=== PATIENT | female | born 1975 | race Caucasian/White ===

== ENCOUNTER 2016-09-27 19:53 | Emergency (ER) | payer BC, MEDICAID ==
[2016-09-27] MEDS ORDERED: DEXAMETHASONE 10 MG/ML VIAL PO STA (20:20)
[2016-09-27] MEDS ORDERED: ALBUTEROL NEB 2.5 MG/3 ML INH STA (20:20)
[2016-09-27] MEDS ORDERED: ALBUTEROL NEB 2.5 MG/3 ML INH ONE (20:25)
[2016-09-27] MEDS ORDERED: DEXAMETHASONE 10 MG/ML VIAL ONE (20:58)
[2016-09-27] MEDS ORDERED: LEVALBUTEROL 1.25 MG INH STA (22:11)
[2016-09-27] MEDS ORDERED: SODIUM CHLORIDE INHALATION 3 ML NEB ONE ×2 (22:21→22:31)
[2016-09-27] MEDS ORDERED: LEVALBUTEROL 1.25 MG INH ONE ×2 (22:21→22:28)
[2016-09-27] MEDS ORDERED: guaiFENesin/CODEINE 5 ML UDC PO STA (23:16)
[2016-09-27] MEDS ORDERED: BENZONATATE 100 MG CAPSULE PO STA (23:16)
[2016-09-27] MEDS ORDERED: OSELTAMIVIR 75 MG CAPSULE PO STA (23:17)
[2016-09-27] MEDS ORDERED: BENZONATATE 100 MG CAPSULE PO ONE (23:20)
[2016-09-27] MEDS ORDERED: guaiFENesin/CODEINE 5 ML UDC ONE (23:20)
[2016-09-27] MEDS ORDERED: OSELTAMIVIR 75 MG CAPSULE PO ONE (23:21)
== END 2016-09-28 00:22 | disposition home or self-care (01) ==
DX: J10.1 Influenza due to other identified influenza virus with other respiratory manifestations (principal); J45.909 Unspecified asthma, uncomplicated; I10 Essential (primary) hypertension; E11.9 Type 2 diabetes mellitus without complications; Z79.84 Long term (current) use of oral hypoglycemic drugs; M19.90 Unspecified osteoarthritis, unspecified site; Z87.891 Personal history of nicotine dependence
CPT/HCPCS: 71020; 87275; 87276; 94640; 99283; 99284; A9270; J7613

== ENCOUNTER 2017-03-30 15:18 | Emergency (ER) | payer MEDICAID ==
[2017-03-30 15:27] VITALS: BP 178/97
--- NOTE | 2017-03-30 15:46 | ED Physician Documentation ---
PD HPI SKIN - Stated complaint Stated Complaint: R LEG ITCHING - Chief complaint Chief Complaint: Wound - History obtained from History obtained from: Patient - History of Present Illness Timing - onset: How many days ago (3 or 4) Timing - details: Gradual onset Location: RLE Quality / character: Itchy, Discolored Contributing factors: Unknown Similar symptoms before: Diagnosis (She reports history of similar symptoms involving her abdominal pannus, requiring hospitalization 2 years ago for cellulitis.) - Additional information Additional information: The patient is a 41-year-old diabetic female who presents with a rash on her right leg that she first noticed 3 or 4 days ago, and it has been gradually increasing since that time. It is pruritic. She denies any injury to her leg. She denies fever. She is concerned about cellulitis, stating she was hospitalized 2 years ago with cellulitis involving her abdominal pannus. 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 : None HEENT: None Psych: Depression, Bipolar disorder, ADD/ADHD Musculoskeletal: Osteoarthritis Derm: None - Past Surgical History Past Surgical History: Yes /SANDER AND POLISHER: section - Present Medications Home Medications: Ambulatory Orders Medication Instructions Recorded Confirmed Cephalexin 500 mg PO TID #20 tablet 03/30/17 - Allergies Allergies/Adverse Reactions: Allergies Allergy/AdvReac Type Severity Reaction Status Date / Time phenobarbital Allergy Severe Anxiety Verified 03/30/17 15:46 phenytoin sodium extended * Allergy Intermediate Anxiety Verified 03/30/17 15:46 [From Dilantin] fluoxetine HCl * AdvReac Severe depression Verified 03/30/17 15:46 [From Prozac] - Social History Does the pt smoke?: No Smoking Status: Former smoker Does the pt drink ETOH?: Yes Does the pt have substance abuse?: No - Immunizations Immunizations are current?: Yes - POLST Patient has POLST: No PD ED PE NORMAL - Vitals Vital signs reviewed: Yes (Hypertensive.) - General General: Alert and oriented X 3, Well developed/nourished - HEENT HEENT: Atraumatic - Respiratory Respiratory: No respiratory distress - Abdomen Abdomen: Soft, Non tender - Derm Derm: Other - Extremities Extremities: No edema, No calf tenderness / cord - Neuro Neuro: Alert and oriented X 3, No motor deficit, Normal speech Results - Vitals Vitals: Oxygen O2 Source Room air - Labs Labs: Laboratory Tests 03/30/17 15:42 POC Whole Bld Glucose 154 H PD MEDICAL DECISION MAKING - ED course Complexity details: reviewed results, considered differential, d/w patient, d/w family ED course: The erythematous past on the patient's right leg may represent early cellulitis , although it is not by any means certain. Contact dermatitis is a distinct possibility, although the patient is not aware of any contact that would be out of the ordinary or be responsible for the rash. Treatment in the emergency department included administration of cephalexin 500 mg orally. Fingerstick blood sugar is slightly above normal at 154. She is being discharged with prescription for cephalexin. I discussed with her and her family the expected course of illness, outpatient treatment and follow-up, as well as potentially worrisome signs or symptoms that should prompt reevaluation in the emergency department. Departure - Departure Disposition: 01 Home, Self Care Clinical Impression: Localized rash Cellulitis Qualifiers: Site of cellulitis: extremity Site of cellulitis of extremity: lower extremity Laterality: right Qualified Code(s): L03.115 - Cellulitis of right lower limb Diabetes Qualifiers: Diabetes mellitus type: type 2 Diabetes mellitus complication status: without complication Diabetes mellitus halfway insulin use: without halfway use Qualified Code(s): E11.9 - Type 2 diabetes mellitus without complications Condition: Stable Instructions: ED Infec Skin Cellulitis Prescriptions: Cephalexin 500 mg PO TID #20 tablet Comments: Keep your right leg elevated as much the time as possible. Take cephalexin 3 times daily as prescribed. Eat probiotic while on antibiotic therapy. Follow-up with your primary physician within 2 weeks. Return to the emergency department if you develop increasing redness, swelling, pain, or otherwise worsening symptoms. Discharge Date/Time: 03/30/17 15:54
[2017-03-30] MEDS ORDERED: CEPHALEXIN 250 MG CAPSULE PO STA (15:49)
[2017-03-30] MEDS ORDERED: CEPHALEXIN 250 MG CAPSULE PO ONE (15:54)
== END 2017-03-30 15:54 | disposition home or self-care (01) ==
LOC: ED 15:18
DX: L03.115 Cellulitis of right lower limb (principal); R21 Rash and other nonspecific skin eruption; E11.9 Type 2 diabetes mellitus without complications; I10 Essential (primary) hypertension; J45.909 Unspecified asthma, uncomplicated; M19.90 Unspecified osteoarthritis, unspecified site; Z87.891 Personal history of nicotine dependence
CPT/HCPCS: 99282; 99283; A9270

== ENCOUNTER 2017-06-22 00:16 | Emergency (ER) | payer MEDICAID ==
[2017-06-22] MEDS ORDERED: AMOX/CLAV 875 MG/125 MG TABLET PO STA (00:31)
[2017-06-22] MEDS ORDERED: IBUPROFEN 600 MG TABLET PO STA (00:31)
[2017-06-22] MEDS ORDERED: ACETAMINOPHEN 500 MG TABLET PO STA (00:31)
--- NOTE | 2017-06-22 00:36 | ED Physician Documentation ---
PD HPI HEENT - Stated complaint Stated Complaint: DENTAL PAIN - Chief complaint Chief Complaint: Heent - History obtained from History obtained from: Patient - History of Present Illness Timing - onset: Today Timing - details: Gradual onset, Still present Location: Mouth Associated symptoms: No: Fever, Congestion, Unable to swallow Similar symptoms before: Work up / diagnostics, Treatment Recently seen: Not recently seen - Additional information Additional information: Patient is a 41 year old female with no significant past medical history who is presenting to the emergency department for tooth pain. patient states that it started yesterday and has become progressively worse. patient had poor dentition since she had a bad experience as a child, and hasn't been to the dentist in years. Review of Systems Constitutional: denies: Fever, Chills Eyes: denies: Loss of vision, Decreased vision Ears: denies: Ear pain, Drainage/discharge Nose: denies: Congestion Throat: reports: Dental pain / toothache. 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 : None HEENT: None Psych: Depression, Bipolar disorder, ADD/ADHD Musculoskeletal: Osteoarthritis Derm: None - Past Surgical History Past Surgical History: Yes /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: section - Present Medications Home Medications: Ambulatory Orders Medication Instructions Recorded Confirmed Amox/Clav 875/125 [Augmentin] 1 each PO Q12H #14 tablet 06/22/17 Chlorhexidine Gluconate 15 ml MM Q6H #473 ml 06/22/17 metFORMIN [Glucophage] 2 tab PO BID 06/22/17 06/22/17 - Allergies Allergies/Adverse Reactions: Allergies Allergy/AdvReac Type Severity Reaction Status Date / Time phenobarbital Allergy Severe Anxiety Verified 06/22/17 00:28 phenytoin sodium extended * Allergy Intermediate Anxiety Verified 06/22/17 00:28 [From Dilantin] fluoxetine HCl * AdvReac Severe depression Verified 06/22/17 00:28 [From Prozac] - Social History Does the pt smoke?: No Smoking Status: Former smoker Does the pt drink ETOH?: Yes Does the pt have substance abuse?: No - Immunizations Immunizations are current?: Yes - POLST Patient has POLST: No PD ED PE NORMAL - Vitals Vital signs reviewed: Yes - General General: Alert and oriented X 3 - HEENT HEENT: Atraumatic, Pharynx benign - Neck Neck: No adenopathy - Cardiac Cardiac: RRR, No murmur - Respiratory Respiratory: No respiratory distress - Abdomen Abdomen: Non distended - Derm Derm: Normal color, Warm and dry, No rash - Extremities Extremities: No deformity, No edema - Neuro Neuro: Alert and oriented X 3, No motor deficit, No sensory deficit, Normal speech PD ED PE EXPANDED - HEENT HEENT: Dental decay, Dental TTP, Dental abscess (no drainable abscess appreciated, but facial swelling and dental decay noted). No: Dental trauma - Psych Psych: Tearful Results - Vitals Vitals: Vital Signs - 24 hr 06/22/17 06/22/17 00:21 00:59 Temperature 98.7 C H 36.8 C Heart Rate 97 85 Respiratory 22 22 Rate Blood Pressure 204/123 H 185/74 H O2 Saturation 95 99 Oxygen O2 Source Room air PD MEDICAL DECISION MAKING - ED course Complexity details: reviewed old records, reviewed results, re-evaluated patient , considered differential, d/w patient ED course: Patient was seen and examined at bedside. Patient did have facial swelling and poor dentition but no drainable abscess. Patient was treated with augment, motrin and tylenol. patient required no imaging or further work up, and was stable for discharge with outpatient follow up. Departure - Departure Disposition: 01 Home, Self Care Clinical Impression: Pain due to dental caries Condition: Good Instructions: ED Dental Abscess Facial Cellulitis Follow-Up: Jeanie Suazo ARNP [Primary Care Provider] - Prescriptions: Amox/Clav 875/125 [Augmentin] 1 each PO Q12H #14 tablet Chlorhexidine Gluconate 15 ml MM Q6H #473 ml Comments: Your symptoms today are secondary to infection. You will be started on antibiotics, both in pill form and oral rinse. You will be on antibiotics for two weeks. Ultimately the only way to take of your issues is to see a dentist. You can take motrin or tylenol as needed for pain. You may return to the emergency department at any time for new, worsening or uncontrollable symptoms. Discharge Date/Time: 06/22/17 00:59
[2017-06-22] MEDS ORDERED: IBUPROFEN 600 MG TABLET PO ONE (00:41)
[2017-06-22] MEDS ORDERED: ACETAMINOPHEN 500 MG TABLET PO ONE (00:41)
[2017-06-22] MEDS ORDERED: AMOX/CLAV 875 MG/125 MG TABLET PO ONE (00:41)
[2017-06-22 01:01] VITALS: BP 185/74
== END 2017-06-22 00:59 | disposition home or self-care (01) ==
LOC: ED 00:16
DX: K08.89 Other specified disorders of teeth and supporting structures (principal); K02.9 Dental caries, unspecified; I10 Essential (primary) hypertension; J45.909 Unspecified asthma, uncomplicated; E11.9 Type 2 diabetes mellitus without complications; Z79.84 Long term (current) use of oral hypoglycemic drugs; G40.909 Epilepsy, unspecified, not intractable, without status epilepticus; M19.90 Unspecified osteoarthritis, unspecified site; Z87.891 Personal history of nicotine dependence
CPT/HCPCS: 99283; A9270

== ENCOUNTER 2017-12-11 09:58 | Outpatient (CLI) | payer OTHER, MEDICAID ==
[2017-12-11 10:20] LABS: BASOPHILS # (AUTO) 0.1 10^3/uL (0.0-0.1); BASOPHILS % (AUTO) 1.2 %; EOSINOPHILS # (AUTO) 0.2 10^3/uL (0.0-0.7); HGB - HEMOGLOBIN 11.5 g/dL (12.0-16.0); LYMPHOCYTES # (AUTO) 1.9 10^3/uL (1.5-3.5); LYMPHOCYTES % (AUTO) 31.6 %; MEAN CORPUSCULAR HEMOGLOBIN 23.7 pg (27.0-31.0); MEAN PLATELET VOLUME 8.5 fL (7.9-10.8); MONOCYTES # (AUTO) 0.4 10^3/uL (0.0-1.0); MONOCYTES % (AUTO) 6.7 %; NEUTROPHILS # (AUTO) 3.5 10^3/uL (1.5-6.6); NEUTROPHILS % (AUTO) 57.5 %; PLT - PLATELET COUNT 199 10^3/uL (130-450); RED BLOOD COUNT 4.84 10^6/uL (4.20-5.40); RED CELL DISTRIBUTION WIDTH 17.4 % (12.0-15.0); WHITE BLOOD COUNT 6.1 x10^3/uL (4.8-10.8)
[2017-12-11 10:43] LABS: ALBUMIN 3.5 g/dL (3.2-5.5); ALBUMIN/GLOBULIN RATIO 1.1 (1.0-2.2); ALKALINE PHOSPHATASE 59 IU/L (42-121); ALT ALANINE AMINOTRANSFERASE 22 IU/L (10-60); AST ASPARTATE AMINOTRANSFERASE 18 IU/L (10-42); BILIRUBIN,TOTAL 0.6 mg/dL (0.2-1.0); BUN - BLOOD UREA NITROGEN 11 mg/dL (6-20); CALCIUM 8.7 mg/dL (8.5-10.3); CARBON DIOXIDE - CO2 28 mmol/L (21-32); CHLORIDE 104 mmol/L (101-111); CHOL/HDL RATIO 3.9 (<4.4); CHOLESTEROL 121 mg/dL; CREATININE 0.7 mg/dL (0.4-1.0); GFR - MDRD 92 (>89); GLUCOSE 134 mg/dL (70-100); HDL CHOLESTEROL 31 mg/dL; LDL CHOLESTEROL,CALCULATED 70 mg/dL; LDL/HDL RATIO 2.3 (<4.4); SODIUM 140 mmol/L (135-145); TOTAL PROTEIN 6.6 g/dL (6.7-8.2); VLDL CHOLESTEROL 20 mg/dL
[2017-12-11 10:48] LABS: CREATININE,URINE 179.3 mg/dL; MICROALBUM/CREATININE RATIO,UR 4.5 ug/mg (<30.0); MICROALBUMIN,URINE 0.8 mg/dL (0-300.0)
[2017-12-11 10:54] LABS: HB2 TOTAL 12.4 g/dL; HEMOGLOBIN A1C 0.61 g/dL; HEMOGLOBIN A1C % 6.7 % (4.6-6.2)
== END 2017-12-11 09:59 | disposition home or self-care (01) ==
LOC: LAB 09:58
PROVIDERS: ATTEND Nurse Practitioner Family
DX: E11.9 Type 2 diabetes mellitus without complications (principal); I10 Essential (primary) hypertension; Z13.220 Encounter for screening for lipoid disorders
CPT/HCPCS: 36415; 80053; 80061; 82043; 82570; 83036; 83721; 84443; 85025

== ENCOUNTER 2018-05-21 10:37 | Outpatient (CLI) | payer MEDICAID ==
[2018-05-21 10:59] LABS: BASOPHILS % (AUTO) 0.7 %; EOSINOPHILS # (AUTO) 0.2 10^3/uL (0.0-0.7); EOSINOPHILS % (AUTO) 3.6 %; HGB - HEMOGLOBIN 11.8 g/dL (12.0-16.0); LYMPHOCYTES # (AUTO) 1.8 10^3/uL (1.5-3.5); LYMPHOCYTES % (AUTO) 26.8 %; MEAN CORPUSCULAR HEMOGLOBIN 24.3 pg (27.0-31.0); MEAN CORPUSCULAR VOLUME 73.8 fL (81.0-99.0); MEAN PLATELET VOLUME 8.8 fL (7.9-10.8); MONOCYTES # (AUTO) 0.5 10^3/uL (0.0-1.0); NEUTROPHILS # (AUTO) 4.2 10^3/uL (1.5-6.6); NEUTROPHILS % (AUTO) 61.9 %; PLT - PLATELET COUNT 218 10^3/uL (130-450); RED BLOOD COUNT 4.85 10^6/uL (4.20-5.40); RED CELL DISTRIBUTION WIDTH 17.5 % (12.0-15.0); WHITE BLOOD COUNT 6.8 x10^3/uL (4.8-10.8)
[2018-05-21 11:45] LABS: ALBUMIN 3.5 g/dL (3.2-5.5); ALKALINE PHOSPHATASE 63 IU/L (42-121); ALT ALANINE AMINOTRANSFERASE 20 IU/L (10-60); AST ASPARTATE AMINOTRANSFERASE 15 IU/L (10-42); BILIRUBIN,TOTAL < 0.2 mg/dL (0.2-1.0); BUN - BLOOD UREA NITROGEN 15 mg/dL (6-20); CALCIUM 8.7 mg/dL (8.5-10.3); CARBON DIOXIDE - CO2 28 mmol/L (21-32); CHLORIDE 103 mmol/L (101-111); CREATININE 0.7 mg/dL (0.4-1.0); CRP - C-REACTIVE PROTEIN 1.1 mg/dL (0-1.0); GFR - MDRD 91 (>89); GLUCOSE 174 mg/dL (70-100); SODIUM 139 mmol/L (135-145); TOTAL PROTEIN 7.1 g/dL (6.7-8.2); URIC ACID 5.5 mg/dL (2.6-7.2)
[2018-05-21 13:28] LABS: RHEUMATOID FACTOR NEGATIVE (Negative)
[2018-05-23 13:47] LABS: ANA SCREEN NEGATIVE (NEGATIVE)
== END 2018-05-21 10:38 | disposition home or self-care (01) ==
LOC: LAB 10:37
PROVIDERS: ATTEND Nurse Practitioner Family
DX: G89.29 Other chronic pain (principal)
CPT/HCPCS: 36415; 80053; 84550; 85025; 85651; 86038; 86140; 86430

== ENCOUNTER 2019-05-31 16:36 | Emergency (ER) | payer MEDICAID ==
[2019-05-31 16:46] VITALS: BP 186/91
--- NOTE | 2019-05-31 17:28 | ED Physician Documentation ---
History of Present Illness - Stated complaint Stated Complaint: BOIL - Chief complaint Chief Complaint: Wound - Additonal information Additional information: This is a 43-year-old female with asthma, T2DM who presents with a area of redness and swelling on her lower abdomen. Patient states that she noticed this today, although she has not checked her skin very thoroughly for a number of days, she does not know when it first started. She denies any trauma or injection in the area has any fever or chills. 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: None : None HEENT: None Psych: Depression, Bipolar disorder, ADD/ADHD Musculoskeletal: Osteoarthritis Derm: None - Past Surgical History Past Surgical History: Yes /DATA ANALYTICS CHIEF SCIENTIST: section - Present Medications Home Medications: Ambulatory Orders Medication Instructions Recorded Confirmed Amox/Clav 875/125 [Augmentin] 1 each PO Q12H #14 tablet 06/22/17 Chlorhexidine Gluconate 15 ml MM Q6H #473 ml 06/22/17 metFORMIN [Glucophage] 2 tab PO BID 06/22/17 06/22/17 Clindamycin HCl [Clindamycin 300MG 300 mg PO Q6H #28 capsule 05/31/19 CAP] - Allergies Allergies/Adverse Reactions: Allergies Allergy/AdvReac Type Severity Reaction Status Date / Time phenobarbital Allergy Severe Anxiety Verified 05/31/19 16:46 phenytoin sodium extended * Allergy Intermediate Anxiety Verified 05/31/19 16:46 [From Dilantin] fluoxetine HCl * AdvReac Severe depression Verified 05/31/19 16:46 [From Prozac] - Social History Does the pt smoke?: No Smoking Status: Former smoker Does the pt drink ETOH?: Yes Does the pt have substance abuse?: No - Immunizations Immunizations are current?: Yes - POLST Patient has POLST: No PD ED PE NORMAL - Vitals Vital signs reviewed: Yes - General General: Alert and oriented X 3, No acute distress - HEENT HEENT: PERRL - Neck Neck: Supple, no meningeal sign - Cardiac Cardiac: RRR - Respiratory Respiratory: No respiratory distress - Abdomen Abdomen: Other (Soft, obese, nontender. The upper portion of her pannus on the right side there is a 2 cm x 3 cm area of focal erythema, fluctuance, and tenderness. There is no spontaneous drainage. There is 2 cm of circumferential erythema extending up from this area.) - Derm Derm: Warm and dry - Extremities Extremities: No deformity - Neuro Neuro: Alert and oriented X 3 - Psych Psych: Normal mood, Normal affect Results - Vitals Vitals: Oxygen O2 Source Room air Procedures - Abscess I&D (location) Abdomen Preparation: Alcohol, Lidocaine 1% Incision: Incised with scalpel, Purulent drainage, Loculations broken Other: Pt tolerated well, Dressing applied, Antibiotic prescribed PD MEDICAL DECISION MAKING - ED course Complexity details: considered differential (Abscess, cellulitis) ED course: Patient is well-appearing, she has a localized obvious abscess on her abdomen. She has no signs of systemic toxicity or deep infection. Abscess was drained as noted above, clean bandage was applied, and wound care as well as return precautions and PCP follow up discussed. Antibiotics were prescribed given the surrounding erythema. Questions were answered and patient was discharged in good condition. Departure - Departure Disposition: 01 Home, Self Care Clinical Impression: Abscess Condition: Good Instructions: ED Abscess IandD Follow-Up: Your,PCP [Other] - Within 1 week Prescriptions: Clindamycin HCl [Clindamycin 300MG CAP] 300 mg PO Q6H #28 capsule Comments: You had an abscess or collection of pus on your abdomen. This is been drained, please keep a clean dressing over it. It will likely continue to ooze blood for the next several hours. You may clean it with clean water while you are in the shower, keep an eye out for signs of worsening infection such as redness expanding up your abdomen, or fever. If signs of worsening infection occur, please return to the emergency department. Please take your antibiotic as prescribed. Follow up with a primary care provider soon as possible to follow up on the wound and your chronic health issues. Discharge Date/Time: 05/31/19 18:14
[2019-05-31] MEDS ORDERED: BUFFERED LIDOCAINE 10 ML SYRINGE SUBQ STA (17:36)
== END 2019-05-31 18:14 | disposition home or self-care (01) ==
LOC: ED 16:36
DX: L02.211 Cutaneous abscess of abdominal wall (principal); I10 Essential (primary) hypertension; E11.9 Type 2 diabetes mellitus without complications; Z79.84 Long term (current) use of oral hypoglycemic drugs; Z87.891 Personal history of nicotine dependence
CPT/HCPCS: 10060

== ENCOUNTER 2019-06-06 00:37 | Emergency (ER) | payer MEDICAID ==
[2019-06-06] MEDS ORDERED: IPRATROPIUM/ALBUTEROL 3 ML NEB INH STA (00:48)
[2019-06-06] MEDS ORDERED: IPRATROPIUM/ALBUTEROL 3 ML NEB INH ONE (01:02)
--- NOTE | 2019-06-06 01:59 | ED Physician Documentation ---
PD HPI DYSPNEA - Stated complaint Stated Complaint: SOA/ASTHMA - Chief complaint Chief Complaint: Resp - History obtained from History obtained from: Patient - History of Present Illness Timing - onset: How many days ago (2-3) Timing - duration: Days Timing - details: Gradual onset, Waxing and waning Inciting event(s): URI Improved by: Rest Worsened by: Exertion Recently seen: Emergency Dept (T+R from this ED 05/31 (I+D of abscess; she says she has not "had the chance" to fill the prescribed antibiotic yet) - Additional information Additional information: c/o 2-3 days of sore throat, bilateral sinus congestion, 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 She says she has albuterol MDI which has provided inadequate relief of symptoms. She had a nebulizer but this is broken and unusuable. Review of Systems Constitutional: denies: Fever, Chills, Sweats Ears: denies: Ear pain Nose: reports: Rhinorrhea / runny nose, Congestion Throat: reports: Sore throat Cardiac: denies: Chest pain / pressure Respiratory: reports: Dyspnea, Cough, Wheezing. denies: Hemoptysis GI: reports: Reviewed and negative PD PAST MEDICAL HISTORY - Past Medical History Cardiovascular: Hypertension Respiratory: Asthma Endocrine/Autoimmune: Type 2 diabetes GI: None HOMEOWNER ASSOCIATION MANAGER: None : None HEENT: None Psych: Depression, Bipolar disorder, ADD/ADHD Musculoskeletal: Osteoarthritis Derm: None - Past Surgical History Past Surgical History: Yes /HOMEOWNER ASSOCIATION MANAGER: section - Present Medications Home Medications: Ambulatory Orders Medication Instructions Recorded Confirmed Amox/Clav 875/125 [Augmentin] 1 each PO Q12H #14 tablet 06/22/17 Chlorhexidine Gluconate 15 ml MM Q6H #473 ml 06/22/17 metFORMIN [Glucophage] 2 tab PO BID 06/22/17 06/22/17 Clindamycin HCl [Clindamycin 300MG 300 mg PO Q6H #28 capsule 05/31/19 CAP] Albuterol 2.5 mg INH Q4H PRN #30 neb 06/06/19 Nebulizer [Aeroneb Go Nebulizer] 1 each MC Q4HR #1 each 06/06/19 predniSONE [Prednisone] 40 mg PO DAILY 4 Days #8 tablet 06/06/19 - Allergies Allergies/Adverse Reactions: Allergies Allergy/AdvReac Type Severity Reaction Status Date / Time phenobarbital Allergy Severe Anxiety Verified 05/31/19 16:46 phenytoin sodium extended * Allergy Intermediate Anxiety Verified 05/31/19 16:46 [From Dilantin] fluoxetine HCl * AdvReac Severe depression Verified 05/31/19 16:46 [From Prozac] - Social History Does the pt smoke?: No Smoking Status: Never smoker Does the pt drink ETOH?: Yes Does the pt have substance abuse?: No - Immunizations Immunizations are current?: Yes - POLST Patient has POLST: No PD ED PE NORMAL - Vitals Vital signs reviewed: Yes - General General: Alert and oriented X 3, No acute distress, Well developed/nourished, Other (nasal voice c/w sinus congestion) - HEENT HEENT: Ears normal, Moist mucous membranes, Pharynx benign - Neck Neck: Supple, no meningeal sign - Cardiac Cardiac: RRR, No murmur - Respiratory Respiratory: No respiratory distress, Clear bilaterally Results - Vitals Vitals: Vital Signs - 24 hr 06/06/19 06/06/19 06/06/19 00:43 01:18 02:04 Temperature 36.8 C Heart Rate 97 105 H 108 H Respiratory 26 H 24 22 Rate Blood Pressure 180/104 H 163/103 H O2 Saturation 97 99 06/06/19 06/06/19 02:47 03:01 Temperature 36.8 C Heart Rate 83 88 Respiratory 20 20 Rate Blood Pressure 126/72 O2 Saturation 100 Oxygen O2 Source Room air PD MEDICAL DECISION MAKING - ED course Complexity details: reviewed old records, considered differential, d/w patient ED course: bronchospastic cough during H+P, but no wheezing on lung exam and good air movement. She says she has responded well to PO steroids in the past and prednisone given in ED and rx provided. Her H+P is s/o URI with asthma exacerbation. No elements of history or exam suggest need for testing nor a ntibiotic tx., but I encouraged her to fill the rx provided on her recent ED visit to cover for the infection for which it was prescribed. Departure - Departure Disposition: 01 Home, Self Care Clinical Impression: Upper respiratory infection Asthma exacerbation Qualifiers: Asthma severity: moderate Asthma persistence: unspecified Qualified Code(s): J45.901 - Unspecified asthma with (acute) exacerbation Condition: Good Instructions: ED Reactive Airway Disease, ED Upper Resp Infec No Abx Tx Prescriptions: Nebulizer [Aeroneb Go Nebulizer] 1 each MC Q4HR #1 each Albuterol 2.5 mg INH Q4H PRN #30 neb PRN Reason: Wheezing predniSONE [Prednisone] 40 mg PO DAILY 4 Days #8 tablet Discharge Date/Time: 06/06/19 03:06
[2019-06-06] MEDS ORDERED: ALBUTEROL NEB 2.5 MG/3 ML INH STA (02:36)
[2019-06-06] MEDS ORDERED: predniSONE 20 MG TABLET PO STA (02:36)
[2019-06-06 03:06] VITALS: BP 126/72
== END 2019-06-06 03:06 | disposition home or self-care (01) ==
LOC: ED 00:37
DX: J06.9 Acute upper respiratory infection, unspecified (principal); J45.901 Unspecified asthma with (acute) exacerbation; I10 Essential (primary) hypertension; E11.9 Type 2 diabetes mellitus without complications; Z79.84 Long term (current) use of oral hypoglycemic drugs
CPT/HCPCS: 94640; 99283; 99284; J7512

== ENCOUNTER 2019-12-14 18:49 | Emergency (ER) | payer MEDICAID ==
[2019-12-14] MEDS ORDERED: IPRATROPIUM/ALBUTEROL 3 ML NEB INH STA (18:57)
--- NOTE | 2019-12-14 19:08 | ED Physician Documentation ---
PD HPI DYSPNEA - Stated complaint Stated Complaint: DIFFICULTY BREATHING - ASTHMATIC - Chief complaint Chief Complaint: Resp - History obtained from History obtained from: Patient - History of Present Illness Timing - onset: Today (43-year-old woman with history of asthma. She has been hospitalized in the distant past. Her primary care physician retired and she has not been following up lately. Her dog ate her nebulizer and rescue inhaler today which caused a flare of her asthma. She has a cough but it is nonproductive. No fevers. She also notes that she has not been taking her metformin or her blood pressure medication because she is out of those 2.) Review of Systems Constitutional: denies: Fever, Chills Throat: denies: Dental pain / toothache, Sore throat PD PAST MEDICAL HISTORY - Past Medical History Cardiovascular: Hypertension Respiratory: Asthma Endocrine/Autoimmune: Type 2 diabetes GI: None STRAP BUCKLER MACHINE: None : None HEENT: None Psych: Depression, Bipolar disorder, ADD/ADHD Musculoskeletal: Osteoarthritis Derm: None - Past Surgical History Past Surgical History: Yes /STRAP BUCKLER MACHINE: section - Present Medications Home Medications: Ambulatory Orders Medication Instructions Recorded Confirmed Amox/Clav 875/125 [Augmentin] 1 each PO Q12H #14 tablet 06/22/17 Chlorhexidine Gluconate 15 ml MM Q6H #473 ml 06/22/17 metFORMIN [Glucophage] 2 tab PO BID 06/22/17 06/22/17 Clindamycin HCl [Clindamycin 300MG 300 mg PO Q6H #28 capsule 05/31/19 CAP] Albuterol 2.5 mg INH Q4H PRN #30 neb 06/06/19 Nebulizer [Aeroneb Go Nebulizer] 1 each MC Q4HR #1 each 06/06/19 predniSONE [Prednisone] 40 mg PO DAILY 4 Days #8 tablet 06/06/19 Albuterol Sulf [Ventolin Hfa 1 - 2 puffs INH Q4HR PRN #1 inhaler 12/14/19 Inhaler] Fluticasone/Salmeterol [Advair 1 each IH BID #3 blst.w.dev 12/14/19 250-50 Diskus] Ipratropium/Albuterol [Duoneb] 3 ml INH Q6H #3 % 12/14/19 Lisinopril [Prinivil] 10 mg PO DAILY #90 tablet 12/14/19 Metformin HCl 500 mg PO BID #120 tablet 12/14/19 - Allergies Allergies/Adverse Reactions: Allergies Allergy/AdvReac Type Severity Reaction Status Date / Time phenobarbital Allergy Severe Anxiety Verified 12/14/19 18:53 phenytoin sodium extended * Allergy Intermediate Anxiety Verified 12/14/19 18:53 [From Dilantin] fluoxetine HCl * AdvReac Severe depression Verified 12/14/19 18:53 [From Prozac] - Social History Does the pt smoke?: Yes Smoking Status: Current every day smoker Does the pt drink ETOH?: Yes Does the pt have substance abuse?: No - Immunizations Immunizations are current?: Yes - POLST Patient has POLST: No PD ED PE NORMAL - Vitals Vital signs reviewed: Yes - General General: Alert and oriented X 3, No acute distress - HEENT HEENT: PERRL, EOMI - Cardiac Cardiac: RRR, No murmur - Respiratory Respiratory: No respiratory distress, Other (Mild expiratory wheezing, nonla bored) - Abdomen Abdomen: Non tender - Extremities Extremities: No edema, No calf tenderness / cord - Neuro Neuro: Alert and oriented X 3, Normal speech Results - Vitals Vitals: Vital Signs - 24 hr 12/14/19 12/14/19 12/14/19 18:53 19:05 19:33 Temperature 36.5 C 37.1 C Heart Rate 89 82 90 Respiratory 22 20 27 H Rate Blood Pressure 185/100 H 143/95 H O2 Saturation 96 96 12/14/19 19:40 Temperature Heart Rate 88 Respiratory 20 Rate Blood Pressure O2 Saturation Oxygen O2 Source Room air - Labs Labs: Laboratory Tests 12/14/19 19:15 POC Whole Bld Glucose 138 H PD MEDICAL DECISION MAKING - ED course ED course: 43-year-old woman presents with asthma exacerbation to lack of her inhaler and nebulizer. She improved significantly after a DuoNeb. Although she did not look too bad to start with. She was given another albuterol for the road and prednisone for tonight. I did not think it was worth giving her the full course of steroids since she is diabetic but I wanted to give her something to get her through the night since the pharmacies are closed until she can go in the morning. In addition to the prescriptions written through the electronic medical record she was also given a prescription for a nebulizer on a handwritten prescription. 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 mellitus terminal press operator insulin use: without chcf use Diabetes mellitus complication status: with hyperglycemia Qualified Code(s): E11.65 - Type 2 diabetes mellitus with hyperglycemia Condition: Good Record reviewed to determine appropriate education?: Yes Instructions: Diabetes Type 2 Coping, Asthma Dc, Metabolic Syndrome Losing Excess Weight, ED Hypertension Conf Out Of Control Follow-Up: [facility] [Provider Group] [facility] [Provider Group] Prescriptions: Albuterol Sulf [Ventolin Hfa Inhaler] 1 - 2 puffs INH Q4HR PRN #1 inhaler PRN Reason: Shortness Of Air/Wheezing Fluticasone/Salmeterol [Advair 250-50 Diskus] 1 each IH BID #3 blst.w.dev Ipratropium/Albuterol [Duoneb] 3 ml INH Q6H #3 % Lisinopril [Prinivil] 10 mg PO DAILY #90 tablet Metformin HCl 500 mg PO BID #120 tablet Comments: Is important to reestablish with primary care. Return for new or worsening symptoms. Try to quit smoking. Discharge Date/Time: 12/14/19 19:49
[2019-12-14] MEDS ORDERED: predniSONE 20 MG TABLET PO STA (19:25)
[2019-12-14] MEDS ORDERED: ALBUTEROL NEB 2.5 MG/3 ML INH STA (19:25)
[2019-12-14 19:33] VITALS: BP 143/95
== END 2019-12-14 19:49 | disposition home or self-care (01) ==
LOC: ED 18:49
DX: J45.41 Moderate persistent asthma with (acute) exacerbation (principal); E11.65 Type 2 diabetes mellitus with hyperglycemia; T38.3X6A Underdosing of insulin and oral hypoglycemic [antidiabetic] drugs, initial encounter; I10 Essential (primary) hypertension; T46.4X6A Underdosing of angiotensin-converting-enzyme inhibitors, initial encounter; Y92.9 Unspecified place or not applicable; F90.9 Attention-deficit hyperactivity disorder, unspecified type; F17.200 Nicotine dependence, unspecified, uncomplicated; Z79.51 Long term (current) use of inhaled steroids; Z79.84 Long term (current) use of oral hypoglycemic drugs; Z79.52 Long term (current) use of systemic steroids
CPT/HCPCS: 94640; 99284; J7512

== ENCOUNTER 2020-10-21 12:58 | Emergency (ER) | payer MEDICAID ==
[2020-10-21 13:10] VITALS: BP 184/96
--- NOTE | 2020-10-21 13:22 | ED Physician Documentation ---
History of Present Illness - Stated complaint Stated Complaint: HEADACHE - Chief complaint Chief Complaint: General - History obtained from History obtained from: Patient - Additonal information Additional information: 44-year-old female presents the emergency department for evaluation of a headache. She reports that yesterday evening a jar of prurigo tomato sauce fell from the cupboard striking the left side of her head. She did not lose consciousness. Since then she has had a left-sided headache and reports blurry vision. No vomiting. No history of head injury. She felt like she was doing okay but her boyfriend requested that she come to the ER for further evaluation. Patient is not anticoagulated. Review of Systems Constitutional: denies: Fever, Chills Eyes: reports: Other (blurry vision). denies: Loss of vision, Photophobia Ears: denies: Ear pain, Drainage/discharge Nose: reports: Reviewed and negative Throat: reports: Reviewed and negative Cardiac: reports: Reviewed and negative Respiratory: reports: Reviewed and negative GI: reports: Reviewed and negative : reports: Reviewed and negative Skin: reports: Reviewed and negative Musculoskeletal: reports: Reviewed and negative Neurologic: reports: Headache, Head injury. 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 : None HEENT: None Psych: Depression, Bipolar disorder, ADD/ADHD Musculoskeletal: Osteoarthritis Derm: None - Past Surgical History Past Surgical History: Yes /MERCHANDISE FLOW TEAM LEADER: section - Present Medications Home Medications: Ambulatory Orders Medication Instructions Recorded Confirmed Albuterol Sulf [Ventolin Hfa 1 - 2 puffs INH Q4HR PRN #1 inhaler 12/14/19 10/21/20 Inhaler] Lisinopril [Prinivil] 10 mg PO DAILY #90 tablet 12/14/19 10/21/20 Metformin HCl 500 mg PO BID #120 tablet 12/14/19 10/21/20 - Allergies Allergies/Adverse Reactions: Allergies Allergy/AdvReac Type Severity Reaction Status Date / Time phenobarbital Allergy Severe Anxiety Verified 10/21/20 13:15 phenytoin sodium extended * Allergy Intermediate Anxiety Verified 10/21/20 13:15 [From Dilantin] fluoxetine HCl * AdvReac Severe depression Verified 10/21/20 13:15 [From Prozac] - Social History Does the pt smoke?: Yes Smoking Status: Current every day smoker Does the pt drink ETOH?: Yes Does the pt have substance abuse?: No - Immunizations Immunizations are current?: Yes - POLST Patient has POLST: No PD ED PE EXPANDED - General General: Alert, No acute distress, Well developed/nourished, Other (obese) - HEENT HEENT: Atraumatic, PERRL, EOMI, Ears normal, Dental decay, Other (mild tenderness left parietal scalp without hematoma. Negative raccoon's and zarate sign) - Eyes Eyes: PERRL, Normal accommodation, EOMI - Neck Neck: Supple w/out meningeal sx, Adenopathy - Cardiac Cardiac: Regular Rate, Radial strong equal, Cap refill < 2 sec - Respiratory Respiratory: Clear to ausultation codi. No: Distress, Labored - Abdomen Abdomen: Normal Bowel sounds, Tender to palpation - Neuro Neuro: Alert and Oriented X 3, CNII-XII intact, Cerebellar nl, Normal gait, Normal finger nose, Normal speech - GCS Eye Opening: Spontaneous Motor: Obeys Commands Verbal: Oriented Total: 15 Results - Vitals Vitals: Vital Signs - 24 hr 10/21/20 13:03 Temperature 36.7 C Heart Rate 83 Respiratory 18 Rate Blood Pressure 184/96 H O2 Saturation 92 Oxygen O2 Source Room air PD MEDICAL DECISION MAKING - ED course Complexity details: reviewed results, re-evaluated patient, considered differential, d/w patient ED course: 44-year-old female presents emergency department for evaluation of a headache after a jar of tomato sauce fell out of the cupboard last night striking her on the left side of the head. There was no loss of consciousness. She has had a dull persistent headache since with some reported blurry vision. She has a normal non focal neurological exam and normal cerebellar exam. We discussed that the likelihood of any significant closed head injury that would include bleeding or edema was extremely low. Patient does not meet the Crowley CT head injury criteria. I discussed that headache and blurry vision is common consequence of mild concussion. Discussed avoidance of TV cell phone and screen time if able. Recommend continuation of Tylenol or naproxen for headache. Patient is to return if she develops sudden severe headache, uncontrolled vomiting or any worsening symptoms. Departure - Departure Disposition: 01 Home, Self Care Clinical Impression: Headache Qualifiers: Headache type: post-traumatic Headache chronicity pattern: acute headache Intractability: not intractable Qualified Code(s): G44.319 - Acute post- traumatic headache, not intractable Concussion Qualifiers: Encounter type: initial encounter Loss of consciousness presence/duration: without LOC Qualified Code(s): S06.0X0A - Concussion without loss of consciousness, initial encounter Condition: Stable Record reviewed to determine appropriate education?: Yes Instructions: Brain Injury Mild Traum Concussion Comments: You are seen today for a headache after which are tomato sauce it you in the head. You most likely have a concussion causing the headache and blurry vision. However as we discussed the likelihood of any clinically significant brain injury such as bleeding or bruising is very low. Headaches and blurry vision are common after concussions. I do recommend that you allow your brain to get as much rest as you can. I would recommend Tylenol or naproxen for the headaches and stay well-hydrated. Please avoid screen time if you are able. Return to the emergency department if you develop uncontrolled vomiting or nausea, develop a suddenly severe worst of headache life, feel weak lethargic or have any focal weakness in your arms or legs. Discharge Date/Time: 10/21/20 13:40
== END 2020-10-21 13:40 | disposition home or self-care (01) ==
LOC: ED 12:58
DX: S06.0X0A Concussion without loss of consciousness, initial encounter (principal); W20.8XXA Other cause of strike by thrown, projected or falling object, initial encounter; I10 Essential (primary) hypertension; E11.9 Type 2 diabetes mellitus without complications; Z79.84 Long term (current) use of oral hypoglycemic drugs; F17.200 Nicotine dependence, unspecified, uncomplicated
CPT/HCPCS: 99281; 99284

== ENCOUNTER 2021-01-10 21:47 | Emergency (ER) | payer MEDICAID ==
--- OUTSIDE RECORDS SUMMARY | 2021-01-10 21:50 | EXTERNAL MEDICAL SUMMARY RPT | Continuity of Care Document ---
:1975 Demographics Phone Unavailable Preferred Language Unknown Marital Status Unknown Druze Affiliation Unknown Race Unknown Ethnic Group Unknown Author Organization [facility] Address [address] [phone] Phone Allergies Encounters Medications Problems Results
--- OUTSIDE RECORDS SUMMARY | 2021-01-10 21:52 | EXTERNAL MEDICAL SUMMARY RPT | Continuity of Care Document ---
:1975 Demographics Phone Unavailable Preferred Language Unknown Marital Status Unknown Denominational Affiliation Unknown Race Unknown Ethnic Group Unknown Author Organization [facility] Address [address] [phone] Phone Allergies Encounters Medications Problems Results
[2021-01-10] MEDS ORDERED: diphenhydrAMINE INJ 50 MG/ML VIAL IM STA (22:07)
[2021-01-10] MEDS ORDERED: DEXAMETHASONE 10 MG/ML VIAL PO STA (22:08)
[2021-01-10] MEDS ORDERED: CHERRY SYRUP 10 ML UDC PO ONE (22:08)
--- NOTE | 2021-01-10 22:58 | ED Physician Documentation ---
PD HPI SKIN - Stated complaint Stated Complaint: ALLERGIC REACTION - Chief complaint Chief Complaint: Allergic Rx - History obtained from History obtained from: Patient - Additional information Additional information: , [id number] woman with history of multiple allergies presents with facial swelling, rash and itching after using new make-up wipes this evening. She took Zyrtec without relief and then came to the emergency department. She does endorse some throat tightening but no shortness of breath, nausea, lightheadedness, headache, vision changes, chest pain. No rash anywhere else. Review of Systems Ten Systems: 10 systems reviewed and negative Constitutional: denies: Fever Cardiac: denies: Chest pain / pressure Respiratory: denies: Dyspnea, Cough, Wheezing GI: denies: Nausea, Vomiting Skin: reports: Rash PD PAST MEDICAL HISTORY - Past Medical History Past Medical History: Yes Cardiovascular: Hypertension Respiratory: Asthma Neuro: None Endocrine/Autoimmune: Type 2 diabetes GI: None RN RENAL: None : None HEENT: None Psych: Depression, Bipolar disorder, ADD/ADHD Musculoskeletal: Osteoarthritis Derm: None - Past Surgical History Past Surgical History: Yes /RN RENAL: section - Allergies Allergies/Adverse Reactions: Allergies Allergy/AdvReac Type Severity Reaction Status Date / Time phenobarbital Allergy Severe Anxiety Verified 01/10/21 21:50 phenytoin sodium extended * Allergy Intermediate Anxiety Verified 01/10/21 21:50 [From Dilantin] fluoxetine HCl * AdvReac Severe depression Verified 01/10/21 21:50 [From Prozac] - Social History Does the pt smoke?: Yes Smoking Status: Current every day smoker Does the pt drink ETOH?: Yes Does the pt have substance abuse?: No - Immunizations Immunizations are current?: Yes - POLST Patient has POLST: No PD ED PE NORMAL - Vitals Vital signs reviewed: Yes - General General: Alert and oriented X 3, No acute distress, Well developed/nourished - HEENT HEENT: Atraumatic, PERRL, EOMI, Moist mucous membranes, Pharynx benign, Other (Normal transmitted upper airway sounds on neck auscultation) - Neck Neck: Supple, no meningeal sign - Cardiac Cardiac: RRR - Respiratory Respiratory: No respiratory distress, Clear bilaterally - Derm Derm: Other (Erythematous rash to upper and lower face with mild periorbital swelling.) - Extremities Extremities: No deformity - Neuro Neuro: Alert and oriented X 3 - Psych Psych: Normal mood, Normal affect Results - Vitals Vitals: Vital Signs - 24 hr 01/10/21 01/10/21 21:50 23:05 Temperature 36.5 C 37.2 C Heart Rate 90 89 Respiratory 20 18 Rate Blood Pressure 180/100 H 164/84 H O2 Saturation 97 100 Oxygen O2 Source Room air PD MEDICAL DECISION MAKING - ED course ED course: Symptoms resolved after Benadryl. Patient would like to go home. Return precautions given. She will follow up with a primary doctor for referral to allergy and immunology. Departure - Departure Disposition: Home, Self Care Clinical Impression: Allergic reaction, Facial rash Condition: Good Instructions: ED Allergic Reaction Local Other Follow-Up: Justice Pennington MD [Physician No Access] - LIGIA JEAN BAPTISTE, MSN, TWISTING OPERATOR [Credentialed Staff Provider] - Ashlee Barrett PA-C [Physician No Access] - Aroldo Coffman MD [Physician No Access] - Comments: You were seen in the emergency department for an allergic reaction. You will need to follow-up with your primary doctor to establish care. I am providing you with a couple of options, and you can also follow-up with the [facility] walk-in clinic if you are unable to get an appointment right away. Dr. Coffman is an allergy airport skilled maintenance supervisor in [place] that you can see for further evaluation of your allergies. [facility] [address]. Closed Opens tomorrow 7:30 AM [address] [place] [address] Discharge Date/Time: 01/10/21 23:06
[2021-01-10 23:06] VITALS: BP 164/84
== END 2021-01-10 23:06 | disposition home or self-care (01) ==
LOC: ED 21:47
DX: L23.2 Allergic contact dermatitis due to cosmetics (principal); I10 Essential (primary) hypertension; E11.9 Type 2 diabetes mellitus without complications; F17.200 Nicotine dependence, unspecified, uncomplicated
CPT/HCPCS: 99283; 99284; A9270; J1200

== ENCOUNTER 2021-02-02 18:58 | Emergency (ER) | payer MEDICAID ==
[2021-02-02] MEDS ORDERED: BUFFERED LIDOCAINE 10 ML SYRINGE SUBQ STA (19:32)
--- NOTE | 2021-02-02 19:32 | ED Physician Documentation ---
History of Present Illness - Stated complaint Stated Complaint: LEG ABCESS - Chief complaint Chief Complaint: Wound - Additonal information Additional information: 45-year-old female presents emergency department for evaluation of an abscess on her lower abdomen under her pannus that began yesterday. She first noticed it in the shower. She thinks that she may have gotten too hot and moist with the recent heat wave. She has had no fevers. No abdominal pain nausea or vomiting. No dysuria. She is a diabetic but has not taken any diabetes meds for nearly 1 year as she had a lapse in her insurance. Patient has had skin abscess in the past typically under her pannus. Review of Systems Constitutional: denies: Fever Eyes: reports: Reviewed and negative Nose: reports: Reviewed and negative Throat: reports: Reviewed and negative Cardiac: reports: Reviewed and negative Respiratory: reports: Reviewed and negative GI: reports: Reviewed and negative : reports: Reviewed and negative Skin: reports: Other (abscess right lower pannus) Musculoskeletal: reports: Reviewed and negative PD PAST MEDICAL HISTORY - Past Medical History Past Medical History: Yes Cardiovascular: Hypertension Respiratory: Asthma Neuro: None Endocrine/Autoimmune: Type 2 diabetes GI: None INTERVENTIONAL PAIN PHYSICIAN: None : None HEENT: None Psych: Depression, Bipolar disorder, ADD/ADHD Musculoskeletal: Osteoarthritis Derm: None - Past Surgical History Past Surgical History: Yes /INTERVENTIONAL PAIN PHYSICIAN: section - Present Medications Home Medications: Ambulatory Orders Medication Instructions Recorded Confirmed Nystatin [Nystop] 1 applic TOP BID #15 gm 02/02/21 Sulfamethox/Trimeth 800/160 1 each PO BID #14 tablet 02/02/21 [Bactrim Ds 800/160] metFORMIN [Glucophage] 500 mg PO BIDWM #60 tablet 02/02/21 - Allergies Allergies/Adverse Reactions: Allergies Allergy/AdvReac Type Severity Reaction Status Date / Time phenobarbital Allergy Severe Anxiety Verified 02/02/21 19:18 phenytoin sodium extended * Allergy Intermediate Anxiety Verified 02/02/21 19:18 [From Dilantin] fluoxetine HCl * AdvReac Severe depression Verified 02/02/21 19:18 [From Prozac] - Social History Does the pt smoke?: Yes Smoking Status: Current every day smoker Does the pt drink ETOH?: Yes Does the pt have substance abuse?: No - Immunizations Immunizations are current?: Yes - POLST Patient has POLST: No PD ED PE EXPANDED - General General: Alert, No acute distress, Other (morbidely obese) - Cardiac Cardiac: Regular Rate, Radial strong equal, Pedal strong equal, Cap refill < 2 sec - Respiratory Respiratory: Clear to ausultation codi. No: Distress, Labored - Abdomen Abdomen: Normal Bowel sounds. No: Tender to palpation - Derm Derm: Other (Patient with a very large pannus and abdominal apron secondary to obesity. There are chronic skin changes and a yeast dermatitis present under most of the pannus. There is a focal area of abscess collection measuring 2 x 3 cm in the right lower side with some purulent serous drainage noted.) - Neuro Neuro: Alert and Oriented X 3, CNII-XII intact - GCS Eye Opening: Spontaneous Motor: Obeys Commands Verbal: Oriented Total: 15 Results - Vitals Vitals: Vital Signs - 24 hr 02/02/21 02/02/21 19:11 19:41 Temperature 37.0 C Heart Rate 93 Respiratory 16 15 Rate Blood Pressure 186/94 H O2 Saturation 95 Oxygen O2 Source Room air - Labs Labs: Laboratory Tests 02/02/21 02/02/21 19:39 19:39 WBC 7.2 RBC 5.59 H Hgb 12.9 Hct 43.2 MCV 77.3 L MCH 23.1 L MCHC 29.9 L RDW 18.1 H Plt Count 213 MPV 11.4 H Neut # (Auto) 4.7 Lymph # (Auto) 1.6 Thayer # (Auto) 0.6 Eos # (Auto) 0.4 Baso # (Auto) 0.0 Absolute Nucleated RBC 0.00 Nucleated RBC % 0.0 Sodium 134 L Potassium 3.8 Chloride 97 L Carbon Dioxide 29 Anion Gap 8.0 BUN 13 Creatinine 0.8 Estimated GFR (MDRD) 77 L Glucose 249 H Calcium 8.5 Total Bilirubin 0.7 AST 14 ALT 21 Alkaline Phosphatase 67 Total Protein 6.7 Albumin 3.6 Globulin 3.1 Albumin/Globulin Ratio 1.2 Lipase 32 Procedures - Abscess I&D (location) lowr abdomen Preparation: Betadine Incision: Incised with scalpel, Purulent drainage, Loculations broken, Packed Other: Pt tolerated well, Dressing applied, Antibiotic prescribed PD MEDICAL DECISION MAKING - ED course Complexity details: reviewed results, re-evaluated patient, d/w patient ED course: This is a 45-year-old morbidly obese diabetic female that presents the emergency department for evaluation and treatment of an abscess on her pannus/abdominal apron. She first noted it yesterday. The abscess measures approximately 2 x 3 cm and there is a 4 cm area of surrounding erythema which was outlined. We were able to drain the abscess at bedside and it was packed. She does have fairly extensive dermatitis under her pannus most consistent with a yeast dermatitis. I will recommend nystatin powder for this. Clinically patient does not present as having necrotizing fasciitis. Screening labs show no leukocytosis. She is diabetic and has not taken her diabetes meds for almost 1 year as she lacked insurance and a primary care provider. She was previously on Metformin I will restart that 500 mg twice daily. Recommend close follow-up. Given [facility] to establish care. Recommend return to the ER tomorrow for dressing change or at any urgent care. Departure - Departure Disposition: 01 Home, Self Care Clinical Impression: Abdominal abscess, Poorly controlled diabetes mellitus, Yeast dermatitis Condition: Stable Record reviewed to determine appropriate education?: Yes Follow-Up: [facility] [Provider Group] Prescriptions: Sulfamethox/Trimeth 800/160 [Bactrim Ds 800/160] 1 each PO BID #14 tablet metFORMIN [Glucophage] 500 mg PO BIDWM #60 tablet Nystatin [Nystop] 1 applic TOP BID #15 gm Comments: Ene you did have an abscess on your lower abdomen. This was drained today at the bedside. Your first dose of antibiotics was given tonight in the ER. Please fill the prescription tomorrow and begin taking as directed. Your packing should be removed in about 24 hours. You can return to the emergency department or any urgent care to have this done. I have reordered metformin for you to begin taking twice daily. It is important that you establish with a primary care doctor to get long-term treatment of your diabetes. The redness and skin changes under your skin folds is something called yeast dermatitis. It is very common in warm hot wet moist areas. Please wash daily with warm soap and water dry as thoroughly as possible and then apply liberal layers of the nystatin powder. Please return to the emergency department if you develop fevers have concerns of worsening infection.
[2021-02-02 19:44] LABS: BASOPHILS % (AUTO) 0.4 %; EOSINOPHILS # (AUTO) 0.4 10^3/uL (0.0-0.7); EOSINOPHILS % (AUTO) 5.1 %; HCT - HEMATOCRIT 43.2 % (37.0-47.0); HGB - HEMOGLOBIN 12.9 g/dL (12.0-16.0); LYMPHOCYTES # (AUTO) 1.6 10^3/uL (1.5-3.5); LYMPHOCYTES % (AUTO) 21.7 %; MEAN CORPUSCULAR HEMOGLOBIN 23.1 pg (27.0-31.0); MEAN CORPUSCULAR HGB CONC 29.9 g/dL (32.0-36.0); MEAN CORPUSCULAR VOLUME 77.3 fL (81.0-99.0); MEAN PLATELET VOLUME 11.4 fL (7.9-10.8); MONOCYTES # (AUTO) 0.6 10^3/uL (0.0-1.0); MONOCYTES % (AUTO) 7.8 %; NEUTROPHILS # (AUTO) 4.7 10^3/uL (1.5-6.6); NEUTROPHILS % (AUTO) 64.7 %; PLT - PLATELET COUNT 213 10^3/uL (130-450); RED BLOOD COUNT 5.59 10^6/uL (4.20-5.40); RED CELL DISTRIBUTION WIDTH 18.1 % (12.0-15.0); WHITE BLOOD COUNT 7.2 x10^3/uL (4.8-10.8)
[2021-02-02 19:57] LABS: ALBUMIN 3.6 g/dL (3.2-5.5); ALBUMIN/GLOBULIN RATIO 1.2 (1.0-2.2); BILIRUBIN,TOTAL 0.7 mg/dL (0.2-1.0); CALCIUM 8.5 mg/dL (8.5-10.3); CREATININE 0.8 mg/dL (0.4-1.0); POTASSIUM 3.8 mmol/L (3.5-5.0); TOTAL PROTEIN 6.7 g/dL (6.7-8.2)
[2021-02-02] MEDS ORDERED: SULFAMETH/TRIMETH DS 800/160 MG TABLET PO STA (20:12)
[2021-02-02 20:30] VITALS: BP 188/90
== END 2021-02-02 20:28 | disposition home or self-care (01) ==
LOC: ED 18:58
DX: L02.211 Cutaneous abscess of abdominal wall (principal); B37.2 Candidiasis of skin and nail; E11.65 Type 2 diabetes mellitus with hyperglycemia; E66.01 Morbid (severe) obesity due to excess calories; I10 Essential (primary) hypertension; F17.200 Nicotine dependence, unspecified, uncomplicated
CPT/HCPCS: 10061; 36415; 80053; 83690; 85025

== ENCOUNTER 2021-02-03 19:30 | Emergency (ER) | payer MEDICAID ==
--- NOTE | 2021-02-03 22:25 | ED Physician Documentation ---
History of Present Illness - Stated complaint Stated Complaint: WOUND CARE/STOMACH - Chief complaint Chief Complaint: Wound - Additonal information Additional information: 45-year-old female return to the ER to have her abscess packing removed. She was seen by me yesterday and she did have an abscess on the lower portion of her right pannus. It was drained and a fair amount of packing was placed. She was placed on Bactrim. She has filled the prescription for the antibiotics and reports that her pain is markedly improved. The outlined area of erythema is also markedly improved. She has had no fevers Review of Systems Constitutional: reports: Reviewed and negative Eyes: reports: Reviewed and negative Nose: reports: Reviewed and negative Throat: reports: Reviewed and negative Cardiac: reports: Reviewed and negative GI: reports: Reviewed and negative : reports: Reviewed and negative Skin: reports: Other (Abscess and cellulitis right lower pannus) Musculoskeletal: reports: Reviewed and negative PD PAST MEDICAL HISTORY - Past Medical History Past Medical History: Yes Cardiovascular: Hypertension Respiratory: Asthma Neuro: None Endocrine/Autoimmune: Type 2 diabetes GI: None LICENSING REPRESENTATIVE: None : None HEENT: None Psych: Depression, Bipolar disorder, ADD/ADHD Musculoskeletal: Osteoarthritis Derm: None - Past Surgical History Past Surgical History: Yes /LICENSING REPRESENTATIVE: section - Present Medications Home Medications: Ambulatory Orders Medication Instructions Recorded Confirmed Nystatin [Nystop] 1 applic TOP BID #15 gm 02/02/21 Sulfamethox/Trimeth 800/160 1 each PO BID #14 tablet 02/02/21 [Bactrim Ds 800/160] metFORMIN [Glucophage] 500 mg PO BIDWM #60 tablet 02/02/21 - Allergies Allergies/Adverse Reactions: Allergies Allergy/AdvReac Type Severity Reaction Status Date / Time phenobarbital Allergy Severe Anxiety Verified 02/03/21 19:36 phenytoin sodium extended * Allergy Intermediate Anxiety Verified 02/03/21 19:36 [From Dilantin] fluoxetine HCl * AdvReac Severe depression Verified 02/03/21 19:36 [From Prozac] - Social History Does the pt smoke?: Yes Smoking Status: Current every day smoker Does the pt drink ETOH?: Yes Does the pt have substance abuse?: No - Immunizations Immunizations are current?: Yes - POLST Patient has POLST: No PD ED PE EXPANDED - General General: Alert, No acute distress, Other (Morbid obesity) - Derm Derm: Other (Right lower pannus area of erythema is markedly improved. No further induration. Packing is removed from the abscess no purulent drainage is noted though there is bloody drainage on the gauze. Very mild tenderness.) Results - Vitals Vitals: Vital Signs - 24 hr 02/03/21 19:36 Temperature 36.5 C Heart Rate 98 Respiratory 16 Rate Blood Pressure 215/98 H O2 Saturation 100 Oxygen O2 Source Room air PD MEDICAL DECISION MAKING - ED course Complexity details: d/w patient ED course: Well-appearing 45-year-old obese female who is diabetic presents the ER to have her packing removed. Wound appears markedly improved from yesterday. Recommended continued wound care and antibiotics emergent return precautions were discussed. Departure - Departure Disposition: 01 Home, Self Care Clinical Impression: Encounter for abscess packing removal Comments: Ene the abscess is healing well. You may wash it normally with warm soap and water allow water to rinse through the wound then apply any antibiotic ointment and a simple bandage. This will take likely take 1 to 2 weeks to heal. Complete your full course of antibiotics. Return to the ER for increased pain redness milky drainage or any concerns of worsening infection
[2021-02-03 22:28] VITALS: BP 188/113
== END 2021-02-03 22:32 | disposition home or self-care (01) ==
LOC: ED 19:30
DX: Z48.00 Encounter for change or removal of nonsurgical wound dressing (principal); L03.311 Cellulitis of abdominal wall; I10 Essential (primary) hypertension; E11.9 Type 2 diabetes mellitus without complications; Z79.84 Long term (current) use of oral hypoglycemic drugs; F17.200 Nicotine dependence, unspecified, uncomplicated
CPT/HCPCS: 99281

== ENCOUNTER 2021-03-03 09:55 | Emergency (ER) | payer MEDICAID ==
[2021-03-03 10:30] VITALS: BP 152/100
--- NOTE | 2021-03-03 11:07 | ED Physician Documentation ---
History of Present Illness - Stated complaint Stated Complaint: COUGH, BODY ACHES - Chief complaint Chief Complaint: General - History obtained from History obtained from: Patient - Additonal information Additional information: Patient comes emergency department chief complaint of cough, sore throat, and body aches for about the last week. She states that her ex-, who lives with her, tested positive for Covid and has also been sick for nearly a week. Patient is mainly here for Covid testing. She states that her symptoms were little worse initially now actually better than they were. She states she is just mainly been tired has a little bit of shortness of breath, too, but also has a history of asthma and COPD. No other complaints at this time. Did not receive Covid vaccine. Review of Systems Ten Systems: 10 systems reviewed and negative Constitutional: reports: Reviewed and negative Eyes: reports: Reviewed and negative Ears: reports: Reviewed and negative Nose: reports: Rhinorrhea / runny nose, Congestion Throat: reports: Reviewed and negative Cardiac: reports: Reviewed and negative Respiratory: reports: Cough GI: reports: Reviewed and negative : reports: Reviewed and negative Skin: reports: Reviewed and negative Musculoskeletal: reports: Reviewed and negative Neurologic: reports: Reviewed and negative Psychiatric: reports: Reviewed and negative Endocrine: reports: Reviewed and negative Immunocompromised: reports: Reviewed and negative PD PAST MEDICAL HISTORY - Past Medical History Cardiovascular: Hypertension Respiratory: Asthma Neuro: None Endocrine/Autoimmune: Type 2 diabetes GI: None FAMILY THERAPIST: None : None HEENT: None Psych: Depression, Bipolar disorder, ADD/ADHD Musculoskeletal: Osteoarthritis Derm: None - Past Surgical History Past Surgical History: Yes /FAMILY THERAPIST: section - Present Medications Home Medications: Ambulatory Orders Medication Instructions Recorded Confirmed Nystatin [Nystop] 1 applic TOP BID #15 gm 02/02/21 Sulfamethox/Trimeth 800/160 1 each PO BID #14 tablet 02/02/21 [Bactrim Ds 800/160] metFORMIN [Glucophage] 500 mg PO BIDWM #60 tablet 02/02/21 - Allergies Allergies/Adverse Reactions: Allergies Allergy/AdvReac Type Severity Reaction Status Date / Time phenobarbital Allergy Severe Anxiety Verified 03/03/21 10:28 phenytoin sodium extended * Allergy Intermediate Anxiety Verified 03/03/21 10:28 [From Dilantin] fluoxetine HCl * AdvReac Severe depression Verified 03/03/21 10:28 [From Prozac] - Social History Does the pt smoke?: Yes Smoking Status: Current every day smoker Does the pt drink ETOH?: Yes Does the pt have substance abuse?: No - Immunizations Immunizations are current?: Yes - POLST Patient has POLST: No PD ED PE NORMAL - Vitals Vital signs reviewed: Yes - General General: Alert and oriented X 3, No acute distress, Well developed/nourished, Other (Morbidly obese) - HEENT HEENT: PERRL - Neck Neck: Supple, no meningeal sign - Cardiac Cardiac: RRR, No murmur - Respiratory Respiratory: No respiratory distress, Clear bilaterally - Abdomen Abdomen: Soft, Non tender, Other (Obese abdomen) - Derm Derm: Normal color, Warm and dry, No rash - Extremities Extremities: No deformity, No edema, No calf tenderness / cord - Neuro Neuro: Alert and oriented X 3, 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 Her lungs are clear and signs are normal. We have discussed the need to quarantine until she gets results back and actually she should finish up quarantine time with her ex who lives with her, since he is known to be positive for Covid. Departure - Departure Disposition: 01 Home, Self Care Clinical Impression: Exposure to COVID-19 virus Upper respiratory infection Qualifiers: URI type: unspecified viral URI Qualified Code(s): J06.9 - Acute upper respiratory infection, unspecified Condition: Stable Instructions: COVID-19 [facility] Comments: Your symptoms have a high likelihood of being secondary to Covid, since you are exposed to somebody with Covid; however, you may also have one of the many viruses of other kinds that are also going around this time. Your Covid test should be back tomorrow morning and you should check back with our hospital's medical records department to get your results. If you are are positive or even living with somebody is positive, you should quarantine for 2 weeks. Discharge Date/Time: 03/03/21 11:24
== END 2021-03-03 11:24 | disposition home or self-care (01) ==
LOC: ED 09:55
DX: U07.1 COVID-19 (principal); F17.200 Nicotine dependence, unspecified, uncomplicated
CPT/HCPCS: 99283; 99284

== ENCOUNTER 2021-03-06 16:20 | Emergency (ER) | payer MEDICAID ==
[2021-03-06 17:13] VITALS: BP 199/119
[2021-03-06] MEDS ORDERED: CHERRY SYRUP 10 ML UDC PO ONE (17:14)
[2021-03-06] MEDS ORDERED: HYDROcod/ACET 5/325 Prepack 4 PO STA (17:14)
[2021-03-06] MEDS ORDERED: ONDANSETRON ODT 4 MG TABLET TL STA (17:14)
[2021-03-06] MEDS ORDERED: DEXAMETHASONE 10 MG/ML VIAL PO STA (17:14)
--- NOTE | 2021-03-06 17:23 | ED Physician Documentation ---
History of Present Illness - Stated complaint Stated Complaint: NAUSEA/VOMITING/DIARRHEA/DONAHUE/SORE THROAT - Chief complaint Chief Complaint: General - History obtained from History obtained from: Patient - Additonal information Additional information: Sick for about 10 days with cough, body aches, vomiting and diarrhea, sore throat. She was diagnosed a couple of days ago with Covid. The thing that b others her the most is the body aches. Whole family is sick with Covid. Review of Systems Constitutional: reports: Chills, Myalgias, Fatigue Throat: reports: Sore throat Respiratory: denies: Dyspnea PD PAST MEDICAL HISTORY - Past Medical History Cardiovascular: Hypertension Respiratory: Asthma Neuro: None Endocrine/Autoimmune: Type 2 diabetes GI: None BUNG REMOVER: None : None HEENT: None Psych: Depression, Bipolar disorder, ADD/ADHD Musculoskeletal: Osteoarthritis Derm: None - Past Surgical History Past Surgical History: Yes /BUNG REMOVER: section - Present Medications Home Medications: Ambulatory Orders Medication Instructions Recorded Confirmed Nystatin [Nystop] 1 applic TOP BID #15 gm 02/02/21 Sulfamethox/Trimeth 800/160 1 each PO BID #14 tablet 02/02/21 [Bactrim Ds 800/160] metFORMIN [Glucophage] 500 mg PO BIDWM #60 tablet 02/02/21 Albuterol Sulf [Ventolin Hfa 1 - 2 puffs INH Q4HR PRN #1 inhaler 03/06/21 Inhaler] HYDROcod/ACETAM 5/325 [[place] 5/325] 1 - 2 tab PO Q6H PRN #15 tablet 03/06/21 Ondansetron Odt [Zofran] 4 mg TL Q6H PRN #10 tablet 03/06/21 dexAMETHasone [Decadron] 4 mg PO BIDWM #10 tablet 03/06/21 - Allergies Allergies/Adverse Reactions: Allergies Allergy/AdvReac Type Severity Reaction Status Date / Time phenobarbital Allergy Severe Anxiety Verified 03/06/21 17:13 phenytoin sodium extended * Allergy Intermediate Anxiety Verified 03/06/21 17:13 [From Dilantin] fluoxetine HCl * AdvReac Severe depression Verified 03/06/21 17:13 [From Prozac] - Social History Does the pt smoke?: Yes Smoking Status: Current every day smoker Does the pt drink ETOH?: Yes Does the pt have substance abuse?: No - Immunizations Immunizations are current?: Yes - POLST Patient has POLST: No PD ED PE NORMAL - Vitals Vital signs reviewed: Yes - General General: Alert and oriented X 3, No acute distress - Respiratory Respiratory: No respiratory distress - Derm Derm: No rash - Neuro Neuro: Alert and oriented X 3, Normal speech Results - Vitals Vitals: Vital Signs - 24 hr 03/06/21 17:10 Temperature 36.9 C Heart Rate 89 Respiratory 20 Rate Blood Pressure 199/119 H O2 Saturation 94 Oxygen O2 Source Room air PD MEDICAL DECISION MAKING - ED course ED course: 45-year-old woman with known Covid pneumonia has been symptomatic long enough that I would not expect Mab therapy to be effective or indicated. She does need symptomatic therapy though and is given meds here. She is not hypoxic. Departure - Departure Disposition: 01 Home, Self Care Clinical Impression: COVID-19 Condition: Good Record reviewed to determine appropriate education?: Yes Instructions: ED Viral Syndrome Prescriptions: Albuterol Sulf [Ventolin Hfa Inhaler] 1 - 2 puffs INH Q4HR PRN #1 inhaler PRN Reason: Shortness Of Air/Wheezing dexAMETHasone [Decadron] 4 mg PO BIDWM #10 tablet HYDROcod/ACETAM 5/325 [[place] 5/325] 1 - 2 tab PO Q6H PRN #15 tablet PRN Reason: Pain Ondansetron Odt [Zofran] 4 mg TL Q6H PRN #10 tablet PRN Reason: Nausea / Vomiting Comments: Return if worse.
== END 2021-03-06 18:23 | disposition home or self-care (01) ==
LOC: ED 16:20
DX: U07.1 COVID-19 (principal); J12.82 Pneumonia due to coronavirus disease 2019; E11.9 Type 2 diabetes mellitus without complications; Z79.84 Long term (current) use of oral hypoglycemic drugs; F17.200 Nicotine dependence, unspecified, uncomplicated; I10 Essential (primary) hypertension
CPT/HCPCS: 99283; 99284

== ENCOUNTER 2021-09-20 18:41 | Emergency (ER) | payer MEDICAID ==
[2021-09-20 20:13] LABS: BASOPHILS % (AUTO) 0.5 %; EOSINOPHILS # (AUTO) 0.5 10^3/uL (0.0-0.7); EOSINOPHILS % (AUTO) 6.1 %; HCT - HEMATOCRIT 41.3 % (37.0-47.0); HGB - HEMOGLOBIN 12.7 g/dL (12.0-16.0); LYMPHOCYTES % (AUTO) 25.5 %; MEAN CORPUSCULAR HEMOGLOBIN 24.3 pg (27.0-31.0); MEAN CORPUSCULAR HGB CONC 30.8 g/dL (32.0-36.0); MEAN PLATELET VOLUME 10.7 fL (7.9-10.8); MONOCYTES # (AUTO) 0.5 10^3/uL (0.0-1.0); MONOCYTES % (AUTO) 6.4 %; NEUTROPHILS # (AUTO) 4.9 10^3/uL (1.5-6.6); NEUTROPHILS % (AUTO) 61.2 %; PLT - PLATELET COUNT 190 10^3/uL (130-450); RED BLOOD COUNT 5.23 10^6/uL (4.20-5.40); RED CELL DISTRIBUTION WIDTH 16.9 % (12.0-15.0); WHITE BLOOD COUNT 7.9 x10^3/uL (4.8-10.8)
[2021-09-20 20:29] LABS: ALBUMIN 3.5 g/dL (3.2-5.5); ALBUMIN/GLOBULIN RATIO 1.2 (1.0-2.2); BILIRUBIN,TOTAL 0.4 mg/dL (0.2-1.0); CALCIUM 8.7 mg/dL (8.5-10.3); CREATININE 0.8 mg/dL (0.4-1.0); POTASSIUM 3.9 mmol/L (3.5-5.0); TOTAL PROTEIN 6.5 g/dL (6.7-8.2)
[2021-09-20 20:56] LABS: HCG,QUALITATIVE BLOOD NEGATIVE
--- NOTE | 2021-09-20 21:12 | ED Physician Documentation ---
PD HPI CHEST PAIN - Stated complaint Stated Complaint: CP - Chief complaint Chief Complaint: Cardiac - History obtained from History obtained from: Patient - Additional information Additional information: To the emergency department with chief complaint of chest pain radiating into her right shoulder and tingling going down her right arm. The patient also complains of pain and muscle spasms in her neck, especially on the right side. She states it starts At the base of her skull and radiates down. She states it is at these times, when her neck gets tight, and that she feels the tingling going down her right arm. She does not have any symptoms on the left side. She does note that the symptoms also sometimes are present starting in her substernal area and then going to the right shoulder. Patient denies shortness of breath beyond her baseline. She denies any abdominal pain or nausea. The patient states that she does have limited range of motion of her right shoulder, secondary to pain, especially when the neck and shoulder pain and stiffness occur. The patient states she has not had a cholecystectomy. She is a smoker and has a history of diabetes and hypertension. She is morbidly obese., But she states that she has lost 28 pounds in the last month, due to dietary and lifestyle changes. Patient also has cut her smoking down from 2 packs a day to 1/4 pack a day. She has joined weight weight watchers. The patient has seen a business support specialist in the past for episodes of vertigo near syncope. She states she does not think she had an angiogram or stress test, but had lots of "imaging". She is not sure if this was an echocardiogram. The patient was ultimately cleared and has not seen the business support specialist in some time. The patient does note very longstanding edema in left lower extremity compared to the right that has actually improved recently. She does not know she has ever been worked up for DVT, but states that she is "always" been bigger on the left than the right. Patient does note that she and her boyfriend are trying to get and that her last period was about 1 month ago. No other complaints at this time. She does note that her parents both had MIs in their mid 40s. Review of Systems Ten Systems: 10 systems reviewed and negative Constitutional: reports: Reviewed and negative Eyes: reports: Reviewed and negative Ears: reports: Reviewed and negative Nose: reports: Reviewed and negative Throat: reports: Reviewed and negative Cardiac: reports: Chest pain / pressure Respiratory: reports: Reviewed and negative. denies: Dyspnea GI: reports: Reviewed and negative : reports: Reviewed and negative Skin: reports: Reviewed and negative Musculoskeletal: reports: Neck pain Neurologic: reports: Reviewed and negative Psychiatric: reports: Reviewed and negative Endocrine: reports: Reviewed and negative Immunocompromised: reports: Reviewed and negative PD PAST MEDICAL HISTORY - Past Medical History Past Medical History: Yes Cardiovascular: Hypertension Respiratory: Asthma Neuro: None Endocrine/Autoimmune: Type 2 diabetes GI: None BLOCKER POLISHING: None : None HEENT: None Psych: Depression, Bipolar disorder, ADD/ADHD Musculoskeletal: Osteoarthritis Derm: None - Past Surgical History Past Surgical History: Yes /BLOCKER POLISHING: section - Present Medications Home Medications: Ambulatory Orders Medication Instructions Recorded Confirmed Albuterol Sulf [Ventolin Hfa 1 - 2 puffs INH Q4HR PRN #1 inhaler 03/06/21 Inhaler] Cyclobenzaprine [Flexeril] 10 mg PO TID PRN #20 tablet 09/20/21 - Allergies Allergies/Adverse Reactions: Allergies Allergy/AdvReac Type Severity Reaction Status Date / Time phenobarbital Allergy Severe Anxiety Verified 09/20/21 18:59 phenytoin sodium extended * Allergy Intermediate Anxiety Verified 09/20/21 18:59 [From Dilantin] fluoxetine HCl * AdvReac Severe depression Verified 09/20/21 18:59 [From Prozac] - Social History Does the pt smoke?: Yes Smoking Status: Current every day smoker Does the pt drink ETOH?: Yes Does the pt have substance abuse?: No - Immunizations Immunizations are current?: Yes - POLST Patient has POLST: No PD ED PE NORMAL - Vitals Vital signs reviewed: Yes - General General: Alert and oriented X 3, No acute distress, Well developed/nourished (Morbidly obese) - HEENT HEENT: Atraumatic, PERRL, EOMI, Moist mucous membranes - Neck Neck: Supple, no meningeal sign, Other (Mild tenderness of the right neck musculature, especially involving the trapezius distribution.) - Cardiac Cardiac: RRR, No murmur, Strong equal pulses - Respiratory Respiratory: No respiratory distress, Clear bilaterally - Abdomen Abdomen: Soft, Non tender, Other (Obese) - Derm Derm: Normal color, Warm and dry, No rash - Extremities Extremities: No deformity, Other (Moderately limited active range of motion of right shoulder. 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 machine 2-12 intact, No motor deficit, No sensory deficit, Normal speech - Psych Psych: Normal mood, Normal affect Results - Vitals Vitals: Vital Signs - 24 hr 09/20/21 09/20/21 09/20/21 18:54 19:36 20:44 Temperature 36.2 C L Heart Rate 89 87 Respiratory 20 17 16 Rate Blood Pressure 194/98 H O2 Saturation 98 97 09/20/21 09/20/21 09/20/21 21:07 21:39 22:14 Temperature 36.3 C L Heart Rate 78 72 71 Respiratory 14 16 16 Rate Blood Pressure 142/117 H 146/85 H 151/79 H O2 Saturation 97 97 97 Oxygen O2 Source Room air - EKG (time done) 1903 Rate: Rate (enter#) (82) Rhythm: NSR [place]: Normal Intervals: Normal VA QRS: Normal Ischemia: Normal ST segments Compare to prior EKG: Old EKG unavailable Computer interpretation: Agree with computer - Labs Labs: Laboratory Tests 09/20/21 09/20/21 09/20/21 20:07 20:07 20:07 WBC 7.9 RBC 5.23 Hgb 12.7 Hct 41.3 MCV 79.0 L MCH 24.3 L MCHC 30.8 L RDW 16.9 H Plt Count 190 MPV 10.7 Neut # (Auto) 4.9 Lymph # (Auto) 2.0 Wirt # (Auto) 0.5 Eos # (Auto) 0.5 Baso # (Auto) 0.0 Absolute Nucleated RBC 0.00 Nucleated RBC % 0.0 Sodium 136 Potassium 3.9 Chloride 100 L Carbon Dioxide 28 Anion Gap 8.0 BUN 13 Creatinine 0.8 Estimated GFR (MDRD) 77 L Glucose 220 H Calcium 8.7 Total Bilirubin 0.4 AST 14 ALT 21 Alkaline Phosphatase 58 Troponin I High Sens 5.3 Total Protein 6.5 L Albumin 3.5 Globulin 3.0 Albumin/Globulin Ratio 1.2 Lipase 33 Serum HCG, Qual 09/20/21 20:07 WBC RBC Hgb Hct MCV MCH MCHC RDW Plt Count MPV Neut # (Auto) Lymph # (Auto) Wirt # (Auto) Eos # (Auto) Baso # (Auto) Absolute Nucleated RBC Nucleated RBC % Sodium Potassium Chloride Carbon Dioxide Anion Gap BUN Creatinine Estimated GFR (MDRD) Glucose Calcium Total Bilirubin AST ALT Alkaline Phosphatase Troponin I High Sens Total Protein Albumin Globulin Albumin/Globulin Ratio Lipase Serum HCG, Qual NEGATIVE PD MEDICAL DECISION MAKING - ED course Complexity details: reviewed results, re-evaluated patient, considered differential, d/w patient ED course: The patient's symptoms seemed most likely to be musculoskeletal in nature, but the patient was actually fairly high risk for coronary artery disease, and as such, I did order EKG, chest x-ray, and labs. test was also perform ed. The patient's test was negative and the other labs were unremarkable. I discussed with the patient that it is very important that she establish with primary care, both for her chronic diabetes and hypertension, but also, to follow-up on her chest pain. The patient chest pain does not sound likely to be cardiac, but given that she has a lot of risk factors, she would benefit from a stress test on an outpatient basis. We have discussed the usual indications for return. I have given her the numbers for the community clinics on [facility]. Departure - Departure Disposition: Home, Self Care Clinical Impression: Neck muscle spasm Chest pain Qualifiers: Chest pain type: unspecified Qualified Code(s): R07.9 - Chest pain, unspecified Condition: Stable Instructions: ED Chest Pain Atypical Unkn Cause, ED Spasm Neck No Injury Prescriptions: Cyclobenzaprine [Flexeril] 10 mg PO TID PRN #20 tablet PRN Reason: Spasms Comments: Your labs overall look good, though your blood sugar is elevated in the 200s. Your blood pressure here has been mildly elevated, but definitely, ideally it would be well within the normal range. It is very important that you follow-up with your primary care physician, both for general care and because you are fairly high risk for coronary artery disease, the underlying condition that causes a "heart attack". Given that you have had some chest pain although this is most likely a musculoskeletal issue, it would be beneficial for you to have a stress test done. Some of the local clinics do offer graduated fees, and contact information for these clinics has been provided. Your prescription has been electronically transmitted to [facility] in [place]. [facility]: [phone] [facility]: [phone] Discharge Date/Time: 09/20/21 22:18
[2021-09-20] MEDS ORDERED: IBUPROFEN 800 MG TABLET PO STA (21:45)
--- NOTE | 2021-09-20 22:10 | XRAY Report ---
PROCEDURE: Chest 1 View X-Ray INDICATIONS: Chest Pain TECHNIQUE: One view of the chest was acquired. COMPARISON: Chest x-ray 2 view, 11/05/2015. FINDINGS: Surgical changes and devices: None. Lungs and pleura: No pleural effusions or pneumothorax. Lungs are clear. Mediastinum: Mediastinal contours appear normal. Heart size is normal. Bones and chest wall: No suspicious bony lesions. Overlying soft tissues appear unremarkable. IMPRESSION: No acute cardiopulmonary disease. Reviewed by: Lidia Andrews MD on 09/20/2021 10:09 PM [facility] Approved by: Lidia Andrews MD on 09/20/2021 10:09 PM [facility] Station ID: [id number]
[2021-09-20 22:29] VITALS: BP 151/79
== END 2021-09-20 22:18 | disposition home or self-care (01) ==
LOC: ED 18:41
DX: R07.9 Chest pain, unspecified (principal); M62.838 Other muscle spasm; F17.200 Nicotine dependence, unspecified, uncomplicated; I10 Essential (primary) hypertension; E11.9 Type 2 diabetes mellitus without complications
CPT/HCPCS: 36415; 71045; 80053; 83690; 84484; 84703; 85025; 93005; 99283; 99284; A9270

== ENCOUNTER 2021-11-03 18:02 | Emergency (ER) | payer MEDICAID ==
[2021-11-03] MEDS ORDERED: diphenhydrAMINE INJ 50 MG/ML VIAL IVP STA (18:16)
[2021-11-03] MEDS ORDERED: EPINEPHrine 1 MG/ML AMP IM STA (18:16)
--- NOTE | 2021-11-03 18:19 | ED Physician Documentation ---
History of Present Illness - Stated complaint Stated Complaint: BURN HANDS,SOA,ALLERG REAC - Chief complaint Chief Complaint: Allergic Rx - Additonal information Additional information: 45-year-old female who has a history of severe shellfish allergy presents to the emergency department with shortness of air the feeling of her throat closing and generalized burning and itching in her hands and legs. She ingested some seafood made by her son that included lobster at about 5:55 PM. She was not aware that lobster is included in shellfish and crustacean allergies. Review of Systems Constitutional: denies: Fever, Chills Ears: reports: Reviewed and negative Nose: reports: Reviewed and negative Throat: reports: Reviewed and negative Cardiac: denies: Chest pain / pressure, Palpitations, Pedal edema, Calf pain Respiratory: reports: Dyspnea, Cough GI: reports: Reviewed and negative : reports: Reviewed and negative PD PAST MEDICAL HISTORY - Past Medical History Cardiovascular: Hypertension Respiratory: Asthma Neuro: None Endocrine/Autoimmune: Type 2 diabetes GI: None DIRECT SUPPORT SPECIALIST: None : None HEENT: None Psych: Depression, Bipolar disorder, ADD/ADHD Musculoskeletal: Osteoarthritis Derm: None - Past Surgical History Past Surgical History: Yes /DIRECT SUPPORT SPECIALIST: section - Present Medications Home Medications: Ambulatory Orders Medication Instructions Recorded Confirmed Albuterol Sulf [Ventolin Hfa 1 - 2 puffs INH Q4HR PRN #1 inhaler 03/06/21 Inhaler] Cyclobenzaprine [Flexeril] 10 mg PO TID PRN #20 tablet 09/20/21 Albuterol Sulf [Ventolin Hfa 1 - 2 puffs INH Q4HR PRN #1 inhaler 10/29/21 Inhaler] Benzonatate [Tessalon] 200 mg PO QID PRN #20 cap 10/29/21 predniSONE [Deltasone] 60 mg PO DAILY 5 Days #15 tablet 10/29/21 EPINEPHrine [Epinephrine] 0.3 mg IJ ONCE PRN #1 dis.syr 11/03/21 - Allergies Allergies/Adverse Reactions: Allergies Allergy/AdvReac Type Severity Reaction Status Date / Time phenobarbital Allergy Severe Anxiety Verified 11/03/21 18:12 phenytoin sodium extended * Allergy Intermediate Anxiety Verified 11/03/21 18:12 [From Dilantin] shrimp Allergy Rash Verified 11/03/21 18:12 fluoxetine HCl * AdvReac Severe depression Verified 11/03/21 18:12 [From Prozac] - Social History Does the pt smoke?: Yes Smoking Status: Current every day smoker Does the pt drink ETOH?: Yes Does the pt have substance abuse?: No - Immunizations Immunizations are current?: Yes - POLST Patient has POLST: No PD ED PE EXPANDED - General General: Alert, In distress, Other (morbid obesity) - HEENT HEENT: Other (m[place] IV; Mild posterior oropharynx edema. Normal phonation. Full range of motion of the neck. No tongue or lip swelling. No subglottic edema.) - Cardiac Cardiac: Regular Rate, Radial strong equal, Pedal strong equal, Cap refill < 2 sec. No: Murmur Present - Respiratory Respiratory: Wheezing, Other (Tachypnea and generalized wheeze) - Abdomen Abdomen: Normal Bowel sounds. No: Tender to palpation - Derm Derm: Normal color - Extremities Extremities: Normal. No: Deformity, Tenderness - Neuro Neuro: Alert and Oriented X 3, CNII-XII intact - GCS Eye Opening: Spontaneous Motor: Obeys Commands Verbal: Oriented Total: 15 Results - Vitals Vitals: Vital Signs - 24 hr 11/03/21 11/03/21 11/03/21 18:10 18:12 18:42 Temperature 36.4 C L Heart Rate 80 80 72 Respiratory 24 22 Rate Blood Pressure 204/110 H 166/94 H O2 Saturation 95 96 94 11/03/21 11/03/21 11/03/21 19:12 19:30 20:00 Temperature Heart Rate 73 75 69 Respiratory 23 22 18 Rate Blood Pressure 176/97 H 172/92 H 164/96 H O2 Saturation 92 92 95 11/03/21 20:30 Temperature Heart Rate 77 Respiratory 21 Rate Blood Pressure 160/92 H O2 Saturation 95 Oxygen O2 Source Nasal cannula Oxygen Flow Rate 2 - Rads (name of study) cxr Radiology: Final report received (Mild cardiomegaly. No pleural effusion or focal infiltrates) PD MEDICAL DECISION MAKING - ED course Complexity details: reviewed results, re-evaluated patient, considered differential, d/w patient ED course: 45-year-old female who has a history of shellfish allergy presents to the emergency department with acute onset dyspnea throat swelling and generalized burning itching of her skin. She did not realize that lobster was also in the same family as shrimp. She ate some soup her son made. On presentation she was wheezy dyspneic and labored. Her posterior oropharynx was somewhat edematous though she was still phonating well. She did not have any tongue or lip s welling. No subglottic edema. Patient was administered 0.3 mg of epinephrine with almost immediate resolution of her symptoms. She was observed in the emergency department for about 3-1/2 hours following the epinephrine administration and had no complaints of shortness of air or difficulty breathing, chest pain, tongue or lip swelling. On reevaluation the initially noted posterior oropharynx erythema and mild edema has resolved. Discussed at length that she should avoid all shellfish moving forward. And epinephrine pen will be sent to the pharmacy. She is advised to return to the ER if she has a return of the symptoms. I will recommend Benadryl for the next 24 to 48 hours to ensure no rebound symptoms. About 15 minutes of critical care time was dedicated to initial evaluation and re-observation of the patient given that she presented with early anaphylaxis and airway compromise - Critical Care Time(min): 15 Time Includes: Direct patient care, Reassess patient Departure - Departure Clinical Impression: Shellfish allergy Anaphylactic reaction Qualifiers: Encounter type: initial encounter Qualified Code(s): T78.2XXA - Anaphylactic shock, unspecified, initial encounter Condition: Stable Instructions: Allergy Food Shellfish Ch Prescriptions: EPINEPHrine [Epinephrine] 0.3 mg IJ ONCE PRN #1 dis.syr PRN Reason: Anaphylaxis Comments: Ene you are seen today in the emergency department for sudden onset swelling in your throat, shortness of air, and difficulty breathing as well as skin itching and burning after eating lobster. You do have a severe allergy to all crustaceans and shellfish. You can never consume shrimp crab, lobster or similar moving forward. Here in the emergency department we did give you a dose of Benadryl which helps with the allergic reaction but due to the shortness of air and throat swelling we did administer you a medication called epinephrine. This is a lifesaving. In the future should you ever have a similar reaction after accidentally ingesting shellfish you should inject yourself with the epinephrine pen. Over the next 24 to 48 hours I would like you to take Pepcid 20 mg once daily as well as Benadryl 25 mg twice daily. This will help reduce any histamine reaction due to the shellfish. If you find that you have sudden shortness of air difficulty breathing or swallowing use the epinephrine pen and then return immediately to the emergency department. Your prescription has been sent to the [facility]
--- NOTE | 2021-11-03 19:03 | XRAY Report ---
PROCEDURE: Chest 1 View X-Ray INDICATIONS: shellfish allergy TECHNIQUE: One view of the chest was acquired. COMPARISON: 09/20/2021 FINDINGS: Surgical changes and devices: None. Lungs and pleura: No pleural effusions or pneumothorax. Lungs are clear. Mediastinum: Mediastinal contours appear normal. Heart size is mildly enlarged. Bones and chest wall: No suspicious bony lesions. Overlying soft tissues appear unremarkable. IMPRESSION: Mild cardiomegaly. No acute cardiopulmonary abnormalities. Reviewed by: Benji Silverio MD on 11/03/2021 7:02 PM PDT Approved by: Benji Silverio MD on 11/03/2021 7:02 PM PDT Station ID: [id number]
[2021-11-03 21:50] VITALS: BP 188/110
== END 2021-11-03 21:51 | disposition home or self-care (01) ==
LOC: ED 18:02
DX: T78.02XA Anaphylactic reaction due to shellfish (crustaceans), initial encounter (principal); F17.200 Nicotine dependence, unspecified, uncomplicated
CPT/HCPCS: 71045; 96372; 96374; 99283; J1200

== ENCOUNTER 2022-03-06 19:52 | Emergency (ER) | payer MEDICAID ==
[2022-03-06] MEDS ORDERED: diphenhydrAMINE INJ 50 MG/ML VIAL IVP STA (19:54)
[2022-03-06] MEDS ORDERED: EPINEPHrine 1 MG/ML AMP IM STA (19:54)
[2022-03-06] MEDS ORDERED: methylPREDNISolone SUCCINATE 125 MG/2 ML VIAL IVP STA (19:54)
[2022-03-06] MEDS ORDERED: FAMOTIDINE 20 MG/2 ML VIAL IVP STA (19:54)
--- NOTE | 2022-03-06 19:56 | ED Physician Documentation ---
History of Present Illness - Stated complaint Stated Complaint: ALLERGIC REACTION - History obtained from History obtained from: Patient - Additonal information Additional information: 46-year-old woman with history of shellfish allergy was eating some sort of fried chicken product at a restaurant that was evidently fried in the oil that had also been used to hood shellfish and developed wheezing and throat swelling. She already took an EpiPen prior to arrival. Review of Systems Ten Systems: 10 systems reviewed and negative PD PAST MEDICAL HISTORY - Past Medical History Cardiovascular: Hypertension Respiratory: Asthma Neuro: None Endocrine/Autoimmune: Type 2 diabetes GI: None RESIDENTIAL SALES MANAGER: None : None HEENT: None Psych: Depression, Bipolar disorder, ADD/ADHD Musculoskeletal: Osteoarthritis Derm: None - Past Surgical History Past Surgical History: Yes /RESIDENTIAL SALES MANAGER: section - Present Medications Home Medications: Ambulatory Orders Medication Instructions Recorded Confirmed Albuterol Sulf [Ventolin Hfa 1 - 2 puffs INH Q4HR PRN #1 inhaler 03/06/21 03/06/22 Inhaler] EPINEPHrine [Epinephrine] 0.3 mg IJ ONCE PRN #1 dis.syr 11/03/21 03/06/22 EPINEPHrine [Epinephrine] 0.3 mg IJ ONCE PRN #2 dis.syr 03/06/22 Losartan/Hydrochlorothiazide 1 tab PO DAILY 03/06/22 03/06/22 [Losartan-Hctz 100-12.5 mg Tab] metFORMIN [Glucophage] 500 mg PO BID 03/06/22 03/06/22 - Allergies Allergies/Adverse Reactions: Allergies Allergy/AdvReac Type Severity Reaction Status Date / Time phenobarbital Allergy Severe Anxiety Verified 03/06/22 19:58 phenytoin sodium extended * Allergy Intermediate Anxiety Verified 03/06/22 19:58 [From Dilantin] shrimp Allergy Rash Verified 03/06/22 19:58 fluoxetine HCl * AdvReac Severe depression Verified 03/06/22 19:58 [From Prozac] - Social History Does the pt smoke?: Yes Smoking Status: Current every day smoker Does the pt drink ETOH?: Yes Does the pt have substance abuse?: No - Immunizations Immunizations are current?: Yes - POLST Patient has POLST: No PD ED PE NORMAL - Vitals Vital signs reviewed: Yes - General General: Other (She is wheezing and having difficulty talking. Tachypneic and anxious as well.) - HEENT HEENT: Other (Generally large body habitus precludes good visualization of the oropharynx, but no obvious angioedema.) - Neck Neck: Supple, no meningeal sign, No bony TTP - Cardiac Cardiac: RRR, No murmur - Respiratory Respiratory: No respiratory distress, Other (Moderate expiratory wheezing and diminished at the bases) - Abdomen Abdomen: Non tender - Derm Derm: Other (No rash) - Neuro Neuro: Alert and oriented X 3, Normal speech Results - Vitals Vitals: Vital Signs - 24 hr 03/06/22 03/06/22 03/06/22 19:58 20:33 21:03 Temperature 36.8 C Heart Rate 93 85 84 Respiratory 36 H 19 23 Rate Blood Pressure 150/100 H 134/81 H 146/85 H O2 Saturation 98 94 94 03/06/22 21:29 Temperature Heart Rate 85 Respiratory 13 Rate Blood Pressure 146/85 H O2 Saturation 96 Oxygen O2 Source Room air - Labs Labs: Laboratory Tests 03/06/22 03/06/22 20:00 20:00 WBC 9.3 RBC 5.35 Hgb 13.4 Hct 42.4 MCV 79.3 L MCH 25.0 L MCHC 31.6 L RDW 15.9 H Plt Count 269 MPV 11.6 H Neut # (Auto) 5.5 Lymph # (Auto) 2.7 [place] # (Auto) 0.7 Eos # (Auto) 0.3 Baso # (Auto) 0.0 Absolute Nucleated RBC 0.00 Nucleated RBC % 0.0 Sodium 136 Potassium 3.5 Chloride 101 Carbon Dioxide 27 Anion Gap 8.0 BUN 12 Creatinine 1.0 Estimated GFR (MDRD) 59 L Glucose 215 H Calcium 8.9 PD MEDICAL DECISION MAKING - ED course ED course: 46-year-old woman presents with anaphylaxis related to inadvertent shellfish ingestion. Seen immediately on arrival, had already gotten an EpiPen prior to arrival and this was repeated given her ongoing symptoms. After this her symptoms improved significantly and she was resting comfortably. She was also administered IV Solu-Medrol, Pepcid, and Benadryl here. Given the severity of her reaction she will be observed for approximately 4 hours after arrival and care is transferred to Dr. Kumar at shift change for continued observation. - Critical Care Time(min): 35 Time Includes: Direct patient care, Review records, Reassess patient, Document care, Coordinate care, Medical consult, Family consult for tx dec Data interpretation: Labs, Pulse ox Procedures included in critical care time: Peripheral IV Departure - Departure Clinical Impression: Anaphylactic reaction Condition: Good Record reviewed to determine appropriate education?: Yes Instructions: ED Anaphylaxis General Prescriptions: EPINEPHrine [Epinephrine] 0.3 mg IJ ONCE PRN #2 dis.syr PRN Reason: Allergy Symptoms Comments: You were seen tonight after an apparent anaphylactic episode related to inadvertently eating food with shellfish. Return for new or worsening symptoms. Follow-up with your primary care physician, next billable appointment.
[2022-03-06] MEDS ORDERED: EPINEPHrine 1 MG/ML AMP ONE (20:07)
[2022-03-06] MEDS ORDERED: LORazepam 2 MG/ML VIAL IVP STA (20:11)
[2022-03-06 20:14] LABS: BASOPHILS % (AUTO) 0.4 %; EOSINOPHILS # (AUTO) 0.3 10^3/uL (0.0-0.7); EOSINOPHILS % (AUTO) 3.5 %; HCT - HEMATOCRIT 42.4 % (37.0-47.0); HGB - HEMOGLOBIN 13.4 g/dL (12.0-16.0); LYMPHOCYTES # (AUTO) 2.7 10^3/uL (1.5-3.5); LYMPHOCYTES % (AUTO) 29.2 %; MEAN CORPUSCULAR HGB CONC 31.6 g/dL (32.0-36.0); MEAN CORPUSCULAR VOLUME 79.3 fL (81.0-99.0); MEAN PLATELET VOLUME 11.6 fL (7.9-10.8); MONOCYTES # (AUTO) 0.7 10^3/uL (0.0-1.0); NEUTROPHILS # (AUTO) 5.5 10^3/uL (1.5-6.6); NEUTROPHILS % (AUTO) 59.6 %; PLT - PLATELET COUNT 269 10^3/uL (130-450); RED BLOOD COUNT 5.35 10^6/uL (4.20-5.40); RED CELL DISTRIBUTION WIDTH 15.9 % (12.0-15.0); WHITE BLOOD COUNT 9.3 x10^3/uL (4.8-10.8)
[2022-03-06 20:22] LABS: CALCIUM 8.9 mg/dL (8.5-10.3); POTASSIUM 3.5 mmol/L (3.5-5.0)
--- OUTSIDE RECORDS SUMMARY | 2022-03-06 21:18 | EXTERNAL MEDICAL SUMMARY RPT | Continuity of Care Document ---
:1975 Author Organization [facility] Address [address] [place] [address] Phone Allergies No information. Encounters No information. Functional Status No information. Immunizations No information. Medications date description facility +0000 losartan-hydrochlorothiazide All [id number]+0000 lancets All [id number]+0000 blood-glucose meter All [id number]+0000 albuterol sulfate All [id number]+0000 albuterol sulfate All [id number]+0000 losartan-hydrochlorothiazide All Problems No information. Procedures date description facility +0000 COMPREHENSIVE METABOLIC PANEL All [id number]+0000 HGBA1C All [id number]+0000 CBC W/Diff/Plt All [id number]+0000 TSH WITH REFLEX TO FT4 All Results/Labs No information. Social History No information. Vital Signs date measurement value units +0000 BMI BMI 51.66 kg/m2 [id number]+0000 BP_diastolic BP_diastolic 101 mm[H g] 28216998461135+0000 BP_systolic BP_systolic 170 mm[Hg] 92936265114080+0000 heart_rate heart_rate 79 /min 18115102317035+0000 height_metric height_metric 171.45 cm [id number]+0000 height_standard height_standard 67.5 in [id number]+0000 respiration_rate respiration_rate 18 /min [id number]+0000 temperature_metric temperature_metric 36.89 C [id number]+0000 temperature_standard temperature_standard 9 8.4 F [id number]+0000 weight_metric weight_metric 151.32 kg [id number]+0000 weight_standard weight_standard 333.6 lb
--- NOTE | 2022-03-07 00:03 | ED Physician Documentation ---
ED Addendum - Addendum Addendum: 03/07/22 00:01 Patient signed out to me by Dr. Zelaya. Patient being observed in the emergency department after receiving epinephrine for possible anaphylactic reaction. Patient has not required repeated doses of epinephrine. Her lung sounds are clear. She has been resting comfortably. Her vital signs are stable. Patient is comfortable with plan for discharge. Family member at bedside also in agreement. Departure - Departure Disposition: Home, Self Care Clinical Impression: Anaphylactic reaction Condition: Good Instructions: ED Anaphylaxis General Follow-Up: Chucho Rodriguez [Physician No Access] - Prescriptions: EPINEPHrine [Epinephrine] 0.3 mg IJ ONCE PRN #2 dis.syr PRN Reason: Allergy Symptoms Comments: You were seen tonight after an apparent anaphylactic episode related to inadvertently eating food with shellfish. Return for new or worsening symptoms. Follow-up with your primary care physician, next billable appointment. Discharge Date/Time: 03/07/22 00:12
[2022-03-07 00:12] VITALS: BP 156/92
== END 2022-03-07 00:12 | disposition home or self-care (01) ==
LOC: ED 19:52
DX: T78.00XA Anaphylactic reaction due to unspecified food, initial encounter (principal); I10 Essential (primary) hypertension; E11.9 Type 2 diabetes mellitus without complications; Z79.84 Long term (current) use of oral hypoglycemic drugs; F17.200 Nicotine dependence, unspecified, uncomplicated
CPT/HCPCS: 36415; 80048; 85025; 96372; 96374; 96375; 99283; 99291; J1200; J2060

== ENCOUNTER 2022-06-16 20:20 | Emergency (ER) | payer MEDICAID ==
[2022-06-16 20:29] VITALS: BP 192/112
[2022-06-16] MEDS ORDERED: BACITRACIN ZINC OINT 1 PACKET TOP STA (21:06)
--- NOTE | 2022-06-16 21:09 | ED Physician Documentation ---
History of Present Illness - Stated complaint Stated Complaint: FOOT WOUND - Chief complaint Chief Complaint: Wound - History obtained from History obtained from: Patient - History of Present Illness Timing: Today Pain level max: 0 Pain level now: 0 - Additonal information Additional information: Patient is a 46-year-old female, diabetic who presents to the emergency department with blood noted on her right foot. Nothing makes it better or worse. She does not recall any injury. No pain. No redness or swelling. No fever. No chills. Review of Systems Constitutional: denies: Fever GI: denies: Abdominal Pain, Vomiting, Diarrhea Skin: denies: Rash PD PAST MEDICAL HISTORY - Past Medical History Cardiovascular: Hypertension Respiratory: Asthma Neuro: Seizure disorder Endocrine/Autoimmune: Type 2 diabetes GI: None EMAIL PRODUCER: None : None HEENT: None Psych: Depression, Bipolar disorder, ADD/ADHD Musculoskeletal: Osteoarthritis Derm: None - Past Surgical History Past Surgical History: Yes /EMAIL PRODUCER: section - Present Medications Home Medications: Ambulatory Orders Medication Instructions Recorded Confirmed EPINEPHrine [Epinephrine] 0.3 mg IJ ONCE PRN #2 dis.syr 03/06/22 04/01/22 Losartan/Hydrochlorothiazide 1 tab PO DAILY 03/06/22 04/01/22 [Losartan-Hctz 100-12.5 mg Tab] metFORMIN [Glucophage] 500 mg PO BID 03/06/22 04/01/22 Albuterol Sulf [Ventolin Hfa 1 - 2 puffs INH Q4HR PRN #1 each 06/16/22 Inhaler] - Allergies Allergies/Adverse Reactions: Allergies Allergy/AdvReac Type Severity Reaction Status Date / Time phenobarbital Allergy Severe Anxiety Verified 04/01/22 18:40 phenytoin sodium extended * Allergy Intermediate Anxiety Verified 04/01/22 18:40 [From Dilantin] shrimp Allergy Rash Verified 04/01/22 18:40 fluoxetine HCl * AdvReac Severe depression Verified 04/01/22 18:40 [From Prozac] seafood Allergy Anaphylaxis Uncoded 06/16/22 20:28 - Social History Does the pt smoke?: Yes Smoking Status: Current every day smoker Does the pt drink ETOH?: No Does the pt have substance abuse?: No - Immunizations Immunizations are current?: Yes - POLST Patient has POLST: No PD ED PE NORMAL - Vitals Vital signs reviewed: Yes - General General: Alert and oriented X 3, No acute distress - Derm Derm: Warm and dry - Extremities Extremities: Other (Patient with dry skin to the plantar aspect of the right foot. There is a small fissure/crack. No active bleeding.) - Neuro Neuro: Alert and oriented X 3 Results - Vitals Vitals: Vital Signs - 24 hr 06/16/22 20:23 Temperature 36.5 C Heart Rate 91 Respiratory 16 Rate Blood Pressure 192/112 H O2 Saturation 97 Oxygen O2 Source Room air PD MEDICAL DECISION MAKING - ED course Complexity details: considered differential, d/w patient ED course: Patient with what appears to be a crack secondary to dry skin on her right foot. No evidence of infection. No evidence of abscess. Bacitracin applied. We will have her follow-up with her doctor for further care. Patient will monitor for signs of infection. Patient counseled regarding signs and symptoms for which I believe and urgent re-evaluation would be necessary. Patient with good understanding of and agreement to plan and is comfortable going home at this time This document was made in part using voice recognition software. While efforts are made to proofread this document, sound alike and grammatical errors may occur. Patient also requests a refill of her albuterol inhaler. Not currently having any difficulty breathing. Departure - Departure Disposition: 01 Home, Self Care Clinical Impression: Abrasion Condition: Good Instructions: ED Abrasion Follow-Up: your,doctor in 1 week [Other] Prescriptions: Albuterol Sulf [Ventolin Hfa Inhaler] 1 - 2 puffs INH Q4HR PRN #1 each PRN Reason: Shortness Of Air/Wheezing Comments: Please follow-up with your doctor in about a week for a wound check. Keep the wound clean. Make sure you are moisturizing her feet regularly. Return if you notice redness, swelling or drainage from the wound.
== END 2022-06-16 21:16 | disposition home or self-care (01) ==
LOC: ED 20:20
DX: S90.811A Abrasion, right foot, initial encounter (principal); X58.XXXA Exposure to other specified factors, initial encounter; L85.3 Xerosis cutis; R23.4 Changes in skin texture; Z76.0 Encounter for issue of repeat prescription; J45.909 Unspecified asthma, uncomplicated; F17.200 Nicotine dependence, unspecified, uncomplicated; I10 Essential (primary) hypertension; E11.9 Type 2 diabetes mellitus without complications; Z79.84 Long term (current) use of oral hypoglycemic drugs; Z79.899 Other long term (current) drug therapy
CPT/HCPCS: 99282; A9270

== ENCOUNTER 2022-08-28 10:26 | Emergency (ER) | payer MEDICAID ==
[2022-08-28 10:34] VITALS: BP 170/90
--- OUTSIDE RECORDS SUMMARY | 2022-08-28 10:50 | EXTERNAL MEDICAL SUMMARY RPT | Continuity of Care Document ---
:1975 Author Organization [facility] Address [address] [place] [address] Phone Care Team Providers Name Role Phone Unavailable Unavailable Unavailable Michael Serrano Md Unavailable Unavailable [facility] Administrative Assistant Enp, Wen Unavailable Unavailable Yobani Christopher Ma Unavailable Unavailable Allergies No information. Encounters No information. Functional Status No information. Immunizations No information. Medications date description facility 2022-06-21 00:00 albuterol sulfate All 2022-06-21 00:00 albuterol sulfate All 2022-06-21 00:00 albuterol sulfate All 2022-06-21 00:00 albuterol sulfate All 2022-06-21 00:00 albuterol sulfate All 2022-06-21 00:00 albuterol sulfate All 2022-06-21 00:00 albuterol sulfate All 2022-06-21 00:00 albuterol sulfate All 2022-06-21 00:00 albuterol sulfate All 2022-06-21 00:00 albuterol sulfate All 2022-06-21 00:00 albuterol sulfate All 2022-06-21 00:00 albuterol sulfate All Problems date description facility 2022-06-21 00:00 Repeated prescription All 2022-06-21 00:00 Repeated prescription All 2022-06-21 00:00 Repeated prescription All 2022-06-21 00:00 Asthma All 2022-06-21 00:00 Asthma All 2022-06-21 00:00 Asthma All 2022-06-21 00:00 Diabetes mellitus without mention of com plication, type All II or unspecified type, not stated as un controlled 2022-06-21 00:00 Anxiety state, unspecified All 2022-06-21 00:00 Epilepsy, unspecified, without mention of intractable All epilepsy 2022-06-21 00:00 Hypertensive disorder All 2022-06-21 00:00 Unspecified essential hypertension All 2022-06-21 00:00 Type 2 diabetes mellitus All 2022-06-21 00:00 Anxiety All 2022-06-21 00:00 Asthma, unspecified All 2022-06-21 00:00 Asthma, unspecified All 2022-06-21 00:00 Asthma, unspecified All 2022-06-21 00:00 Hand pain All 2022-06-21 00:00 Hand pain All 2022-06-21 00:00 Hand pain All 2022-06-21 00:00 Pain in limb All 2022-06-21 00:00 Pain in limb All 2022-06-21 00:00 Pain in limb All 2022-06-21 00:00 Epilepsy All 2022-06-21 00:00 Type 2 diabetes mellitus without compli cations All 2022-06-21 00:00 Anxiety disorder, unspecified All 2022-06-21 00:00 Epilepsy, unspecified, not intractable, without status All epilepticus 2022-06-21 00:00 Essential (primary) hypertension All 2022-06-21 00:00 Unspecified asthma, uncomplicated All 2022-06-21 00:00 Unspecified asthma, uncomplicated All 2022-06-21 00:00 Unspecified asthma, uncomplicated All 2022-06-21 00:00 Pain in unspecified hand All 2022-06-21 00:00 Pain in unspecified hand All 2022-06-21 00:00 Pain in unspecified hand All 2022-06-21 00:00 Issue of repeat prescriptions All 2022-06-21 00:00 Issue of repeat prescriptions All 2022-06-21 00:00 Issue of repeat prescriptions All 2022-06-21 00:00 Encounter for issue of repeat prescript ion All 2022-06-21 00:00 Encounter for issue of repeat prescript ion All 2022-06-21 00:00 Encounter for issue of repeat prescript ion All 2022-06-22 00:00 Asthma All 2022-06-22 00:00 Asthma All 2022-06-22 00:00 Asthma All 2022-06-22 00:00 Diabetes mellitus without mention of com plication, type All II or unspecified type, not stated as un controlled 2022-06-22 00:00 Diabetes mellitus without mention of com plication, type All II or unspecified type, not stated as un controlled 2022-06-22 00:00 Diabetes mellitus without mention of com plication, type All II or unspecified type, not stated as un controlled 2022-06-22 00:00 Anxiety state, unspecified All 2022-06-22 00:00 Anxiety state, unspecified All 2022-06-22 00:00 Anxiety state, unspecified All 2022-06-22 00:00 Epilepsy, unspecified, without mention of intractable All epilepsy 2022-06-22 00:00 Epilepsy, unspecified, without mention of intractable All epilepsy 2022-06-22 00:00 Epilepsy, unspecified, without mention of intractable All epilepsy 2022-06-22 00:00 Hypertensive disorder All 2022-06-22 00:00 Hypertensive disorder All 2022-06-22 00:00 Hypertensive disorder All 2022-06-22 00:00 Unspecified essential hypertension All 2022-06-22 00:00 Unspecified essential hypertension All 2022-06-22 00:00 Unspecified essential hypertension All 2022-06-22 00:00 Type 2 diabetes mellitus All 2022-06-22 00:00 Type 2 diabetes mellitus All 2022-06-22 00:00 Type 2 diabetes mellitus All 2022-06-22 00:00 Anxiety All 2022-06-22 00:00 Anxiety All 2022-06-22 00:00 Anxiety All 2022-06-22 00:00 Asthma, unspecified All 2022-06-22 00:00 Asthma, unspecified All 2022-06-22 00:00 Asthma, unspecified All 2022-06-22 00:00 Epilepsy All 2022-06-22 00:00 Epilepsy All 2022-06-22 00:00 Epilepsy All 2022-06-22 00:00 Type 2 diabetes mellitus without compli cations All 2022-06-22 00:00 Type 2 diabetes mellitus without compli cations All 2022-06-22 00:00 Type 2 diabetes mellitus without compli cations All 2022-06-22 00:00 Anxiety disorder, unspecified All 2022-06-22 00:00 Anxiety disorder, unspecified All 2022-06-22 00:00 Anxiety disorder, unspecified All 2022-06-22 00:00 Epilepsy, unspecified, not intractable, without status All epilepticus 2022-06-22 00:00 Epilepsy, unspecified, not intractable, without status All epilepticus 2022-06-22 00:00 Epilepsy, unspecified, not intractable, without status All epilepticus 2022-06-22 00:00 Essential (primary) hypertension All 2022-06-22 00:00 Essential (primary) hypertension All 2022-06-22 00:00 Essential (primary) hypertension All 2022-06-22 00:00 Unspecified asthma, uncomplicated All 2022-06-22 00:00 Unspecified asthma, uncomplicated All 2022-06-22 00:00 Unspecified asthma, uncomplicated All Procedures date description facility 2022-06-21 00:00 Visit Code Hold All 2022-06-21 00:00 Visit Code Hold All 2022-06-21 00:00 Visit Code Hold All 2022-06-21 00:00 COMPREHENSIVE METABOLIC PANEL All 2022-06-21 00:00 COMPREHENSIVE METABOLIC PANEL All 2022-06-21 00:00 COMPREHENSIVE METABOLIC PANEL All 2022-06-21 00:00 HGBA1C All 2022-06-21 00:00 HGBA1C All 2022-06-21 00:00 HGBA1C All 2022-06-21 00:00 CBC W/Diff/Plt All 2022-06-21 00:00 CBC W/Diff/Plt All 2022-06-21 00:00 CBC W/Diff/Plt All Results/Labs test date author facility value unit interpret ation Result panel 1 (unknown) (no date) (unknown) All (no value) (units unknown ) (unknown) Result panel 2 (unknown) (no date) (unknown) All (no value) (units unknown ) (unknown) Result panel 3 (unknown) (no date) (unknown) All (no value) (units unknown ) (unknown) Result panel 4 (unknown) (no date) (unknown) All (no value) (units unknown ) (unknown) Result panel 5 (unknown) (no date) (unknown) All (no value) (units unknown ) (unknown) Result panel 6 (unknown) (no date) (unknown) All (no value) (units unknown ) (unknown) Result panel 7 (unknown) (no date) (unknown) All (no value) (units unknown ) (unknown) Result panel 8 (unknown) (no date) (unknown) All (no value) (units unknown ) (unknown) Result panel 9 (unknown) (no date) (unknown) All (no value) (units unknown ) (unknown) Result panel 10 (unknown) (no date) (unknown) All (no value) (units unknown ) (unknown) Result panel 11 (unknown) (no date) (unknown) All (no value) (units unknown ) (unknown) Result panel 12 (unknown) (no date) (unknown) All (no value) (units unknown ) (unknown) Result panel 13 (unknown) (no date) (unknown) All (no value) (units unknown ) (unknown) Result panel 14 (unknown) (no date) (unknown) All (no value) (units unknown ) (unknown) Result panel 15 (unknown) (no date) (unknown) All (no value) (units unknown ) (unknown) Result panel 16 (unknown) (no date) (unknown) All (no value) (units unknown ) (unknown) Result panel 17 (unknown) (no date) (unknown) All (no value) (units unknown ) (unknown) Result panel 18 (unknown) (no date) (unknown) All (no value) (units unknown ) (unknown) Result panel 19 (unknown) (no date) (unknown) All (no value) (units unknown ) (unknown) Result panel 20 (unknown) (no date) (unknown) All (no value) (units unknown ) (unknown) Result panel 21 (unknown) (no date) (unknown) All (no value) (units unknown ) (unknown) Result panel 22 (unknown) (no date) (unknown) All (no value) (units unknown ) (unknown) Result panel 23 (unknown) (no date) (unknown) All (no value) (units unknown ) (unknown) Result panel 24 (unknown) (no date) (unknown) All (no value) (units unknown ) (unknown) Result panel 25 (unknown) (no date) (unknown) All (no value) (units unknown ) (unknown) Result panel 26 (unknown) (no date) (unknown) All (no value) (units unknown ) (unknown) Result panel 27 (unknown) (no date) (unknown) All (no value) (units unknown ) (unknown) Result panel 28 (unknown) (no date) (unknown) All (no value) (units unknown ) (unknown) Result panel 29 (unknown) (no date) (unknown) All (no value) (units unknown ) (unknown) Result panel 30 (unknown) (no date) (unknown) All (no value) (units unknown ) (unknown) Result panel 31 (unknown) (no date) (unknown) All (no value) (units unknown ) (unknown) Result panel 32 (unknown) (no date) (unknown) All (no value) (units unknown ) (unknown) Result panel 33 (unknown) (no date) (unknown) All (no value) (units unknown ) (unknown) Result panel 34 (unknown) (no date) (unknown) All (no value) (units unknown ) (unknown) Result panel 35 (unknown) (no date) (unknown) All (no value) (units unknown ) (unknown) Result panel 36 (unknown) (no date) (unknown) All (no value) (units unknown ) (unknown) Result panel 37 (unknown) (no date) (unknown) All (no value) (units unknown ) (unknown) Result panel 38 (unknown) (no date) (unknown) All (no value) (units unknown ) (unknown) Result panel 39 (unknown) (no date) (unknown) All (no value) (units unknown ) (unknown) Result panel 40 (unknown) (no date) (unknown) All (no value) (units unknown ) (unknown) Result panel 41 (unknown) (no date) (unknown) All (no value) (units unknown ) (unknown) Result panel 42 (unknown) (no date) (unknown) All (no value) (units unknown ) (unknown) Result panel 43 (unknown) (no date) (unknown) All (no value) (units unknown ) (unknown) Result panel 44 (unknown) (no date) (unknown) All (no value) (units unknown ) (unknown) Result panel 45 (unknown) (no date) (unknown) All (no value) (units unknown ) (unknown) Result panel 46 (unknown) (no date) (unknown) All (no value) (units unknown ) (unknown) Result panel 47 (unknown) (no date) (unknown) All (no value) (units unknown ) (unknown) Result panel 48 (unknown) (no date) (unknown) All (no value) (units unknown ) (unknown) Result panel 49 (unknown) (no date) (unknown) All (no value) (units unknown ) (unknown) Result panel 50 (unknown) (no date) (unknown) All (no value) (units unknown ) (unknown) Result panel 51 (unknown) (no date) (unknown) All (no value) (units unknown ) (unknown) Result panel 52 (unknown) (no date) (unknown) All (no value) (units unknown ) (unknown) Result panel 53 (unknown) (no date) (unknown) All (no value) (units unknown ) (unknown) Result panel 54 (unknown) (no date) (unknown) All (no value) (units unknown ) (unknown) Result panel 55 (unknown) (no date) (unknown) All (no value) (units unknown ) (unknown) Result panel 56 (unknown) (no date) (unknown) All (no value) (units unknown ) (unknown) Result panel 57 (unknown) (no date) (unknown) All (no value) (units unknown ) (unknown) Result panel 58 (unknown) (no date) (unknown) All (no value) (units unknown ) (unknown) Result panel 59 (unknown) (no date) (unknown) All (no value) (units unknown ) (unknown) Result panel 60 (unknown) (no date) (unknown) All (no value) (units unknown ) (unknown) Result panel 61 (unknown) (no date) (unknown) All (no value) (units unknown ) (unknown) Result panel 62 (unknown) (no date) (unknown) All (no value) (units unknown ) (unknown) Result panel 63 (unknown) (no date) (unknown) All (no value) (units unknown ) (unknown) Result panel 64 (unknown) (no date) (unknown) All (no value) (units unknown ) (unknown) Result panel 65 (unknown) (no date) (unknown) All (no value) (units unknown ) (unknown) Result panel 66 (unknown) (no date) (unknown) All (no value) (units unknown ) (unknown) Result panel 67 (unknown) (no date) (unknown) All (no value) (units unknown ) (unknown) Result panel 68 (unknown) (no date) (unknown) All (no value) (units unknown ) (unknown) Result panel 69 (unknown) (no date) (unknown) All (no value) (units unknown ) (unknown) Result panel 70 (unknown) (no date) (unknown) All (no value) (units unknown ) (unknown) Result panel 71 (unknown) (no date) (unknown) All (no value) (units unknown ) (unknown) Result panel 72 (unknown) (no date) (unknown) All (no value) (units unknown ) (unknown) Result panel 73 (unknown) (no date) (unknown) All (no value) (units unknown ) (unknown) Result panel 74 (unknown) (no date) (unknown) All (no value) (units unknown ) (unknown) Result panel 75 (unknown) (no date) (unknown) All (no value) (units unknown ) (unknown) Result panel 76 (unknown) (no date) (unknown) All (no value) (units unknown ) (unknown) Result panel 77 (unknown) (no date) (unknown) All (no value) (units unknown ) (unknown) Result panel 78 (unknown) (no date) (unknown) All (no value) (units unknown ) (unknown) Result panel 79 (unknown) (no date) (unknown) All (no value) (units unknown ) (unknown) Result panel 80 (unknown) (no date) (unknown) All (no value) (units unknown ) (unknown) Result panel 81 (unknown) (no date) (unknown) All (no value) (units unknown ) (unknown) Result panel 82 (unknown) (no date) (unknown) All (no value) (units unknown ) (unknown) Result panel 83 (unknown) (no date) (unknown) All (no value) (units unknown ) (unknown) Result panel 84 (unknown) (no date) (unknown) All (no value) (units unknown ) (unknown) Result panel 85 (unknown) (no date) (unknown) All (no value) (units unknown ) (unknown) Result panel 86 (unknown) (no date) (unknown) All (no value) (units unknown ) (unknown) Result panel 87 (unknown) (no date) (unknown) All (no value) (units unknown ) (unknown) Result panel 88 (unknown) (no date) (unknown) All (no value) (units unknown ) (unknown) Result panel 89 (unknown) (no date) (unknown) All (no value) (units unknown ) (unknown) Result panel 90 (unknown) (no date) (unknown) All (no value) (units unknown ) (unknown) Result panel 91 (unknown) (no date) (unknown) All (no value) (units unknown ) (unknown) Result panel 92 (unknown) (no date) (unknown) All (no value) (units unknown ) (unknown) Result panel 93 (unknown) (no date) (unknown) All (no value) (units unknown ) (unknown) Result panel 94 (unknown) (no date) (unknown) All (no value) (units unknown ) (unknown) Result panel 95 (unknown) (no date) (unknown) All (no value) (units unknown ) (unknown) Result panel 96 (unknown) (no date) (unknown) All (no value) (units unknown ) (unknown) Result panel 97 (unknown) (no date) (unknown) All (no value) (units unknown ) (unknown) Result panel 98 (unknown) (no date) (unknown) All (no value) (units unknown ) (unknown) Result panel 99 (unknown) (no date) (unknown) All (no value) (units unknown ) (unknown) Result panel 100 (unknown) (no date) (unknown) All (no value) (units unknown ) (unknown) Result panel 101 (unknown) (no date) (unknown) All (no value) (units unknown ) (unknown) Result panel 102 (unknown) (no date) (unknown) All (no value) (units unknown ) (unknown) Result panel 103 (unknown) (no date) (unknown) All (no value) (units unknown ) (unknown) Result panel 104 (unknown) (no date) (unknown) All (no value) (units unknown ) (unknown) Result panel 105 (unknown) (no date) (unknown) All (no value) (units unknown ) (unknown) Result panel 106 (unknown) (no date) (unknown) All (no value) (units unknown ) (unknown) Result panel 107 (unknown) (no date) (unknown) All (no value) (units unknown ) (unknown) Result panel 108 (unknown) (no date) (unknown) All (no value) (units unknown ) (unknown) Result panel 109 (unknown) (no date) (unknown) All (no value) (units unknown ) (unknown) Result panel 110 (unknown) (no date) (unknown) All (no value) (units unknown ) (unknown) Result panel 111 (unknown) (no date) (unknown) All (no value) (units unknown ) (unknown) Result panel 112 (unknown) (no date) (unknown) All (no value) (units unknown ) (unknown) Result panel 113 (unknown) (no date) (unknown) All (no value) (units unknown ) (unknown) Result panel 114 (unknown) (no date) (unknown) All (no value) (units unknown ) (unknown) Result panel 115 (unknown) (no date) (unknown) All (no value) (units unknown ) (unknown) Result panel 116 (unknown) (no date) (unknown) All (no value) (units unknown ) (unknown) Result panel 117 (unknown) (no date) (unknown) All (no value) (units unknown ) (unknown) Result panel 118 (unknown) (no date) (unknown) All (no value) (units unknown ) (unknown) Result panel 119 (unknown) (no date) (unknown) All (no value) (units unknown ) (unknown) Result panel 120 (unknown) (no date) (unknown) All (no value) (units unknown ) (unknown) Result panel 121 (unknown) (no date) (unknown) All (no value) (units unknown ) (unknown) Result panel 122 (unknown) (no date) (unknown) All (no value) (units unknown ) (unknown) Result panel 123 (unknown) (no date) (unknown) All (no value) (units unknown ) (unknown) Result panel 124 (unknown) (no date) (unknown) All (no value) (units unknown ) (unknown) Result panel 125 (unknown) (no date) (unknown) All (no value) (units unknown ) (unknown) Result panel 126 (unknown) (no date) (unknown) All (no value) (units unknown ) (unknown) Result panel 127 (unknown) (no date) (unknown) All (no value) (units unknown ) (unknown) Result panel 128 (unknown) (no date) (unknown) All (no value) (units unknown ) (unknown) Result panel 129 (unknown) (no date) (unknown) All (no value) (units unknown ) (unknown) Result panel 130 (unknown) (no date) (unknown) All (no value) (units unknown ) (unknown) Result panel 131 (unknown) (no date) (unknown) All (no value) (units unknown ) (unknown) Result panel 132 (unknown) (no date) (unknown) All (no value) (units unknown ) (unknown) Result panel 133 (unknown) (no date) (unknown) All (no value) (units unknown ) (unknown) Result panel 134 (unknown) (no date) (unknown) All (no value) (units unknown ) (unknown) Result panel 135 (unknown) (no date) (unknown) All (no value) (units unknown ) (unknown) Result panel 136 (unknown) (no date) (unknown) All (no value) (units unknown ) (unknown) Result panel 137 (unknown) (no date) (unknown) All (no value) (units unknown ) (unknown) Result panel 138 (unknown) (no date) (unknown) All (no value) (units unknown ) (unknown) Result panel 139 (unknown) (no date) (unknown) All (no value) (units unknown ) (unknown) Result panel 140 (unknown) (no date) (unknown) All (no value) (units unknown ) (unknown) Result panel 141 (unknown) (no date) (unknown) All (no value) (units unknown ) (unknown) Result panel 142 (unknown) (no date) (unknown) All (no value) (units unknown ) (unknown) Result panel 143 (unknown) (no date) (unknown) All (no value) (units unknown ) (unknown) Result panel 144 (unknown) (no date) (unknown) All (no value) (units unknown ) (unknown) Result panel 145 (unknown) (no date) (unknown) All (no value) (units unknown ) (unknown) Result panel 146 (unknown) (no date) (unknown) All (no value) (units unknown ) (unknown) Result panel 147 (unknown) (no date) (unknown) All (no value) (units unknown ) (unknown) Result panel 148 (unknown) (no date) (unknown) All (no value) (units unknown ) (unknown) Result panel 149 (unknown) (no date) (unknown) All (no value) (units unknown ) (unknown) Result panel 150 (unknown) (no date) (unknown) All (no value) (units unknown ) (unknown) Result panel 151 (unknown) (no date) (unknown) All (no value) (units unknown ) (unknown) Result panel 152 (unknown) (no date) (unknown) All (no value) (units unknown ) (unknown) Result panel 153 (unknown) (no date) (unknown) All (no value) (units unknown ) (unknown) Result panel 154 (unknown) (no date) (unknown) All (no value) (units unknown ) (unknown) Social History No information. Vital Signs date measurement value units 2022-06-21 00:00 BMI 53.31 kg/m2 2022-06-21 00:00 BP_diastolic 108 mmHg 2022-06-21 00:00 BP_systolic 176 mmHg 2022-06-21 00:00 heart_rate 85 /min 2022-06-21 00:00 height_metric 171.45 cm 2022-06-21 00:00 height_standard 67.5 in 2022-06-21 00:00 respiration_rate 22 /min 2022-06-21 00:00 temperature_metric 36.78 C 2022-06-21 00:00 temperature_standard 98.2 F 2022-06-21 00:00 weight_metric 156.13 kg 2022-06-21 00:00 weight_standard 344.2 lb
--- NOTE | 2022-08-28 11:03 | XRAY Report ---
PROCEDURE: Hand 3 View LT INDICATIONS: Trauma TECHNIQUE: 3 views of the hand(s) acquired. COMPARISON: None FINDINGS: Bones: No fractures or dislocations. No suspicious bony lesions. Soft tissues: No suspicious soft tissue calcifications. IMPRESSION: No evidence acute bony abnormality of the left hand. Reviewed by: Viktor Saab MD on 08/28/2022 11:02 AM [facility] Approved by: Viktor Saab MD on 08/28/2022 11:02 AM [facility] Station ID: [id number]
--- NOTE | 2022-08-28 11:38 | ED Physician Documentation ---
PD HPI UPPER EXT INJURY - Stated complaint Stated Complaint: L HAND SWOLLEN - Chief complaint Chief Complaint: Trauma Ext - History obtained from History obtained from: Patient - Additonal information Additional information: Patient is a 46-year-old with left hand pain since last night. She is left-hand dominant. She was doing the dishes and carrying a heavy roasting serrano to the sink when she felt a pop in her left hand and is not having discomfort since that time. It is worse with movements. And it is better at rest.She has taken Aleve. She denies injury or pain elsewhere.She does not take a blood thinner.Denies other trauma such as bite or scratches. 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 : None HEENT: None Psych: Depression, Bipolar disorder, ADD/ADHD Musculoskeletal: Osteoarthritis Derm: None - Past Surgical History Past Surgical History: Yes /PACKAGE CAR DRIVER: section - Present Medications Home Medications: Ambulatory Orders Medication Instructions Recorded Confirmed EPINEPHrine [Epinephrine] 0.3 mg IJ ONCE PRN #2 dis.syr 03/06/22 04/01/22 Losartan/Hydrochlorothiazide 1 tab PO DAILY 03/06/22 04/01/22 [Losartan-Hctz 100-12.5 mg Tab] metFORMIN [Glucophage] 500 mg PO BID 03/06/22 04/01/22 Albuterol Sulf [Ventolin Hfa 1 - 2 puffs INH Q4HR PRN #1 each 06/16/22 Inhaler] - Allergies Allergies/Adverse Reactions: Allergies Allergy/AdvReac Type Severity Reaction Status Date / Time phenobarbital Allergy Severe Anxiety Verified 08/28/22 10:34 phenytoin sodium extended * Allergy Intermediate Anxiety Verified 08/28/22 10:34 [From Dilantin] shrimp Allergy Rash Verified 08/28/22 10:34 fluoxetine HCl * AdvReac Severe depression Verified 08/28/22 10:34 [From Prozac] seafood Allergy Anaphylaxis Uncoded 08/28/22 10:34 - Social History Does the pt smoke?: No Smoking Status: Current every day smoker Does the pt drink ETOH?: No Does the pt have substance abuse?: No - Immunizations Immunizations are current?: Yes - POLST Patient has POLST: No PD ED PE NORMAL - General General: Alert and oriented X 3, No acute distress, Well developed/nourished - HEENT HEENT: Atraumatic - Cardiac Cardiac: RRR, Strong equal pulses - Extremities Extremities: Other (Mild swelling to dorsum of left hand over the 1st/2nd Metacarpals; Able to flex and extend at all joints, brisk cap refill, no rash) - Neuro Neuro: No motor deficit, No sensory deficit Results - Vitals Vitals: Vital Signs - 24 hr 08/28/22 10:31 Temperature 36.4 C L Heart Rate 81 Respiratory 20 Rate Blood Pressure 170/90 H O2 Saturation 98 Oxygen O2 Source Room air PD Medical Decision Making - ED course Complexity details: reviewed results ED course: Patient with injury to left hand. Has some mild swelling and tenderness over the first and second metacarpals. I independently reviewed the x-rays and also agree with interpretation of no fracture or dislocation. No signs of infection.No signs of tendon rupture. Discussed plan for continued supportive care as well as need for close follow-up if symptoms or not improving. Patient counseled on concerning symptoms to return for. Departure - Departure Disposition: 01 Home, Self Care Clinical Impression: Strain of left hand Qualifiers: Encounter type: initial encounter Qualified Code(s): S66.912A - Strain of unspecified muscle, fascia and tendon at wrist and hand level, left hand, initial encounter Condition: Stable Instructions: ED Sprain Hand Comments: Your x-ray does not show a broken or out of place bone. You could have strained something in your hand. We will place an Mingo wrap to help with the swelling and I would recommend continue with anti-inflammatories such as ibuprofen or acetaminophen as well as ice and elevation.Your symptoms or not improving I would recommend close follow-up with your PCP. If you have any worsening symptoms such as increased swelling, redness or any other concerns please consider return to the emergency department. Forms: Activity restrictions Discharge Date/Time: 08/28/22 11:53
== END 2022-08-28 11:53 | disposition home or self-care (01) ==
LOC: ED 10:26
DX: S66.912A Strain of unspecified muscle, fascia and tendon at wrist and hand level, left hand, initial encounter (principal); X58.XXXA Exposure to other specified factors, initial encounter; I10 Essential (primary) hypertension; E11.9 Type 2 diabetes mellitus without complications; Z79.84 Long term (current) use of oral hypoglycemic drugs; F17.200 Nicotine dependence, unspecified, uncomplicated
CPT/HCPCS: 99283

== ENCOUNTER 2022-12-05 20:32 | Emergency (ER) | payer MEDICAID ==
[2022-12-05] MEDS ORDERED: levonorgestreL 1.5 MG TABLET PO STA ×2 (20:50→20:58)
[2022-12-05] MEDS ORDERED: cefTRIAXone 1 GM VIAL IM STA (20:51)
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
[2022-12-05] MEDS ORDERED: cefTRIAXone 1 GM VIAL ONE (23:12)
[2022-12-05 23:18] VITALS: BP 151/95
[2022-12-06] MEDS ORDERED: cefTRIAXone 500 MG VIAL IM STA (01:00)
[2022-12-06] MEDS ORDERED: LIDOCAINE 1% 2 ML VIAL MC ONE (01:00)
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
== END 2022-12-05 23:59 | disposition home or self-care (01) ==
LOC: ED 20:32
DX: T74.21XA Adult sexual abuse, confirmed, initial encounter (principal); I10 Essential (primary) hypertension; E11.9 Type 2 diabetes mellitus without complications; Z79.899 Other long term (current) drug therapy; Z79.84 Long term (current) use of oral hypoglycemic drugs; F17.200 Nicotine dependence, unspecified, uncomplicated
CPT/HCPCS: 0132C; 96372

== ENCOUNTER 2023-01-10 13:45 | Outpatient (CLI) | payer OTHER, MEDICAID | END 2023-01-10 14:00 | disposition home or self-care (01) | LOC: LAB.N 13:45 | PROVIDERS: ATTEND Registered Nurse | DX: Z32.00 Encounter for pregnancy test, result unknown (principal); Z91.410 Personal history of adult physical and sexual abuse | CPT/HCPCS: 36415; 84702 ==

== ENCOUNTER 2023-01-16 03:47 | Outpatient (CLI) | payer OTHER, MEDICAID | END 2023-01-16 04:00 | disposition EMS.NT | LOC: EMS 03:47 | DX: J45.909 Unspecified asthma, uncomplicated (principal) ==

== ENCOUNTER 2023-02-08 17:25 | Emergency (ER) | payer MEDICAID, OTHER ==
[2023-02-08] MEDS ORDERED: diphenhydrAMINE INJ 50 MG/ML VIAL IVP STA (17:35)
[2023-02-08] MEDS ORDERED: LORazepam 2 MG/ML VIAL IVP STA (17:35)
[2023-02-08] MEDS ORDERED: methylPREDNISolone SUCCINATE 125 MG/2 ML VIAL IVP STA (17:35)
--- NOTE | 2023-02-08 17:40 | ED Physician Documentation ---
History of Present Illness - Stated complaint Stated Complaint: SOA,TIGHT THROAT - Chief complaint Chief Complaint: Allergic Rx - History obtained from History obtained from: Patient - Additonal information Additional information: 47-year-old woman with allergies to shellfish ate a Tamazight snack with unknown ingredients just prior to arrival and then developed throat swelling and tightness. Almost immediately took her EpiPen which is helping but now she is feeling panicky. 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: section - Present Medications Home Medications: Ambulatory Orders Medication Instructions Recorded Confirmed EPINEPHrine [Epinephrine] 0.3 mg IJ ONCE PRN #2 dis.syr 03/06/22 04/01/22 Losartan/Hydrochlorothiazide 1 tab PO DAILY 03/06/22 04/01/22 [Losartan-Hctz 100-12.5 mg Tab] metFORMIN [Glucophage] 500 mg PO BID 03/06/22 04/01/22 Albuterol Sulf [Ventolin Hfa 1 - 2 puffs INH Q4HR PRN #1 each 06/16/22 Inhaler] Doxycycline [Vibramycin] 100 mg PO BID 7 Days #14 tablet 12/05/22 Ulipristal Acetate [Shawna] 30 mg PO ONCE #1 tablet 12/05/22 metroNIDAZOLE [Flagyl] 500 mg PO BID 7 Days #14 tablet 12/05/22 EPINEPHrine [Epinephrine] 0.3 mg IJ ONCE PRN #2 each 02/08/23 predniSONE [Deltasone] 60 mg PO DAILY 5 Days #15 tablet 02/08/23 - Allergies Allergies/Adverse Reactions: Allergies Allergy/AdvReac Type Severity Reaction Status Date / Time phenobarbital Allergy Severe Anxiety Verified 02/08/23 17:31 phenytoin sodium extended * Allergy Intermediate Anxiety Verified 02/08/23 17:31 [From Dilantin] shrimp Allergy Rash Verified 02/08/23 17:31 fluoxetine HCl * AdvReac Severe depression Verified 02/08/23 17:31 [From Prozac] seafood Allergy Anaphylaxis Uncoded 02/08/23 17:31 - Social History Does the pt smoke?: No Smoking Status: Current every day smoker Does the pt drink ETOH?: No Does the pt have substance abuse?: No - Immunizations Immunizations are current?: Yes - POLST Patient has POLST: No PD ED PE NORMAL - Vitals Vital signs reviewed: Yes - General General: Alert and oriented X 3, Other (Hyperventilating and tearful) - HEENT HEENT: Pharynx benign - Cardiac Cardiac: RRR, No murmur - Respiratory Respiratory: No respiratory distress, Clear bilaterally - Derm Derm: Normal color, Warm and dry - Neuro Neuro: Alert and oriented X 3, Normal speech Results - Vitals Vitals: Vital Signs - 24 hr 02/08/23 02/08/23 02/08/23 17:31 17:36 19:32 Temperature 36.5 C 36.5 C 36.5 C Heart Rate 94 87 84 Respiratory 32 H 28 H 22 Rate Blood Pressure 150/100 H 150/100 H 148/90 H O2 Saturation 97 97 96 Oxygen O2 Source Room air PD Medical Decision Making - ED course ED course: 47-year-old woman with sounds like anaphylaxis to a Tamazight snack potentially containing fish or shellfish. She is already self-administered epinephrine and feels like she is improving from that perspective but is now very panicky. We will observe her and administer steroids and Benadryl and Ativan. Doing much better after the above interventions, panicky symptoms resolved. Departure - Departure Disposition: 01 Home, Self Care Clinical Impression: Allergic reaction Qualifiers: Encounter type: initial encounter Qualified Code(s): T78.40XA - Allergy, unspecified, initial encounter Condition: Good Record reviewed to determine appropriate education?: Yes Instructions: ED Drug React Allergic Prescriptions: predniSONE [Deltasone] 60 mg PO DAILY 5 Days #15 tablet EPINEPHrine [Epinephrine] 0.3 mg IJ ONCE PRN #2 each PRN Reason: Allergy Symptoms Comments: You are seen here today for an allergic reaction. You took your EpiPen at home which is totally appropriate and by the time he got here was pretty much just the panicky symptoms that were getting to you. Call your doctor to arrange a follow-up appointment, make the next available appointment. In the interim, return anytime if worse or if new symptoms develop.
[2023-02-08 19:38] VITALS: BP 148/90
== END 2023-02-08 19:49 | disposition home or self-care (01) ==
LOC: ED 17:25
DX: T78.40XA Allergy, unspecified, initial encounter (principal); F41.0 Panic disorder [episodic paroxysmal anxiety]; F17.200 Nicotine dependence, unspecified, uncomplicated
CPT/HCPCS: 96374; 96375; 99283; J1200; J2060

== ENCOUNTER 2023-03-06 14:30 | Outpatient (CLI) | payer MEDICAID ==
[2023-03-06 18:06] LABS: BASOPHILS % (AUTO) 0.4 %; EOSINOPHILS # (AUTO) 0.4 10^3/uL (0.0-0.7); EOSINOPHILS % (AUTO) 4.9 %; HCT - HEMATOCRIT 45.6 % (37.0-47.0); HGB - HEMOGLOBIN 14.2 g/dL (12.0-16.0); LYMPHOCYTES # (AUTO) 1.6 10^3/uL (1.5-3.5); LYMPHOCYTES % (AUTO) 23.1 %; MEAN CORPUSCULAR HEMOGLOBIN 25.7 pg (27.0-31.0); MEAN CORPUSCULAR HGB CONC 31.1 g/dL (32.0-36.0); MEAN CORPUSCULAR VOLUME 82.6 fL (81.0-99.0); MONOCYTES # (AUTO) 0.5 10^3/uL (0.0-1.0); MONOCYTES % (AUTO) 6.6 %; NEUTROPHILS # (AUTO) 4.6 10^3/uL (1.5-6.6); NEUTROPHILS % (AUTO) 64.7 %; PLT - PLATELET COUNT 218 10^3/uL (130-450); RED BLOOD COUNT 5.52 10^6/uL (4.20-5.40); RED CELL DISTRIBUTION WIDTH 16.6 % (12.0-15.0); WHITE BLOOD COUNT 7.1 x10^3/uL (4.8-10.8)
[2023-03-06 18:23] LABS: ALBUMIN 3.8 g/dL (3.2-5.5); ALBUMIN/GLOBULIN RATIO 1.3 (1.0-2.2); ALKALINE PHOSPHATASE 64 IU/L (42-121); ALT ALANINE AMINOTRANSFERASE 21 IU/L (10-60); AST ASPARTATE AMINOTRANSFERASE 13 IU/L (10-42); BILIRUBIN,TOTAL 0.5 mg/dL (0.2-1.0); BUN - BLOOD UREA NITROGEN 8 mg/dL (6-20); CALCIUM 9.1 mg/dL (8.5-10.3); CARBON DIOXIDE - CO2 32 mmol/L (21-32); CHLORIDE 103 mmol/L (101-111); CHOL/HDL RATIO 3.9 (<4.4); CHOLESTEROL 151 mg/dL; CREATININE 0.7 mg/dL (0.6-1.3); GFR - MDRD 89 (>89); GLUCOSE 211 mg/dL (74-104); HDL CHOLESTEROL 39 mg/dL; LDL CHOLESTEROL,CALCULATED 64 mg/dL; LDL/HDL RATIO 1.6 (<4.4); POTASSIUM 3.9 mmol/L (3.5-4.5); SODIUM 139 mmol/L (135-145); TOTAL PROTEIN 6.7 g/dL (6.4-8.9); TRIGLYCERIDES 242 mg/dL (48-352); VLDL CHOLESTEROL 48 mg/dL
[2023-03-06 18:24] LABS: CREATININE,URINE 64.4 mg/dL
[2023-03-06 18:25] LABS: MICROALBUMIN,URINE < 0.7 mg/dL
[2023-03-06 21:05] LABS: ESTIMATED AVERAGE GLUCOSE 206 mg/dL (70-100); HEMOGLOBIN A1c% 8.8 % (4.27-6.07)
== END 2023-03-06 14:45 | disposition home or self-care (01) ==
LOC: LAB.N 14:30
PROVIDERS: ATTEND Specialist
DX: E11.65 Type 2 diabetes mellitus with hyperglycemia (principal)
CPT/HCPCS: 36415; 80053; 80061; 82043; 82570; 83036; 83721; 85025

== ENCOUNTER 2023-03-20 17:26 | Emergency (ER) | payer MEDICAID ==
--- NOTE | 2023-03-20 17:55 | ED Physician Documentation ---
History of Present Illness - Stated complaint Stated Complaint: HIGH BLOOD SUGAR - Chief complaint Chief Complaint: Abd Pain - Additonal information Additional information: 47-year-old female who has a past medical history includes hypertension and diabetes presents to the emergency department for evaluation of erratic and elevated blood sugars. The patient was able to finally obtain a CGM through her insurance company yesterday. Since the device has been in place she has been alerted multiple times to blood sugars in the 2 32-70 range. However it also woke her up this a.m. around 4:00 letting her know that her blood glucose was 68 . She ate a spoonful of peanut butter and her blood sugars increased to the 180s. She has no fevers or vomiting. Does endorse some mild Nausea. No chest pain or shortness of air She has had no dysuria urgency or frequency. The patient states that she is scared every time the monitor alerts her which is what prompted her to come into the ER. Review of Systems Constitutional: denies: Fever, Chills Cardiac: reports: Reviewed and negative Respiratory: reports: Reviewed and negative GI: reports: Nausea. 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 : None HEENT: None Psych: Depression, Bipolar disorder, ADD/ADHD Musculoskeletal: Osteoarthritis Derm: None - Past Surgical History Past Surgical History: Yes /LOCKSTITCH SLEEVE MAKER: section - Present Medications Home Medications: Ambulatory Orders Medication Instructions Recorded Confirmed EPINEPHrine [Epinephrine] 0.3 mg IJ ONCE PRN #2 dis.syr 03/06/22 04/01/22 Losartan/Hydrochlorothiazide 1 tab PO DAILY 03/06/22 04/01/22 [Losartan-Hctz 100-12.5 mg Tab] metFORMIN [Glucophage] 500 mg PO BID 03/06/22 04/01/22 Albuterol Sulf [Ventolin Hfa 1 - 2 puffs INH Q4HR PRN #1 each 06/16/22 Inhaler] Doxycycline [Vibramycin] 100 mg PO BID 7 Days #14 tablet 12/05/22 Ulipristal Acetate [Shawna] 30 mg PO ONCE #1 tablet 12/05/22 metroNIDAZOLE [Flagyl] 500 mg PO BID 7 Days #14 tablet 12/05/22 EPINEPHrine [Epinephrine] 0.3 mg IJ ONCE PRN #2 each 02/08/23 predniSONE [Deltasone] 60 mg PO DAILY 5 Days #15 tablet 02/08/23 - Allergies Allergies/Adverse Reactions: Allergies Allergy/AdvReac Type Severity Reaction Status Date / Time phenobarbital Allergy Severe Anxiety Verified 02/08/23 17:31 phenytoin sodium extended * Allergy Intermediate Anxiety Verified 02/08/23 17:31 [From Dilantin] shrimp Allergy Rash Verified 02/08/23 17:31 fluoxetine HCl * AdvReac Severe depression Verified 02/08/23 17:31 [From Prozac] seafood Allergy Anaphylaxis Uncoded 02/08/23 17:31 - Social History Does the pt smoke?: No Smoking Status: Current every day smoker Does the pt drink ETOH?: No Does the pt have substance abuse?: No - Immunizations Immunizations are current?: Yes - POLST Patient has POLST: No PD ED PE NORMAL - General General: Alert and oriented X 3, No acute distress, Well developed/nourished (Morbidly obese) - HEENT HEENT: PERRL - Neck Neck: Supple, no meningeal sign - Cardiac Cardiac: RRR, No murmur - Respiratory Respiratory: Clear bilaterally - Abdomen Abdomen: Normal bowel sounds, Soft, Non tender - Derm Derm: Normal color, Warm and dry, No rash - Extremities Extremities: No deformity - Neuro Neuro: Alert and oriented X 3 Eye Opening: Spontaneous Motor: Obeys Commands Verbal: Oriented GCS Score: 15 Results - Vitals Vitals: Vital Signs - 24 hr 03/20/23 17:31 Temperature 36.6 C Heart Rate 85 Respiratory 20 Rate Blood Pressure 142/93 H O2 Saturation 93 Oxygen O2 Source Room air - Labs Labs: Laboratory Tests 03/20/23 03/20/23 03/20/23 17:35 17:54 17:54 WBC 7.5 RBC 5.44 H Hgb 14.0 Hct 44.5 MCV 81.8 MCH 25.7 L MCHC 31.5 L RDW 16.1 H Plt Count 232 MPV 10.5 Neut # (Auto) 4.3 Lymph # (Auto) 2.2 [place] # (Auto) 0.5 Eos # (Auto) 0.4 Baso # (Auto) 0.1 Absolute Nucleated RBC 0.00 Nucleated RBC % 0.0 VBG pH VBG pCO2 VBG pO2 VBG HCO3 VBG Total CO2 VBG O2 Saturation VBG Base Excess Sodium 135 Potassium 3.7 Chloride 102 Carbon Dioxide 29 Anion Gap 4.0 L BUN 11 Creatinine 0.7 Estimated GFR (MDRD) 89 Glucose 233 H POC Whole Bld Glucose 260 H Calcium 9.5 Total Bilirubin 0.5 AST 13 ALT 27 Alkaline Phosphatase 64 Total Protein 6.9 Albumin 4.0 Globulin 2.9 Albumin/Globulin Ratio 1.4 Lipase 20 Urine Color Urine Clarity Urine pH Ur Specific [place] Urine Protein Urine Glucose (UA) Urine Ketones Urine Occult Blood Urine Nitrite Urine Bilirubin Urine Urobilinogen Ur Leukocyte Esterase Ur Microscopic Review Urine Culture Comments Serum Ketones NEGATIVE 03/20/23 03/20/23 17:54 18:00 WBC RBC Hgb Hct MCV MCH MCHC RDW Plt Count MPV Neut # (Auto) Lymph # (Auto) [place] # (Auto) Eos # (Auto) Baso # (Auto) Absolute Nucleated RBC Nucleated RBC % VBG pH 7.442 H VBG pCO2 42.6 VBG pO2 65.1 H VBG HCO3 28.4 H VBG Total CO2 29.7 H VBG O2 Saturation 94.1 H VBG Base Excess 3.8 H Sodium Potassium Chloride Carbon Dioxide Anion Gap BUN Creatinine Estimated GFR (MDRD) Glucose POC Whole Bld Glucose Calcium Total Bilirubin AST ALT Alkaline Phosphatase Total Protein Albumin Globulin Albumin/Globulin Ratio Lipase Urine Color LT. YELLOW Urine Clarity CLEAR Urine pH 6.0 Ur Specific [place] 1.020 Urine Protein NEGATIVE Urine Glucose (UA) NEGATIVE Urine Ketones NEGATIVE Urine Occult Blood NEGATIVE Urine Nitrite NEGATIVE Urine Bilirubin NEGATIVE Urine Urobilinogen 0.2 (NORMAL) Ur Leukocyte Esterase NEGATIVE Ur Microscopic Review NOT INDICATED Urine Culture Comments NOT INDICATED Serum Ketones PD Medical Decision Making - ED course Complexity details: reviewed results, re-evaluated patient, d/w patient ED course: 47-year-old female who has a history of type 2 diabetes not yet on insulin presents to the emergency department for evaluation of erratic blood sugar measurements. She finally was able to obtain a CGM yesterday and since its been in place that she has been notified once of a blood sugar of 68 about 4 AM as well as consistent blood sugars higher than 250. She has no chest pain, shortness of air abdominal pain vomiting or diarrhea. The patient is very anxious with this new data which she is being inundated with. Her vital signs today in the emergency department were without Worrisome derangement. I did obtain CBC, ketones, VBG and electrolytes. Per my interpretation no acute worrisome abnormalities. Serum ketones are negative. She is not acidotic. Patient does not present as DKA. I discussed with patient that the new data is important in helping her manage her diabetes in the long-term. We discussed the critical highs and lows which would include consistent blood glucoses less than 70 or higher than 400. She may be encouraged to eat a small amount of protein overnight if she is finding she is having low sugars mid mornings. Otherwise she will follow closely with her PCP. The usual emergent return precautions for worsening symptoms was discussed. Departure - Departure Disposition: Home, Self Care Clinical Impression: Hyperglycemia due to type 2 diabetes mellitus Qualifiers: Diabetes mellitus shelter insulin use: without data entry manager use Qualified C ode(s): E11.65 - Type 2 diabetes mellitus with hyperglycemia Condition: Stable Record reviewed to determine appropriate education?: Yes Instructions: ED Hyperglycemia Diabetic Comments: Ene you came to the emergency department today because since you have gotten your CGM in place you have been noted often to have blood sugars higher than 250 as well as 1 blood sugar less than 70. I think at this time you are being inundated with data which is overwhelming you. Your diabetes however has not changed. You can continue to take the metformin. If you find that you are having blood sugars less than 70 or higher than 400 we need to see you back in the emergency department. If you find that the CGM consistently gives you a blood sugar less than 70 while sleeping overnight, you may benefit from eating a small amount of protein such as some nuts prior to going to bed. Please discuss this ED visit with your primary care doctor. Return sooner for worsening symptoms. Forms: PCP List
[2023-03-20 18:01] LABS: BASOPHILS # (AUTO) 0.1 10^3/uL (0.0-0.1); BASOPHILS % (AUTO) 0.7 %; EOSINOPHILS # (AUTO) 0.4 10^3/uL (0.0-0.7); EOSINOPHILS % (AUTO) 5.3 %; HCT - HEMATOCRIT 44.5 % (37.0-47.0); LYMPHOCYTES # (AUTO) 2.2 10^3/uL (1.5-3.5); MEAN CORPUSCULAR HEMOGLOBIN 25.7 pg (27.0-31.0); MEAN CORPUSCULAR HGB CONC 31.5 g/dL (32.0-36.0); MEAN CORPUSCULAR VOLUME 81.8 fL (81.0-99.0); MEAN PLATELET VOLUME 10.5 fL (7.9-10.8); MONOCYTES # (AUTO) 0.5 10^3/uL (0.0-1.0); MONOCYTES % (AUTO) 7.2 %; NEUTROPHILS # (AUTO) 4.3 10^3/uL (1.5-6.6); NEUTROPHILS % (AUTO) 57.5 %; PLT - PLATELET COUNT 232 10^3/uL (130-450); RED BLOOD COUNT 5.44 10^6/uL (4.20-5.40); RED CELL DISTRIBUTION WIDTH 16.1 % (12.0-15.0); WHITE BLOOD COUNT 7.5 x10^3/uL (4.8-10.8)
[2023-03-20 18:06] LABS: BILIRUBIN,URINE NEGATIVE (NEGATIVE); GLUCOSE, URINE (UA) NEGATIVE (NEGATIVE); KETONES,URINE (UA) NEGATIVE (NEGATIVE); LEUKOCYTE ESTERASE, URINE NEGATIVE (NEGATIVE); NITRITE,URINE NEGATIVE (NEGATIVE); OCCULT BLOOD,URINE NEGATIVE (NEGATIVE); PROTEIN,URINE NEGATIVE (NEGATIVE); UROBILINOGEN,URINE 0.2 (NORMAL) E.U./dL (NORMAL)
[2023-03-20 18:07] LABS: CLARITY,URINE CLEAR (CLEAR)
[2023-03-20 18:10] LABS: VBG BASE EXCESS 3.8 mmol/L (-2 - +2); VBG HCO3 28.4 mmol/L (23-28); VBG OXYGEN SATURATION 94.1 % (60-80); VBG PCO2 42.6 mmHg (41-51); VBG PH 7.442 (7.31-7.41); VBG PO2 65.1 mmHg (25-47); VBG TOTAL CO2 29.7 mmol/L (24-29)
[2023-03-20 18:11] LABS: KETONES, SERUM (ACETEST) NEGATIVE (NEGATIVE)
[2023-03-20 18:22] LABS: ALBUMIN/GLOBULIN RATIO 1.4 (1.0-2.2); ALKALINE PHOSPHATASE 64 IU/L (42-121); ALT ALANINE AMINOTRANSFERASE 27 IU/L (10-60); AST ASPARTATE AMINOTRANSFERASE 13 IU/L (10-42); BILIRUBIN,TOTAL 0.5 mg/dL (0.2-1.0); BUN - BLOOD UREA NITROGEN 11 mg/dL (6-20); CALCIUM 9.5 mg/dL (8.5-10.3); CARBON DIOXIDE - CO2 29 mmol/L (21-32); CHLORIDE 102 mmol/L (101-111); CREATININE 0.7 mg/dL (0.6-1.3); GFR - MDRD 89 (>89); GLUCOSE 233 mg/dL (74-104); LIPASE 20 U/L (11-82); POTASSIUM 3.7 mmol/L (3.5-4.5); SODIUM 135 mmol/L (135-145); TOTAL PROTEIN 6.9 g/dL (6.4-8.9)
[2023-03-20 19:53] VITALS: BP 159/96; O2SAT 96
== END 2023-03-20 20:03 | disposition home or self-care (01) ==
LOC: ED 17:26
DX: E11.65 Type 2 diabetes mellitus with hyperglycemia (principal); I10 Essential (primary) hypertension; F17.200 Nicotine dependence, unspecified, uncomplicated; Z79.899 Other long term (current) drug therapy; Z79.84 Long term (current) use of oral hypoglycemic drugs
CPT/HCPCS: 36415; 80053; 81001; 81003; 82009; 82803; 83690; 85025; 87086; 99283

== ENCOUNTER 2023-06-03 20:50 | Emergency (ER) | payer OTHER, MEDICAID ==
--- NOTE | 2023-06-03 22:00 | ED Physician Documentation ---
PD HPI LOWER EXT INJURY - Stated complaint Stated Complaint: RT ANKLE INJ - Chief complaint Chief Complaint: Trauma Ext - History obtained from History obtained from: Patient - Additional information Additional information: HPI from patient. Patient complains of sudden onset of right ankle pain. Patient states "I rolled my ankle at work". This occurred at approximately 12:35 PM today. She complai ns of pain at the lateral aspect of the right ankle associated with swelling . The pain is distinctly exacerbated with palpation, weightbearing. 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 - Present Medications Home Medications: Ambulatory Orders Medication Instructions Recorded Confirmed Losartan/Hydrochlorothiazide 1 tab PO DAILY 03/06/22 06/03/23 [Losartan-Hctz 100-12.5 mg Tab] metFORMIN [Glucophage] 500 mg PO BID 03/06/22 06/03/23 Albuterol Sulf [Ventolin Hfa 1 - 2 puffs INH Q4HR PRN #1 each 06/16/22 06/03/23 Inhaler] EPINEPHrine [Epinephrine] 0.3 mg IJ ONCE PRN #2 each 02/08/23 06/03/23 - Allergies Allergies/Adverse Reactions: Allergies Allergy/AdvReac Type Severity Reaction Status Date / Time phenobarbital Allergy Severe Anxiety Verified 06/03/23 21:26 phenytoin sodium extended * Allergy Intermediate Anxiety Verified 06/03/23 21:26 [From Dilantin] shrimp Allergy Rash Verified 06/03/23 21:26 fluoxetine HCl * AdvReac Severe depression Verified 06/03/23 21:26 [From Prozac] seafood Allergy Anaphylaxis Uncoded 06/03/23 21:26 - Social History Does the pt smoke?: No Smoking Status: Never smoker Does the pt drink ETOH?: No Does the pt have substance abuse?: No - Immunizations Immunizations are current?: Yes - POLST Patient has POLST: No PD ED PE NORMAL - Vitals Vital signs reviewed: Yes - General General: Alert and oriented X 3, No acute distress, Well developed/nourished - Neuro Neuro: No motor deficit, No sensory deficit PD ED PE EXPANDED - Extremities Extremities: Tenderness, Limited ROM, Swelling, Right ankle Feet visual: 1 - swelling, tenderness Results - Vitals Vitals: Oxygen O2 Source Room air - Rads (name of study) right ankle xrays Relevant Findings:: Prelim report reviewed, See rad report PD Medical Decision Making - ED course Complexity details: reviewed results, re-evaluated patient, considered differential, d/w patient ED course: No acute findings on plain-film x-rays of the right ankle. Incidental note is made of calcaneal bone spur. Results discussed with patient. There is tenderness and obvious swelling of the affected ankle on exam. She is given crutches and instructed on proper use. The right ankle is placed in an air-cast splint. Advised to follow-up with her PCP. Return precautions are reviewed. Departure - Departure Disposition: Home, Self Care Clinical Impression: Ankle sprain Qualifiers: Encounter type: initial encounter Involved ligament of ankle: unspecified ligament Laterality: right Qualified Code(s): S93.401A - Sprain of unspecified ligament of right ankle, initial encounter Condition: Good Instructions: ED Sprain Ankle W X Ray, ED Crutch Walking Comments: As we discussed, if you are continuing to have symptoms after three days of rest, you should follow-up with an L&I provider for reevaluation; as we discussed, they will be able to provide more detailed information as to work restrictions, as well as documentation/work notes for time off if you need more than just the 3 days off that I am recommended Forms: Activity restrictions Discharge Date/Time: 06/03/23 23:42
--- NOTE | 2023-06-03 22:18 | XRAY Report ---
PROCEDURE: Ankle 3 View RT INDICATIONS: rolled R ankle. TECHNIQUE: 3 views of the ankle were acquired. COMPARISON: None. FINDINGS: Bones: No acute fractures or dislocations. There is a dedicated ossicle distal to the medial malleo colleen, likely sequelae of old injury. Ankle mortise is normally aligned. No suspicious bony lesions. Mild osteoarthritic changes and calcaneal spurring. Soft tissues: No tibiotalar joint effusion. Achilles tendon appears normal. Diffuse soft tissue swe lling. IMPRESSION: 1. No acute bony abnormality. If critical symptoms persist, consider follow-up exam in 7-10 days or a dvanced imaging such as CT or MRI for further evaluation. Reviewed by: Lidia Andrews MD on 06/03/2023 10:16 PM PDT Approved by: Lidia Andrews MD on 06/03/2023 10:16 PM PDT Station ID: [id number]
[2023-06-03 23:50] VITALS: BP 171/100; O2SAT 98
== END 2023-06-03 23:42 | disposition home or self-care (01) ==
LOC: ED 20:50
DX: S93.401A Sprain of unspecified ligament of right ankle, initial encounter (principal); X50.1XXA Overexertion from prolonged static or awkward postures, initial encounter; Y99.0 Civilian activity done for income or pay; I10 Essential (primary) hypertension; E11.9 Type 2 diabetes mellitus without complications; Z79.899 Other long term (current) drug therapy; Z79.84 Long term (current) use of oral hypoglycemic drugs
CPT/HCPCS: 1040M; 99283

== ENCOUNTER 2023-06-19 19:47 | Emergency (ER) | payer MEDICAID ==
[2023-06-19 21:41] LABS: B. PARAPERTUSSIS- RESP PCR PAN NOT DETECTED; B. PERTUSSIS- RESP PCR PANEL NOT DETECTED; C. PNEUMONIAE- RESP PCR PANEL NOT DETECTED; CORONAVIRUS 229E-RESP PCR NOT DETECTED; CORONAVIRUS HKU1-RESP PCR NOT DETECTED; CORONAVIRUS NL63-RESP PCR NOT DETECTED; CORONAVIRUS OC43-RESP PCR NOT DETECTED; HUMAN METAPNEUMOVIRUS NOT DETECTED; INFLUENZA A- RESP PCR PANEL NOT DETECTED; INFLUENZA B - RESP PCR PANEL NOT DETECTED; M. PNEUMONIAE- RESP PCR PANEL NOT DETECTED; PARAINFLUENZA VIRUS 1 NOT DETECTED; PARAINFLUENZA VIRUS 2 NOT DETECTED; PARAINFLUENZA VIRUS 3 NOT DETECTED; PARAINFLUENZA VIRUS 4 NOT DETECTED; RHINOVIRUS/ENTEROVIRUS NOT DETECTED; RSV- RESP PCR PANEL NOT DETECTED; SARS-CoV-2 -RESP PCR PANEL NOT DETECTED
--- NOTE | 2023-06-19 22:09 | ED Physician Documentation ---
PD HPI URI - Stated complaint Stated Complaint: COVID EXPOSURE - Chief complaint Chief Complaint: General - History obtained from History obtained from: Patient - Additional information Additional information: HPI from patient. Patient c/o sore throat, sinus pain/congestion, mild nonproductive cough. Symptoms began mid-day today, steadily progressive. She has multiple household contacts with similar symptoms (two of which are registered in ED at this time as patients for evaluation). Patient denies fever. Review of Systems Constitutional: reports: Myalgias, Fatigue. 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: section - Present Medications Home Medications: Ambulatory Orders Medication Instructions Recorded Confirmed Losartan/Hydrochlorothiazide 1 tab PO DAILY 03/06/22 06/03/23 [Losartan-Hctz 100-12.5 mg Tab] metFORMIN [Glucophage] 500 mg PO BID 03/06/22 06/03/23 Albuterol Sulf [Ventolin Hfa 1 - 2 puffs INH Q4HR PRN #1 each 06/16/22 06/03/23 Inhaler] EPINEPHrine [Epinephrine] 0.3 mg IJ ONCE PRN #2 each 02/08/23 06/03/23 - Allergies Allergies/Adverse Reactions: Allergies Allergy/AdvReac Type Severity Reaction Status Date / Time phenobarbital Allergy Severe Anxiety Verified 06/19/23 19:56 phenytoin sodium extended * Allergy Intermediate Anxiety Verified 06/19/23 19:56 [From Dilantin] shrimp Allergy Rash Verified 06/19/23 19:56 fluoxetine HCl * AdvReac Severe depression Verified 06/19/23 19:56 [From Prozac] seafood Allergy Anaphylaxis Uncoded 06/19/23 19:56 - Social History Does the pt smoke?: No Smoking Status: Never smoker Does the pt drink ETOH?: No Does the pt have substance abuse?: No - Immunizations Immunizations are current?: Yes - POLST Patient has POLST: No PD ED PE NORMAL - Vitals Vital signs reviewed: Yes - General General: Alert and oriented X 3, No acute distress, Well developed/nourished - HEENT HEENT: Moist mucous membranes, Pharynx benign - Neck Neck: Supple, no meningeal sign - Cardiac Cardiac: RRR - Respiratory Respiratory: No respiratory distress, Clear bilaterally Results - Vitals Vitals: Oxygen O2 Source Room air - Labs Labs: Laboratory Tests 06/19/23 19:55 Nasal Adenovirus (PCR) NOT DETECTED Nasal B. parapertussis DNA (PCR) NOT DETECTED Nasal Coronavir 229E PCR NOT DETECTED Nasal Coronavir HKU1 PCR NOT DETECTED Nasal Coronavir NL63 PCR NOT DETECTED Nasal Coronavir OC43 PCR NOT DETECTED Nasal Enterovir/Rhinovir PCR NOT DETECTED Nasal Influenza B PCR NOT DETECTED Nasal Influenza A PCR NOT DETECTED Nasal Parainfluen 1 PCR NOT DETECTED Nasal Parainfluen 2 PCR NOT DETECTED Nasal Parainfluen 3 PCR NOT DETECTED Nasal Parainfluen 4 PCR NOT DETECTED Nasal RSV (PCR) NOT DETECTED Nasal B.pertussis DNA PCR NOT DETECTED Nasal C.pneumoniae (PCR) NOT DETECTED Shiv Human Metapneumo PCR NOT DETECTED Nasal M.pneumoniae (PCR) NOT DETECTED Nasal SARS-CoV-2 (PCR) NOT DETECTED PD Medical Decision Making - ED course Complexity details: reviewed results, considered differential, d/w patient ED course: Patient presents with URI symptoms that developed less than 12 hours ago while on duty at work. She has multiple household contacts with similar symptoms that have tested positive for enterovirus/rhinovirus. Patient's respiratory viral PCR panel is negative for the viruses tested. Given this patient has very similar symptoms and the significant exposure, I suspect she also has entero/rhinovirus but is too early in the course of the illness to have a positive result on the respiratory PCR panel. She is given appropriate precautions including work excuse. Return precautions are reviewed. Departure - Departure Disposition: 01 Home, Self Care Clinical Impression: URI (upper respiratory infection) Qualifiers: URI type: unspecified URI Qualified Code(s): J06.9 - Acute upper respiratory infection, unspecified Condition: Good Instructions: ED Upper Resp Infec No Abx Tx Comments: You tested negative on the viral panel performed tonight (the nasal swab test). However, considering that you have very similar symptoms to several household contacts who have tested positive for rhinovirus, it is very likely that you have the same virus but are too early in the course of the illness to cause the test to turn positive. A rational conclusion is that you have a viral upper respiratory infection and I would have you take appropriate precautions (stay home from work until per the work note I have provided, stay home and wash hands frequently) to help prevent the spread of what is likely a contagious viral illness. Forms: Activity restrictions Discharge Date/Time: 06/19/23 22:45
[2023-06-19 22:48] VITALS: BP 130/88; O2SAT 96
== END 2023-06-19 22:45 | disposition home or self-care (01) ==
LOC: ED 19:47
DX: J06.9 Acute upper respiratory infection, unspecified (principal); I10 Essential (primary) hypertension; E11.9 Type 2 diabetes mellitus without complications; Z20.822 Contact with and (suspected) exposure to COVID-19; Z79.84 Long term (current) use of oral hypoglycemic drugs
CPT/HCPCS: 87633; 99283

== ENCOUNTER 2023-07-03 18:58 | Emergency (ER) | payer MEDICAID ==
[2023-07-03 19:14] VITALS: BP 160/90; O2SAT 99
--- NOTE | 2023-07-03 19:37 | ED Physician Documentation ---
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 She was doing better when seated, and she went to urgent care and they gave her a note to be seated work but now she needs another and does not want to work too much over time. 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: section - Present Medications Home Medications: Ambulatory Orders Medication Instructions Recorded Confirmed Losartan/Hydrochlorothiazide 1 tab PO DAILY 03/06/22 06/03/23 [Losartan-Hctz 100-12.5 mg Tab] metFORMIN [Glucophage] 500 mg PO BID 03/06/22 06/03/23 Albuterol Sulf [Ventolin Hfa 1 - 2 puffs INH Q4HR PRN #1 each 06/16/22 06/03/23 Inhaler] EPINEPHrine [Epinephrine] 0.3 mg IJ ONCE PRN #2 each 02/08/23 06/03/23 - Allergies Allergies/Adverse Reactions: Allergies Allergy/AdvReac Type Severity Reaction Status Date / Time phenobarbital Allergy Severe Anxiety Verified 07/03/23 19:02 phenytoin sodium extended * Allergy Intermediate Anxiety Verified 07/03/23 19:02 [From Dilantin] shrimp Allergy Rash Verified 07/03/23 19:02 fluoxetine HCl * AdvReac Severe depression Verified 07/03/23 19:02 [From Prozac] seafood Allergy Anaphylaxis Uncoded 07/03/23 19:02 - Social History Does the pt smoke?: No Smoking Status: Never smoker Does the pt drink ETOH?: No Does the pt have substance abuse?: No - Immunizations Immunizations are current?: Yes - POLST Patient has POLST: No PD ED PE NORMAL - Vitals Vital signs reviewed: Yes - General General: Alert and oriented X 3, No acute distress - Neuro Neuro: Alert and oriented X 3, Normal speech Results - Vitals Vitals: Vital Signs - 24 hr 07/03/23 19:02 Temperature 36.5 C Heart Rate 98 Respiratory 16 Rate Blood Pressure 160/90 H O2 Saturation 99 Oxygen O2 Source Room air PD Medical Decision Making - ED course ED course: Here for a work note, no emergency medical condition present Departure - Departure Disposition: Home, Self Care Clinical Impression: Encounter for medical screening examination Condition: Good Record reviewed to determine appropriate education?: Yes Forms: PCP List, Activity restrictions
== END 2023-07-03 20:01 | disposition home or self-care (01) ==
LOC: ED 18:58
DX: Z02.79 Encounter for issue of other medical certificate (principal); M79.606 Pain in leg, unspecified; E11.9 Type 2 diabetes mellitus without complications; Z79.84 Long term (current) use of oral hypoglycemic drugs
CPT/HCPCS: 99281; 99282

== ENCOUNTER 2023-07-12 08:00 | Outpatient (CLI) | payer OTHER, MEDICAID ==
--- NOTE | 2023-07-12 17:20 | XRAY Report ---
PROCEDURE: Ankle 3 View RT INDICATIONS: RIGHT ANKLE PAIN TECHNIQUE: 3 views of the ankle were acquired. COMPARISON: Right ankle radiograph on June 03, 2023. FINDINGS: Bones: No fractures or dislocations. Tiny corticated ossific density inferior to the medial malleol us, similar to prior, likely sequela of remote trauma. Ankle mortise is normally aligned on weightbea ring view. Mild osteoarthritic changes. No suspicious bony lesions. Soft tissues: No tibiotalar joint effusion. Achilles tendon appears normal. Small plantar and Achi lles calcaneal enthesophytes. IMPRESSION: No acute bony abnormality. If clinical symptoms persist, consider repeat radiograph in 7-10 days or a dvanced imaging such as CT or MRI for further evaluation. Reviewed by: Osiel Pete MD on 07/12/2023 5:19 PM PST Approved by: Osiel Pete MD on 07/12/2023 5:19 PM PST Station ID: [id number]
== END 2023-07-12 23:59 | disposition home or self-care (01) ==
LOC: DI.WOS 08:00
PROVIDERS: ATTEND Physician Assistant Surgical
DX: S93.401D Sprain of unspecified ligament of right ankle, subsequent encounter (principal)

== ENCOUNTER 2023-08-01 12:15 | Outpatient (CLI) | payer MEDICAID ==
--- NOTE | 2023-08-01 20:35 | XRAY Report ---
PROCEDURE: Chest 2V INDICATIONS: WHEEZING TECHNIQUE: 2 views of the chest were acquired. COMPARISON: CXR 11/03/2021. FINDINGS: Surgical changes and devices: None. Lungs and pleura: No pleural effusions or pneumothorax. Lungs are clear. Mediastinum: Mediastinal contours appear normal. Heart size is normal. Bones and chest wall: No suspicious bony lesions. Overlying soft tissues appear unremarkable. IMPRESSION: No acute cardiopulmonary process. Reviewed by: Liam Stout MD on 08/01/2023 8:34 PM PST Approved by: Liam Stout MD on 08/01/2023 8:34 PM PST Station ID: [id number]
== END 2023-08-01 12:30 | disposition home or self-care (01) ==
LOC: DI.N 12:15
PROVIDERS: ATTEND Nurse Practitioner
DX: R06.2 Wheezing (principal)

== ENCOUNTER 2023-09-26 08:05 | Inpatient (IN) | payer OTHER, MEDICAID ==
--- NOTE | 2023-09-26 08:38 | ED Physician Documentation ---
PD HPI URI - Stated complaint Stated Complaint: SOA/COUGHING - Chief complaint Chief Complaint: Resp - History obtained from History obtained from: Patient - History of Present Illness Timing - onset: How many days ago (3) Timing duration: Days (3) Timing details: Gradual onset, Still present (worsening) Associated symptoms: Fever, Chills, Sore throat, Dry cough, Dyspnea Contributing factors: COPD / asthma. No: Immunocompromised Similar symptoms before: Diagnosis (cn get asthma flare with URIs or environmental exposure. Does not take inhaled steroids. Uses up MDI about every 3-4 months.) Recently seen: Not recently seen Review of Systems Constitutional: reports: Chills, Myalgias. denies: Fever Nose: reports: Rhinorrhea / runny nose, Congestion Throat: reports: Sore throat Cardiac: reports: Chest pain / pressure (with coughing). denies: Palpitations, Pedal edema Respiratory: reports: Dyspnea, Cough, Wheezing GI: denies: Abdominal Pain, Nausea, Vomiting, Diarrhea Neurologic: reports: Generalized weakness. denies: Near syncope PD PAST MEDICAL HISTORY - Past Medical History Past Medical History: Yes Cardiovascular: Hypertension Respiratory: Asthma Neuro: Seizure disorder Endocrine/Autoimmune: Type 2 diabetes GI: None ULTRASOUND SONOGRAPHER: None : None HEENT: None Psych: Depression, Bipolar disorder, ADD/ADHD Musculoskeletal: Osteoarthritis Derm: None - Past Surgical History Past Surgical History: Yes /ULTRASOUND SONOGRAPHER: section - Present Medications Home Medications: Ambulatory Orders Medication Instructions Recorded Confirmed Losartan/Hydrochlorothiazide 1 tab PO DAILY 03/06/22 09/26/23 [Losartan-Hctz 100-12.5 mg Tab] metFORMIN [Glucophage] 500 mg PO BID 03/06/22 09/26/23 Albuterol Sulf [Ventolin Hfa 1 - 2 puffs INH Q4HR PRN #1 each 06/16/22 09/26/23 Inhaler] EPINEPHrine [Epinephrine] 0.3 mg IJ ONCE PRN #2 each 02/08/23 09/26/23 Amlodipine Besylate [Norvasc] 5 mg PO DAILY 09/26/23 09/26/23 Blood-Glucose Sensor [Freestyle 1 each MC DAILY 09/26/23 09/26/23 Lior 3 Sensor] - Allergies Allergies/Adverse Reactions: Allergies Allergy/AdvReac Type Severity Reaction Status Date / Time phenobarbital Allergy Severe Anxiety Verified 09/26/23 08:23 phenytoin sodium extended * Allergy Intermediate Anxiety Verified 09/26/23 08:23 [From Dilantin] shrimp Allergy Rash Verified 09/26/23 08:23 fluoxetine HCl * AdvReac Severe depression Verified 09/26/23 08:23 [From Prozac] seafood Allergy Anaphylaxis Uncoded 09/26/23 08:23 - Social History Does the pt smoke?: No Smoking Status: Never smoker Does the pt drink ETOH?: No Does the pt have substance abuse?: No - Immunizations Immunizations are current?: Yes - POLST Patient has POLST: No PD ED PE NORMAL - Vitals Vital signs reviewed: Yes (90-92% RA initially but actually worsened in ED to 85-88%.) - General General: Alert and oriented X 3, Well developed/nourished Results - Vitals Vitals: Vital Signs - 24 hr 09/26/23 09/26/23 09/26/23 08:18 09:21 09:54 Temperature 36.7 C Heart Rate 80 79 70 Respiratory 20 17 20 Rate Blood Pressure 170/104 H 113/82 H O2 Saturation 95 85 L 09/26/23 10:36 Temperature Heart Rate 79 Respiratory 17 Rate Blood Pressure O2 Saturation Oxygen O2 Source Room air Oxygen Flow Rate 2 - Labs Labs: Laboratory Tests 09/26/23 09:25 Nasal Adenovirus (PCR) NOT DETECTED Nasal B. parapertussis DNA (PCR) NOT DETECTED Nasal Coronavir 229E PCR NOT DETECTED Nasal Coronavir HKU1 PCR NOT DETECTED Nasal Coronavir NL63 PCR NOT DETECTED Nasal Coronavir OC43 PCR NOT DETECTED Nasal Enterovir/Rhinovir PCR NOT DETECTED Nasal Influenza B PCR NOT DETECTED Nasal Influenza A PCR NOT DETECTED Nasal Parainfluen 1 PCR NOT DETECTED Nasal Parainfluen 2 PCR NOT DETECTED Nasal Parainfluen 3 PCR NOT DETECTED Nasal Parainfluen 4 PCR NOT DETECTED Nasal RSV (PCR) DETECTED A Nasal B.pertussis DNA PCR NOT DETECTED Nasal C.pneumoniae (PCR) NOT DETECTED Shiv Human Metapneumo PCR NOT DETECTED Nasal M.pneumoniae (PCR) NOT DETECTED Nasal SARS-CoV-2 (PCR) NOT DETECTED - Rads (name of study) chest xray Relevant Findings:: Prelim report reviewed, EMP independent interpretation of test (no infiltrates, effusions nor PTX. ) PD Medical Decision Making - ED course Complexity details: reviewed results (CXR without infiltrates nor effusions. ), re-evaluated patient (Moderately improved work of breathing, but still wheezing and prolonged exp phase. Improved voice. Sats off oxygen still 88%, to 95% with NC. Given nebs x 3 initially. ), considered differential, d/w patient, d/w software consultant (Hospitalist.) Departure - Departure Disposition: 66 [facility] DC/Xfer Clinical Impression: RSV bronchiolitis, Asthma exacerbation, Hypoxemia Condition: Stable Record reviewed to determine appropriate education?: Yes Discharge Date/Time: 09/26/23 12:41
[2023-09-26] MEDS: IPRATROPIUM/ALBUTEROL 3 ML NEB INH STA ×2 (09:17→10:34)
[2023-09-26] MEDS: BENZONATATE 100 MG CAPSULE PO STA (09:21)
[2023-09-26] MEDS: dexAMETHasone 4 MG TABLET PO STA (09:21)
--- NOTE | 2023-09-26 09:48 | XRAY Report ---
PROCEDURE: Chest 1V INDICATIONS: dyspnea TECHNIQUE: One view of the chest was acquired. COMPARISON: Chest x-ray 08/01/2023 FINDINGS: Surgical changes and devices: None. Lungs and pleura: No pleural effusions or pneumothorax. Lungs are clear. Mediastinum: Mediastinal contours appear normal. Heart size is normal. Bones and chest wall: No suspicious bony lesions. Overlying soft tissues appear unremarkable. IMPRESSION: No acute cardiopulmonary process. Reviewed by: Amina Bartlett MD on 09/26/2023 9:47 AM [facility] Approved by: Amina Bartlett MD on 09/26/2023 9:47 AM [facility] Station ID: [id number]
[2023-09-26 10:25] LABS: B. PARAPERTUSSIS- RESP PCR PAN NOT DETECTED; B. PERTUSSIS- RESP PCR PANEL NOT DETECTED; C. PNEUMONIAE- RESP PCR PANEL NOT DETECTED; CORONAVIRUS 229E-RESP PCR NOT DETECTED; CORONAVIRUS HKU1-RESP PCR NOT DETECTED; CORONAVIRUS NL63-RESP PCR NOT DETECTED; CORONAVIRUS OC43-RESP PCR NOT DETECTED; HUMAN METAPNEUMOVIRUS NOT DETECTED; INFLUENZA A- RESP PCR PANEL NOT DETECTED; INFLUENZA B - RESP PCR PANEL NOT DETECTED; M. PNEUMONIAE- RESP PCR PANEL NOT DETECTED; PARAINFLUENZA VIRUS 1 NOT DETECTED; PARAINFLUENZA VIRUS 2 NOT DETECTED; PARAINFLUENZA VIRUS 3 NOT DETECTED; PARAINFLUENZA VIRUS 4 NOT DETECTED; RHINOVIRUS/ENTEROVIRUS NOT DETECTED; RSV- RESP PCR PANEL DETECTED; SARS-CoV-2 -RESP PCR PANEL NOT DETECTED
[2023-09-26] MEDS ORDERED: ONDANSETRON 4 MG/2 ML VIAL IVP PRN (11:50)
--- NOTE | 2023-09-26 12:25 | PHARMACY PROGRESS NOTE ---
- Best Possible Medication History Admit Date and Time: 09/26/23 1150 Processed by: Nursing Medications reviewed in ED?: Yes Medication History completed: Yes Secondary Source(s): Insurance records As the person ultimately responsible for medication therapy, providers are able to order a medication from an existing home medication list in [facility] via the "Reconcile Routine" prior to Confirmation of that medication by technical support assistant. Such practice is discouraged except when the physician, in their clinical judgment, deems that a medical need exists for a medication without regard to previous use.
[2023-09-26] MEDS: ALBUTEROL NEB 2.5 MG/3 ML INH STA (13:01)
--- NOTE | 2023-09-26 14:15 | HISTORY & PHYSICAL EXAMINATION ---
Chief Complaint - Chief Complaint Chief Complaint: SOA History of Present Illness - Admitted From Admitted From:: ED - History Obtained From History obtained from: ED provider and the patient - History of Present Illness HPI Comment/Other: This is a 47-year-old female with a history of morbid obesity (BMI 53), asthma with attacks happening when she gets a URI and also has a history of DM, HTN, migraines and seizure disorder. She presented to the ER today complaining of shortness of air with a cough of 3 days duration. She denied any chest pain, palpitations, PND orthopnea or leg edema. Her workup showed that she was desaturating on room air down to 85%, chest x-ray showed no infiltrates and normal heart size and labs showed positive RSV on her respiratory PCR and serum glu of 275. No CMP or CBC was done in the ER. She was put on supplemental oxygen and given oral Decadron and several nebulized bronchodilators in the ER. She was retested on room air and continued to desaturate to below 88%. The ED provider then spoke to me about this patient for admission for managing an asthmatic exacerbation caused by RSV viral infection causing hypoxia. As I am meeting her she just had a coughing spell, was all flushed. She is now speaking to me with a hoarse voice. She reports that there are 4 children in the house and everybody has URIs. 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 She lives with her 2 children and each of their significant others. She just quit smoking 2 months ago. She drinks very rare alcohol. She occasionally uses marijuana products. - Substance History Use: Uses substance without health or social issues: Alcohol, Cannabis - POLST Patient has POLST: No Meds/Allgy - Home Medications Home Medications: Ambulatory Orders Medication Instructions Recorded Confirmed Losartan/Hydrochlorothiazide 1 tab PO DAILY 03/06/22 09/26/23 [Losartan-Hctz 100-12.5 mg Tab] metFORMIN [Glucophage] 500 mg PO BID 03/06/22 09/26/23 Albuterol Sulf [Ventolin Hfa 1 - 2 puffs INH Q4HR PRN #1 each 06/16/22 09/26/23 Inhaler] EPINEPHrine [Epinephrine] 0.3 mg IJ ONCE PRN #2 each 02/08/23 09/26/23 Amlodipine Besylate [Norvasc] 5 mg PO DAILY 09/26/23 09/26/23 Blood-Glucose Sensor [Freestyle 1 each MC DAILY 09/26/23 09/26/23 Lior 3 Sensor] - Allergies Allergies/Adverse Reactions: Allergies Allergy/AdvReac Type Severity Reaction Status Date / Time phenobarbital Allergy Severe Anxiety Verified 09/26/23 08:23 phenytoin sodium extended * Allergy Intermediate Anxiety Verified 09/26/23 08:23 [From Dilantin] shrimp Allergy Rash Verified 09/26/23 08:23 fluoxetine HCl * AdvReac Severe depression Verified 09/26/23 08:23 [From Prozac] seafood Allergy Anaphylaxis Uncoded 09/26/23 08:23 Review of Systems - Respiratory Respiratory: reports: Cough, SOB at rest, SOB with exertion - All Other Systems All Other Systems: reports: Reviewed and negative Exam - Vital Signs Vital Signs: Vital Signs x48h Temp Pulse Pulse Resp BP BP Pulse Ox 09/26/23 12:51 09/26/23 12:47 37.3 C 73 22 185/86 H 92 09/26/23 12:16 88 20 183/101 H 90 L 09/26/23 10:36 79 17 09/26/23 09:54 70 20 113/82 H 85 L 09/26/23 09:21 79 17 09/26/23 08:18 36.7 C 80 20 170/104 H 95 O2 Flow Rate 09/26/23 12:51 1 09/26/23 12:47 1 09/26/23 12:16 2 09/26/23 10:36 09/26/23 09:54 09/26/23 09:21 09/26/23 08:18 - Physical Exam General Appearance: positive: Moderate distress (She is speaking with a hoarse voice, is tachypneic, appears in moderate respiratory distress.) Eyes Bilateral: positive: EOMI, No lid inflammation ENT: positive: ENT inspection nml, No signs of dehydration Neck: positive: Nml inspection (Obese and cannot rule out JVD) Respiratory: positive: Wheezes (Poor air movement in all lung sampson) Cardiovascular: positive: Regular rate & rhythm (Very distant heart sounds due to morbid obesity and due to wheezing) Rectal: positive: Non-tender, Other (Obese with pannus) Skin: positive: Warm, Dry Extremities: positive: Non-tender, No pedal edema Neurologic/Psychiatric: positive: Oriented x3, Motor nml Conclusion/Plan - Problem List (1) Acute respiratory failure with hypoxia Conclusion/Plan: Likely causes appear to be the RSV infection plus an asthma exacerbation Plan: Give supplemental O2 with target saturations 88% and above and treat the underly ing asthma exacerbation (2) Asthma exacerbation Conclusion/Plan: As per presentation Plan: Will order DuoNebs scheduled 4 times daily plus every 4 hours as needed Will order Pulmicort nebulized twice daily Will continue with steroids using Solu-Medrol 40 mg 3 times daily. Aware that this may increase her glucose levels, since she is a diabetic Will order Mucinex for expectoration and Robitussin AC for suppressing coughing spasms Qualifiers: Asthma severity: moderate Asthma persistence: persistent Qualified Code(s): J45.41 - Moderate persistent asthma with (acute) exacerbation (3) RSV infection Conclusion/Plan: As per results Plan: Will obtain sputum for culture and if there are high white cells or many bacteria we will start empiric antibiotics Droplet isolation ordered (4) Type 2 diabetes mellitus Conclusion/Plan: As per history. Glucose check today was 275, likely very elevated from her infection. No other lab work was done in the ER Plan: Obtain an entire CMP as a baseline Will order Diabetic diet Sliding scale insulin, hypoglycemia protocol, before meals and at bedtime f ingerstick checks. Being on IV steroid may increase her insulin need Check A1c with a.m. lab I will not resume her usual metformin dose yest, in case she needs to have IV dye for imaging while she is here Qualifiers: Diabetes mellitus shelter insulin use: without shelter use Diabetes mellitus complication status: with hyperglycemia Qualified Code(s): E11.65 - Type 2 diabetes mellitus with hyperglycemia (5) Seizure disorder Conclusion/Plan: Plan: I will resume all her usual seizure medications, once the medication list is reconciled by pharmacy (6) Morbid obesity with BMI of 50.0-59.9, adult Conclusion/Plan: This complicates all her care and will likely prolong her hospital course - Lab Results Fish Bones: 09/27/23 05:27 09/27/23 05:27 - Diagnostic Imaging Results Diagnostic Imaging Results: positive: Final report reviewed - Other Other Results/Comments: Attestation: The patient is expected to be hospitalized for greater than 2 midnights and is expected to be discharged or transferred to another facility within 96 hours: Yes.
[2023-09-26] MEDS ORDERED: NON FORMULARY MED (Epinephrine [Epinephrine] 0.3 MG/0.3 ML Auto.Injct) IJ PRN (14:18)
[2023-09-26 14:37] LABS: BASOPHILS % (AUTO) 0.6 %; EOSINOPHILS % (AUTO) 0.2 %; HCT - HEMATOCRIT 43.7 % (37.0-47.0); HGB - HEMOGLOBIN 13.3 g/dL (12.0-16.0); LYMPHOCYTES # (AUTO) 0.4 10^3/uL (1.5-3.5); LYMPHOCYTES % (AUTO) 8.8 %; MEAN CORPUSCULAR HEMOGLOBIN 24.2 pg (27.0-31.0); MEAN CORPUSCULAR HGB CONC 30.4 g/dL (32.0-36.0); MEAN CORPUSCULAR VOLUME 79.5 fL (81.0-99.0); MEAN PLATELET VOLUME 11.1 fL (7.9-10.8); MONOCYTES # (AUTO) 0.1 10^3/uL (0.0-1.0); MONOCYTES % (AUTO) 2.6 %; NEUTROPHILS # (AUTO) 4.4 10^3/uL (1.5-6.6); NEUTROPHILS % (AUTO) 87.6 %; PLT - PLATELET COUNT 205 10^3/uL (130-450); RED CELL DISTRIBUTION WIDTH 15.6 % (12.0-15.0)
[2023-09-26 14:44] LABS: INR 1.2 (0.8-1.2); PT - PROTHROMBIN TIME 12.7 secs (9.9-12.6)
[2023-09-26 15:10] LABS: ALBUMIN/GLOBULIN RATIO 1.3 (1.0-2.2); BILIRUBIN,TOTAL 0.5 mg/dL (0.2-1.0); CREATININE 0.6 mg/dL (0.6-1.3); TOTAL PROTEIN 7.1 g/dL (6.4-8.9)
[2023-09-26] MEDS: IPRATROPIUM/ALBUTEROL 3 ML NEB INH SCH (15:50)
[2023-09-26] MEDS ORDERED: INSULIN LISPRO 300 UNIT/3 ML PEN SUBQ SCH (17:00)
[2023-09-26] MEDS: SODIUM CHLORIDE FLUSH 0.9% 10 ML SYRINGE IVP SCH (17:23)
[2023-09-26] MEDS: INSULIN LISPRO 300 UNIT/3 ML PEN SUBQ SCH (17:34)
[2023-09-26] MEDS: guaiFENesin/CODEINE 5 ML UDC PO PRN (18:15)
[2023-09-26] MEDS: BUDESONIDE 0.5 MG/2 ML NEB INH SCH (20:11)
[2023-09-26] MEDS: guaiFENesin 600 MG TABLET PO SCH (21:50)
[2023-09-26] MEDS: methylPREDNISolone SUCCINATE 40 MG/ML VIAL IVP SCH (21:54)
[2023-09-26] MEDS: HEPARIN 5,000 UNIT/ML VIAL SUBQ SCH (21:54)
[2023-09-27 06:16] LABS: BASOPHILS % (AUTO) 0.1 %; HCT - HEMATOCRIT 42.7 % (37.0-47.0); HGB - HEMOGLOBIN 12.6 g/dL (12.0-16.0); LYMPHOCYTES # (AUTO) 0.7 10^3/uL (1.5-3.5); LYMPHOCYTES % (AUTO) 9.5 %; MEAN CORPUSCULAR HGB CONC 29.5 g/dL (32.0-36.0); MEAN CORPUSCULAR VOLUME 81.3 fL (81.0-99.0); MONOCYTES # (AUTO) 0.2 10^3/uL (0.0-1.0); MONOCYTES % (AUTO) 2.7 %; NEUTROPHILS # (AUTO) 6.4 10^3/uL (1.5-6.6); NEUTROPHILS % (AUTO) 87.3 %; PLT - PLATELET COUNT 227 10^3/uL (130-450); RED BLOOD COUNT 5.25 10^6/uL (4.20-5.40); RED CELL DISTRIBUTION WIDTH 15.7 % (12.0-15.0); WHITE BLOOD COUNT 7.4 x10^3/uL (4.8-10.8)
[2023-09-27 06:29] LABS: CREATININE 0.6 mg/dL (0.6-1.3); MAGNESIUM 1.9 mg/dL (1.7-2.3); PHOSPHORUS 4.5 mg/dL (2.5-5.0); POTASSIUM 4.5 mmol/L (3.5-4.5)
[2023-09-27] MEDS: amLODIPine 5 MG TABLET PO SCH (09:28)
[2023-09-27] MEDS: LOSARTAN 50 MG TABLET PO SCH (09:28)
[2023-09-27 10:53] LABS: ESTIMATED AVERAGE GLUCOSE 206 mg/dL (70-100); HEMOGLOBIN A1c% 8.8 % (4.27-6.07)
--- NOTE | 2023-09-27 16:53 | PROVIDER PROGRESS NOTE ---
Assessment/Plan - Problem List (1) Acute respiratory failure with hypoxia Assessment/Plan: She is still very symptomatic. Likely causes of her hypoxia appear to be the RSV infection plus an asthma exacerbation Plan: Give supplemental O2 with target saturations 88% and above and treat the underlying asthma exacerbation (2) Asthma exacerbation Conclusion/Plan: She is still very symptomatic. As per presentation. Plan: Will order DuoNebs scheduled 4 times daily plus every 4 hours as needed Will order Pulmicort nebulized twice daily Will continue with steroids using Solu-Medrol 40 mg 3 times daily. Aware that this may increase her glucose levels, since she is a diabetic Will order Mucinex for expectoration and Robitussin AC for suppressing coughing spasms Qualifiers: Asthma severity: moderate Asthma persistence: persistent Qualified Code(s): J45.41 - Moderate persistent asthma with (acute) exacerbation (3) RSV infection Conclusion/Plan: As per results Plan: Will obtain sputum for culture and if there are high white cells or many bacteria we will start empiric antibiotics Droplet isolation ordered (4) Type 2 diabetes mellitus, uncontrolled Conclusion/Plan: She was only on Metformin at home. Glucose since adm are 275, 318, 397, 350. Likely very elevated due to the stress of infection plus being on IV steroids. Her A1c came back at Plan: Rice Dryer Mechanic to see patient, she requested it Cont Diabetic diet Cont sliding scale insulin, hypoglycemia protocol, fingerstick checks. I will start her on Semglee 10 units twice daily, since glu expected to be elevated on iv steroids I will resume her usual metformin dose Qualifiers: Diabetes mellitus watermaster insulin use: without half-way use Diabetes mellitus complication status: with hyperglycemia Qualified Code(s): E11.65 - Type 2 diabetes mellitus with hyperglycemia (5) Seizure disorder Conclusion/Plan: She told me she has not had a seizure in over 20 years and is on no meds for this (6) Morbid obesity with BMI of 50.0-59.9, adult Conclusion/Plan: This complicates all her care and will likely prolong her hospital course - Current Meds Current Meds: Current Medications Generic Name Dose Route Start Last Admin Trade Name Freq PRN Reason Stop Dose Admin Albuterol/Ipratropium 3 ml 09/26/23 15:00 09/27/23 15:32 Ipratropium/Albuterol 3 Ml Neb INH 3 ml RTQID LIEN Administration Amlodipine Besylate 5 mg 09/27/23 09:00 09/27/23 09:28 Amlodipine 5 Mg Tablet PO 5 mg DAILY LIEN Administration Budesonide 0.5 mg 09/26/23 19:00 09/27/23 07:26 Budesonide 0.5 Mg/2 Ml Neb INH 0.5 mg RTBID LIEN Administration Guaifenesin 600 mg 09/26/23 21:00 09/27/23 09:28 Guaifenesin 600 Mg Tablet PO 600 mg BID LIEN Administration Guaifenesin/Codeine Phosphate 5 ml 09/26/23 18:02 09/26/23 18:15 Guaifenesin/Codeine 5 Ml Udc PO 5 ml Q6HR PRN Administration Cough Heparin Sodium (Porcine) 5,000 unit 09/26/23 21:00 09/27/23 09:28 Heparin 5,000 Unit/Ml Vial SUBQ 5,000 unit BID LIEN Administration Losartan Potassium 50 mg 09/27/23 09:00 09/27/23 09:28 Losartan 50 Mg Tablet PO 50 mg DAILY LIEN Administration Methylprednisolone 40 mg 09/26/23 22:00 09/27/23 14:00 Methylprednisolone Succinate 40 Mg/Ml Vial IVP 40 mg TID LIEN Administration Sodium Chloride 10 ml 09/26/23 17:00 09/27/23 09:28 Sodium Chloride Flush 0.9% 10 Ml Syringe IVP 10 ml 0100,0900,1700 LIEN Administration - Lab Result Fish Bone Diagrams: 09/29/23 07:55 09/29/23 07:55 - Additional Planning My Orders: My Active Orders 09/26/23 Dinner Carb-controlled Diet [DIET] 09/26/23 17:00 Sodium Chloride Flush 0.9% [Normal Saline Flush 0.9%] 10 ml IVP 0100,0900,1700 09/26/23 18:02 guaiFENesin/CODEINE [Robitussin AC] 5 ml PO Q6HR PRN 09/26/23 19:00 Budesonide [Pulmicort] 0.5 mg INH RTBID 09/26/23 21:00 Heparin [Heparin Sodium (Porcine)] 5,000 unit SUBQ BID guaiFENesin [Mucinex] 600 mg PO BID 09/26/23 22:00 methylPREDNISolone SUCCINATE [SOLU-Medrol (40MG VIAL)] 40 mg IVP TID 09/27/23 Dietitian to Assess and Manage Nutrition [CONS] Routine 09/27/23 09:00 Losartan [Cozaar] 50 mg PO DAILY amLODIPine [Norvasc] 5 mg PO DAILY 09/27/23 16:03 CUL, RESPIRATORY [RM] Stat 09/27/23 17:00 Insulin Lispro [Humalog Kwikpen U-100] 2 - 10 unit SUBQ 0800,1200,1700,2100 09/27/23 21:00 Insulin Glargine-Yfgn [Semglee] 10 unit SUBQ BID Subjective - Subjective Patient Reports: Cough (Feels like she is suffocating. She is tripoding), Shortness of Breath Objective Vital Signs: Vital Signs - 24 hr 09/26/23 09/26/23 09/27/23 20:13 20:14 00:05 Temperature 36.7 C Heart Rate 94 94 Heart Rate [ 85 Brachial] Respiratory 28 H 28 H 18 Rate Blood Pressure 182/94 H [Left Brachial artery] O2 Saturation 92 If not protocol 4 4 4 : Oxygen Flow, liters/minute 09/27/23 09/27/23 07:34 07:35 Temperature 36.6 C Heart Rate 80 Heart Rate [ 74 Brachial] Respiratory 20 18 Rate Blood Pressure 156/81 H [Left Brachial artery] O2 Saturation 93 If not protocol 4 2 : Oxygen Flow, liters/minute Oxygen O2 Source Nasal cannula Oxygen Flow Rate 2 I&O (Last 24 Hrs): Intake and Output Totals x24h 09/25/23 09/26/23 09/27/23 23:59 23:59 23:59 Intake Total 1850 1480 Balance 1850 1480 General: Moderate distress (from SOB. She is tripoding and asking for a neb treatment) HEENT: EOMI, Mucous membr. moist/pink, Other (morbidly obese. hoarse voice. speaking in 2 words sentences, due to SOB) Neuro: Alert, Non Focal Cardiovascular: Regular rate (distant heart sounds di=ue to obesity and wheezes) Respiratory: Wheezes (in all lung sampson), Other (very poor air mvm in all lung sampson) Abdomen: Soft, Other (Obese with a pannus) Extremities: No edema, No tenderness/swelling - Results Results: Laboratory Results WBC 7.4 x10^3/uL (4.8-10.8) 09/27/23 05:27 RBC 5.25 10^6/uL (4.20-5.40) 09/27/23 05:27 Hgb 12.6 g/dL (12.0-16.0) 09/27/23 05:27 Hct 42.7 % (37.0-47.0) 09/27/23 05:27 MCV 81.3 fL (81.0-99.0) 09/27/23 05:27 MCH 24.0 pg (27.0-31.0) L 09/27/23 05:27 MCHC 29.5 g/dL (32.0-36.0) L 09/27/23 05:27 RDW 15.7 % (12.0-15.0) H 09/27/23 05:27 Plt Count 227 10^3/uL (130-450) 09/27/23 05:27 MPV 12.0 fL (7.9-10.8) H 09/27/23 05:27 Neut # (Auto) 6.4 10^3/uL (1.5-6.6) 09/27/23 05:27 Lymph # (Auto) 0.7 10^3/uL (1.5-3.5) L 09/27/23 05:27 [place] # (Auto) 0.2 10^3/uL (0.0-1.0) 09/27/23 05:27 Eos # (Auto) 0.0 10^3/uL (0.0-0.7) 09/27/23 05:27 Baso # (Auto) 0.0 10^3/uL (0.0-0.1) 09/27/23 05:27 Absolute Nucleated RBC 0.00 x10^3/uL 09/27/23 05:27 Nucleated RBC % 0.0 /100WBC 09/27/23 05:27 PT 12.7 secs (9.9-12.6) H 09/26/23 14:33 INR 1.2 (0.8-1.2) 09/26/23 14:33 Sodium 137 mmol/L (135-145) 09/27/23 05:27 Potassium 4.5 mmol/L (3.5-4.5) 09/27/23 05:27 Chloride 104 mmol/L (101-111) 09/27/23 05:27 Carbon Dioxide 26 mmol/L (21-32) 09/27/23 05:27 Anion Gap 7.0 (6-13) 09/27/23 05:27 BUN 15 mg/dL (6-20) 09/27/23 05:27 Creatinine 0.6 mg/dL (0.6-1.3) 09/27/23 05:27 Estimated GFR (MDRD) 107 (>89) 09/27/23 05:27 Glucose 311 mg/dL (74-104) H 09/27/23 05:27 POC Whole Bld Glucose 373 mg/dL (70 - 100) H 09/27/23 11:34 Estimat Average Glucose 206 mg/dL (70-100) H 09/27/23 05:27 Hemoglobin A1c % 8.8 % (4.27-6.07) H 09/27/23 05:27 Calcium 9.0 mg/dL (8.5-10.3) 09/27/23 05:27 Phosphorus 4.5 mg/dL (2.5-5.0) 09/27/23 05:27 Magnesium 1.9 mg/dL (1.7-2.3) 09/27/23 05:27 Total Bilirubin 0.5 mg/dL (0.2-1.0) 09/26/23 14:33 AST 13 IU/L (10-42) 09/26/23 14:33 ALT 25 IU/L (10-60) 09/26/23 14:33 Alkaline Phosphatase 79 IU/L (42-121) 09/26/23 14:33 Total Protein 7.1 g/dL (6.4-8.9) 09/26/23 14:33 Albumin 4.0 g/dL (3.2-5.5) 09/26/23 14:33 Globulin 3.1 g/dL (2.1-4.2) 09/26/23 14:33 Albumin/Globulin Ratio 1.3 (1.0-2.2) 09/26/23 14:33 Nasal Adenovirus (PCR) NOT DETECTED 09/26/23 09:25 Nasal B. parapertussis DNA (PCR) NOT DETECTED 09/26/23 09:25 Nasal Coronavir 229E PCR NOT DETECTED 09/26/23 09:25 Nasal Coronavir HKU1 PCR NOT DETECTED 09/26/23 09:25 Nasal Coronavir NL63 PCR NOT DETECTED 09/26/23 09:25 Nasal Coronavir OC43 PCR NOT DETECTED 09/26/23 09:25 Nasal Enterovir/Rhinovir PCR NOT DETECTED 09/26/23 09:25 Nasal Influenza B PCR NOT DETECTED 09/26/23 09:25 Nasal Influenza A PCR NOT DETECTED 09/26/23 09:25 Nasal Parainfluen 1 PCR NOT DETECTED 09/26/23 09:25 Nasal Parainfluen 2 PCR NOT DETECTED 09/26/23 09:25 Nasal Parainfluen 3 PCR NOT DETECTED 09/26/23 09:25 Nasal Parainfluen 4 PCR NOT DETECTED 09/26/23 09:25 Nasal RSV (PCR) DETECTED A 09/26/23 09:25 Nasal B.pertussis DNA PCR NOT DETECTED 09/26/23 09:25 Nasal C.pneumoniae (PCR) NOT DETECTED 09/26/23 09:25 Shiv Human Metapneumo PCR NOT DETECTED 09/26/23 09:25 Nasal M.pneumoniae (PCR) NOT DETECTED 09/26/23 09:25 Nasal SARS-CoV-2 (PCR) NOT DETECTED 09/26/23 09:25 - Procedures Procedures: Procedures OTHER SKIN & SUBQ I D (04/02/15)
[2023-09-27] MEDS: INSULIN LISPRO 300 UNIT/3 ML PEN SUBQ SCH (17:03)
[2023-09-27] MEDS: INSULIN GLARGINE-YFGN 300 UNIT/3 ML PEN SUBQ SCH (20:42)
[2023-09-27] MEDS: methylPREDNISolone SUCCINATE 40 MG/ML VIAL IVP SCH (22:10)
[2023-09-28] MEDS: INSULIN LISPRO 300 UNIT/3 ML PEN SUBQ SCH (08:31)
--- NOTE | 2023-09-28 11:35 | PROVIDER PROGRESS NOTE ---
Assessment/Plan - Problem List (1) Acute respiratory failure with hypoxia Assessment/Plan: Likely causes appear to be the RSV infection plus an asthma exacerbation Plan: Give supplemental O2 with target saturations 88% and above and treat the underlying asthma exacerbation (2) Asthma exacerbation Qualifiers: Qualified Code(s): J45.41 - Moderate persistent asthma with (acute) exacerbation Assessment/Plan: She is still very symptomatic, is hoarse, speaking in 3 word sentences due to SOB Plan: Cont DuoNebs scheduled 4 times daily plus every 4 hours as needed Cont Pulmicort nebulized twice daily Will continue with steroids using Solu-Medrol 40 mg 3 times daily. Aware that this will increase her glucose levels, since she is a diabetic Will order Mucinex for expectoration and Robitussin AC for suppressing coughing spasms Qualifiers: Asthma severity: moderate Asthma persistence: persistent Qualified Code(s): J45.41 - Moderate persistent asthma with (acute) exacerbation (3) Otitis media Assessment/Plan: This morning the patient had a "coughing spell" after that she felt pressure and pain in her right ear. Exam (done by Dr. Rojas of the ED using a portable otoscope), showed the right eardrum to be red and bulging Plan: I will put her on oral Augmentin, chosen to cover anaerobes Will also order Afrin spray to decrease eustachian tube swelling Patient also says she uses Benadryl which I will order as needed (4) RSV infection Conclusion/Plan: As per results Plan: Will obtain sputum for culture and if there are high white cells or many bacteria we will start empiric antibiotics Droplet isolation ordered (5) Type 2 diabetes mellitus, uncontrolled Conclusion/Plan: She was only on Metformin at home. Glucose since adm are 275, 318, 397, 350. Likely very elevated due to the stress of infection plus being on IV steroids. Her A1c came back at Plan: [place] to see patient, she requested it Cont Diabetic diet Cont sliding scale insulin, hypoglycemia protocol, fingerstick checks. Cont on Semglee 10 units twice daily I will resume her usual metformin dose Qualifiers: Diabetes mellitus retirement insulin use: without retirement use Diabetes mellitus complication status: with hyperglycemia Qualified Code(s): E11.65 - T ype 2 diabetes mellitus with hyperglycemia (6) Seizure disorder Conclusion/Plan: She told me she has not had a seizure in over 20 years and is on no meds for this (7) Morbid obesity with BMI of 50.0-59.9, adult Conclusion/Plan: This complicates all her care and will likely prolong her hospital course - Current Meds Current Meds: Current Medications Generic Name Dose Route Start Last Admin Trade Name Cony PRN Reason Stop Dose Admin Albuterol/Ipratropium 3 ml 09/26/23 15:00 09/28/23 11:25 Ipratropium/Albuterol 3 Ml Neb INH 3 ml RTQID LIEN Administration Amlodipine Besylate 5 mg 09/27/23 09:00 09/28/23 08:30 Amlodipine 5 Mg Tablet PO 5 mg DAILY LIEN Administration Budesonide 0.5 mg 09/26/23 19:00 09/28/23 07:21 Budesonide 0.5 Mg/2 Ml Neb INH 0.5 mg RTBID LIEN Administration Guaifenesin 600 mg 09/26/23 21:00 09/28/23 08:30 Guaifenesin 600 Mg Tablet PO 600 mg BID LIEN Administration Heparin Sodium (Porcine) 5,000 unit 09/26/23 21:00 09/28/23 08:31 Heparin 5,000 Unit/Ml Vial SUBQ 5,000 unit BID LIEN Administration Insulin Glargine-yfgn 10 unit 09/27/23 21:00 09/28/23 08:31 Insulin Glargine-Yfgn 300 Unit/3 Ml Pen SUBQ 10 unit BID LIEN Administration Insulin Human Lispro 3 - 11 unit 09/28/23 08:00 09/28/23 08:31 Insulin Lispro 300 Unit/3 Ml Pen SUBQ 9 unit 0800,1200,1700,2100 LIEN Administration Protocol Losartan Potassium 50 mg 09/27/23 09:00 09/28/23 08:31 Losartan 50 Mg Tablet PO 50 mg DAILY LIEN Administration Methylprednisolone 20 mg 09/27/23 22:00 09/28/23 06:08 Methylprednisolone Succinate 40 Mg/Ml Vial IVP 20 mg TID LIEN Administration Sodium Chloride 10 ml 09/26/23 17:00 09/28/23 08:32 Sodium Chloride Flush 0.9% 10 Ml Syringe IVP 10 ml 0100,0900,1700 LIEN Administration - Lab Result Fish Bone Diagrams: 09/29/23 07:55 09/29/23 07:55 - Additional Planning My Orders: My Active Orders 09/27/23 16:03 CUL, RESPIRATORY [RM] Stat 09/27/23 21:00 Insulin Glargine-Yfgn [Semglee] 10 unit SUBQ BID 09/27/23 22:00 methylPREDNISolone SUCCINATE [SOLU-Medrol (40MG VIAL)] 20 mg IVP TID 09/28/23 08:00 Insulin Lispro [Humalog Kwikpen U-100] 3 - 11 unit SUBQ 0800,1200,1700,2100 09/28/23 11:29 Amox/Clav 875/125 [Augmentin 875/125 Tab] 1 tab PO BID 09/28/23 11:30 Oxymetazoline HCl [Afrin] 2 sprays ERASTO BID guaiFENesin/CODEINE [Robitussin AC] 10 ml PO Q6HR PRN 09/28/23 17:00 metFORMIN [Glucophage] 500 mg PO BIDWM Subjective - Subjective Patient Reports: Cough (Still cannot expectorate, but gets coughing fits and asking for a cough suppressant and an expectorant), Shortness of Breath Objective Vital Signs: Vital Signs - 24 hr 09/27/23 09/27/23 09/27/23 16:45 20:35 20:40 Temperature 36.9 C Heart Rate 28 L Heart Rate [ 62 Brachial] Respiratory 16 92 H Rate Blood Pressure 150/74 H [Right Brachial artery] O2 Saturation 94 If not protocol 2 2 2 : Oxygen Flow, liters/minute 09/27/23 09/28/23 09/28/23 23:47 07:20 07:23 Temperature 36.8 C Heart Rate 90 Heart Rate [ 71 Brachial] Respiratory 18 26 H Rate Blood Pressure 156/87 H [Right Brachial artery] O2 Saturation 94 If not protocol 1 2 2 : Oxygen Flow, liters/minute 09/28/23 09/28/23 08:00 11:27 Temperature 36.7 C Heart Rate 78 Heart Rate [ 56 L Brachial] Respiratory 20 22 Rate Blood Pressure 160/70 H [Right Brachial artery] O2 Saturation 92 If not protocol 1 1 : Oxygen Flow, liters/minute Oxygen O2 Source Nasal cannula Oxygen Flow Rate 2 I&O (Last 24 Hrs): Intake and Output Totals x24h 09/26/23 09/27/23 09/28/23 23:59 23:59 23:59 Intake Total 1850 2480 1040 Balance 1850 2480 1040 General: Mild distress (From SOB, speaking in 3 word sentences and is hoarse) HEENT: EOMI, Mucous membr. moist/pink, Other (morbidly obese) Neuro: Alert, Non Focal Cardiovascular: Regular rate (distant heart sounds due to obesity and wheezing) Respiratory: Wheezes (poor air mvm in all lung sampson) Abdomen: Soft, Other (Obese with pannus) Extremities: No edema, No tenderness/swelling - Results Results: Laboratory Results WBC 7.4 x10^3/uL (4.8-10.8) 09/27/23 05:27 RBC 5.25 10^6/uL (4.20-5.40) 09/27/23 05:27 Hgb 12.6 g/dL (12.0-16.0) 09/27/23 05:27 Hct 42.7 % (37.0-47.0) 09/27/23 05:27 MCV 81.3 fL (81.0-99.0) 09/27/23 05:27 MCH 24.0 pg (27.0-31.0) L 09/27/23 05:27 MCHC 29.5 g/dL (32.0-36.0) L 09/27/23 05:27 RDW 15.7 % (12.0-15.0) H 09/27/23 05:27 Plt Count 227 10^3/uL (130-450) 09/27/23 05:27 MPV 12.0 fL (7.9-10.8) H 09/27/23 05:27 Neut # (Auto) 6.4 10^3/uL (1.5-6.6) 09/27/23 05:27 Lymph # (Auto) 0.7 10^3/uL (1.5-3.5) L 09/27/23 05:27 [place] # (Auto) 0.2 10^3/uL (0.0-1.0) 09/27/23 05:27 Eos # (Auto) 0.0 10^3/uL (0.0-0.7) 09/27/23 05:27 Baso # (Auto) 0.0 10^3/uL (0.0-0.1) 09/27/23 05:27 Absolute Nucleated RBC 0.00 x10^3/uL 09/27/23 05:27 Nucleated RBC % 0.0 /100WBC 09/27/23 05:27 PT 12.7 secs (9.9-12.6) H 09/26/23 14:33 INR 1.2 (0.8-1.2) 09/26/23 14:33 Sodium 137 mmol/L (135-145) 09/27/23 05:27 Potassium 4.5 mmol/L (3.5-4.5) 09/27/23 05:27 Chloride 104 mmol/L (101-111) 09/27/23 05:27 Carbon Dioxide 26 mmol/L (21-32) 09/27/23 05:27 Anion Gap 7.0 (6-13) 09/27/23 05:27 BUN 15 mg/dL (6-20) 09/27/23 05:27 Creatinine 0.6 mg/dL (0.6-1.3) 09/27/23 05:27 Estimated GFR (MDRD) 107 (>89) 09/27/23 05:27 Glucose 311 mg/dL (74-104) H 09/27/23 05:27 POC Whole Bld Glucose 280 mg/dL (70 - 100) H 09/28/23 11:26 Estimat Average Glucose 206 mg/dL (70-100) H 09/27/23 05:27 Hemoglobin A1c % 8.8 % (4.27-6.07) H 09/27/23 05:27 Calcium 9.0 mg/dL (8.5-10.3) 09/27/23 05:27 Phosphorus 4.5 mg/dL (2.5-5.0) 09/27/23 05:27 Magnesium 1.9 mg/dL (1.7-2.3) 09/27/23 05:27 Total Bilirubin 0.5 mg/dL (0.2-1.0) 09/26/23 14:33 AST 13 IU/L (10-42) 09/26/23 14:33 ALT 25 IU/L (10-60) 09/26/23 14:33 Alkaline Phosphatase 79 IU/L (42-121) 09/26/23 14:33 Total Protein 7.1 g/dL (6.4-8.9) 09/26/23 14:33 Albumin 4.0 g/dL (3.2-5.5) 09/26/23 14:33 Globulin 3.1 g/dL (2.1-4.2) 09/26/23 14:33 Albumin/Globulin Ratio 1.3 (1.0-2.2) 09/26/23 14:33 Nasal Adenovirus (PCR) NOT DETECTED 09/26/23 09:25 Nasal B. parapertussis DNA (PCR) NOT DETECTED 09/26/23 09:25 Nasal Coronavir 229E PCR NOT DETECTED 09/26/23 09:25 Nasal Coronavir HKU1 PCR NOT DETECTED 09/26/23 09:25 Nasal Coronavir NL63 PCR NOT DETECTED 09/26/23 09:25 Nasal Coronavir OC43 PCR NOT DETECTED 09/26/23 09:25 Nasal Enterovir/Rhinovir PCR NOT DETECTED 09/26/23 09:25 Nasal Influenza B PCR NOT DETECTED 09/26/23 09:25 Nasal Influenza A PCR NOT DETECTED 09/26/23 09:25 Nasal Parainfluen 1 PCR NOT DETECTED 09/26/23 09:25 Nasal Parainfluen 2 PCR NOT DETECTED 09/26/23 09:25 Nasal Parainfluen 3 PCR NOT DETECTED 09/26/23 09:25 Nasal Parainfluen 4 PCR NOT DETECTED 09/26/23 09:25 Nasal RSV (PCR) DETECTED A 09/26/23 09:25 Nasal B.pertussis DNA PCR NOT DETECTED 09/26/23 09:25 Nasal C.pneumoniae (PCR) NOT DETECTED 09/26/23 09:25 Erasto Human Metapneumo PCR NOT DETECTED 09/26/23 09:25 Nasal M.pneumoniae (PCR) NOT DETECTED 09/26/23 09:25 Nasal SARS-CoV-2 (PCR) NOT DETECTED 09/26/23 09:25 - Procedures Procedures: Procedures OTHER SKIN & SUBQ I D (04/02/15)
[2023-09-28] MEDS: guaiFENesin/CODEINE 5 ML UDC PO PRN (11:58)
[2023-09-28] MEDS: OXYMETAZOLINE HCL 100 SPRAYS BOTTLE NAS SCH (12:04)
[2023-09-28] MEDS: AMOX/CLAV 875 MG/125 MG TABLET PO SCH (12:04)
[2023-09-28] MEDS: metFORMIN 500 MG TABLET PO SCH (16:58)
[2023-09-28] MEDS: ACETAMINOPHEN 325 MG TABLET PO PRN (22:46)
[2023-09-29 08:05] LABS: BASOPHILS % (AUTO) 0.1 %; HCT - HEMATOCRIT 40.8 % (37.0-47.0); HGB - HEMOGLOBIN 12.1 g/dL (12.0-16.0); LYMPHOCYTES # (AUTO) 1.1 10^3/uL (1.5-3.5); LYMPHOCYTES % (AUTO) 13.7 %; MEAN CORPUSCULAR HEMOGLOBIN 24.4 pg (27.0-31.0); MEAN CORPUSCULAR HGB CONC 29.7 g/dL (32.0-36.0); MEAN CORPUSCULAR VOLUME 82.3 fL (81.0-99.0); MEAN PLATELET VOLUME 10.8 fL (7.9-10.8); MONOCYTES # (AUTO) 0.3 10^3/uL (0.0-1.0); MONOCYTES % (AUTO) 3.8 %; NEUTROPHILS # (AUTO) 6.8 10^3/uL (1.5-6.6); NEUTROPHILS % (AUTO) 81.9 %; PLT - PLATELET COUNT 204 10^3/uL (130-450); RED BLOOD COUNT 4.96 10^6/uL (4.20-5.40); RED CELL DISTRIBUTION WIDTH 15.9 % (12.0-15.0); WHITE BLOOD COUNT 8.2 x10^3/uL (4.8-10.8)
[2023-09-29] MEDS: hydrALAZINE INJ 20 MG/ML VIAL IVP ONE (08:07)
[2023-09-29 08:13] LABS: CALCIUM 8.8 mg/dL (8.5-10.3); CREATININE 0.7 mg/dL (0.6-1.3); POTASSIUM 4.7 mmol/L (3.5-4.5)
--- NOTE | 2023-09-29 14:05 | XRAY Report ---
PROCEDURE: Chest 1V INDICATIONS: Worse cough and rhonchi TECHNIQUE: One view of the chest was acquired. COMPARISON: 09/26/2023, 08/01/2023 FINDINGS: Surgical changes and devices: None. Lungs and pleura: No pleural effusions or pneumothorax. Mild generalized interstitial prominence can be seen. Mediastinum: Mediastinal contours appear normal. Heart size is mildly enlarged. Bones and chest wall: No suspicious bony lesions. Overlying soft tissues appear unremarkable. IMPRESSION: Mild cardiomegaly and interstitial prominence. Please consider mild/early CHF. Reviewed by: Dewey Irby MD on 09/29/2023 1:04 PM [facility] Approved by: Dewey Irby MD on 09/29/2023 1:04 PM [facility] Station ID: [id number]
--- NOTE | 2023-09-29 14:23 | PROVIDER PROGRESS NOTE ---
Assessment/Plan - Problem List (1) Asthma exacerbation Qualifiers: Assessment/Plan: She continues to have poor air movement and today she has diffuse rhonchi Plan: Cont DuoNebs scheduled 4 times daily plus every 4 hours as needed Cont Pulmicort nebulized twice daily Continue iv Solu-Medrol. I have started a taper, since she has less wheezing and since it has increased her glucose levels, as she is a diabetic Cont maribel Mucinex for expectoration and Robitussin AC for suppressing coughing spasms. I raised the dose of her Robitussin because of her morbid obesity (2) Acute bronchitis When she presented she had white sputum. Today she started to have green and copious sputum Chest x-ray was repeated today and it did not show an infiltrate Plan: I will change her Augmentin (see #3) to empiric IV ceftriaxone and IV Zithromax I will resend a sputum sample for culture (3) Otitis media Assessment/Plan: Yesterday 09/28 the patient had a "coughing spell" and after that she felt pressure and pain in her right ear. Exam (done by Dr. Rojas of the ED using a portable otoscope), showed the right eardrum to be red and bulging I started her on oral Augmentin, chosen to cover anaerobes I also ordered Afrin spray to decrease eustachian tube swelling Plan: I will change her Augmentin to empiric IV ceftriaxone and IV Zithromax, due to more purulent sputum (see #2). (4) RSV infection Conclusion/Plan: As per results A sputum culture result is pending Plan: Droplet isolation ordered Cont anti-tussives prn (5) Type 2 diabetes mellitus, uncontrolled Conclusion/Plan: She was only on Metformin at home. Glucose since adm are up to 400. Likely very elevated due to being on IV steroids. Her A1c came back at 8.8, indicating poor control even before admission Plan: Cont Diabetic diet Cont sliding scale insulin, hypoglycemia protocol, fingerstick checks. I will increase the Semglee from 10 U at night to 14 U at night Cont her usual metformin dose Qualifiers: Diabetes mellitus fdc insulin use: without fdc use Diabetes mellitus complication status: with hyperglycemia Qualified Code(s): E11.65 - Type 2 diabetes mellitus with hyperglycemia (6) HTN Conclusion/Plan: Blood pressure has been as high as 199 here, today is 170/100. I suspect it is from use of the steroids and stress of hospitalization. Patient takes Amlodipine 5 mg/d and Losartan 50 mg/d at home Plan: I will order a STAT dose of hydralazine IV I will order iv hydralazine as needed for HTN urgency I will increase her Losartan to 100 mg daily (7) Morbid obesity with BMI of 50.0-59.9, adult Conclusion/Plan: This complicates all her care and will likely prolong her hospital course (8) Seizure disorder Conclusion/Plan: She told me she has not had a seizure in over 20 years and is on no meds for this (9) Acute respiratory failure with hypoxia Conclusion/Plan: RESOLVED. She is saturating at 95% on room air today Causes were the RSV infection/bronchitis plus an asthma exacerbation Plan: Give supplemental O2 if hypoxic with a target saturations 88% and above and treat the underlying asthma exacerbation - Current Meds Current Meds: Current Medications Generic Name Dose Route Start Last Admin Trade Name Freq PRN Reason Stop Dose Admin Acetaminophen 650 mg 09/26/23 11:50 09/28/23 22:46 Acetaminophen 325 Mg Tablet PO 650 mg Q4HR PRN Administration Pain 1 to 4, or Fever Albuterol/Ipratropium 3 ml 09/26/23 15:00 09/29/23 11:48 Ipratropium/Albuterol 3 Ml Neb INH 3 ml RTQID MARIBEL Administration Amlodipine Besylate 5 mg 09/27/23 09:00 09/29/23 09:17 Amlodipine 5 Mg Tablet PO 5 mg DAILY MARIBEL Administration Budesonide 0.5 mg 09/26/23 19:00 09/29/23 07:48 Budesonide 0.5 Mg/2 Ml Neb INH 0.5 mg RTBID MARIBEL Administration Guaifenesin 600 mg 09/26/23 21:00 09/29/23 09:17 Guaifenesin 600 Mg Tablet PO 600 mg BID MARIBEL Administration Guaifenesin/Codeine Phosphate 10 ml 09/28/23 11:30 09/29/23 11:59 Guaifenesin/Codeine 5 Ml Udc PO 10 ml Q6HR PRN Administration Cough Heparin Sodium (Porcine) 5,000 unit 09/26/23 21:00 09/29/23 09:20 Heparin 5,000 Unit/Ml Vial SUBQ 5,000 unit BID MARIBEL Administration Insulin Human Lispro 3 - 11 unit 09/28/23 08:00 09/29/23 11:58 Insulin Lispro 300 Unit/3 Ml Pen SUBQ 9 unit 0800,1200,1700,2100 MARIBEL Administration Protocol Losartan Potassium 50 mg 09/27/23 09:00 09/29/23 09:17 Losartan 50 Mg Tablet PO 50 mg DAILY MARIBEL Administration Metformin HCl 500 mg 09/28/23 17:00 09/29/23 09:17 Metformin 500 Mg Tablet PO 500 mg BIDWM MARIBEL Administration Methylprednisolone 20 mg 09/27/23 22:00 09/29/23 05:49 Methylprednisolone Succinate 40 Mg/Ml Vial IVP 20 mg TID MARIBEL Administration Oxymetazoline HCl 2 sprays 09/28/23 11:30 09/29/23 09:18 Oxymetazoline Hcl 100 Sprays Bottle ERASTO 10/01/23 11:29 2 sprays BID MARIBEL Administration Sodium Chloride 10 ml 09/26/23 17:00 09/29/23 09:18 Sodium Chloride Flush 0.9% 10 Ml Syringe IVP 10 ml 0100,0900,1700 [facility] Administration - Lab Result Fish Bone Diagrams: 09/29/23 07:55 09/29/23 07:55 - Additional Planning My Orders: My Active Orders 09/28/23 17:00 metFORMIN [Glucophage] 500 mg PO BIDWM 09/29/23 CUL, RESPIRATORY [RM] Stat 09/29/23 12:01 Miscellaenous Nursing Order [RC] QSHIFT 09/29/23 14:00 Azithromycin Inj [Zithromax Inj] 500 mg Sodium Chloride 0.9% [Normal Saline 0.9%] 250 ml IV DAILY cefTRIAXone [Rocephin] 1 gm Sodium Chloride 0.9% Minibag [Normal Saline 0.9% Minibag] 100 ml IV DAILY 09/29/23 21:00 Insulin Glargine-Yfgn [Semglee] 14 unit SUBQ BID Subjective - Subjective Patient Reports: Cough (Has more sputum production and it is now green not white), Shortness of Breath (Still feels wheezy) Objective Vital Signs: Vital Signs - 24 hr 09/28/23 09/28/23 09/28/23 15:21 16:00 19:15 Temperature 36.3 C L Heart Rate 92 67 Heart Rate [ 76 Brachial] Heart Rate [ Monitoring electrodes] Respiratory 20 18 20 Rate Blood Pressure Blood Pressure 169/93 H [Right Brachial artery] Blood Pressure [Right Radial artery] O2 Saturation 93 If not protocol 1 1 1 : Oxygen Flow, liters/minute 09/29/23 09/29/23 09/29/23 01:07 05:46 07:48 Temperature 36.7 C 36.4 C L Heart Rate 53 L Heart Rate [ 64 56 L Brachial] Heart Rate [ Monitoring electrodes] Respiratory 20 20 16 Rate Blood Pressure Blood Pressure 176/106 H [Right Brachial artery] Blood Pressure 172/100 H [Right Radial artery] O2 Saturation 94 94 If not protocol 1 1 1 : Oxygen Flow, liters/minute 09/29/23 09/29/23 09/29/23 08:00 08:07 08:13 Temperature 36.6 C Heart Rate Heart Rate [ 52 L Brachial] Heart Rate [ 71 70 Monitoring electrodes] Respiratory 20 16 16 Rate Blood Pressure 199/118 H Blood Pressure 199/118 H 178/107 H [Right Brachial artery] Blood Pressure 168/92 H [Right Radial artery] O2 Saturation 92 90 L 93 If not protocol 1 1 : Oxygen Flow, liters/minute 09/29/23 09/29/23 09/29/23 08:18 08:35 09:05 Temperature Heart Rate Heart Rate [ Brachial] Heart Rate [ 71 68 57 L Monitoring electrodes] Respiratory 18 Rate Blood Pressure Blood Pressure 177/107 H 192/105 H 183/99 H [Right Brachial artery] Blood Pressure [Right Radial artery] O2 Saturation 94 If not protocol 1 1 1 : Oxygen Flow, liters/minute 09/29/23 09/29/23 09/29/23 11:48 12:05 13:00 Temperature 36.3 C L 36.7 C Heart Rate 76 Heart Rate [ Brachial] Heart Rate [ 69 71 Monitoring electrodes] Respiratory 17 16 17 Rate Blood Pressure Blood Pressure 194/107 H 197/96 H [Right Brachial artery] Blood Pressure 186/101 H [Right Radial artery] O2 Saturation 95 95 If not protocol 1 1 : Oxygen Flow, liters/minute Oxygen O2 Source Room air Oxygen Flow Rate 2 I&O (Last 24 Hrs): Intake and Output Totals x24h 09/27/23 09/28/23 09/29/23 23:59 23:59 23:59 Intake Total 2480 1780 720 Balance 2480 1780 720 General: Alert, Oriented x3 HEENT: Mucous membr. moist/pink Neck: Supple Neuro: Alert, Non Focal Cardiovascular: Regular rate Respiratory: Rhonchi (In all lung sampson) Abdomen: Soft, Other (Obese with a pannus) Extremities: No edema, No tenderness/swelling - Results Results: Laboratory Results WBC 8.2 x10^3/uL (4.8-10.8) 09/29/23 07:55 RBC 4.96 10^6/uL (4.20-5.40) 09/29/23 07:55 Hgb 12.1 g/dL (12.0-16.0) 09/29/23 07:55 Hct 40.8 % (37.0-47.0) 09/29/23 07:55 MCV 82.3 fL (81.0-99.0) 09/29/23 07:55 MCH 24.4 pg (27.0-31.0) L 09/29/23 07:55 MCHC 29.7 g/dL (32.0-36.0) L 09/29/23 07:55 RDW 15.9 % (12.0-15.0) H 09/29/23 07:55 Plt Count 204 10^3/uL (130-450) 09/29/23 07:55 MPV 10.8 fL (7.9-10.8) 09/29/23 07:55 Neut # (Auto) 6.8 10^3/uL (1.5-6.6) H 09/29/23 07:55 Lymph # (Auto) 1.1 10^3/uL (1.5-3.5) L 09/29/23 07:55 [place] # (Auto) 0.3 10^3/uL (0.0-1.0) 09/29/23 07:55 Eos # (Auto) 0.0 10^3/uL (0.0-0.7) 09/29/23 07:55 Baso # (Auto) 0.0 10^3/uL (0.0-0.1) 09/29/23 07:55 Absolute Nucleated RBC 0.00 x10^3/uL 09/29/23 07:55 Nucleated RBC % 0.0 /100WBC 09/29/23 07:55 PT 12.7 secs (9.9-12.6) H 09/26/23 14:33 INR 1.2 (0.8-1.2) 09/26/23 14:33 Sodium 135 mmol/L (135-145) 09/29/23 07:55 Potassium 4.7 mmol/L (3.5-4.5) H 09/29/23 07:55 Chloride 103 mmol/L (101-111) 09/29/23 07:55 Carbon Dioxide 28 mmol/L (21-32) 09/29/23 07:55 Anion Gap 4.0 (6-13) L 09/29/23 07:55 BUN 22 mg/dL (6-20) H 09/29/23 07:55 Creatinine 0.7 mg/dL (0.6-1.3) 09/29/23 07:55 Estimated GFR (MDRD) 89 (>89) 09/29/23 07:55 Glucose 300 mg/dL (74-104) H 09/29/23 07:55 POC Whole Bld Glucose 286 mg/dL (70 - 100) H 09/29/23 11:23 Estimat Average Glucose 206 mg/dL (70-100) H 09/27/23 05:27 Hemoglobin A1c % 8.8 % (4.27-6.07) H 09/27/23 05:27 Calcium 8.8 mg/dL (8.5-10.3) 09/29/23 07:55 Phosphorus 4.5 mg/dL (2.5-5.0) 09/27/23 05:27 Magnesium 1.9 mg/dL (1.7-2.3) 09/27/23 05:27 Total Bilirubin 0.5 mg/dL (0.2-1.0) 09/26/23 14:33 AST 13 IU/L (10-42) 09/26/23 14:33 ALT 25 IU/L (10-60) 09/26/23 14:33 Alkaline Phosphatase 79 IU/L (42-121) 09/26/23 14:33 Total Protein 7.1 g/dL (6.4-8.9) 09/26/23 14:33 Albumin 4.0 g/dL (3.2-5.5) 09/26/23 14:33 Globulin 3.1 g/dL (2.1-4.2) 09/26/23 14:33 Albumin/Globulin Ratio 1.3 (1.0-2.2) 09/26/23 14:33 Nasal Adenovirus (PCR) NOT DETECTED 09/26/23 09:25 Nasal B. parapertussis DNA (PCR) NOT DETECTED 09/26/23 09:25 Nasal Coronavir 229E PCR NOT DETECTED 09/26/23 09:25 Nasal Coronavir HKU1 PCR NOT DETECTED 09/26/23 09:25 Nasal Coronavir NL63 PCR NOT DETECTED 09/26/23 09:25 Nasal Coronavir OC43 PCR NOT DETECTED 09/26/23 09:25 Nasal Enterovir/Rhinovir PCR NOT DETECTED 09/26/23 09:25 Nasal Influenza B PCR NOT DETECTED 09/26/23 09:25 Nasal Influenza A PCR NOT DETECTED 09/26/23 09:25 Nasal Parainfluen 1 PCR NOT DETECTED 09/26/23 09:25 Nasal Parainfluen 2 PCR NOT DETECTED 09/26/23 09:25 Nasal Parainfluen 3 PCR NOT DETECTED 09/26/23 09:25 Nasal Parainfluen 4 PCR NOT DETECTED 09/26/23 09:25 Nasal RSV (PCR) DETECTED A 09/26/23 09:25 Nasal B.pertussis DNA PCR NOT DETECTED 09/26/23 09:25 Nasal C.pneumoniae (PCR) NOT DETECTED 09/26/23 09:25 Erasto Human Metapneumo PCR NOT DETECTED 09/26/23 09:25 Nasal M.pneumoniae (PCR) NOT DETECTED 09/26/23 09:25 Nasal SARS-CoV-2 (PCR) NOT DETECTED 09/26/23 09:25 - Procedures Procedures: Procedures OTHER SKIN & SUBQ I D (04/02/15)
[2023-09-29] MEDS: cefTRIAXone 1 GM in SODIUM CHLORIDE 0.9% MINIBAG 100 ML IV SCH (14:58)
[2023-09-29] MEDS: AZITHROMYCIN INJ 500 MG in SODIUM CHLORIDE 0.9% 250 ML IV SCH (15:47)
[2023-09-29] MEDS: LOSARTAN 50 MG TABLET PO ONE (16:19)
[2023-09-29] MEDS: INSULIN GLARGINE-YFGN 300 UNIT/3 ML PEN SUBQ SCH (21:05)
[2023-09-30] MEDS ORDERED: INSULIN GLARGINE-YFGN 300 UNIT/3 ML PEN SUBQ SCH (09:00)
[2023-09-30] MEDS: LOSARTAN 50 MG TABLET PO SCH (09:14)
[2023-09-30] MEDS: hydrALAZINE INJ 20 MG/ML VIAL IVP PRN (11:43)
[2023-09-30] MEDS: hydrALAZINE INJ 20 MG/ML VIAL IVP ONE (16:45)
--- NOTE | 2023-09-30 17:05 | PROVIDER PROGRESS NOTE ---
Assessment/Plan - Problem List (1) Asthma exacerbation Qualifiers: Assessment/Plan: She continues to have poor air movement and again today she has rhonchi. Since yestereday she has a productive cough bringing up green sputum Plan: Cont DuoNebs scheduled 4 times daily plus every 4 hours as needed Cont Pulmicort nebulized twice daily Continue iv Solu-Medrol. I have started a taper, since she has less wheezing and since it has increased her glucose levels, as she is a diabetic Cont maribel Mucinex for expectoration and Robitussin AC for suppressing coughing spasms. I raised the dose of her Robitussin because of her morbid obesity (2) Acute bronchitis When she presented she had white sputum. Since 09/29 she started to have green and copious sputum Chest x-ray was repeated 09/29 and it did not show an infiltrate On 09/29, I changed her po Augmentin (see #3) to empiric IV ceftriaxone and IV Zithromax A new (green) sputum sample was sent and gram stain has GPC and GNB. The first (white) sputum sample grew oral criselda Bld cx are neg to date Plan: Cont empiric IV ceftriaxone and IV Zithromax Will adjust antibx based on spt cx (3) Otitis media Assessment/Plan: On 09/28 the patient had a "coughing spell" and after that she felt pressure and pain in her right ear. Exam (done 09/[address] Rojas of the ED using a portable otoscope), showed the right eardrum to be red and bulging I started her on oral Augmentin, chosen to cover anaerobes I also ordered Afrin spray to decrease eustachian tube swelling On 09/29, I changed her po Augmentin to empiric IV ceftriaxone and IV Zithromax, due to more purulent sputum (see #2). Plan: As in #2 (4) RSV infection Conclusion/Plan: As per results A sputum culture result is pending Plan: Droplet isolation ordered Cont anti-tussives prn (5) Type 2 diabetes mellitus, uncontrolled Conclusion/Plan: She was only on Metformin at home. Glucose since adm are up to 400. Likely very elevated due to being on IV steroids. Her A1c came back at 8.8, indicating poor control even before admission I increased the Semglee from 10 U BID to 14 U BID Plan: Cont Diabetic diet Cont sliding scale insulin, hypoglycemia protocol, fingerstick checks. 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 I suspect it is from use of the steroids and stress of hospitalization. She confirms she is stressed over things not getting finished at work while she is hospitalized. Patient took Amlodipine 5 mg/d and Losartan 50 mg/d at home. I increased her Losartan to 100 mg daily and ordered prn dose of hydralazine IV Plan: I will increase the prn Hydralazine to 25 mg q8h prn HTN urgency I reviewed need for low salt in her diet and her drinks with her Cont Losartan 100 mg and Amlodipine 5 mg, I will not increase to 10 mg since that causes leg edema If BP still elev, I will add HCTZ (7) Morbid obesity with BMI of 50.0-59.9, adult Conclusion/Plan: This complicates all her care and will likely prolong her hospital course (8) Seizure disorder Conclusion/Plan: She told me she has not had a seizure in over 20 years and is on no meds for this (9) Acute respiratory failure with hypoxia Conclusion/Plan: RESOLVED. She is saturating at 95% on room air since 09/29 Causes of hypoxia were the RSV infection/bronchitis plus an asthma exacerbation Plan: Give supplemental O2 if hypoxic with a target saturations 88% and above and treat the underlying asthma exacerbation - Current Meds Current Meds: Current Medications Generic Name Dose Route Start Last Admin Trade Name Freq PRN Reason Stop Dose Admin Acetaminophen 650 mg 09/26/23 11:50 09/29/23 15:52 Acetaminophen 325 Mg Tablet PO 650 mg Q4HR PRN Administration Pain 1 to 4, or Fever Amlodipine Besylate 5 mg 09/27/23 09:00 09/30/23 08:06 Amlodipine 5 Mg Tablet PO 5 mg DAILY MARIBEL Administration Budesonide 0.5 mg 09/26/23 19:00 09/30/23 07:18 Budesonide 0.5 Mg/2 Ml Neb INH Not Given RTBID MARIBEL Guaifenesin 600 mg 09/26/23 21:00 09/30/23 08:06 Guaifenesin 600 Mg Tablet PO 600 mg BID MARIBEL Administration Guaifenesin/Codeine Phosphate 10 ml 09/28/23 11:30 09/30/23 11:27 Guaifenesin/Codeine 5 Ml Udc PO 10 ml Q6HR PRN Administration Cough Heparin Sodium (Porcine) 5,000 unit 09/26/23 21:00 09/30/23 08:16 Heparin 5,000 Unit/Ml Vial SUBQ 5,000 unit BID MARIBEL Administration Ceftriaxone Sodium 1 gm/ 100 mls @ 200 mls/hr 09/29/23 14:00 09/30/23 09:00 Sodium Chloride IV Infused DAILY MARIBEL Infusion Azithromycin 500 mg/ Sodium 250 mls @ 250 mls/hr 09/29/23 14:00 09/30/23 11:31 Chloride IV Infused DAILY MARIBEL Infusion Insulin Human Lispro 3 - 11 unit 09/28/23 08:00 09/30/23 13:05 Insulin Lispro 300 Unit/3 Ml Pen SUBQ 7 unit 0800,1200,1700,2100 MARIBEL Administration Protocol Losartan Potassium 100 mg 09/30/23 09:00 09/30/23 09:14 Losartan 50 Mg Tablet PO 100 mg DAILY MARIBEL Administration Metformin HCl 500 mg 09/28/23 17:00 09/30/23 08:06 Metformin 500 Mg Tablet PO 500 mg BIDWM MARIBEL Administration Methylprednisolone 20 mg 09/27/23 22:00 09/30/23 14:13 Methylprednisolone Succinate 40 Mg/Ml Vial IVP 20 mg TID MARIBEL Administration Oxymetazoline HCl 2 sprays 09/28/23 11:30 09/30/23 08:07 Oxymetazoline Hcl 100 Sprays Bottle ERASTO 10/01/23 11:29 2 sprays BID MARIBEL Administration Sodium Chloride 10 ml 09/26/23 17:00 09/30/23 08:08 Sodium Chloride Flush 0.9% 10 Ml Syringe IVP 10 ml 0100,0900,1700 MARIBEL Administration - Lab Result Fish Bone Diagrams: 09/29/23 07:55 09/29/23 07:55 - Additional Planning My Orders: My Active Orders 09/30/23 09:00 Losartan [Cozaar] 100 mg PO DAILY 09/30/23 15:55 Nebulizer/MDI Tx. [RC] QID Resp Teach Nebulizer/MDI [RC] .ONCE 09/30/23 16:12 hydrALAZINE INJ [Apresoline Inj] 25 mg IVP Q8H PRN 09/30/23 17:00 Saccharomyces Boulardii [Florastor] 250 mg PO BIDWM 09/30/23 19:00 Ipratropium/Albuterol [Duoneb] 3 ml INH RTBID 09/30/23 21:00 Insulin Glargine-Yfgn [Semglee] 18 unit SUBQ BID 10/01/23 05:00 BMP - BASIC METABOLIC PANEL [CHEM] DAILYLAB CBC - COMP BLD CT W/AUTO DIFF [HEME] DAILYLAB Subjective - Subjective Patient Reports: Feeling Better (Less SOB.), Cough (Cough has increased, spt is green and when she has a coughing spasm she gets a bloody nose (even with n.c. O2 off)) Objective Vital Signs: Vital Signs - 24 hr 09/29/23 09/29/23 09/29/23 19:20 20:43 21:41 Temperature 36.7 C Heart Rate 69 Heart Rate [ 86 Brachial] Heart Rate [ Monitoring electrodes] Respiratory 22 20 Rate Blood Pressure Blood Pressure 176/107 H 176/90 H [Left Brachial artery] Blood Pressure 187/105 H [Right Brachial artery] O2 Saturation 92 09/30/23 09/30/23 09/30/23 00:00 04:26 07:34 Temperature 36.7 C 36.6 C 36.4 C L Heart Rate Heart Rate [ 76 76 71 Brachial] Heart Rate [ Monitoring electrodes] Respiratory 20 20 20 Rate Blood Pressure Blood Pressure 178/98 H [Left Brachial artery] Blood Pressure 168/87 H 168/96 H [Right Brachial artery] O2 Saturation 92 92 92 09/30/23 09/30/23 09/30/23 11:20 11:38 11:43 Temperature Heart Rate Heart Rate [ Brachial] Heart Rate [ 72 72 Monitoring electrodes] Respiratory 18 16 Rate Blood Pressure 186/108 H Blood Pressure 181/98 H 186/108 H [Left Brachial artery] Blood Pressure [Right Brachial artery] O2 Saturation 93 94 09/30/23 09/30/23 09/30/23 11:48 11:49 11:54 Temperature Heart Rate 67 Heart Rate [ Brachial] Heart Rate [ 73 72 Monitoring electrodes] Respiratory 18 16 16 Rate Blood Pressure Blood Pressure 156/96 H 159/91 H [Left Brachial artery] Blood Pressure [Right Brachial artery] O2 Saturation 93 94 09/30/23 09/30/23 09/30/23 11:59 12:11 12:13 Temperature Heart Rate Heart Rate [ Brachial] Heart Rate [ 72 64 Monitoring electrodes] Respiratory 16 16 Rate Blood Pressure 164/93 H Blood Pressure 174/90 H 164/93 H [Left Brachial artery] Blood Pressure [Right Brachial artery] O2 Saturation 95 93 09/30/23 09/30/23 13:11 14:13 Temperature Heart Rate Heart Rate [ Brachial] Heart Rate [ 73 68 Monitoring electrodes] Respiratory 18 16 Rate Blood Pressure Blood Pressure 187/95 H 191/104 H [Left Brachial artery] Blood Pressure [Right Brachial artery] O2 Saturation 95 97 Oxygen O2 Source Room air Oxygen Flow Rate 2 I&O (Last 24 Hrs): Intake and Output Totals x24h 09/28/23 09/29/23 09/30/23 23:59 23:59 23:59 Intake Total 1780 1720 650 Output Total 250 Balance 1780 1720 400 General: Alert, Oriented x3, Mild distress (Face turned beet red during a coug nilesh fit that I witnessed), Other (morbidly obese) HEENT: EOMI, Mucous membr. moist/pink Neck: Supple Neuro: Alert, Non Focal Cardiovascular: Regular rate Respiratory: No respiratory distress, Wheezes (Vert tight, diminished breath sounds in all lung firlds) Extremities: No clubbing, No edema, No tenderness/swelling - Results Results: Laboratory Results WBC 8.2 x10^3/uL (4.8-10.8) 09/29/23 07:55 RBC 4.96 10^6/uL (4.20-5.40) 09/29/23 07:55 Hgb 12.1 g/dL (12.0-16.0) 09/29/23 07:55 Hct 40.8 % (37.0-47.0) 09/29/23 07:55 MCV 82.3 fL (81.0-99.0) 09/29/23 07:55 MCH 24.4 pg (27.0-31.0) L 09/29/23 07:55 MCHC 29.7 g/dL (32.0-36.0) L 09/29/23 07:55 RDW 15.9 % (12.0-15.0) H 09/29/23 07:55 Plt Count 204 10^3/uL (130-450) 09/29/23 07:55 MPV 10.8 fL (7.9-10.8) 09/29/23 07:55 Neut # (Auto) 6.8 10^3/uL (1.5-6.6) H 09/29/23 07:55 Lymph # (Auto) 1.1 10^3/uL (1.5-3.5) L 09/29/23 07:55 Bell # (Auto) 0.3 10^3/uL (0.0-1.0) 09/29/23 07:55 Eos # (Auto) 0.0 10^3/uL (0.0-0.7) 09/29/23 07:55 Baso # (Auto) 0.0 10^3/uL (0.0-0.1) 09/29/23 07:55 Absolute Nucleated RBC 0.00 x10^3/uL 09/29/23 07:55 Nucleated RBC % 0.0 /100WBC 09/29/23 07:55 PT 12.7 secs (9.9-12.6) H 09/26/23 14:33 INR 1.2 (0.8-1.2) 09/26/23 14:33 Sodium 135 mmol/L (135-145) 09/29/23 07:55 Potassium 4.7 mmol/L (3.5-4.5) H 09/29/23 07:55 Chloride 103 mmol/L (101-111) 09/29/23 07:55 Carbon Dioxide 28 mmol/L (21-32) 09/29/23 07:55 Anion Gap 4.0 (6-13) L 09/29/23 07:55 BUN 22 mg/dL (6-20) H 09/29/23 07:55 Creatinine 0.7 mg/dL (0.6-1.3) 09/29/23 07:55 Estimated GFR (MDRD) 89 (>89) 09/29/23 07:55 Glucose 300 mg/dL (74-104) H 09/29/23 07:55 POC Whole Bld Glucose 255 mg/dL (70 - 100) H 09/30/23 11:24 Estimat Average Glucose 206 mg/dL (70-100) H 09/27/23 05:27 Hemoglobin A1c % 8.8 % (4.27-6.07) H 09/27/23 05:27 Calcium 8.8 mg/dL (8.5-10.3) 09/29/23 07:55 Phosphorus 4.5 mg/dL (2.5-5.0) 09/27/23 05:27 Magnesium 1.9 mg/dL (1.7-2.3) 09/27/23 05:27 Total Bilirubin 0.5 mg/dL (0.2-1.0) 09/26/23 14:33 AST 13 IU/L (10-42) 09/26/23 14:33 ALT 25 IU/L (10-60) 09/26/23 14:33 Alkaline Phosphatase 79 IU/L (42-121) 09/26/23 14:33 B-Natriuretic Peptide 73 pg/mL (5-100) 09/30/23 05:03 Total Protein 7.1 g/dL (6.4-8.9) 09/26/23 14:33 Albumin 4.0 g/dL (3.2-5.5) 09/26/23 14:33 Globulin 3.1 g/dL (2.1-4.2) 09/26/23 14:33 Albumin/Globulin Ratio 1.3 (1.0-2.2) 09/26/23 14:33 Nasal Adenovirus (PCR) NOT DETECTED 09/26/23 09:25 Nasal B. parapertussis DNA (PCR) NOT DETECTED 09/26/23 09:25 Nasal Coronavir 229E PCR NOT DETECTED 09/26/23 09:25 Nasal Coronavir HKU1 PCR NOT DETECTED 09/26/23 09:25 Nasal Coronavir NL63 PCR NOT DETECTED 09/26/23 09:25 Nasal Coronavir OC43 PCR NOT DETECTED 09/26/23 09:25 Nasal Enterovir/Rhinovir PCR NOT DETECTED 09/26/23 09:25 Nasal Influenza B PCR NOT DETECTED 09/26/23 09:25 Nasal Influenza A PCR NOT DETECTED 09/26/23 09:25 Nasal Parainfluen 1 PCR NOT DETECTED 09/26/23 09:25 Nasal Parainfluen 2 PCR NOT DETECTED 09/26/23 09:25 Nasal Parainfluen 3 PCR NOT DETECTED 09/26/23 09:25 Nasal Parainfluen 4 PCR NOT DETECTED 09/26/23 09:25 Nasal RSV (PCR) DETECTED A 09/26/23 09:25 Nasal B.pertussis DNA PCR NOT DETECTED 09/26/23 09:25 Nasal C.pneumoniae (PCR) NOT DETECTED 09/26/23 09:25 Erasto Human Metapneumo PCR NOT DETECTED 09/26/23 09:25 Nasal M.pneumoniae (PCR) NOT DETECTED 09/26/23 09:25 Nasal SARS-CoV-2 (PCR) NOT DETECTED 09/26/23 09:25 - Procedures Procedures: Procedures OTHER SKIN & SUBQ I D (04/02/15)
[2023-09-30] MEDS: SACCHAROMYCES BOULARDII 250 MG CAPSULE PO SCH (17:10)
[2023-09-30] MEDS: IPRATROPIUM/ALBUTEROL 3 ML NEB INH SCH (18:45)
[2023-09-30] MEDS: INSULIN GLARGINE-YFGN 300 UNIT/3 ML PEN SUBQ SCH (21:36)
[2023-10-01 05:53] LABS: BASOPHILS % (AUTO) 0.2 %; EOSINOPHILS % (AUTO) 0.1 %; HCT - HEMATOCRIT 44.4 % (37.0-47.0); HGB - HEMOGLOBIN 13.5 g/dL (12.0-16.0); LYMPHOCYTES # (AUTO) 2.1 10^3/uL (1.5-3.5); LYMPHOCYTES % (AUTO) 23.7 %; MEAN CORPUSCULAR HEMOGLOBIN 24.4 pg (27.0-31.0); MEAN CORPUSCULAR HGB CONC 30.4 g/dL (32.0-36.0); MEAN CORPUSCULAR VOLUME 80.3 fL (81.0-99.0); MEAN PLATELET VOLUME 11.4 fL (7.9-10.8); MONOCYTES # (AUTO) 0.5 10^3/uL (0.0-1.0); MONOCYTES % (AUTO) 5.8 %; NEUTROPHILS # (AUTO) 6.2 10^3/uL (1.5-6.6); NEUTROPHILS % (AUTO) 69.3 %; PLT - PLATELET COUNT 254 10^3/uL (130-450); RED BLOOD COUNT 5.53 10^6/uL (4.20-5.40); RED CELL DISTRIBUTION WIDTH 15.2 % (12.0-15.0)
[2023-10-01 06:02] LABS: CALCIUM 9.5 mg/dL (8.5-10.3); CREATININE 0.7 mg/dL (0.6-1.3); POTASSIUM 4.2 mmol/L (3.5-4.5)
[2023-10-01] MEDS: hydrALAZINE INJ 20 MG/ML VIAL IVP PRN (06:20)
--- NOTE | 2023-10-01 09:23 | XRAY Report ---
PROCEDURE: Chest 1V INDICATIONS: F/U SOB, cough, sputum, asthma exacerbation TECHNIQUE: One view of the chest was acquired. COMPARISON: None. FINDINGS: Surgical changes and devices: None. Lungs and pleura: No pleural effusions or pneumothorax. Mild diffuse reticulonodular pulmonary opaci ty. Mediastinum: Mediastinal contours appear normal. Heart size is normal. Bones and chest wall: No suspicious bony lesions. Overlying soft tissues appear unremarkable. IMPRESSION: Mild atypical pneumonia. Reviewed by: Belkys Green MD on 10/01/2023 9:[address] [facility] Approved by: Belkys Green MD on 10/01/2023 9:[address] [facility] Station ID: [id number]
--- NOTE | 2023-10-01 09:31 | PROVIDER PROGRESS NOTE ---
Assessment/Plan - Problem List (1) Atypical pneumonia Assessment/Plan: When she presented, she had white sputum. Since 09/29 she started to have green and copious sputum Chest x-ray was repeated 09/29 and it did not show an infiltrate On 09/29, I changed her po Augmentin (see #3) to empiric IV ceftriaxone and IV Zithromax A new (green) sputum sample was sent and gram stain has GPC and GNB. The first (white) sputum sample grew oral criselda. Bld cx are neg to date. I repeated her CXR today and it was read as having atypical pneumonia Plan: Since this description on chest x-ray could also be CHF, I am giving her a dose of Lasix IV x 1 Will check BNP and order an Echo I will change empiric IV ceftriaxone and IV Zithromax, to empric IV Vanco (for 48 hours of MRSA coverage), and change to IV Zosyn Continue probiotics (2) Asthma exacerbation She has slt better air movement but again today she has rhonchi. Since 09/29, she has a productive cough bringing up copious green sputum Plan: Cont DuoNebs scheduled BID plus every 4 hours as needed Cont Pulmicort nebulized twice daily Continue iv Solu-Medrol. I have started a taper, since she has less wheezing and since it has increased her glucose levels, as she is a diabetic Cont maribel Mucinex for expectoration and Robitussin AC for suppressing coughing spasms. I raised the dose of her Robitussin because of her morbid obesity (3) Otitis media Assessment/Plan: On 09/28 the patient had a "coughing spell" and after that she felt pressure and pain in her right ear. Exam (done 09/[address] Rojas of the ED using a portable otoscope), showed the right eardrum to be red and bulging I started her on oral Augmentin, chosen to cover anaerobes I also ordered Afrin spray to decrease eustachian tube swelling On 09/29, I changed her po Augmentin to empiric IV ceftriaxone and IV Zithromax, due to more purulent sputum (see #2). Plan: As in #1 (4) RSV infection Conclusion/Plan: As per results A sputum culture result is pending Plan: Droplet isolation ordered Cont anti-tussives prn (5) Type 2 diabetes mellitus, uncontrolled Conclusion/Plan: She was only on Metformin at home. Glucose since adm are very elevated 200-400. Likely very elevated due to being on IV steroids. Her A1c came back at 8.8, indicating poor control even before admission I increased the Semglee from 10 U BID to 14 U BID. She is oh High sliding scale already. Plan: Cont Diabetic diet Cont sliding scale insulin, hypoglycemia protocol, fingerstick checks. While she still needs steroids, I will increase Semglee from 14 U BID to 18 U BID Will increase her Metformin dose from 500 bid to 1000 bid (which she takes at home already) Qualifiers: Diabetes mellitus termite helper insulin use: without skilled nursing use Diabetes mellitus complication status: with hyperglycemia Qualified Code(s): E11.65 - Type 2 diabetes mellitus with hyperglycemia (6) HTN, uncontrolled Conclusion/Plan: Blood pressure has been as high as 199 here, today is 190/100. I suspect it is from use of the steroids and stress of hospitalization. She confirms she is stressed over things not getting finished at work while she is hospitalized. Patient took Amlodipine 5 mg/d and Losartan 50 mg/d at home. I increased her Losartan to 100 mg daily and ordered prn dose of hydralazine IV Plan: I added daily HCTZ this morning I increased the prn Hydralazine to 25 mg q8h prn HTN urgency I reviewed need for low salt in her diet and her drinks with her Cont Losartan 100 mg and Amlodipine 5 mg, I will not increase to 10 mg since that causes leg edema (7) Morbid obesity with BMI of 50.0-59.9, adult Conclusion/Plan: This complicates all her care and will likely prolong her hospital course (8) Seizure disorder Conclusion/Plan: She told me she has not had a seizure in over 20 years and is on no meds for this (9) Acute respiratory failure with hypoxia Conclusion/Plan: Hypoxia has RESOLVED. She is saturating at 95% on room air since 09/29 Causes of hypoxia were the RSV infection/bronchitis plus an asthma exacerbation Plan: Give supplemental O2 if hypoxic with a target saturations 88% and above and treat the underlying asthma exacerbation - Current Meds Current Meds: Current Medications Generic Name Dose Route Start Last Admin Trade Name Freq PRN Reason Stop Dose Admin Acetaminophen 650 mg 09/26/23 11:50 09/30/23 21:33 Acetaminophen 325 Mg Tablet PO 650 mg Q4HR PRN Administration Pain 1 to 4, or Fever Albuterol/Ipratropium 3 ml 09/30/23 19:00 10/01/23 06:09 Ipratropium/Albuterol 3 Ml Neb INH 3 ml RTBID MARIBEL Administration Amlodipine Besylate 5 mg 09/27/23 09:00 09/30/23 08:06 Amlodipine 5 Mg Tablet PO 5 mg DAILY MARIBEL Administration Budesonide 0.5 mg 09/26/23 19:00 10/01/23 06:09 Budesonide 0.5 Mg/2 Ml Neb INH 0.5 mg RTBID MARIBEL Administration Guaifenesin 600 mg 09/26/23 21:00 09/30/23 21:35 Guaifenesin 600 Mg Tablet PO 600 mg BID MARIBEL Administration Guaifenesin/Codeine Phosphate 10 ml 09/28/23 11:30 10/01/23 08:02 Guaifenesin/Codeine 5 Ml Udc PO 10 ml Q6HR PRN Administration Cough Heparin Sodium (Porcine) 5,000 unit 09/26/23 21:00 09/30/23 21:34 Heparin 5,000 Unit/Ml Vial SUBQ 5,000 unit BID MARIBEL Administration Hydralazine HCl 25 mg 09/30/23 16:12 10/01/23 06:20 Hydralazine Inj 20 Mg/Ml Vial IVP 25 mg Q8H PRN Administration Hypertensive Emergency Ceftriaxone Sodium 1 gm/ 100 mls @ 200 mls/hr 09/29/23 14:00 09/30/23 09:00 Sodium Chloride IV Infused DAILY MARIBEL Infusion Azithromycin 500 mg/ Sodium 250 mls @ 250 mls/hr 09/29/23 14:00 09/30/23 11:31 Chloride IV Infused DAILY MARIBEL Infusion Insulin Glargine-yfgn 18 unit 09/30/23 21:00 10/01/23 08:01 Insulin Glargine-Yfgn 300 Unit/3 Ml Pen SUBQ 18 unit BID MARIBEL Administration Insulin Human Lispro 3 - 11 unit 09/28/23 08:00 10/01/23 08:00 Insulin Lispro 300 Unit/3 Ml Pen SUBQ 7 unit 0800,1200,1700,2100 MARIBEL Administration Protocol Losartan Potassium 100 mg 09/30/23 09:00 09/30/23 09:14 Losartan 50 Mg Tablet PO 100 mg DAILY MARIBEL Administration Methylprednisolone 20 mg 09/27/23 22:00 10/01/23 06:08 Methylprednisolone Succinate 40 Mg/Ml Vial IVP 20 mg TID MARIBEL Administration Oxymetazoline HCl 2 sprays 09/28/23 11:30 10/01/23 08:08 Oxymetazoline Hcl 100 Sprays Bottle ERASTO 10/01/23 11:29 2 sprays BID MARIBEL Administration Saccharomyces Boulardii 250 mg 09/30/23 17:00 10/01/23 08:00 Saccharomyces Boulardii 250 Mg Capsule PO 250 mg BIDWM MARIBEL Administration Sodium Chloride 10 ml 09/26/23 17:00 10/01/23 02:37 Sodium Chloride Flush 0.9% 10 Ml Syringe IVP 10 ml 0100,0900,1700 MARIBEL Administration - Lab Result Fish Bone Diagrams: 10/01/23 05:42 10/01/23 05:42 - Additional Planning My Orders: My Active Orders 09/30/23 09:00 Losartan [Cozaar] 100 mg PO DAILY 09/30/23 16:12 hydrALAZINE INJ [Apresoline Inj] 25 mg IVP Q8H PRN 09/30/23 17:00 Saccharomyces Boulardii [Florastor] 250 mg PO BIDWM 09/30/23 19:00 Ipratropium/Albuterol [Duoneb] 3 ml INH RTBID 09/30/23 21:00 Insulin Glargine-Yfgn [Semglee] 18 unit SUBQ BID 10/01/23 RESPIRATORY PCR PANEL Stat 10/01/23 09:00 hydroCHLOROthiazide [Hydrodiuril] 25 mg PO DAILY 10/01/23 12:00 FUROSEMIDE INJ 20mg VIAL [LASIX INJ 20mg VIAL] 20 mg IVP ONCE 10/01/23 17:00 metFORMIN [Glucophage] 1,000 mg PO BIDWM Subjective - Subjective Patient Reports: Shortness of Breath (Still gets coughing spasms which make her very short of breath, red in the face, give her nosebleeds) Nursing Reports: Cough (Wet and productive with green copious sputum) Objective Vital Signs: Vital Signs - 24 hr 09/30/23 09/30/23 09/30/23 11:20 11:38 11:43 Temperature Heart Rate Heart Rate [ Brachial] Heart Rate [ 72 72 Monitoring electrodes] Respiratory 18 16 Rate Blood Pressure 186/108 H Blood Pressure 181/98 H 186/108 H [Left Brachial artery] Blood Pressure [Right Brachial artery] Blood Pressure [Right Radial artery] O2 Saturation 93 94 09/30/23 09/30/23 09/30/23 11:48 11:49 11:54 Temperature Heart Rate 67 Heart Rate [ Brachial] Heart Rate [ 73 72 Monitoring electrodes] Respiratory 18 16 16 Rate Blood Pressure Blood Pressure 156/96 H 159/91 H [Left Brachial artery] Blood Pressure [Right Brachial artery] Blood Pressure [Right Radial artery] O2 Saturation 93 94 09/30/23 09/30/23 09/30/23 11:59 12:11 12:13 Temperature Heart Rate Heart Rate [ Brachial] Heart Rate [ 72 64 Monitoring electrodes] Respiratory 16 16 Rate Blood Pressure 164/93 H Blood Pressure 174/90 H 164/93 H [Left Brachial artery] Blood Pressure [Right Brachial artery] Blood Pressure [Right Radial artery] O2 Saturation 95 93 09/30/23 09/30/23 09/30/23 13:11 14:13 16:45 Temperature Heart Rate Heart Rate [ Brachial] Heart Rate [ 73 68 Monitoring electrodes] Respiratory 18 16 Rate Blood Pressure Blood Pressure 187/95 H 191/104 H 193/97 H [Left Brachial artery] Blood Pressure [Right Brachial artery] Blood Pressure [Right Radial artery] O2 Saturation 95 97 09/30/23 09/30/23 09/30/23 16:50 16:55 17:00 Temperature 36.6 C Heart Rate Heart Rate [ 79 Brachial] Heart Rate [ Monitoring electrodes] Respiratory 25 H Rate Blood Pressure Blood Pressure 199/107 H 201/106 H 176/95 H [Left Brachial artery] Blood Pressure 164/99 H [Right Brachial artery] Blood Pressure [Right Radial artery] O2 Saturation 93 09/30/23 09/30/23 09/30/23 17:15 17:20 17:35 Temperature Heart Rate Heart Rate [ 74 Brachial] Heart Rate [ Monitoring electrodes] Respiratory Rate Blood Pressure Blood Pressure [Left Brachial artery] Blood Pressure 168/95 H 170/95 H 185/102 H [Right Brachial artery] Blood Pressure [Right Radial artery] O2 Saturation 09/30/23 09/30/23 09/30/23 17:50 18:45 19:40 Temperature 36.9 C Heart Rate 73 Heart Rate [ 79 Brachial] Heart Rate [ Monitoring electrodes] Respiratory 20 18 Rate Blood Pressure Blood Pressure [Left Brachial artery] Blood Pressure 158/98 H 168/93 H [Right Brachial artery] Blood Pressure [Right Radial artery] O2 Saturation 94 10/01/23 10/01/23 10/01/23 00:48 05:00 06:10 Temperature 36.6 C 36.5 C Heart Rate 80 Heart Rate [ 69 68 Brachial] Heart Rate [ Monitoring electrodes] Respiratory 18 16 20 Rate Blood Pressure Blood Pressure [Left Brachial artery] Blood Pressure [Right Brachial artery] Blood Pressure 157/86 H 160/98 H [Right Radial artery] O2 Saturation 89 L 90 L 10/01/23 10/01/23 10/01/23 06:11 06:20 06:35 Temperature Heart Rate Heart Rate [ Brachial] Heart Rate [ Monitoring electrodes] Respiratory 16 Rate Blood Pressure 169/103 H Blood Pressure [Left Brachial artery] Blood Pressure 156/92 H [Right Brachial artery] Blood Pressure 169/103 H [Right Radial artery] O2 Saturation 95 10/01/23 06:45 Temperature Heart Rate Heart Rate [ Brachial] Heart Rate [ Monitoring electrodes] Respiratory Rate Blood Pressure Blood Pressure [Left Brachial artery] Blood Pressure 163/87 H [Right Brachial artery] Blood Pressure [Right Radial artery] O2 Saturation Oxygen O2 Source Room air Oxygen Flow Rate 2 I&O (Last 24 Hrs): Intake and Output Totals x24h 09/29/23 09/30/23 10/01/23 23:59 23:59 23:59 Intake Total 1720 3890 120 Output Total 250 Balance 1720 3640 120 General: Alert, Oriented x3, Other (Morbidly obese, very pleasant female.) HEENT: Mucous membr. moist/pink, Other (Slight hoarseness still present) Neck: Supple Neuro: Alert, Non Focal Cardiovascular: Regular rate (Distant heart sounds due to obesity) Respiratory: Rhonchi (At both bases) Abdomen: Soft, Other (Obese with a pannus) Extremities: No edema, No tenderness/swelling - Results Results: Laboratory Results WBC 9.0 x10^3/uL (4.8-10.8) 10/01/23 05:42 RBC 5.53 10^6/uL (4.20-5.40) H 10/01/23 05:42 Hgb 13.5 g/dL (12.0-16.0) 10/01/23 05:42 Hct 44.4 % (37.0-47.0) 10/01/23 05:42 MCV 80.3 fL (81.0-99.0) L 10/01/23 05:42 MCH 24.4 pg (27.0-31.0) L 10/01/23 05:42 MCHC 30.4 g/dL (32.0-36.0) L 10/01/23 05:42 RDW 15.2 % (12.0-15.0) H 10/01/23 05:42 Plt Count 254 10^3/uL (130-450) 10/01/23 05:42 MPV 11.4 fL (7.9-10.8) H 10/01/23 05:42 Neut # (Auto) 6.2 10^3/uL (1.5-6.6) 10/01/23 05:42 Lymph # (Auto) 2.1 10^3/uL (1.5-3.5) 10/01/23 05:42 Alfalfa # (Auto) 0.5 10^3/uL (0.0-1.0) 10/01/23 05:42 Eos # (Auto) 0.0 10^3/uL (0.0-0.7) 10/01/23 05:42 Baso # (Auto) 0.0 10^3/uL (0.0-0.1) 10/01/23 05:42 Absolute Nucleated RBC 0.00 x10^3/uL 10/01/23 05:42 Nucleated RBC % 0.0 /100WBC 10/01/23 05:42 PT 12.7 secs (9.9-12.6) H 09/26/23 14:33 INR 1.2 (0.8-1.2) 09/26/23 14:33 Sodium 136 mmol/L (135-145) 10/01/23 05:42 Potassium 4.2 mmol/L (3.5-4.5) 10/01/23 05:42 Chloride 102 mmol/L (101-111) 10/01/23 05:42 Carbon Dioxide 29 mmol/L (21-32) 10/01/23 05:42 Anion Gap 5.0 (6-13) L 10/01/23 05:42 BUN 17 mg/dL (6-20) 10/01/23 05:42 Creatinine 0.7 mg/dL (0.6-1.3) 10/01/23 05:42 Estimated GFR (MDRD) 89 (>89) 10/01/23 05:42 Glucose 279 mg/dL (74-104) H 10/01/23 05:42 POC Whole Bld Glucose 269 mg/dL (70 - 100) H 10/01/23 07:46 Estimat Average Glucose 206 mg/dL (70-100) H 09/27/23 05:27 Hemoglobin A1c % 8.8 % (4.27-6.07) H 09/27/23 05:27 Calcium 9.5 mg/dL (8.5-10.3) 10/01/23 05:42 Phosphorus 4.5 mg/dL (2.5-5.0) 09/27/23 05:27 Magnesium 1.9 mg/dL (1.7-2.3) 09/27/23 05:27 Total Bilirubin 0.5 mg/dL (0.2-1.0) 09/26/23 14:33 AST 13 IU/L (10-42) 09/26/23 14:33 ALT 25 IU/L (10-60) 09/26/23 14:33 Alkaline Phosphatase 79 IU/L (42-121) 09/26/23 14:33 B-Natriuretic Peptide 73 pg/mL (5-100) 09/30/23 05:03 Total Protein 7.1 g/dL (6.4-8.9) 09/26/23 14:33 Albumin 4.0 g/dL (3.2-5.5) 09/26/23 14:33 Globulin 3.1 g/dL (2.1-4.2) 09/26/23 14:33 Albumin/Globulin Ratio 1.3 (1.0-2.2) 09/26/23 14:33 Nasal Adenovirus (PCR) NOT DETECTED 09/26/23 09:25 Nasal B. parapertussis DNA (PCR) NOT DETECTED 09/26/23 09:25 Nasal Coronavir 229E PCR NOT DETECTED 09/26/23 09:25 Nasal Coronavir HKU1 PCR NOT DETECTED 09/26/23 09:25 Nasal Coronavir NL63 PCR NOT DETECTED 09/26/23 09:25 Nasal Coronavir OC43 PCR NOT DETECTED 09/26/23 09:25 Nasal Enterovir/Rhinovir PCR NOT DETECTED 09/26/23 09:25 Nasal Influenza B PCR NOT DETECTED 09/26/23 09:25 Nasal Influenza A PCR NOT DETECTED 09/26/23 09:25 Nasal Parainfluen 1 PCR NOT DETECTED 09/26/23 09:25 Nasal Parainfluen 2 PCR NOT DETECTED 09/26/23 09:25 Nasal Parainfluen 3 PCR NOT DETECTED 09/26/23 09:25 Nasal Parainfluen 4 PCR NOT DETECTED 09/26/23 09:25 Nasal RSV (PCR) DETECTED A 09/26/23 09:25 Nasal B.pertussis DNA PCR NOT DETECTED 09/26/23 09:25 Nasal C.pneumoniae (PCR) NOT DETECTED 09/26/23 09:25 Erasto Human Metapneumo PCR NOT DETECTED 09/26/23 09:25 Nasal M.pneumoniae (PCR) NOT DETECTED 09/26/23 09:25 Nasal SARS-CoV-2 (PCR) NOT DETECTED 09/26/23 09:25 - Procedures Procedures: Procedures OTHER SKIN & SUBQ I D (04/02/15)
[2023-10-01] MEDS: hydroCHLOROthiazide 25 MG TABLET PO SCH (09:45)
[2023-10-01] MEDS: metFORMIN 500 MG TABLET PO ONE (10:05)
[2023-10-01] MEDS: IPRATROPIUM/ALBUTEROL 3 ML NEB INH PRN (10:44)
[2023-10-01] MEDS: FUROSEMIDE 20 MG/2 ML VIAL IVP ONE (12:09)
[2023-10-01] MEDS: metFORMIN 500 MG TABLET PO SCH (16:58)
--- NOTE | 2023-10-01 17:40 | PHARMACY PROGRESS NOTE ---
- Therapy Status Therapy status: Awaiting steady state Basis for treatment: Empirical Treatment indication: HAP Trough goal: AUC/BLOSSOM 400-600 Concurrent antibiotics: ZOSYN - DUKE Risk Risk level for Acute Kidney Injury: High Acute Kidney Injury risk factors: Piperacillin/Tozobactam, Wt >100kg or BMI >40, Goal trough >15 - Monitoring and Recommendation Monitoring plan: Daily serum creatinine Areas for additional monitoring: IV to PO when appropriate, Therapy de- escalation based on culture results Pharmacy recommendation: Continue current regime (Loading dose of 2.5 gm x 1, followed by maintenance dose of 2 gm q12h for estimated AUC/BLOSSOM of 487)
[2023-10-01] MEDS: PIPERACILLIN/TAZOBACTAM 3.375 GM in SODIUM CHLORIDE 0.9% MINIBAG 100 ML IV SCH (18:00)
[2023-10-01] MEDS: VANCOMYCIN INJ 2 GM, VANCOMYCIN INJ 500 MG in SODIUM CHLORIDE 0.9% 500 ML IV ONE (18:50)
[2023-10-01] MEDS: SODIUM CHLORIDE FLUSH 0.9% 10 ML SYRINGE IVP PRN (21:18)
[2023-10-02] MEDS: VANCOMYCIN INJ 2 GM in SODIUM CHLORIDE 0.9% 500 ML IV SCH (06:32)
[2023-10-02 19:49] LABS: B. PARAPERTUSSIS- RESP PCR PAN NOT DETECTED; B. PERTUSSIS- RESP PCR PANEL NOT DETECTED; C. PNEUMONIAE- RESP PCR PANEL NOT DETECTED; CORONAVIRUS 229E-RESP PCR NOT DETECTED; CORONAVIRUS HKU1-RESP PCR NOT DETECTED; CORONAVIRUS NL63-RESP PCR NOT DETECTED; CORONAVIRUS OC43-RESP PCR NOT DETECTED; HUMAN METAPNEUMOVIRUS NOT DETECTED; INFLUENZA A- RESP PCR PANEL NOT DETECTED; INFLUENZA B - RESP PCR PANEL NOT DETECTED; M. PNEUMONIAE- RESP PCR PANEL NOT DETECTED; PARAINFLUENZA VIRUS 1 NOT DETECTED; PARAINFLUENZA VIRUS 2 NOT DETECTED; PARAINFLUENZA VIRUS 3 NOT DETECTED; PARAINFLUENZA VIRUS 4 NOT DETECTED; RHINOVIRUS/ENTEROVIRUS NOT DETECTED; RSV- RESP PCR PANEL NOT DETECTED; SARS-CoV-2 -RESP PCR PANEL NOT DETECTED
--- NOTE | 2023-10-02 20:36 | PROVIDER PROGRESS NOTE ---
Assessment/Plan - Problem List (1) RSV infection Assessment/Plan: Conclusion/Plan: As per results Nasal swab positive for RSV Plan: Droplet isolation ordered Continue anti-tussives prn (2) Asthma exacerbation Plan: Cont DuoNebs scheduled BID plus every 4 hours as needed Cont Pulmicort nebulized twice daily Solu-Medrol transition to prednisone. Continue Mucinex and Robitussin. (3) Otitis media Assessment/Plan: Patient has completed a course of antibiotics and symptoms have resolved. (4) Type 2 diabetes mellitus, uncontrolled Conclusion/Plan: Continue glargine and sliding scale insulin. Continue metformin. Qualifiers: Diabetes mellitus group home insulin use: without group home use Diabetes mellitus complication status: with hyperglycemia Qualified Code(s): E11.65 - Type 2 diabetes mellitus with hyperglycemia (5) HTN, uncontrolled Conclusion/Plan: Continue losartan and amlodipine. Continue hydrochlorothiazide. (6) Morbid obesity with BMI of 50.0-59.9, adult Conclusion/Plan: This complicates all her care and will likely prolong her hospital course (7) Seizure disorder Conclusion/Plan: She reports no use of antiseizure medications. (8) Acute respiratory failure with hypoxia Conclusion/Plan: Resolved. - Current Meds Current Meds: Current Medications Generic Name Dose Route Start Last Admin Trade Name Freq PRN Reason Stop Dose Admin Acetaminophen 650 mg 09/26/23 11:50 09/30/23 21:33 Acetaminophen 325 Mg Tablet PO 650 mg Q4HR PRN Administration Pain 1 to 4, or Fever Albuterol/Ipratropium 3 ml 09/26/23 14:20 10/01/23 10:44 Ipratropium/Albuterol 3 Ml Neb INH 3 ml Q4HR PRN Administration Wheezing Albuterol/Ipratropium 3 ml 09/30/23 19:00 10/02/23 18:55 Ipratropium/Albuterol 3 Ml Neb INH 3 ml RTBID LIEN Administration Amlodipine Besylate 5 mg 09/27/23 09:00 10/02/23 08:05 Amlodipine 5 Mg Tablet PO 5 mg DAILY LIEN Administration Budesonide 0.5 mg 09/26/23 19:00 10/02/23 18:55 Budesonide 0.5 Mg/2 Ml Neb INH 0.5 mg RTBID LIEN Administration Guaifenesin 600 mg 09/26/23 21:00 10/02/23 08:05 Guaifenesin 600 Mg Tablet PO 600 mg BID LIEN Administration Guaifenesin/Codeine Phosphate 10 ml 09/28/23 11:30 10/02/23 11:56 Guaifenesin/Codeine 5 Ml Udc PO 10 ml Q6HR PRN Administration Cough Heparin Sodium (Porcine) 5,000 unit 09/26/23 21:00 10/02/23 08:02 Heparin 5,000 Unit/Ml Vial SUBQ 5,000 unit BID LIEN Administration Hydralazine HCl 25 mg 09/30/23 16:12 10/01/23 06:20 Hydralazine Inj 20 Mg/Ml Vial IVP 25 mg Q8H PRN Administration Hypertensive Emergency Hydrochlorothiazide 25 mg 10/01/23 09:00 10/02/23 08:05 Hydrochlorothiazide 25 Mg Tablet PO 25 mg DAILY LIEN Administration Piperacillin Sod/Tazobactam 100 mls @ 200 mls/hr 10/01/23 18:00 10/02/23 19:46 Sod 3.375 gm/ Sodium Chloride IV Infused Q6H LIEN Infusion Vancomycin HCl 2 gm/ Sodium 500 mls @ 250 mls/hr 10/02/23 07:00 10/02/23 19:37 Chloride IV 250 mls/hr Q12H LINE Administration Insulin Glargine-yfgn 18 unit 09/30/23 21:00 10/02/23 08:02 Insulin Glargine-Yfgn 300 Unit/3 Ml Pen SUBQ 18 unit BID LIEN Administration Insulin Human Lispro 3 - 11 unit 09/28/23 08:00 10/02/23 17:15 Insulin Lispro 300 Unit/3 Ml Pen SUBQ 5 unit 0800,1200,1700,2100 LIEN Administration Protocol Losartan Potassium 100 mg 09/30/23 09:00 10/02/23 08:05 Losartan 50 Mg Tablet PO 100 mg DAILY LIEN Administration Metformin HCl 1,000 mg 10/01/23 17:00 10/02/23 17:14 Metformin 500 Mg Tablet PO 1,000 mg BIDWM LIEN Administration Methylprednisolone 20 mg 09/27/23 22:00 10/02/23 13:22 Methylprednisolone Succinate 40 Mg/Ml Vial IVP 20 mg TID LIEN Administration Saccharomyces Boulardii 250 mg 09/30/23 17:00 10/02/23 17:13 Saccharomyces Boulardii 250 Mg Capsule PO 250 mg BIDWM LIEN Administration Sodium Chloride 10 ml 09/26/23 11:50 10/02/23 19:38 Sodium Chloride Flush 0.9% 10 Ml Syringe IVP 10 ml PRN PRN Administration NEEDED PER PROVIDER ORDERS Sodium Chloride 10 ml 09/26/23 17:00 10/02/23 17:16 Sodium Chloride Flush 0.9% 10 Ml Syringe IVP 10 ml 0100,0900,1700 LIEN Administration - Lab Result Fish Bone Diagrams: 10/01/23 05:42 10/01/23 05:42 Subjective - Subjective Patient Reports: Other (Alert. Ambulating intermittently. Continues to complain of significant cough. Shortness of breath has improved but she is not at her baseline. She denies chest pain, nausea and vomiting.) Objective Vital Signs: Vital Signs - 24 hr 10/02/23 10/02/23 10/02/23 00:32 05:00 07:11 Temperature 36.6 C 36.5 C Heart Rate 80 Heart Rate [ 67 67 Brachial] Respiratory 20 18 20 Rate Blood Pressure [Left Brachial artery] Blood Pressure 151/78 H 145/75 H [Right Brachial artery] O2 Saturation 93 100 10/02/23 10/02/23 10/02/23 07:45 13:00 15:45 Temperature 36.6 C 36.8 C 36.7 C Heart Rate Heart Rate [ 71 72 69 Brachial] Respiratory 18 20 20 Rate Blood Pressure 165/83 H [Left Brachial artery] Blood Pressure 156/95 H 143/98 H [Right Brachial artery] O2 Saturation 91 L 96 96 10/02/23 10/02/23 18:57 20:13 Temperature 36.7 C Heart Rate 79 Heart Rate [ 73 Brachial] Respiratory 16 20 Rate Blood Pressure [Left Brachial artery] Blood Pressure 148/84 H [Right Brachial artery] O2 Saturation 92 Oxygen O2 Source Room air Oxygen Flow Rate 2 I&O (Last 24 Hrs): Intake and Output Totals x24h 09/30/23 10/01/23 10/02/23 23:59 23:59 23:59 Intake Total 3890 1910 1960 Output Total 250 275 350 Balance 3640 1635 1610 General: Alert, Oriented x3, No acute distress Neck: Supple, No JVD, No thyromegaly Neuro: Alert Cardiovascular: Regular rate, Normal S1, Normal S2 Respiratory: Other (Good air exchange. Positive expiratory wheeze. No crackles .) Abdomen: Normal bowel sounds, Soft Extremities: No cyanosis, No edema Skin: No rashes - Results Results: Laboratory Results WBC 9.0 x10^3/uL (4.8-10.8) 10/01/23 05:42 RBC 5.53 10^6/uL (4.20-5.40) H 10/01/23 05:42 Hgb 13.5 g/dL (12.0-16.0) 10/01/23 05:42 Hct 44.4 % (37.0-47.0) 10/01/23 05:42 MCV 80.3 fL (81.0-99.0) L 10/01/23 05:42 MCH 24.4 pg (27.0-31.0) L 10/01/23 05:42 MCHC 30.4 g/dL (32.0-36.0) L 10/01/23 05:42 RDW 15.2 % (12.0-15.0) H 10/01/23 05:42 Plt Count 254 10^3/uL (130-450) 10/01/23 05:42 MPV 11.4 fL (7.9-10.8) H 10/01/23 05:42 Neut # (Auto) 6.2 10^3/uL (1.5-6.6) 10/01/23 05:42 Lymph # (Auto) 2.1 10^3/uL (1.5-3.5) 10/01/23 05:42 Jenkins # (Auto) 0.5 10^3/uL (0.0-1.0) 10/01/23 05:42 Eos # (Auto) 0.0 10^3/uL (0.0-0.7) 10/01/23 05:42 Baso # (Auto) 0.0 10^3/uL (0.0-0.1) 10/01/23 05:42 Absolute Nucleated RBC 0.00 x10^3/uL 10/01/23 05:42 Nucleated RBC % 0.0 /100WBC 10/01/23 05:42 PT 12.7 secs (9.9-12.6) H 09/26/23 14:33 INR 1.2 (0.8-1.2) 09/26/23 14:33 Sodium 136 mmol/L (135-145) 10/01/23 05:42 Potassium 4.2 mmol/L (3.5-4.5) 10/01/23 05:42 Chloride 102 mmol/L (101-111) 10/01/23 05:42 Carbon Dioxide 29 mmol/L (21-32) 10/01/23 05:42 Anion Gap 5.0 (6-13) L 10/01/23 05:42 BUN 17 mg/dL (6-20) 10/01/23 05:42 Creatinine 0.7 mg/dL (0.6-1.3) 10/01/23 05:42 Estimated GFR (MDRD) 89 (>89) 10/01/23 05:42 Glucose 279 mg/dL (74-104) H 10/01/23 05:42 POC Whole Bld Glucose 203 mg/dL (70 - 100) H 10/02/23 16:41 Estimat Average Glucose 206 mg/dL (70-100) H 09/27/23 05:27 Hemoglobin A1c % 8.8 % (4.27-6.07) H 09/27/23 05:27 Calcium 9.5 mg/dL (8.5-10.3) 10/01/23 05:42 Phosphorus 4.5 mg/dL (2.5-5.0) 09/27/23 05:27 Magnesium 1.9 mg/dL (1.7-2.3) 09/27/23 05:27 Total Bilirubin 0.5 mg/dL (0.2-1.0) 09/26/23 14:33 AST 13 IU/L (10-42) 09/26/23 14:33 ALT 25 IU/L (10-60) 09/26/23 14:33 Alkaline Phosphatase 79 IU/L (42-121) 09/26/23 14:33 B-Natriuretic Peptide 73 pg/mL (5-100) 09/30/23 05:03 Total Protein 7.1 g/dL (6.4-8.9) 09/26/23 14:33 Albumin 4.0 g/dL (3.2-5.5) 09/26/23 14:33 Globulin 3.1 g/dL (2.1-4.2) 09/26/23 14:33 Albumin/Globulin Ratio 1.3 (1.0-2.2) 09/26/23 14:33 Vitamin B12 368 pg/mL (180-914) 10/01/23 05:42 Nasal Adenovirus (PCR) NOT DETECTED 10/02/23 18:38 Nasal B. parapertussis DNA (PCR) NOT DETECTED 10/02/23 18:38 Nasal Coronavir 229E PCR NOT DETECTED 10/02/23 18:38 Nasal Coronavir HKU1 PCR NOT DETECTED 10/02/23 18:38 Nasal Coronavir NL63 PCR NOT DETECTED 10/02/23 18:38 Nasal Coronavir OC43 PCR NOT DETECTED 10/02/23 18:38 Nasal Enterovir/Rhinovir PCR NOT DETECTED 10/02/23 18:38 Nasal Influenza B PCR NOT DETECTED 10/02/23 18:38 Nasal Influenza A PCR NOT DETECTED 10/02/23 18:38 Nasal Parainfluen 1 PCR NOT DETECTED 10/02/23 18:38 Nasal Parainfluen 2 PCR NOT DETECTED 10/02/23 18:38 Nasal Parainfluen 3 PCR NOT DETECTED 10/02/23 18:38 Nasal Parainfluen 4 PCR NOT DETECTED 10/02/23 18:38 Nasal RSV (PCR) NOT DETECTED 10/02/23 18:38 Nasal B.pertussis DNA PCR NOT DETECTED 10/02/23 18:38 Nasal C.pneumoniae (PCR) NOT DETECTED 10/02/23 18:38 Shiv Human Metapneumo PCR NOT DETECTED 10/02/23 18:38 Nasal M.pneumoniae (PCR) NOT DETECTED 10/02/23 18:38 Nasal SARS-CoV-2 (PCR) NOT DETECTED 10/02/23 18:38 - Procedures Procedures: Procedures OTHER SKIN & SUBQ I D (04/02/15)
[2023-10-03] MEDS: predniSONE 20 MG TABLET PO SCH (07:57)
[2023-10-03] MEDS: FUROSEMIDE 20 MG TABLET PO SCH (12:02)
[2023-10-03] MEDS: POTASSIUM CHLORIDE 20 MEQ/15 ML UDC PO SCH (12:02)
[2023-10-03] MEDS ORDERED: BACITRACIN ZINC OINT 1 PACKET TOP PRN (12:53)
--- NOTE | 2023-10-03 16:35 | Discharge Plan ---
Discharge Plan Problem Reviewed?: Yes Disposition: Home, Self Care Condition: Good Prescriptions: Albuterol Sulf [Ventolin Hfa Inhaler] 1 - 2 puffs INH Q4HR PRN #1 each PRN Reason: Shortness Of Air/Wheezing Fluticasone/Salmeterol [Advair Hfa 230-21 Mcg Inhaler] 1 puffs IH BID #8 gm Diet: Diabetic Activity Restrictions: Activity as Tolerated Shower Restrictions: No Driving Restrictions: No Weight Bearing: Full Weight Health Concerns: History of Present Illness: Per Dr. Carpenter admission history: This is a 47-year-old female with a history of morbid obesity (BMI 53), asthma with attacks happening when she gets a URI and also has a history of DM, HTN, migraines and seizure disorder. She presented to the ER today complaining of shortness of air with a cough of 3 days duration. She denied any chest pain, palpitations, PND orthopnea or leg edema. Her workup showed that she was desaturating on room air down to 85%, chest x-ray showed no infiltrates and normal heart size and labs showed positive RSV on her respiratory PCR and serum glu of 275. No CMP or CBC was done in the ER. She was put on supplemental oxygen and given oral Decadron and several nebulized bronchodilators in the ER. She was retested on room air and continued to desaturate to below 88%. The ED provider then spoke to me about this patient for admission for managing an asthmatic exacerbation caused by RSV viral infection causing hypoxia. As I am meeting her she just had a coughing spell, was all flushed. She is now speaking to me with a hoarse voice. She reports that there are 4 children in the house and everybody has URIs. Hospital Course: Ene Trevino was admitted to the hospital on September 26, 2023. Upon admission s he required oxygen to maintain her oxygen saturation greater than 90%. Treatment was initiated with nebulized bronchodilators, nebulized corticosteroids and IV corticosteroids. Viral culture was positive for RSV. Patient takes metformin for type 2 diabetes at home and required treatment with glargine and sliding scale insulin during her hospitalization due to the fact that she was on systemic steroids. On admission, treatment was initiated with empiric broad-spectrum antibiotic coverage with ceftriaxone and azithromycin and was transitioned over to Augmentin. Antibiotics have been discontinued. Sputum culture grew normal oral criselda. Her respiratory symptoms improved and systemic corticosteroids have been discontinued. High blood sugar resolved resolved with discontinuation of system ic steroids. She was also diagnosed with otitis media and treated with the above antibiotics. Her ear symptoms have resolved. Hospital course was complicated by hypertension that was most likely secondary to her underlying illness. She will be discharged on her home antihypertensive regiment. Viral culture was positive for RSV. Patient is now stable for discharge to home. CODE STATUS upon discharge is full code. Plan of Treatment: 1. Continue all medications as prescribed.Patient counseled to rinse mouth after use of inhaled corticosteroids 2. Recommend going to an acute care clinic or emergency room if you develop shortness of breath or fever greater than 101 F. 3. Recommend obtaining a primary care provider. Care Goals: Goals of care is to return to baseline function from a respiratory standpoint. Recommend patient be evaluated for obstructive sleep apnea as an outpatient. Assessment: (1) Atypical pneumonia Assessment/Plan: Patient treated with broad-spectrum antibiotic coverage with ceftriaxone and azithromycin. Antibiotics have been discontinued. (2) Asthma exacerbation Resolved. Recommend albuterol 2 puffs every 4 hours as needed for shortness of breath and initiation of Advair 1 puff twice daily. (3) Otitis media Assessment/Plan: Patient completed course of antibiotics and symptoms have resolved. (4) RSV infection Conclusion/Plan: Resolving. (5) Type 2 diabetes mellitus, uncontrolled Conclusion/Plan: Continue metformin 500 mg twice daily. Recommend patient have her serum glucose checked on her next outpatient visit. Qualifiers: Diabetes mellitus usp insulin use: without usp use Diabetes mellitus complication status: with hyperglycemia Qualified Code(s): E11.65 - Type 2 diabetes mellitus with hyperglycemia (6) HTN, uncontrolled Conclusion/Plan: Continue outpatient dose of amlodipine and losartan/hydrochlorothiazide. (7) Morbid obesity with BMI of 50.0-59.9, adult Conclusion/Plan: Recommend weight loss as tolerated. (8) Seizure disorder Conclusion/Plan: She told me she has not had a seizure in over 20 years and is on no meds for this (9) Acute respiratory failure with hypoxia Conclusion/Plan: Resolved. No Smoking: If you smoke, Please STOP! Call for help.
--- NOTE | 2023-10-03 16:35 | DISCHARGE SUMMARY ---
Discharge Summary Admit Date: 09/26/23 Discharge Date: 10/04/23 Discharging Provider: Yomi Johnson MD Code Status: Attempt Resuscitation Condition at Discharge: Good Discharge Disposition: 01 Home, Self Care - DIAGNOSES Admission Diagnoses: (1) Acute respiratory failure with hypoxia (2) Asthma exacerbation (3) RSV infection (4) Type 2 diabetes mellitus (5) Seizure disorder (6) Morbid obesity with BMI of 50.0-59.9, adult Discharge Diagnoses with Status of Each Condition: (1) RSV infection Resolving (2) Asthma exacerbation Resolved (3) Otitis media Resolved (4) Type 2 diabetes mellitus, uncontrolled Chronic (5) HTN, uncontrolled Chronic (6) Morbid obesity with BMI of 50.0-59.9, adult Chronic (7) Seizure disorder Chronic (8) Acute respiratory failure with hypoxia Resolved - HPI History of Present Illness: Per Dr. Carpenter admission history: This is a 47-year-old female with a history of morbid obesity (BMI 53), asthma with attacks happening when she gets a URI and also has a history of DM, HTN, migraines and seizure disorder. She presented to the ER today complaining of shortness of air with a cough of 3 days duration. She denied any chest pain, palpitations, PND orthopnea or leg edema. Her workup showed that she was desaturating on room air down to 85%, chest x-ray showed no infiltrates and normal heart size and labs showed positive RSV on her respiratory PCR and serum glu of 275. No CMP or CBC was done in the ER. She was put on supplemental oxygen and given oral Decadron and several nebulized bronchodilators in the ER. She was retested on room air and continued to desaturate to below 88%. The ED provider then spoke to me about this patient for admission for managing an asthmatic exacerbation caused by RSV viral infec tion causing hypoxia. As I am meeting her she just had a coughing spell, was all flushed. She is now speaking to me with a hoarse voice. She reports that there are 4 children in the house and everybody has URIs. - HOSPITAL COURSE Hospital Course: Hospital Course: Ene Trevino was admitted to the hospital on September 26, 2023. Upon admission she required oxygen to maintain her oxygen saturation greater than 90%. Treatment was initiated with nebulized bronchodilators, nebulized corticosteroids and IV corticosteroids. Viral culture was positive for RSV. Patient takes metformin for type 2 diabetes at home and required treatment with glargine and sliding scale insulin during her hospitalization due to the fact that she was on systemic steroids. On admission, treatment was initiated with empiric broad-spectrum antibiotic coverage with ceftriaxone and azithromycin and was transitioned over to Augmentin. Antibiotics have been discontinued. Sputum culture grew normal oral criselda. Her respiratory symptoms improved and systemic corticosteroids have been discontinued. High blood sugar resolved resolved with discontinuation of systemic steroids. She was also diagnosed with otitis media and treated with the above antibiotics. Her ear symptoms have resolved. Hospital course was complicated by hypertension that was most likely secondary t o her underlying illness. She will be discharged on her home antihypertensive regiment. Viral culture was positive for RSV. Patient is now stable for discharge to home. CODE STATUS upon discharge is full code. - ALLERGIES Allergies/Adverse Reactions: Allergies Allergy/AdvReac Type Severity Reaction Status Date / Time phenobarbital Allergy Severe Anxiety Verified 09/26/23 08:23 phenytoin sodium extended * Allergy Intermediate Anxiety Verified 09/26/23 08:23 [From Dilantin] shrimp Allergy Rash Verified 09/26/23 08:23 fluoxetine HCl * AdvReac Severe depression Verified 09/26/23 08:23 [From Prozac] seafood Allergy Anaphylaxis Uncoded 09/26/23 08:23 - MEDICATIONS Home Medications: Ambulatory Orders Medication Instructions Recorded Confirmed Losartan/Hydrochlorothiazide 1 tab PO DAILY 03/06/22 09/26/23 [Losartan-Hctz 100-12.5 mg Tab] metFORMIN [Glucophage] 1,000 mg PO BIDWM 03/06/22 10/01/23 EPINEPHrine [Epinephrine] 0.3 mg IJ ONCE PRN #2 each 02/08/23 09/26/23 Amlodipine Besylate [Norvasc] 5 mg PO DAILY 09/26/23 09/26/23 Blood-Glucose Sensor [Freestyle 1 each MC DAILY 09/26/23 09/26/23 Lior 3 Sensor] Albuterol Sulf [Ventolin Hfa 1 - 2 puffs INH Q4HR PRN #1 each 10/03/23 Inhaler] Fluticasone/Salmeterol [Advair Hfa 1 puffs IH BID #8 gm 10/03/23 230-21 Mcg Inhaler] - PHYSICAL EXAM AT DISCHARGE General Appearance: positive: No acute distress Eyes Bilateral: positive: Normal inspection, Conjunctivae nml Neck: positive: Nml inspection, Thyroid nml, No JVD Respiratory: positive: No respiratory distress, Breath sounds nml Cardiovascular: positive: Regular rate & rhythm, No murmur, No gallop Extremities: positive: No pedal edema - LABS Result Diagrams: 10/01/23 05:42 10/01/23 05:42 - QUALITY (Female Hip Fx Only) Was patient sent home on osteoporosis medication?: No - TIME SPENT Time Spent in Discharge (Minutes): 28
--- NOTE | 2023-10-03 19:45 | PROVIDER PROGRESS NOTE ---
Assessment/Plan - Problem List (1) RSV infection Assessment/Plan: Conclusion/Plan: As per results Nasal swab positive for RSV Plan: Droplet isolation ordered Continue anti-tussives prn (2) Asthma exacerbation Plan: Cont DuoNebs scheduled BID plus every 4 hours as needed Cont Pulmicort nebulized twice daily Solu-Medrol transition to prednisone 40 mg daily. Continue Mucinex and Robitussin. (3) Otitis media Assessment/Plan: Patient has completed a course of antibiotics and symptoms have resolved. (4) Type 2 diabetes mellitus, uncontrolled Conclusion/Plan: Continue glargine and sliding scale insulin.Patient's blood sugar is currently not well-controlled and last blood sugar was 378.She continues to require hospitalization given the fact that her blood sugars are not well-controlled while she is on corticosteroids. Continue to monitor serum glucose. Continue metformin. 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 Continue hydrochlorothiazide. Lasix as needed for edema. (6) Morbid obesity with BMI of 50.0-59.9, adult Conclusion/Plan: This complicates all her care and will likely prolong her hospital course (7) Seizure disorder Conclusion/Plan: She reports no use of antiseizure medications. (8) Acute respiratory failure with hypoxia Conclusion/Plan: Resolved. - Current Meds Current Meds: Current Medications Generic Name Dose Route Start Last Admin Trade Name Freq PRN Reason Stop Dose Admin Acetaminophen 650 mg 09/26/23 11:50 09/30/23 21:33 Acetaminophen 325 Mg Tablet PO 650 mg Q4HR PRN Administration Pain 1 to 4, or Fever Albuterol/Ipratropium 3 ml 09/26/23 14:20 10/01/23 10:44 Ipratropium/Albuterol 3 Ml Neb INH 3 ml Q4HR PRN Administration Wheezing Albuterol/Ipratropium 3 ml 09/30/23 19:00 10/03/23 18:03 Ipratropium/Albuterol 3 Ml Neb INH 3 ml RTBID LIEN Administration Amlodipine Besylate 5 mg 09/27/23 09:00 10/03/23 07:56 Amlodipine 5 Mg Tablet PO 5 mg DAILY LIEN Administration Budesonide 0.5 mg 09/26/23 19:00 10/03/23 18:03 Budesonide 0.5 Mg/2 Ml Neb INH 0.5 mg RTBID LIEN Administration Furosemide 20 mg 10/03/23 12:00 10/03/23 12:02 Furosemide 20 Mg Tablet PO 20 mg DAILY LIEN Administration Guaifenesin 600 mg 09/26/23 21:00 10/03/23 07:57 Guaifenesin 600 Mg Tablet PO 600 mg BID LIEN Administration Guaifenesin/Codeine Phosphate 10 ml 09/28/23 11:30 10/02/23 11:56 Guaifenesin/Codeine 5 Ml Udc PO 10 ml Q6HR PRN Administration Cough Heparin Sodium (Porcine) 5,000 unit 09/26/23 21:00 10/03/23 07:58 Heparin 5,000 Unit/Ml Vial SUBQ 5,000 unit BID LIEN Administration Hydralazine HCl 25 mg 09/30/23 16:12 10/01/23 06:20 Hydralazine Inj 20 Mg/Ml Vial IVP 25 mg Q8H PRN Administration Hypertensive Emergency Hydrochlorothiazide 25 mg 10/01/23 09:00 10/03/23 07:56 Hydrochlorothiazide 25 Mg Tablet PO 25 mg DAILY LIEN Administration Insulin Glargine-yfgn 18 unit 09/30/23 21:00 10/03/23 07:57 Insulin Glargine-Yfgn 300 Unit/3 Ml Pen SUBQ 18 unit BID LIEN Administration Insulin Human Lispro 3 - 11 unit 09/28/23 08:00 10/03/23 17:14 Insulin Lispro 300 Unit/3 Ml Pen SUBQ 11 unit 0800,1200,1700,2100 LIEN Administration Protocol Losartan Potassium 100 mg 09/30/23 09:00 10/03/23 07:57 Losartan 50 Mg Tablet PO 100 mg DAILY LIEN Administration Metformin HCl 1,000 mg 10/01/23 17:00 10/03/23 17:14 Metformin 500 Mg Tablet PO 1,000 mg BIDWM LIEN Administration Prednisone 40 mg 10/03/23 08:00 10/03/23 07:57 Prednisone 20 Mg Tablet PO 40 mg DAILYWM LIEN Administration Saccharomyces Boulardii 250 mg 09/30/23 17:00 10/03/23 17:14 Saccharomyces Boulardii 250 Mg Capsule PO 250 mg BIDWM LIEN Administration Sodium Chloride 10 ml 09/26/23 11:50 10/02/23 19:38 Sodium Chloride Flush 0.9% 10 Ml Syringe IVP 10 ml PRN PRN Administration NEEDED PER PROVIDER ORDERS Sodium Chloride 10 ml 09/26/23 17:00 10/03/23 07:59 Sodium Chloride Flush 0.9% 10 Ml Syringe IVP 10 ml 0100,0900,1700 LIEN Administration - Lab Result Fish Bone Diagrams: 10/01/23 05:42 10/01/23 05:42 - Additional Planning My Orders: My Active Orders 10/03/23 08:00 predniSONE [Deltasone] 40 mg PO DAILYWM 10/03/23 12:00 Furosemide [Lasix] 20 mg PO DAILY 10/03/23 12:53 Bacitracin Zinc Oint [Bacitracin] 1 packet TOP PRN PRN Subjective - Subjective Patient Reports: Other (Alert. Patient reports breathing and cough have improved. She denies chest pain and fever. She has no other complaints at this time.) Objective Vital Signs: Vital Signs - 24 hr 10/02/23 10/02/23 10/03/23 20:13 23:46 06:10 Temperature 36.7 C 36.7 C 36.5 C Heart Rate Heart Rate [ 73 61 60 Brachial] Heart Rate [ Monitoring electrodes] Respiratory 20 18 18 Rate Blood Pressure 148/84 H 159/84 H 145/84 H [Right Brachial artery] O2 Saturation 92 95 94 10/03/23 10/03/23 10/03/23 07:01 09:00 13:00 Temperature 37.2 C 36.8 C Heart Rate 80 Heart Rate [ 80 Brachial] Heart Rate [ 66 Monitoring electrodes] Respiratory 20 20 18 Rate Blood Pressure 140/73 H 124/84 H [Right Brachial artery] O2 Saturation 89 L 93 10/03/23 10/03/23 16:13 18:03 Temperature 36.7 C Heart Rate 92 Heart Rate [ 82 Brachial] Heart Rate [ Monitoring electrodes] Respiratory 20 20 Rate Blood Pressure 126/71 [Right Brachial artery] O2 Saturation 93 Oxygen O2 Source Room air Oxygen Flow Rate 2 I&O (Last 24 Hrs): Intake and Output Totals x24h 10/01/23 10/02/23 10/03/23 23:59 23:59 23:59 Intake Total 1910 2860 1520 Output Total 275 350 Balance 1635 2510 1520 General: Alert, Oriented x3, No acute distress Neck: Supple, No JVD, No thyromegaly Neuro: Alert Cardiovascular: Regular rate, Normal S1, Normal S2 Respiratory: Other (Fair air exchange in all lung sampson no wheezing no crackles) Abdomen: Normal bowel sounds, Soft, No tenderness Extremities: No cyanosis Skin: No rashes - Results Results: Laboratory Results WBC 9.0 x10^3/uL (4.8-10.8) 10/01/23 05:42 RBC 5.53 10^6/uL (4.20-5.40) H 10/01/23 05:42 Hgb 13.5 g/dL (12.0-16.0) 10/01/23 05:42 Hct 44.4 % (37.0-47.0) 10/01/23 05:42 MCV 80.3 fL (81.0-99.0) L 10/01/23 05:42 MCH 24.4 pg (27.0-31.0) L 10/01/23 05:42 MCHC 30.4 g/dL (32.0-36.0) L 10/01/23 05:42 RDW 15.2 % (12.0-15.0) H 10/01/23 05:42 Plt Count 254 10^3/uL (130-450) 10/01/23 05:42 MPV 11.4 fL (7.9-10.8) H 10/01/23 05:42 Neut # (Auto) 6.2 10^3/uL (1.5-6.6) 10/01/23 05:42 Lymph # (Auto) 2.1 10^3/uL (1.5-3.5) 10/01/23 05:42 Comal # (Auto) 0.5 10^3/uL (0.0-1.0) 10/01/23 05:42 Eos # (Auto) 0.0 10^3/uL (0.0-0.7) 10/01/23 05:42 Baso # (Auto) 0.0 10^3/uL (0.0-0.1) 10/01/23 05:42 Absolute Nucleated RBC 0.00 x10^3/uL 10/01/23 05:42 Nucleated RBC % 0.0 /100WBC 10/01/23 05:42 PT 12.7 secs (9.9-12.6) H 09/26/23 14:33 INR 1.2 (0.8-1.2) 09/26/23 14:33 Sodium 136 mmol/L (135-145) 10/01/23 05:42 Potassium 4.2 mmol/L (3.5-4.5) 10/01/23 05:42 Chloride 102 mmol/L (101-111) 10/01/23 05:42 Carbon Dioxide 29 mmol/L (21-32) 10/01/23 05:42 Anion Gap 5.0 (6-13) L 10/01/23 05:42 BUN 17 mg/dL (6-20) 10/01/23 05:42 Creatinine 0.7 mg/dL (0.6-1.3) 10/01/23 05:42 Estimated GFR (MDRD) 89 (>89) 10/01/23 05:42 Glucose 279 mg/dL (74-104) H 10/01/23 05:42 POC Whole Bld Glucose 378 mg/dL (70 - 100) H 10/03/23 16:45 Estimat Average Glucose 206 mg/dL (70-100) H 09/27/23 05:27 Hemoglobin A1c % 8.8 % (4.27-6.07) H 09/27/23 05:27 Calcium 9.5 mg/dL (8.5-10.3) 10/01/23 05:42 Phosphorus 4.5 mg/dL (2.5-5.0) 09/27/23 05:27 Magnesium 1.9 mg/dL (1.7-2.3) 09/27/23 05:27 Total Bilirubin 0.5 mg/dL (0.2-1.0) 09/26/23 14:33 AST 13 IU/L (10-42) 09/26/23 14:33 ALT 25 IU/L (10-60) 09/26/23 14:33 Alkaline Phosphatase 79 IU/L (42-121) 09/26/23 14:33 B-Natriuretic Peptide 73 pg/mL (5-100) 09/30/23 05:03 Total Protein 7.1 g/dL (6.4-8.9) 09/26/23 14:33 Albumin 4.0 g/dL (3.2-5.5) 09/26/23 14:33 Globulin 3.1 g/dL (2.1-4.2) 09/26/23 14:33 Albumin/Globulin Ratio 1.3 (1.0-2.2) 09/26/23 14:33 Vitamin B12 368 pg/mL (180-914) 10/01/23 05:42 Nasal Adenovirus (PCR) NOT DETECTED 10/02/23 18:38 Nasal B. parapertussis DNA (PCR) NOT DETECTED 10/02/23 18:38 Nasal Coronavir 229E PCR NOT DETECTED 10/02/23 18:38 Nasal Coronavir HKU1 PCR NOT DETECTED 10/02/23 18:38 Nasal Coronavir NL63 PCR NOT DETECTED 10/02/23 18:38 Nasal Coronavir OC43 PCR NOT DETECTED 10/02/23 18:38 Nasal Enterovir/Rhinovir PCR NOT DETECTED 10/02/23 18:38 Nasal Influenza B PCR NOT DETECTED 10/02/23 18:38 Nasal Influenza A PCR NOT DETECTED 10/02/23 18:38 Nasal Parainfluen 1 PCR NOT DETECTED 10/02/23 18:38 Nasal Parainfluen 2 PCR NOT DETECTED 10/02/23 18:38 Nasal Parainfluen 3 PCR NOT DETECTED 10/02/23 18:38 Nasal Parainfluen 4 PCR NOT DETECTED 10/02/23 18:38 Nasal RSV (PCR) NOT DETECTED 10/02/23 18:38 Nasal B.pertussis DNA PCR NOT DETECTED 10/02/23 18:38 Nasal C.pneumoniae (PCR) NOT DETECTED 10/02/23 18:38 Shiv Human Metapneumo PCR NOT DETECTED 10/02/23 18:38 Nasal M.pneumoniae (PCR) NOT DETECTED 10/02/23 18:38 Nasal SARS-CoV-2 (PCR) NOT DETECTED 10/02/23 18:38 - Procedures Procedures: Procedures OTHER SKIN & SUBQ I D (04/02/15)
[2023-10-04 12:50] VITALS: BP 141/80; O2SAT 92
== END 2023-10-04 14:39 | disposition home or self-care (01) | DRG 202 ==
LOC: ED 08:05 → MS2 11:50
PROVIDERS: ADMIT Internal Medicine; ATTEND Internal Medicine
DX: J45.41 Moderate persistent asthma with (acute) exacerbation (principal); J96.01 Acute respiratory failure with hypoxia; Z68.43 Body mass index [BMI] 50.0-59.9, adult; J20.5 Acute bronchitis due to respiratory syncytial virus; E11.65 Type 2 diabetes mellitus with hyperglycemia; T38.0X5A Adverse effect of glucocorticoids and synthetic analogues, initial encounter; H66.91 Otitis media, unspecified, right ear; I10 Essential (primary) hypertension; E66.01 Morbid (severe) obesity due to excess calories; Z88.8 Allergy status to other drugs, medicaments and biological substances; Z91.013 Allergy to seafood; Z11.52 Encounter for screening for COVID-19; Z79.84 Long term (current) use of oral hypoglycemic drugs; Z87.891 Personal history of nicotine dependence; Z86.69 Personal history of other diseases of the nervous system and sense organs; Y92.239 Unspecified place in hospital as the place of occurrence of the external cause
CPT/HCPCS: 36415; 71045; 80048; 80053; 82607; 83036; 83735; 83880; 84100; 85025; 85610; 87070; 87205; 87633; 94640; 99285; A9270; J1815; J3370; J7512; J7626; J8540

== ENCOUNTER 2023-10-10 12:15 | Outpatient (CLI) | payer OTHER, MEDICAID ==
[2023-10-10 17:39] LABS: BASOPHILS # (AUTO) 0.1 10^3/uL (0.0-0.1); BASOPHILS % (AUTO) 0.7 %; EOSINOPHILS # (AUTO) 0.2 10^3/uL (0.0-0.7); EOSINOPHILS % (AUTO) 2.8 %; HCT - HEMATOCRIT 44.9 % (37.0-47.0); HGB - HEMOGLOBIN 13.1 g/dL (12.0-16.0); LYMPHOCYTES # (AUTO) 1.6 10^3/uL (1.5-3.5); LYMPHOCYTES % (AUTO) 24.4 %; MEAN CORPUSCULAR HEMOGLOBIN 24.1 pg (27.0-31.0); MEAN CORPUSCULAR HGB CONC 29.2 g/dL (32.0-36.0); MEAN CORPUSCULAR VOLUME 82.5 fL (81.0-99.0); MEAN PLATELET VOLUME 12.4 fL (7.9-10.8); MONOCYTES # (AUTO) 0.6 10^3/uL (0.0-1.0); MONOCYTES % (AUTO) 8.4 %; NEUTROPHILS # (AUTO) 4.2 10^3/uL (1.5-6.6); NEUTROPHILS % (AUTO) 63.3 %; PLT - PLATELET COUNT 210 10^3/uL (130-450); RED BLOOD COUNT 5.44 10^6/uL (4.20-5.40); RED CELL DISTRIBUTION WIDTH 15.3 % (12.0-15.0); WHITE BLOOD COUNT 6.7 x10^3/uL (4.8-10.8)
[2023-10-10 17:59] LABS: ALBUMIN 3.5 g/dL (3.2-5.5); ALBUMIN/GLOBULIN RATIO 1.5 (1.0-2.2); BILIRUBIN,TOTAL 0.3 mg/dL (0.2-1.0); CALCIUM 8.9 mg/dL (8.5-10.3); CREATININE 0.6 mg/dL (0.6-1.3); POTASSIUM 4.2 mmol/L (3.5-4.5); TOTAL PROTEIN 5.8 g/dL (6.4-8.9)
[2023-10-10 18:06] LABS: THYROID STIMULATING HORMONE 1.78 uIU/mL (0.34-5.60)
== END 2023-10-10 12:30 | disposition home or self-care (01) ==
LOC: LAB.N 12:15
PROVIDERS: ATTEND Family Medicine
DX: I10 Essential (primary) hypertension (principal); J45.909 Unspecified asthma, uncomplicated; E11.65 Type 2 diabetes mellitus with hyperglycemia
CPT/HCPCS: 36415; 80053; 84443; 85025

== ENCOUNTER 2023-10-11 12:40 | Outpatient (CLI) | payer OTHER, MEDICAID ==
--- NOTE | 2023-10-11 13:41 | XRAY Report ---
PROCEDURE: Chest 2V INDICATIONS: PRODUCTIVE COUGH AND WHEEZING TECHNIQUE: 2 views of the chest were acquired. COMPARISON: 10/01/2023. FINDINGS: Surgical changes and devices: None. Lungs and pleura: No pleural effusions or pneumothorax. Lungs are clear. Mediastinum: Mediastinal contours appear normal. Heart size is normal. Bones and chest wall: No suspicious bony lesions. Overlying soft tissues appear unremarkable. IMPRESSION: No acute cardiopulmonary process. Reviewed by: Miguel Bass MD on 10/11/2023 1:40 PM PST Approved by: Miguel Bass MD on 10/11/2023 1:40 PM PST Station ID: [id number]
== END 2023-10-11 12:41 | disposition home or self-care (01) ==
LOC: DI.N 12:40
PROVIDERS: ATTEND Family Medicine
DX: R05.8 Other specified cough (principal); R06.2 Wheezing

== ENCOUNTER 2024-04-17 16:46 | Outpatient (CLI) | payer OTHER, MEDICAID ==
--- NOTE | 2024-04-18 13:09 | MRI Report ---
PROCEDURE: Ankle RT WO INDICATIONS: R ACHILLES TENDINITIS TECHNIQUE: Noncontrast coronal and sagittal T1 spin echo and STIR; axial T1 spin echo and T2 fast spin echo with fat saturation through the right ankle. COMPARISON: Right ankle x-rays 07/12/2023 and 06/03/2023 FINDINGS: Image quality: Fair; suboptimal [id number] ratio due to body habitus and subsequent use of nonan kle coil. Bones: The bone marrow signal is normal. The anterior process of the calcaneus and lateral process of the talus are intact. No talar dome osteochondral defect is seen. Joints: There is no significant joint effusion. Sinus tarsi: There is partial loss of the fat signal of the sinus tarsi. Syndesmotic ligaments: The anterior and posterior inferior syndesmotic ligaments are normal. Lateral collateral ligament: There is thickening of the anterior talofibular and posterior talofibula r ligaments. The calcaneofibular ligament is normal. Deltoid ligament: There is low signal thickening of the deltoid ligament along with a small ossific f ragment at the tip of the medial malleolus (8/20). Otherwise, the visualized components of the deltoi d ligament, that being the posterior tibiotalar and tibiospring ligaments, are normal. Calcaneonavicular spring ligament: The superomedial component of the calcaneonavicular spring ligamen t is grossly intact. Tendons: The Achilles tendon is normal. The extensor, flexor and peroneal tendons are normal. The per aguirre tendons are appropriately situated within the retromalleolar groove, and the superficial perone al retinaculum is intact. Plantar aponeurosis: There is no abnormal thickening of, abnormal intrasubstance signal involving, or perifascial edema about the plantar aponeurosis. Plantar musculature: Mild plantar muscle atrophy is present. There are no findings of acute denervati on involving the plantar muscles of the foot. Nerves: The visualized nerves are within normal limits. Other: There is no retrocalcaneal or retro-Achilles bursitis. Extensive skin thickening and subcutane ous edema is present throughout the visualized lower calf, ankle, and foot. IMPRESSION: 1.No MR evidence of Achilles tendinosis. 2.Chronic sprains of the ATFL, PTFL, and deltoid ligaments. 3.Extensive skin thickening and subcutaneous edema, a nonspecific finding which can be seen in the se tting of cellulitis, lymphedema, or vascular congestion. Reviewed by: Earle Uribe MD on 04/18/2024 1:08 PM PDT Approved by: Earle Uribe MD on 04/18/2024 1:08 PM PDT Station ID: [id number]
== END 2024-04-17 16:47 | disposition home or self-care (01) ==
LOC: DI 16:46
PROVIDERS: ATTEND Physician Assistant Surgical
DX: S93.491A Sprain of other ligament of right ankle, initial encounter (principal); R60.0 Localized edema

== ENCOUNTER 2024-10-15 22:03 | Inpatient (IN) ==
--- NOTE | 2024-10-15 23:00 | ED Physician Documentation ---
PD HPI DYSPNEA Stated complaint Stated Complaint: COUGH Chief complaint Chief Complaint: Resp History obtained from History obtained from: Patient Additional information Additional information: 48-year-old woman with history of asthma, diabetes, high blood pressure, seizure disorder presents with cough, sore throat, rhinorrhea and nonbloody nonbilious nausea and vomiting since yesterday. Patient presented to the emergency department because she was short of breath. She was found to be 80% on room air on arrival. Denies leg swelling, hemoptysis Meds/Allgy Home Medications Ambulatory Orders Medication Instructions Recorded Confirmed losartan 100 1 tab PO DAILY 03/06/22 09/26/23 mg-hydrochlorothiazide 12.5 mg tablet metformin 500 mg tablet 1,000 mg PO BIDWM 03/06/22 10/01/23 epinephrine 0.3 mg/0.3 mL 0.3 mg (0.3 mL) IJ ONCE PRN 02/08/23 09/26/23 injection, auto-injector Allergy Symptoms #2 ea amlodipine 2.5 mg tablet (Norvasc) 5 mg PO DAILY 09/26/23 09/26/23 blood-glucose sensor (FreeStyle 09/26/23 09/26/23 Lior 3 Sensor device) albuterol sulfate 90 mcg/actuation 1 - 2 puff inhalation Q4HR PRN 10/03/23 aerosol inhaler (Ventolin HFA) Shortness Of Air/Wheezing #1 ea fluticasone propionate 230 1 puff IH BID Asthma #8 grams 10/03/23 mcg-salmeterol 21 mcg/actuation HFA inhaler (Advair HFA) Allergies Allergies Allergy/AdvReac Type Severity Reaction Status Date / Time phenobarbital Allergy Severe Anxiety Verified 10/15/24 22:36 phenytoin sodium extended * Allergy Intermediate Anxiety Verified 10/15/24 22:36 (From Dilantin) shrimp Allergy Rash Verified 10/15/24 22:36 fluoxetine HCl * (From AdvReac Severe depression Verified 10/15/24 22:36 Prozac) seafood Allergy Anaphylaxis Uncoded 10/15/24 22:36 PFSH Active Problems All Active Problems (Updated 10/16/24 @ 07:12 by Deanne Mosqueda MD) Flu (Acute) Shortness of breath (Acute) Fever (Acute) Right Achilles tendinitis (Acute) Atypical pneumonia (Acute) Otitis media (Acute) Morbid obesity with BMI of 50.0-59.9, adult (Acute) Seizure disorder (Acute) Hypoxemia (Acute) RSV bronchiolitis (Acute) Acute respiratory failure with hypoxia (Acute) RSV infection (Acute) Medical non-compliance (Acute) Type 2 diabetes mellitus (Acute) Pain due to dental caries (Acute) Cellulitis (Acute) Diabetes (Acute) Localized rash (Acute) Influenza (Acute) Asthma attack (Acute) Right shoulder pain (Acute) Contusion of left knee (Acute) Back pain (Acute) Upper respiratory tract infection (Acute) Recurrent seizures (Acute) Anxiety (Acute) Mood disorder (Acute) Morbid obesity (Chronic) Hypertension (Acute) Uncontrolled diabetes mellitus (Acute) Abscess of abdominal wall (Acute) Upper respiratory infection (Acute) Asthma exacerbation (Acute) Dyspnea (Acute) Dental abscess (Acute) Toothache (Acute) Dental abscess (Acute) Chest wall muscle strain (Acute) Dental caries (Acute) Asthma (Acute) Bronchitis (Acute) Abscess (Acute) Medical History Medical History (Updated 10/16/24 @ 07:12 by Deanne Mosqueda MD) Seizures Social History Social History Smoking Status: Never smoker If you are a former smoker, when did you quit? (Date/Year): 07/30/23 Number of Years Smoked: 32 How many cigarettes a day do you smoke? (20 cigarettes=1 Pk): 40 Do you dip or chew tobacco?: No Do you vape?: Yes Patient requests smoking cessation consult: No Initiate information on smoking cessation: No Living arrangement: At home Living Condition: With family Relationship: Level: Independent Do you feel safe in your home environment?: Yes Suffered physical, verbal, emotional, or financial abuse?: No History of Abuse: No Frequency: Occasional Are you sexually active?: No POLST Patient has POLST: No Exam Constitutional Large body habitus, uncomfortable appearing HENMT normocephalic and head/scalp atraumatic Eyes PERRL and EOMs intact bilaterally Neck/C-Spine visual inspection normal Chest inspection of chest normal Respiratory Coarse bilateral breath sounds, mild increased work of breathing Cardiovascular Tachycardic rate, regular rhythm Gastrointestinal abdomen normal to inspection, abdomen soft to palpation and nontender to palpation Results Vitals Vitals: Vital Signs - 24 hr 10/15/24 22:24 10/15/24 22:42 10/15/24 22:51 Temperature 38.4 C H Temperature Source Oral Pulse Rate 95 99 99 Respiratory Rate 22 30 H Blood Pressure 193/109 H 203/105 H O2 Saturation 83 L 97 96 O2 Source Room air Nasal cannula Nasal cannula If not protocol: Oxygen Flow, liters/minute 6 6 Pain Intensity 8 7 10/15/24 23:03 10/15/24 23:06 10/15/24 23:09 Temperature Temperature Source Pulse Rate 90 105 H Respiratory Rate 24 20 Blood Pressure 197/117 H O2 Saturation 97 O2 Source Nasal cannula Nasal cannula If not protocol: Oxygen Flow, liters/minute 6 6 Pain Intensity 7 10/15/24 23:21 10/15/24 23:30 10/16/24 00:00 Temperature Temperature Source Pulse Rate 89 104 H 107 H Respiratory Rate 20 16 26 H Blood Pressure 166/107 H 182/97 H 172/93 H O2 Saturation 98 97 94 O2 Source Nasal cannula Nasal cannula Nasal cannula If not protocol: Oxygen Flow, liters/minute 6 10 6 Pain Intensity 10/16/24 00:30 10/16/24 00:30 10/16/24 00:45 Temperature 37.6 C Temperature Source Pulse Rate 101 H 98 Respiratory Rate 27 H Blood Pressure 166/84 H 155/92 H O2 Saturation 91 L 91 L O2 Source Nasal cannula Nasal cannula If not protocol: Oxygen Flow, liters/minute 6 6 Pain Intensity 5 10/16/24 01:00 10/16/24 01:00 10/16/24 01:15 Temperature Temperature Source Pulse Rate 108 H 94 94 Respiratory Rate 26 H 24 Blood Pressure 167/97 H 167/97 H 167/97 H O2 Saturation 92 92 92 O2 Source Nasal cannula Nasal cannula Nasal cannula If not protocol: Oxygen Flow, liters/minute 10 6 6 Pain Intensity 10/16/24 02:00 10/16/24 03:00 10/16/24 04:00 Temperature 37.4 C Temperature Source Pulse Rate 96 81 82 Respiratory Rate 27 H 22 Blood Pressure 144/99 H 171/97 H O2 Saturation 95 92 92 O2 Source Nasal cannula Nasal cannula Nasal cannula If not protocol: Oxygen Flow, liters/minute 6 8 8 Pain Intensity 10/16/24 05:00 10/16/24 05:56 10/16/24 06:00 Temperature Temperature Source Pulse Rate 82 83 102 H Respiratory Rate 21 24 24 Blood Pressure 192/106 H 170/91 H O2 Saturation 91 L 92 O2 Source Nasal cannula Oxymask Nasal cannula If not protocol: Oxygen Flow, liters/minute 8 10 8 Pain Intensity Oxygen O2 Source Nasal cannula EKG (time done) 2341: EKG releavant findings:: EKG personally interpreted by author of this note. Relevant findings are: Rate: Rate (enter#) (102) Rhythm: Sinus tachycardia and Other (multiple pvcs) Labs Labs: Laboratory Tests 10/15/24 10/15/24 10/15/24 22:44 22:50 22:59 WBC RBC Hgb Hct MCV MCH MCHC RDW Plt Count MPV Neut # (Auto) Lymph # (Auto) [place] # (Auto) Eos # (Auto) Baso # (Auto) Absolute Nucleated RBC Nucleated RBC % VBG pH 7.435 H VBG pCO2 45.2 VBG pO2 117.9 H VBG HCO3 30.6 H VBG Total CO2 32.0 H VBG O2 Saturation 99.0 H VBG Base Excess 6.2 H Sodium 135 Potassium 3.6 Chloride 99 L Carbon Dioxide 29 Anion Gap 7.0 BUN 11 Creatinine 0.8 Estimated GFR (MDRD) 76 L Glucose 252 H Lactic Acid Calcium 8.5 Total Bilirubin 0.6 AST 37 ALT 33 Alkaline Phosphatase 62 Total Protein 6.9 Albumin 3.9 Globulin 3.0 Albumin/Globulin Ratio 1.3 Urine Color Urine Clarity Urine pH Ur Specific [place] Urine Protein Urine Glucose (UA) Urine Ketones Urine Occult Blood Urine Nitrite Urine Bilirubin Urine Urobilinogen Ur Leukocyte Esterase Urine RBC Urine WBC Ur Squamous Epith Cells Urine Bacteria Urine Culture Comments Nasal Adenovirus (PCR) NOT DETECTED Nasal B. parapertussis DNA (PCR) NOT DETECTED Nasal Coronavir 229E PCR NOT DETECTED Nasal Coronavir HKU1 PCR NOT DETECTED Nasal Coronavir NL63 PCR NOT DETECTED Nasal Coronavir OC43 PCR NOT DETECTED Nasal Enterovir/Rhinovir PCR NOT DETECTED Nasal Influ A H1 2009 PCR DETECTED A Nasal Influenza B PCR NOT DETECTED Nasal Parainfluen 1 PCR NOT DETECTED Nasal Parainfluen 2 PCR NOT DETECTED Nasal Parainfluen 3 PCR NOT DETECTED Nasal Parainfluen 4 PCR NOT DETECTED Nasal RSV (PCR) NOT DETECTED Nasal B.pertussis DNA PCR NOT DETECTED Nasal C.pneumoniae (PCR) NOT DETECTED Shiv Human Metapneumo PCR NOT DETECTED Nasal M.pneumoniae (PCR) NOT DETECTED Nasal SARS-CoV-2 (PCR) NOT DETECTED 10/15/24 10/15/24 10/16/24 23:04 23:19 05:25 WBC 4.8 4.9 RBC 5.59 H 5.82 H Hgb 14.4 14.9 Hct 45.8 48.2 H MCV 81.9 82.8 MCH 25.8 L 25.6 L MCHC 31.4 L 30.9 L RDW 15.2 H 15.6 H Plt Count 142 138 MPV 10.7 10.3 Neut # (Auto) 3.4 4.3 Lymph # (Auto) 0.7 L 0.5 L [place] # (Auto) 0.7 0.2 Eos # (Auto) 0.0 0.0 Baso # (Auto) 0.0 0.0 Absolute Nucleated RBC 0.00 0.00 Nucleated RBC % 0.0 0.0 VBG pH VBG pCO2 VBG pO2 VBG HCO3 VBG Total CO2 VBG O2 Saturation VBG Base Excess Sodium 137 Potassium 3.8 Chloride 101 Carbon Dioxide 28 Anion Gap 8.0 BUN 12 Creatinine 0.8 Estimated GFR (MDRD) 76 L Glucose 344 H Lactic Acid 1.1 Calcium 8.1 L Total Bilirubin AST ALT Alkaline Phosphatase Total Protein Albumin Globulin Albumin/Globulin Ratio Urine Color Urine Clarity Urine pH Ur Specific [place] Urine Protein Urine Glucose (UA) Urine Ketones Urine Occult Blood Urine Nitrite Urine Bilirubin Urine Urobilinogen Ur Leukocyte Esterase Urine RBC Urine WBC Ur Squamous Epith Cells Urine Bacteria Urine Culture Comments Nasal Adenovirus (PCR) Nasal B. parapertussis DNA (PCR) Nasal Coronavir 229E PCR Nasal Coronavir HKU1 PCR Nasal Coronavir NL63 PCR Nasal Coronavir OC43 PCR Nasal Enterovir/Rhinovir PCR Nasal Influ A H1 2009 PCR Nasal Influenza B PCR Nasal Parainfluen 1 PCR Nasal Parainfluen 2 PCR Nasal Parainfluen 3 PCR Nasal Parainfluen 4 PCR Nasal RSV (PCR) Nasal B.pertussis DNA PCR Nasal C.pneumoniae (PCR) Shiv Human Metapneumo PCR Nasal M.pneumoniae (PCR) Nasal SARS-CoV-2 (PCR) 10/16/24 06:30 WBC RBC Hgb Hct MCV MCH MCHC RDW Plt Count MPV Neut # (Auto) Lymph # (Auto) [place] # (Auto) Eos # (Auto) Baso # (Auto) Absolute Nucleated RBC Nucleated RBC % VBG pH VBG pCO2 VBG pO2 VBG HCO3 VBG Total CO2 VBG O2 Saturation VBG Base Excess Sodium Potassium Chloride Carbon Dioxide Anion Gap BUN Creatinine Estimated GFR (MDRD) Glucose Lactic Acid Calcium Total Bilirubin AST ALT Alkaline Phosphatase Total Protein Albumin Globulin Albumin/Globulin Ratio Urine Color YELLOW Urine Clarity CLEAR Urine pH 6.0 Ur Specific [place] 1.025 Urine Protein 100 H Urine Glucose (UA) >=1000 H Urine Ketones 40 H Urine Occult Blood TRACE-INTA Urine Nitrite NEGATIVE Urine Bilirubin NEGATIVE Urine Urobilinogen 0.2 (NORMAL) Ur Leukocyte Esterase NEGATIVE Urine RBC 0-5 Urine WBC 0-3 Ur Squamous Epith Cells RARE Squamous Urine Bacteria Rare Urine Culture Comments NOT INDICATED Nasal Adenovirus (PCR) Nasal B. parapertussis DNA (PCR) Nasal Coronavir 229E PCR Nasal Coronavir HKU1 PCR Nasal Coronavir NL63 PCR Nasal Coronavir OC43 PCR Nasal Enterovir/Rhinovir PCR Nasal Influ A H1 2009 PCR Nasal Influenza B PCR Nasal Parainfluen 1 PCR Nasal Parainfluen 2 PCR Nasal Parainfluen 3 PCR Nasal Parainfluen 4 PCR Nasal RSV (PCR) Nasal B.pertussis DNA PCR Nasal C.pneumoniae (PCR) Shiv Human Metapneumo PCR Nasal M.pneumoniae (PCR) Nasal SARS-CoV-2 (PCR) PD Medical Decision Making ED course ED course: 48-year-old woman presents with shortness of breath, fever, URI symptoms since yesterday. Sepsis protocol was enacted and initial 2 L of IV fluids as well as Tylenol and DuoNeb x 3 were ordered. Plan to admit pending bed availability in the AM for hypoxia in setting of flu. repeat breathing treatments provided in AM. Discharge Plan Discharge Patient Disposition: [facility] DC/Xfer Clinical Impression: Fever, Shortness of breath, Flu Prescriptions: No Action metformin 500 MG tablet 1,000 mg PO BIDWM losartan-hydrochlorothiazide 1 EACH tablet 1 tab PO DAILY Rx Instructions: 100/25 epinephrine 0.3 MG/0.3 ML auto-injector 0.3 mg IJ ONCE PRN (Reason: Allergy Symptoms) Qty: 2 0RF amlodipine [Norvasc] 2.5 MG tablet 5 mg PO DAILY (DME) blood-glucose sensor [FreeStyle Lior 3 Sensor] 1 EACH device 1 ea miscellaneous DAILY Patient Comments: USE TO CONTINOUSLY CHECK BLOOD GLUCOSE EVERY DAY AND REPLACE SENSOR EVERY 14 DAYS fluticasone propion-salmeterol [Advair HFA] 8 GM HFA aerosol inhaler 1 puff IH BID Qty: 8 3RF Rx Instructions: 1 puff twice daily. Rinse mouth/gargle after use. albuterol sulfate [Ventolin HFA] 200 PUFFS/18 GM HFA aerosol inhaler 1 - 2 puff inhalation Q4HR PRN (Reason: Shortness Of Air/Wheezing) Qty: 1 3RF Rx Instructions: 1-2 puffs as needed for shortness of breath. Print Language: Finnish Stand Alone Forms: PCP List
[2024-10-15] MEDS: SODIUM CHLORIDE 0.9% 2,000 ML IV ONE (23:03)
[2024-10-15] MEDS: ACETAMINOPHEN 325 MG TABLET PO STA (23:03)
[2024-10-15] MEDS: IPRATROPIUM/ALBUTEROL 3 ML NEB INH STA (23:08)
[2024-10-15 23:15] LABS: VBG PCO2 45.2 mmHg (41-51); VBG PH 7.435 (7.31-7.41); VBG PO2 117.9 mmHg (25-47)
[2024-10-15 23:16] LABS: VBG BASE EXCESS 6.2 mmol/L (-2 - +2)
[2024-10-15 23:23] LABS: BASOPHILS % (AUTO) 0.2 %; HCT - HEMATOCRIT 45.8 % (37.0-47.0); HGB - HEMOGLOBIN 14.4 g/dL (12.0-16.0); LYMPHOCYTES # (AUTO) 0.7 10^3/uL (1.5-3.5); MEAN CORPUSCULAR HEMOGLOBIN 25.8 pg (27.0-31.0); MEAN CORPUSCULAR HGB CONC 31.4 g/dL (32.0-36.0); MEAN CORPUSCULAR VOLUME 81.9 fL (81.0-99.0); MEAN PLATELET VOLUME 10.7 fL (7.9-10.8); MONOCYTES # (AUTO) 0.7 10^3/uL (0.0-1.0); MONOCYTES % (AUTO) 14.4 %; NEUTROPHILS # (AUTO) 3.4 10^3/uL (1.5-6.6); PLT - PLATELET COUNT 142 10^3/uL (130-450); RED BLOOD COUNT 5.59 10^6/uL (4.20-5.40); RED CELL DISTRIBUTION WIDTH 15.2 % (12.0-15.0); WHITE BLOOD COUNT 4.8 x10^3/uL (4.8-10.8)
[2024-10-15 23:23] LABS: ALBUMIN 3.9 g/dL (3.2-5.5); ALBUMIN/GLOBULIN RATIO 1.3 (1.0-2.2); BILIRUBIN,TOTAL 0.6 mg/dL (0.2-1.0); CALCIUM 8.5 mg/dL (8.5-10.3); CREATININE 0.8 mg/dL (0.6-1.3); POTASSIUM 3.6 mmol/L (3.5-4.5); TOTAL PROTEIN 6.9 g/dL (6.4-8.9)
[2024-10-15] MEDS: BUDESONIDE 0.5 MG/2 ML NEB INH STA (23:33)
[2024-10-15] MEDS: methylPREDNISolone SUCCINATE 125 MG/2 ML VIAL IVP STA (23:37)
--- NOTE | 2024-10-15 23:53 | XRAY Report ---
PROCEDURE: XR Chest 1V INDICATIONS: Sepsis TECHNIQUE: One view of the chest was acquired. COMPARISON: 10/11/2023 FINDINGS AND IMPRESSION: On this single view study, mildly prominent interstitium may represent atypical infection. No consoli dation. No pleural effusion. Normal heart size, unchanged. Unremarkable osseous structures. Reviewed by: Isaías Longoria MD on 10/15/2024 11:51 PM PDT Approved by: Isaías Longoria MD on 10/15/2024 11:51 PM PDT Station ID: [id number]
[2024-10-16 00:22] LABS: B. PARAPERTUSSIS- RESP PCR PAN NOT DETECTED; B. PERTUSSIS- RESP PCR PANEL NOT DETECTED; C. PNEUMONIAE- RESP PCR PANEL NOT DETECTED; CORONAVIRUS 229E-RESP PCR NOT DETECTED; CORONAVIRUS HKU1-RESP PCR NOT DETECTED; CORONAVIRUS NL63-RESP PCR NOT DETECTED; CORONAVIRUS OC43-RESP PCR NOT DETECTED; HUMAN METAPNEUMOVIRUS NOT DETECTED; INFLUENZA A H1 2009- RESP PCR DETECTED; INFLUENZA B - RESP PCR PANEL NOT DETECTED; M. PNEUMONIAE- RESP PCR PANEL NOT DETECTED; PARAINFLUENZA VIRUS 1 NOT DETECTED; PARAINFLUENZA VIRUS 2 NOT DETECTED; PARAINFLUENZA VIRUS 4 NOT DETECTED; RHINOVIRUS/ENTEROVIRUS NOT DETECTED; RSV- RESP PCR PANEL NOT DETECTED; SARS-CoV-2 -RESP PCR PANEL NOT DETECTED
[2024-10-16] MEDS ORDERED: ONDANSETRON 4 MG/2 ML VIAL IVP PRN (01:03)
[2024-10-16] MEDS: OSELTAMIVIR 75 MG CAPSULE PO STA (01:52)
[2024-10-16 05:34] LABS: BASOPHILS % (AUTO) 0.2 %; HCT - HEMATOCRIT 48.2 % (37.0-47.0); HGB - HEMOGLOBIN 14.9 g/dL (12.0-16.0); LYMPHOCYTES # (AUTO) 0.5 10^3/uL (1.5-3.5); LYMPHOCYTES % (AUTO) 9.7 %; MEAN CORPUSCULAR HEMOGLOBIN 25.6 pg (27.0-31.0); MEAN CORPUSCULAR HGB CONC 30.9 g/dL (32.0-36.0); MEAN CORPUSCULAR VOLUME 82.8 fL (81.0-99.0); MEAN PLATELET VOLUME 10.3 fL (7.9-10.8); MONOCYTES # (AUTO) 0.2 10^3/uL (0.0-1.0); MONOCYTES % (AUTO) 3.2 %; NEUTROPHILS # (AUTO) 4.3 10^3/uL (1.5-6.6); NEUTROPHILS % (AUTO) 86.5 %; PLT - PLATELET COUNT 138 10^3/uL (130-450); RED BLOOD COUNT 5.82 10^6/uL (4.20-5.40); RED CELL DISTRIBUTION WIDTH 15.6 % (12.0-15.0); WHITE BLOOD COUNT 4.9 x10^3/uL (4.8-10.8)
[2024-10-16 05:45] LABS: CALCIUM 8.1 mg/dL (8.5-10.3); CREATININE 0.8 mg/dL (0.6-1.3); POTASSIUM 3.8 mmol/L (3.5-4.5)
[2024-10-16] MEDS: IPRATROPIUM/ALBUTEROL 3 ML NEB INH STA ×2 (05:56→08:34)
[2024-10-16 06:44] LABS: BILIRUBIN,URINE NEGATIVE (NEGATIVE); GLUCOSE, URINE (UA) >=1000 mg/dL (NEGATIVE); KETONES,URINE (UA) 40 mg/dL (NEGATIVE); LEUKOCYTE ESTERASE, URINE NEGATIVE (NEGATIVE); NITRITE,URINE NEGATIVE (NEGATIVE); OCCULT BLOOD,URINE TRACE-INTA (NEGATIVE); PROTEIN,URINE 100 mg/dL (NEGATIVE); UROBILINOGEN,URINE 0.2 (NORMAL) E.U./dL (NORMAL)
[2024-10-16 06:45] LABS: CLARITY,URINE CLEAR (CLEAR)
[2024-10-16] MEDS: NYSTATIN POWDER 15 GM TOP STA (06:51)
[2024-10-16 06:53] LABS: BACTERIA,URINE Rare /HPF (None Seen); RBC,URINE 0-5 /HPF (0-5); SQUAMOUS EPITHELIAL CELL,UR RARE Squamous (<= Few); WBC,URINE 0-3 /HPF (0-5)
[2024-10-16] MEDS: OSELTAMIVIR 75 MG CAPSULE PO SCH (07:32)
[2024-10-16] MEDS: PANTOPRAZOLE 40 MG TABLET PO SCH (07:32)
--- NOTE | 2024-10-16 11:57 | ED Physician Documentation ---
ED Addendum Addendum Addendum: The patient was signed out to me at change of shift, pending admission to the hospital after presenting to the emergency department with hypoxia and ultimately being diagnosed with influenza A. The patient is currently requiring 8 L of oxygen supplementally. I discussed the case with Dr. Kim, our hospitalist on-call and she stated that was available and the patient could be admitted. Final impression: 1. Influenza A 2. Hypoxia Disposition: Admit to medicine service in serious but stable condition. Discharge Plan Discharge Patient Disposition: 66 [facility] DC/Xfer Clinical Impression: Fever, Shortness of breath, Flu
--- NOTE | 2024-10-16 12:09 | HISTORY & PHYSICAL EXAMINATION ---
Chief Complaint Chief Complaint Chief Complaint: Shortness of breath History of Present Illness Admitted From Admitted From:: Home History Obtained From Records Reviewed: Yes History obtained from: Patient Exam Limitations: None History of Present Illness HPI Comment/Other: Patient is a 48-year-old female with a history of asthma, morbid obesity, hypertension, [id number] diabetes mellitus who presents with 2 to 3 days of feeling unwell. She states that she has had shortness of breath for a few weeks, and it worsened in the last 3 to 4 days. She is supposed to be using inhalers daily, but is unable to afford them as she has no insurance. She endorses wheezing, as well as a cough, which is productive of clear to white sputum. She denies any fevers or chills. She states that she also has diffuse bodyaches. She has some pain across her chest every time she coughs. She denies any chest pressure, palpitations. She denies any sick contacts. She had a few episodes of nausea and vomiting yesterday but this has since resolved. She is supposed to be on inhalers, antihypertensives, as well as antihyperglycemics, but she does not have insurance and has not been able to afford them for a while. Meds/Allgy Home Medications Ambulatory Orders Medication Instructions Recorded Confirmed blood-glucose sensor (FreeStyle 09/26/23 09/26/23 Lior 3 Sensor device) naproxen sodium 220 mg tablet 440 mg PO DAILY PRN PAIN OR 10/16/24 10/16/24 (Aleve) HEADACHE Allergies Allergies Allergy/AdvReac Type Severity Reaction Status Date / Time phenobarbital Allergy Severe Anxiety Verified 10/15/24 22:36 phenytoin sodium extended * Allergy Intermediate Anxiety Verified 10/15/24 22:36 (From Dilantin) shrimp Allergy Rash Verified 10/15/24 22:36 fluoxetine HCl * (From AdvReac Severe depression Verified 10/15/24 22:36 Prozac) seafood Allergy Anaphylaxis Uncoded 10/15/24 22:36 [facility] Active Problems All Active Problems (Updated 10/16/24 @ 14:56 by Carlin Rush MD) Sepsis (Acute) Flu (Acute) Shortness of breath (Acute) Fever (Acute) Right Achilles tendinitis (Acute) Atypical pneumonia (Acute) Otitis media (Acute) Morbid obesity with BMI of 50.0-59.9, adult (Acute) Seizure disorder (Acute) Hypoxemia (Acute) RSV bronchiolitis (Acute) Acute respiratory failure with hypoxia (Acute) RSV infection (Acute) Medical non-compliance (Acute) Type 2 diabetes mellitus (Acute) Pain due to dental caries (Acute) Cellulitis (Acute) Diabetes (Acute) Localized rash (Acute) Influenza (Acute) Asthma attack (Acute) Right shoulder pain (Acute) Contusion of left knee (Acute) Back pain (Acute) Upper respiratory tract infection (Acute) Recurrent seizures (Acute) Anxiety (Acute) Mood disorder (Acute) Morbid obesity (Chronic) Hypertension (Acute) Uncontrolled diabetes mellitus (Acute) Abscess of abdominal wall (Acute) Upper respiratory infection (Acute) Asthma exacerbation (Acute) Dyspnea (Acute) Dental abscess (Acute) Toothache (Acute) Dental abscess (Acute) Chest wall muscle strain (Acute) Dental caries (Acute) Asthma (Acute) Bronchitis (Acute) Abscess (Acute) Medical History Medical History (Updated 10/16/24 @ 14:56 by Carlin Rush MD) Seizures Social History Social History Smoking Status: Former smoker If you are a former smoker, when did you quit? (Date/Year): 07/30/23 Number of Years Smoked: 32 How many cigarettes a day do you smoke? (20 cigarettes=1 Pk): 40 Do you dip or chew tobacco?: No Do you vape?: Yes Patient requests smoking cessation consult: No Initiate information on smoking cessation: No Smoking Status Details: Quit smoking 6 months ago Living arrangement: At home Living Condition: With family Relationship: Level: Assisted Home Mobility Equipment: Walker and Wheelchair Do you feel safe in your home environment?: Yes Suffered physical, verbal, emotional, or financial abuse?: No History of Abuse: No Frequency: Occasional Substance Use: cannabis (any form) Are you sexually active?: No POLST Patient has POLST: No POLST Status: Full Code Review of Systems Constitutional Reports: Fatigue, Chills, Malaise, Weakness and Poor appetite; Denies: Fever Eyes Denies: Pain, Irritation or Blurry vision Ears, nose, mouth, and throat Denies: Ear pain, Ear discharge, Hearing loss or Throat swelling Cardiovascular Reports: edema, swelling of feet/ankles and shortness of breath with exertion; Denies: Irregular heart rate, chest pain or palpitations Respiratory Reports: Shortness of breath, Cough, Sputum production, Change in phlegm color and Wheezing Gastrointestinal Reports: Nausea, Vomiting and Poor appetite; Denies: Abdominal pain or Abdominal distention Genitourinary Denies: Painful urination, Urinary frequency, Urinary urgency, Nocturia, Urinary incontinence or Blood in urine Musculoskeletal Reports: Back pain and Extremity pain Integumentary/Breast Denies: Rash, Itching, Dryness, Redness, Skin pain or Skin tenderness Neurological Reports: Headache and General weakness; Denies: Focal weakness or Weakness in extremities Psychiatric Denies: Depression, Anxiety, Mood swings or Panic attacks Endocrine Reports: Fatigue; Denies: Excessive urination, Excessive thirst or Polyphagia Hematologic/Lymphatic Denies: Anemia, Easy bruising, Petechiae or Easy bleeding Allergic/Immunologic Reports: Wheezing; Denies: Hives, Throat swelling, Tongue swelling or Facial swelling Exam Constitutional normal general appearance, no apparent distress, abnormal body habitus (obese) and (overweight) and alert HENMT normocephalic, head/scalp atraumatic, hearing grossly normal bilaterally and external ears normal Eyes PERRL, EOMs intact bilaterally and conjunctivae normal Neck/C-Spine visual inspection normal, trachea midline and cervical spine nontender Lymph no lymphadenopathy noted Chest inspection of chest normal Respiratory breath sounds equal bilaterally, normal respiratory effort and wheezing noted (expiratory wheezes) (mild, diffuse) diminished air entry bilaterally Cardiovascular normal heart rate noted, regular rhythm noted, no gallop, no rub, no murmur and no JVD Gastrointestinal abdomen normal to inspection, abdomen soft to palpation, no hepatosplenomegaly and no masses Genitourinary no CVA tenderness Extremities normal to inspection, normal to palpation and no tenderness Neurology no movement abnormality noted and no focal motor deficit noted Psychiatry mental status grossly normal, oriented x3, thought process normal, cooperative and affect normal Skin skin color normal, no rash, no lesions, no ecchymosis noted and no wounds Conclusion/Plan Problem List (1) Sepsis: Plan: Patient presented with fever, tachypnea, as well as tachycardia. Respiratory viral panel positive for influenza A. Started Tamiflu. Requiring 8 L of oxygen at this time. Possible concurrent asthma exacerbation. Qualifiers: Sepsis acute organ dysfunction status: without acute organ dysfunction Sepsis type: sepsis due to unspecified organism Qualified Code(s): A41.9 - Sepsis, unspecified organism (2) Acute respiratory failure with hypoxia: Plan: Patient currently requiring 8 L. Will continue to wean as tolerated. She does have a history of asthma. Continue scheduled DuoNebs RT 4 times daily (3) Morbid obesity with BMI of 50.0-59.9, adult: Plan: Possible component of obesity hypoventilation system. (4) Hypertension: Plan: Continue home medications, losartan, hydrochlorothiazide, amlodipine. Qualifiers: Hypertension type: essential hypertension Qualified Code(s): I10 - Essential (primary) hypertension (5) Uncontrolled diabetes mellitus: Plan: Continue low-dose sliding scale insulin, glucose checks with meals and at night. Qualifiers: Diabetes mellitus type: type 2 Glycemic state: with hyperglycemia Q ualified Code(s): E11.65 - Type 2 diabetes mellitus with hyperglycemia Lab Results Lab results reviewed: Yes 10/16/24 05:25 10/16/24 05:25 Diagnostic Imaging Results Diagnostic Imaging Results: positive Final report reviewed EKG Results EKG Interpreted Independently: No Core Measures Anticipated LOS I expect patient to be DC'd or transferred within 96 hours.: Yes Issues Hospital Issues and Management Plan: None anticipated. DVT/VTE - Prophylaxis VTE/DVT Device ordered at admit?: Yes VTE/DVT Prophylaxis med ordered at admit?: Yes
[2024-10-16] MEDS ORDERED: ACETAMINOPHEN 325 MG TABLET PO PRN (12:13)
[2024-10-16] MEDS ORDERED: ONDANSETRON ODT 4 MG TABLET TL PRN (12:13)
[2024-10-16] MEDS ORDERED: SODIUM CHLORIDE FLUSH 0.9% 10 ML SYRINGE IVP PRN (12:13)
[2024-10-16] MEDS: INSULIN LISPRO 300 UNIT/3 ML PEN SUBQ SCH ×2 (13:07→20:55)
[2024-10-16] MEDS: methylPREDNISolone SUCCINATE 40 MG/ML VIAL IVP SCH (13:07)
[2024-10-16] MEDS: LOSARTAN 50 MG TABLET PO SCH (13:13)
[2024-10-16] MEDS: hydroCHLOROthiazide 25 MG TABLET PO SCH (13:13)
[2024-10-16] MEDS: amLODIPine 5 MG TABLET PO SCH (13:13)
--- NOTE | 2024-10-16 14:03 | PHARMACY PROGRESS NOTE ---
Best Possible Medication History Admit Date and Time: 10/16/24 [id number] Home Medications Medication Instructions Recorded Confirmed Type blood-glucose sensor (FreeStyle 09/26/23 09/26/23 History Lior 3 Sensor device) naproxen sodium 220 mg tablet 440 mg PO DAILY PRN PAIN OR 10/16/24 10/16/24 History (Aleve) HEADACHE Processed by: Pharmacy Medications reviewed in ED?: No Medication History completed: Yes Patient Interview: Pt interview ONLY source BPM Statement: As the person ultimately responsible for medication therapy, providers are able to order a medication from an existing home medication list in [facility] via the "Reconcile Routine" prior to Confirmation of that medication by patient support representative. Such practice is discouraged except when the physician, in their clinical judgment, deems that a medical need exists for a medication without regard to previous use.
[2024-10-16] MEDS: NYSTATIN CREAM 15 GM TUBE TOP SCH (14:44)
[2024-10-16] MEDS: IPRATROPIUM/ALBUTEROL 3 ML NEB INH SCH (15:44)
--- NOTE | 2024-10-16 16:10 | PHARMACY PROGRESS NOTE ---
Vancomycin Therapy Monitoring Patient Information Vancomycin Pt Height (inches): 69 Vancomycin Patient Weight (kg): 163 Vanco Rx Serum Creatinine (mg/dL): 0.8 Vancomycin Therapy Goals Treatment Indication: SEPSIS Vancomycin Target Range: Vancomycin AUC Target Range 400-600 mcg*h/ml Assessment of Current Therapy Vancomycin Loading Dose (GM, if applicable): 2500 MG IV X1 Current Vancomycin Maintenance Regimen (if applicable): 1750 MG IV Q12H Estimated Cmax (Peak, mcg/ml): 30.3 Estimated Cmin (Trough, mcg/ml): 13 Estimated AUC (mcg*hr/ml): 495
[2024-10-16] MEDS: VANCOMYCIN INJ 2 GM, VANCOMYCIN INJ 500 MG in SODIUM CHLORIDE 0.9% 500 ML IV ONE (16:51)
[2024-10-16] MEDS: SODIUM CHLORIDE FLUSH 0.9% 10 ML SYRINGE IVP SCH (16:52)
[2024-10-16] MEDS: NYSTATIN POWDER 15 GM TOP SCH (20:50)
[2024-10-16] MEDS: FAMOTIDINE 20 MG/2 ML VIAL IVP SCH (20:57)
[2024-10-17] MEDS: INSULIN LISPRO 300 UNIT/3 ML PEN SUBQ SCH ×3 (01:01→17:04)
[2024-10-17] MEDS ORDERED: VANCOMYCIN INJ 1.75 GM in SODIUM CHLORIDE 0.9% 500 ML IV SCH (05:00)
[2024-10-17 05:38] LABS: HCT - HEMATOCRIT 47.2 % (37.0-47.0); HGB - HEMOGLOBIN 14.5 g/dL (12.0-16.0); MEAN CORPUSCULAR HEMOGLOBIN 25.6 pg (27.0-31.0); MEAN CORPUSCULAR HGB CONC 30.7 g/dL (32.0-36.0); MEAN CORPUSCULAR VOLUME 83.2 fL (81.0-99.0); RED BLOOD COUNT 5.67 10^6/uL (4.20-5.40); RED CELL DISTRIBUTION WIDTH 15.1 % (12.0-15.0); WHITE BLOOD COUNT 7.5 x10^3/uL (4.8-10.8)
[2024-10-17 05:51] LABS: CALCIUM 8.6 mg/dL (8.5-10.3); CREATININE 0.8 mg/dL (0.6-1.3); POTASSIUM 4.3 mmol/L (3.5-4.5)
[2024-10-17] MEDS ORDERED: WATER FOR INJECTION,STERILE 10 ML MC ONE (06:49)
[2024-10-17] MEDS ORDERED: INSULIN GLARGINE-YFGN 300 UNIT/3 ML PEN SUBQ SCH ×2 (08:00→21:00)
[2024-10-17] MEDS: ACETAMINOPHEN 500 MG TABLET PO PRN (08:24)
[2024-10-17] MEDS: ENOXAPARIN 40 MG/0.4 ML SYRINGE SUBQ SCH (08:24)
[2024-10-17 09:23] LABS: ESTIMATED AVERAGE GLUCOSE 229 mg/dL (70-100); HEMOGLOBIN A1c% 9.6 % (4.27-6.07)
[2024-10-17] MEDS: MULTIVITAMIN W/MINERALS TABLET PO SCH (10:19)
--- NOTE | 2024-10-17 11:39 | PROVIDER PROGRESS NOTE ---
Subjective Subjective Subjective: Patient is feeling better today. She has less shortness of breath. She is improved wheezing. She denies any fevers or chills. She is frustrated that she is unable to get up without assistance or without the bed alarm getting off. Current Medications Current Medications Current Medications: Current Medications Generic Name Dose Route Start Last Admin Trade Name Freq PRN Reason Stop Dose Admin Acetaminophen 1,000 mg 10/16/24 01:03 10/17/24 08:24 Acetaminophen 500 Mg Tablet PO 1,000 mg Q6H PRN Administration Mild Pain Or Fever>38c(100.4f) Acetaminophen 650 mg 10/16/24 12:13 Acetaminophen 325 Mg Tablet PO Q4HR PRN Pain 1 to 4, or Fever Albuterol/Ipratropium 3 ml 10/16/24 15:00 10/17/24 08:01 Ipratropium/Albuterol 3 Ml Neb INH 3 ml RTQID LIEN Administration Amlodipine Besylate 5 mg 10/16/24 13:00 10/17/24 08:24 Amlodipine 5 Mg Tablet PO 5 mg DAILY LIEN Administration Enoxaparin Sodium 40 mg 10/17/24 09:00 10/17/24 08:24 Enoxaparin 40 Mg/0.4 Ml Syringe SUBQ 40 mg DAILY LIEN Administration Famotidine 20 mg 10/16/24 21:00 10/17/24 10:19 Famotidine 20 Mg/2 Ml Vial IVP 20 mg BID LIEN Administration Hydrochlorothiazide 25 mg 10/16/24 13:00 10/17/24 08:24 Hydrochlorothiazide 25 Mg Tablet PO 25 mg DAILY LIEN Administration Insulin Human Lispro 10 unit 10/16/24 23:45 10/17/24 01:01 Insulin Lispro 300 Unit/3 Ml Pen SUBQ 10/17/24 23:44 10 unit ONCE LIEN Administration Insulin Human Lispro 2 - 10 unit 10/17/24 12:00 Insulin Lispro 300 Unit/3 Ml Pen SUBQ 0800,1200,1700,2100 LIEN Protocol Losartan Potassium 100 mg 10/16/24 13:00 10/17/24 08:24 Losartan 50 Mg Tablet PO 100 mg DAILY LIEN Administration Methylprednisolone 40 mg 10/16/24 12:00 10/17/24 10:19 Methylprednisolone Succinate 40 Mg/Ml Vial IVP 40 mg Q6HR LIEN Administration Multivitamins/Minerals 1 tab 10/17/24 10:00 10/17/24 10:19 Multivitamin W/Minerals Tablet PO 1 tab DAILYWM LIEN Administration Nystatin 1 applic 10/16/24 21:00 10/17/24 08:27 Nystatin Powder 15 Gm TOP 1 applic BID LIEN Administration Ondansetron HCl 4 mg 10/16/24 01:03 Ondansetron 4 Mg/2 Ml Vial IVP Q6HR PRN Nausea / Vomiting Ondansetron HCl 4 mg 10/16/24 12:13 Ondansetron Odt 4 Mg Tablet TL Q6HR PRN Nausea / Vomiting Oseltamivir Phosphate 75 mg 10/17/24 21:00 Oseltamivir 75 Mg Capsule PO 10/21/24 09:01 BID LIEN Pantoprazole Sodium 40 mg 10/16/24 07:00 10/17/24 06:53 Pantoprazole 40 Mg Tablet PO 40 mg QDAC LIEN Administration Sodium Chloride 10 ml 10/16/24 12:13 Sodium Chloride Flush 0.9% 10 Ml Syringe IVP PRN PRN NEEDED PER PROVIDER ORDERS Sodium Chloride 10 ml 10/16/24 17:00 10/17/24 08:27 Sodium Chloride Flush 0.9% 10 Ml Syringe IVP 10 ml 0100,0900,1700 LIEN Administration Objective Vital Signs/Intake & Output Reviewed Vital Signs: Yes Vital Signs: Vital Signs x48h Temp Pulse Pulse Pulse Resp BP Pulse Ox 10/17/24 08:03 10/17/24 08:03 84 20 10/17/24 07:51 97.0 F L 68 20 153/97 H 93 10/17/24 05:34 97.3 F L 70 20 136/76 H 94 O2 Flow Rate 10/17/24 08:03 5 10/17/24 08:03 10/17/24 07:51 5 10/17/24 05:34 5 Intake & Output: Intake & Output 10/14/24 10/15/24 10/16/24 10/17/24 23:59 23:59 23:59 23:59 Intake Total 3593 / 3593 670 / 670 Output Total 4025 / 4025 1300 / 1300 Balance -432 / -432 -630 / -630 Weight (kg) 177 kg 163 kg Objective General Appearance: positive No acute distress, Alert and Anxious Eyes Bilateral: positive Normal inspection, PERRL and EOMI ENT: positive ENT inspection nml, Pharynx nml and No signs of dehydration Neck: positive Nml inspection, Thyroid nml, No JVD and Trachea midline Respiratory: positive Chest non-tender, No respiratory distress, Breath sounds nml and Wheezes (minimal expiratory wheezing ); negative Rales or Rhonchi Cardiovascular: positive Regular rate & rhythm, No murmur and No gallop Abdomen: positive Non-tender and No distention; negative Guarding, Rebound, Hepatomegaly, Splenomegaly or Mass Back: positive Nml inspection; negative CVA tenderness (R) or CVA tenderness (L) Skin: positive Color nml, No rash, Warm and Dry Extremities: positive Non-tender, Full ROM and Nml appearance Neurologic/Psychiatric: positive Oriented x3 and Mood/affect nml Lab Results 10/17/24 05:12 10/17/24 05:12 Other Labs: Lab Results x24hrs 10/17/24 10/17/24 10/17/24 Range/Units 11:31 07:43 05:12 WBC 7.5 (4.8-10.8) x10^3/uL RBC 5.67 H (4.20-5.40) 10^6/uL Hgb 14.5 (12.0-16.0) g/dL Hct 47.2 H (37.0-47.0) % MCV 83.2 (81.0-99.0) fL MCH 25.6 L (27.0-31.0) pg MCHC 30.7 L (32.0-36.0) g/dL RDW 15.1 H (12.0-15.0) % Plt Count 166 (130-450) 10^3/uL MPV 11.0 H (7.9-10.8) fL Sodium 135 (135-145) mmol/L Potassium 4.3 (3.5-4.5) mmol/L Chloride 98 L (101-111) mmol/L Carbon Dioxide 33 H (21-32) mmol/L Anion Gap 4.0 L (6-13) BUN 18 (6-20) mg/dL Creatinine 0.8 (0.6-1.3) mg/dL Estimated GFR (MDRD) 76 L (>89) Glucose 308 H (74-104) mg/dL POC Whole Bld Glucose 376 314 (70-100) mg/dL Estimat Average Glucose 229 H (70-100) mg/dL Hemoglobin A1c % 9.6 H (4.27-6.07) % Calcium 8.6 (8.5-10.3) mg/dL 10/17/24 10/16/24 10/16/24 Range/Units 00:55 22:46 20:38 WBC (4.8-10.8) x10^3/uL RBC (4.20-5.40) 10^6/uL Hgb (12.0-16.0) g/dL Hct (37.0-47.0) % MCV (81.0-99.0) fL MCH (27.0-31.0) pg MCHC (32.0-36.0) g/dL RDW (12.0-15.0) % Plt Count (130-450) 10^3/uL MPV (7.9-10.8) fL Sodium (135-145) mmol/L Potassium (3.5-4.5) mmol/L Chloride (101-111) mmol/L Carbon Dioxide (21-32) mmol/L Anion Gap (6-13) BUN (6-20) mg/dL Creatinine (0.6-1.3) mg/dL Estimated GFR (MDRD) (>89) Glucose (74-104) mg/dL POC Whole Bld Glucose 322 367 385 (70-100) mg/dL Estimat Average Glucose (70-100) mg/dL Hemoglobin A1c % (4.27-6.07) % Calcium (8.5-10.3) mg/dL 10/16/24 10/16/24 Range/Units 16:52 12:41 WBC (4.8-10.8) x10^3/uL RBC (4.20-5.40) 10^6/uL Hgb (12.0-16.0) g/dL Hct (37.0-47.0) % MCV (81.0-99.0) fL MCH (27.0-31.0) pg MCHC (32.0-36.0) g/dL RDW (12.0-15.0) % Plt Count (130-450) 10^3/uL MPV (7.9-10.8) fL Sodium (135-145) mmol/L Potassium (3.5-4.5) mmol/L Chloride (101-111) mmol/L Carbon Dioxide (21-32) mmol/L Anion Gap (6-13) BUN (6-20) mg/dL Creatinine (0.6-1.3) mg/dL Estimated GFR (MDRD) (>89) Glucose (74-104) mg/dL POC Whole Bld Glucose 304 358 (70-100) mg/dL Estimat Average Glucose (70-100) mg/dL Hemoglobin A1c % (4.27-6.07) % Calcium (8.5-10.3) mg/dL Diagnostic Imaging Diagnostic Imaging Results: positive Final report reviewed Assessment/Plan Problem List (1) Sepsis: Impression: Improving. Patient presented with fever, tachypnea, as well as tachycardia. Respiratory viral panel positive for influenza A. Started Tamiflu. Oxygen requirements have decreased from 8 L to 5 L. Possible concurrent asthma exacerbation. Qualifiers: Sepsis acute organ dysfunction status: without acute organ dysfunction Sepsis type: sepsis due to unspecified organism Qualified Code(s): A41.9 - Sepsis, unspecified organism (2) Acute respiratory failure with hypoxia: Impression: Patient currently requiring 5 L. Will continue to wean as tolerated. She does have a history of asthma. Continue scheduled DuoNebs RT 4 times daily. (3) Morbid obesity with BMI of 50.0-59.9, adult: Impression: Possible component of obesity hypoventilation system. (4) Hypertension: Impression: Continue home medications, losartan, hydrochlorothiazide, amlodipine. Qualifiers: Hypertension type: essential hypertension Qualified Code(s): I10 - Essential (primary) hypertension (5) Uncontrolled diabetes mellitus: Impression: Continue low-dose sliding scale insulin, glucose checks with meals and at night. Sugars are markedly elevated. HbA1c ordered, pending. 10 units of semaglutide started every evening. Qualifiers: Diabetes mellitus type: type 2 Glycemic state: with hyperglycemia Q ualified Code(s): E11.65 - Type 2 diabetes mellitus with hyperglycemia
[2024-10-17] MEDS: INSULIN LISPRO 300 UNIT/3 ML PEN SUBQ ONE (17:11)
[2024-10-17] MEDS: INSULIN GLARGINE-YFGN 300 UNIT/3 ML PEN SUBQ SCH (21:48)
[2024-10-17] MEDS: OSELTAMIVIR 75 MG CAPSULE PO SCH (21:54)
[2024-10-18 05:42] LABS: HCT - HEMATOCRIT 48.3 % (37.0-47.0); HGB - HEMOGLOBIN 14.8 g/dL (12.0-16.0); MEAN CORPUSCULAR HEMOGLOBIN 25.4 pg (27.0-31.0); MEAN CORPUSCULAR HGB CONC 30.6 g/dL (32.0-36.0); MEAN PLATELET VOLUME 11.2 fL (7.9-10.8); RED BLOOD COUNT 5.82 10^6/uL (4.20-5.40)
[2024-10-18 05:59] LABS: CALCIUM 8.5 mg/dL (8.5-10.3); CREATININE 0.6 mg/dL (0.6-1.3); MAGNESIUM 2.3 mg/dL (1.7-2.3); POTASSIUM 3.6 mmol/L (3.5-4.5)
[2024-10-18] MEDS: methylPREDNISolone SUCCINATE 40 MG/ML VIAL IVP SCH (08:20)
--- NOTE | 2024-10-18 09:29 | PROVIDER PROGRESS NOTE ---
Subjective Subjective Subjective: Patient states her shortness of breath is slowly improving. She has no fevers or chills. She is fatigued, and has not been getting good sleep here. She is eating and drinking well. Current Medications Current Medications Current Medications: Current Medications Generic Name Dose Route Start Last Admin Trade Name Freq PRN Reason Stop Dose Admin Acetaminophen 1,000 mg 10/16/24 01:03 10/17/24 08:24 Acetaminophen 500 Mg Tablet PO 1,000 mg Q6H PRN Administration Mild Pain Or Fever>38c(100.4f) Acetaminophen 650 mg 10/16/24 12:13 Acetaminophen 325 Mg Tablet PO Q4HR PRN Pain 1 to 4, or Fever Albuterol/Ipratropium 3 ml 10/16/24 15:00 10/18/24 07:08 Ipratropium/Albuterol 3 Ml Neb INH 3 ml RTQID LIEN Administration Amlodipine Besylate 5 mg 10/16/24 13:00 10/18/24 08:21 Amlodipine 5 Mg Tablet PO 5 mg DAILY LIEN Administration Enoxaparin Sodium 40 mg 10/17/24 09:00 10/18/24 08:20 Enoxaparin 40 Mg/0.4 Ml Syringe SUBQ 40 mg DAILY LIEN Administration Famotidine 20 mg 10/16/24 21:00 10/18/24 08:20 Famotidine 20 Mg/2 Ml Vial IVP 20 mg BID LIEN Administration Hydrochlorothiazide 25 mg 10/16/24 13:00 10/18/24 08:21 Hydrochlorothiazide 25 Mg Tablet PO 25 mg DAILY LIEN Administration Insulin Glargine-yfgn 20 unit 10/17/24 21:00 10/17/24 21:48 Insulin Glargine-Yfgn 300 Unit/3 Ml Pen SUBQ 20 unit QPM LIEN Administration Insulin Human Lispro 3 - 11 unit 10/17/24 17:00 10/18/24 08:19 Insulin Lispro 300 Unit/3 Ml Pen SUBQ 9 unit 0800,1200,1700,2100 LIEN Administration Protocol Losartan Potassium 100 mg 10/16/24 13:00 10/18/24 08:21 Losartan 50 Mg Tablet PO 100 mg DAILY LIEN Administration Methylprednisolone 40 mg 10/18/24 09:00 10/18/24 08:20 Methylprednisolone Succinate 40 Mg/Ml Vial IVP 40 mg BID LIEN Administration Multivitamins/Minerals 1 tab 10/17/24 10:00 10/18/24 08:21 Multivitamin W/Minerals Tablet PO 1 tab DAILYWM LIEN Administration Nystatin 1 applic 10/16/24 21:00 10/18/24 08:20 Nystatin Powder 15 Gm TOP 1 applic BID LIEN Administration Ondansetron HCl 4 mg 10/16/24 01:03 Ondansetron 4 Mg/2 Ml Vial IVP Q6HR PRN Nausea / Vomiting Ondansetron HCl 4 mg 10/16/24 12:13 Ondansetron Odt 4 Mg Tablet TL Q6HR PRN Nausea / Vomiting Oseltamivir Phosphate 75 mg 10/17/24 21:00 10/18/24 08:21 Oseltamivir 75 Mg Capsule PO 10/21/24 09:01 75 mg BID LIEN Administration Pantoprazole Sodium 40 mg 10/16/24 07:00 10/18/24 06:23 Pantoprazole 40 Mg Tablet PO 40 mg QDAC LIEN Administration Sodium Chloride 10 ml 10/16/24 12:13 Sodium Chloride Flush 0.9% 10 Ml Syringe IVP PRN PRN NEEDED PER PROVIDER ORDERS Sodium Chloride 10 ml 10/16/24 17:00 10/17/24 21:55 Sodium Chloride Flush 0.9% 10 Ml Syringe IVP 10 ml 0100,0900,1700 LIEN Administration Objective Vital Signs/Intake & Output Reviewed Vital Signs: Yes Vital Signs: Vital Signs x48h Temp Pulse Pulse Resp BP Pulse Ox O2 Flow Rate 10/18/24 07:49 97.3 F L 63 20 160/95 H 93 8 10/18/24 07:10 88 22 10 10/18/24 02:08 92 5 Intake & Output: Intake & Output 10/15/24 10/16/24 10/17/24 10/18/24 23:59 23:59 23:59 23:59 Intake Total 3593 / 3593 1890 / 1890 400 / 400 Output Total 4025 / 4025 1300 / 1300 Balance -432 / -432 590 / 590 400 / 400 Weight (kg) 177 kg 163 kg Objective General Appearance: positive No acute distress, Alert and Anxious Eyes Bilateral: positive Normal inspection, PERRL and EOMI ENT: positive ENT inspection nml, Pharynx nml and No signs of dehydration Neck: positive Nml inspection, Thyroid nml, No JVD and Trachea midline Respiratory: positive Chest non-tender, No respiratory distress, Breath sounds nml and Wheezes (minimal expiratory wheezing, improved); negative Rales or Rhonchi Cardiovascular: positive Regular rate & rhythm, No murmur and No gallop Abdomen: positive Non-tender and No distention; negative Guarding, Rebound, Hepatomegaly, Splenomegaly or Mass Back: positive Nml inspection; negative CVA tenderness (R) or CVA tenderness (L) Skin: positive Color nml, No rash, Warm and Dry Extremities: positive Non-tender, Full ROM and Nml appearance Neurologic/Psychiatric: positive Oriented x3 and Mood/affect nml Lab Results 10/18/24 05:27 10/18/24 05:27 Other Labs: Lab Results x24hrs 10/18/24 10/18/24 10/18/24 Range/Units 07:39 05:27 00:50 WBC 8.0 (4.8-10.8) x10^3/uL RBC 5.82 H (4.20-5.40) 10^6/uL Hgb 14.8 (12.0-16.0) g/dL Hct 48.3 H (37.0-47.0) % MCV 83.0 (81.0-99.0) fL MCH 25.4 L (27.0-31.0) pg MCHC 30.6 L (32.0-36.0) g/dL RDW 15.0 (12.0-15.0) % Plt Count 166 (130-450) 10^3/uL MPV 11.2 H (7.9-10.8) fL Sodium 134 L (135-145) mmol/L Potassium 3.6 (3.5-4.5) mmol/L Chloride 96 L (101-111) mmol/L Carbon Dioxide 32 (21-32) mmol/L Anion Gap 6.0 (6-13) BUN 19 (6-20) mg/dL Creatinine 0.6 (0.6-1.3) mg/dL Estimated GFR (MDRD) 106 (>89) Glucose 338 H (74-104) mg/dL POC Whole Bld Glucose 311 311 (70-100) mg/dL Estimat Average Glucose (70-100) mg/dL Hemoglobin A1c % (4.27-6.07) % Calcium 8.5 (8.5-10.3) mg/dL Magnesium 2.3 (1.7-2.3) mg/dL 10/17/24 10/17/24 10/17/24 Range/Units 20:41 16:39 11:31 WBC (4.8-10.8) x10^3/uL RBC (4.20-5.40) 10^6/uL Hgb (12.0-16.0) g/dL Hct (37.0-47.0) % MCV (81.0-99.0) fL MCH (27.0-31.0) pg MCHC (32.0-36.0) g/dL RDW (12.0-15.0) % Plt Count (130-450) 10^3/uL MPV (7.9-10.8) fL Sodium (135-145) mmol/L Potassium (3.5-4.5) mmol/L Chloride (101-111) mmol/L Carbon Dioxide (21-32) mmol/L Anion Gap (6-13) BUN (6-20) mg/dL Creatinine (0.6-1.3) mg/dL Estimated GFR (MDRD) (>89) Glucose (74-104) mg/dL POC Whole Bld Glucose 398 400 376 (70-100) mg/dL Estimat Average Glucose (70-100) mg/dL Hemoglobin A1c % (4.27-6.07) % Calcium (8.5-10.3) mg/dL Magnesium (1.7-2.3) mg/dL 10/17/24 Range/Units 05:12 WBC (4.8-10.8) x10^3/uL RBC (4.20-5.40) 10^6/uL Hgb (12.0-16.0) g/dL Hct (37.0-47.0) % MCV (81.0-99.0) fL MCH (27.0-31.0) pg MCHC (32.0-36.0) g/dL RDW (12.0-15.0) % Plt Count (130-450) 10^3/uL MPV (7.9-10.8) fL Sodium (135-145) mmol/L Potassium (3.5-4.5) mmol/L Chloride (101-111) mmol/L Carbon Dioxide (21-32) mmol/L Anion Gap (6-13) BUN (6-20) mg/dL Creatinine (0.6-1.3) mg/dL Estimated GFR (MDRD) (>89) Glucose (74-104) mg/dL POC Whole Bld Glucose (70-100) mg/dL Estimat Average Glucose 229 H (70-100) mg/dL Hemoglobin A1c % 9.6 H (4.27-6.07) % Calcium (8.5-10.3) mg/dL Magnesium (1.7-2.3) mg/dL Diagnostic Imaging Diagnostic Imaging Results: positive Final report reviewed Assessment/Plan Problem List (1) Sepsis: Impression: Improving. Patient presented with fever, tachypnea, as well as tachycardia. Respiratory viral panel positive for influenza A. Started Tamiflu. Oxygen requirements remain at 8 L with a slight bump up yesterday. Possible concurrent asthma exacerbation. IV Solumedrol q6hrs from yesterday switched to BID dosing today. Continue Tamiflu. Qualifiers: Sepsis acute organ dysfunction status: without acute organ dysfunction Sepsis type: sepsis due to unspecified organism Qualified Code(s): A41.9 - Sepsis, unspecified organism (2) Acute respiratory failure with hypoxia: Impression: Patient currently requiring 8L. Will continue to wean as tolerated. She does have a history of asthma. Continue scheduled DuoNebs RT 4 times daily. Patient with minimal wheezing and good air movement. Wells' Criteria with only score of 1.5. Low risk group. Will consider D-Dimer if there is no improvement in hypoxia. (3) Morbid obesity with BMI of 50.0-59.9, adult: Impression: Possible component of obesity hypoventilation system. (4) Hypertension: Impression: Continue home medications, losartan, hydrochlorothiazide, amlodipine. Qualifiers: Hypertension type: essential hypertension Qualified Code(s): I10 - Essential (primary) hypertension (5) Uncontrolled diabetes mellitus: Impression: Continue low-dose sliding scale insulin, glucose checks with meals and at night. Sugars are markedly elevated. HbA1c ordered, is 9.6%, has been trending up for the last few years. 10 units of semaglutide started every evening increased to 20 units. High dose sliding scale in place. Will schedule meal time insulin as well, 8 units with meals. Qualifiers: Diabetes mellitus type: type 2 Glycemic state: with hyperglycemia Q ualified Code(s): E11.65 - Type 2 diabetes mellitus with hyperglycemia
[2024-10-18] MEDS ORDERED: MELATONIN 3 MG TABLET PO PRN (10:26)
[2024-10-18] MEDS: INSULIN LISPRO 300 UNIT/3 ML PEN SUBQ SCH (13:09)
[2024-10-18] MEDS: INSULIN REGULAR, HUMAN 300 UNIT/3 ML PEN SUBQ ONE (22:07)
[2024-10-19 05:52] LABS: HCT - HEMATOCRIT 47.4 % (37.0-47.0); HGB - HEMOGLOBIN 14.7 g/dL (12.0-16.0); MEAN CORPUSCULAR HEMOGLOBIN 25.7 pg (27.0-31.0); MEAN CORPUSCULAR VOLUME 82.7 fL (81.0-99.0); MEAN PLATELET VOLUME 11.2 fL (7.9-10.8); RED BLOOD COUNT 5.73 10^6/uL (4.20-5.40); RED CELL DISTRIBUTION WIDTH 14.7 % (12.0-15.0); WHITE BLOOD COUNT 6.5 x10^3/uL (4.8-10.8)
[2024-10-19 06:14] LABS: CALCIUM 8.4 mg/dL (8.5-10.3); CREATININE 0.7 mg/dL (0.6-1.3); MAGNESIUM 2.3 mg/dL (1.7-2.3); POTASSIUM 3.9 mmol/L (3.5-4.5)
[2024-10-19] MEDS: methylPREDNISolone SUCCINATE 40 MG/ML VIAL IVP SCH (08:06)
--- NOTE | 2024-10-19 09:39 | PROVIDER PROGRESS NOTE ---
Subjective Subjective Subjective: Patient states her shortness of breath is slowly improving. She has no fevers or chills. She is fatigued, and has not been getting good sleep here. She is eating and drinking well. Current Medications Current Medications Current Medications: Current Medications Generic Name Dose Route Start Last Admin Trade Name Freq PRN Reason Stop Dose Admin Acetaminophen 1,000 mg 10/16/24 01:03 10/17/24 08:24 Acetaminophen 500 Mg Tablet PO 1,000 mg Q6H PRN Administration Mild Pain Or Fever>38c(100.4f) Acetaminophen 650 mg 10/16/24 12:13 Acetaminophen 325 Mg Tablet PO Q4HR PRN Pain 1 to 4, or Fever Albuterol/Ipratropium 3 ml 10/16/24 15:00 10/19/24 07:10 Ipratropium/Albuterol 3 Ml Neb INH Not Given RTQID LIEN Amlodipine Besylate 5 mg 10/16/24 13:00 10/19/24 08:05 Amlodipine 5 Mg Tablet PO 5 mg DAILY LIEN Administration Enoxaparin Sodium 40 mg 10/17/24 09:00 10/19/24 08:04 Enoxaparin 40 Mg/0.4 Ml Syringe SUBQ 40 mg DAILY LIEN Administration Famotidine 20 mg 10/19/24 21:00 Famotidine 20 Mg Tablet PO BID LIEN Hydrochlorothiazide 25 mg 10/16/24 13:00 10/19/24 08:05 Hydrochlorothiazide 25 Mg Tablet PO 25 mg DAILY LIEN Administration Insulin Glargine-yfgn 20 unit 10/17/24 21:00 10/18/24 21:09 Insulin Glargine-Yfgn 300 Unit/3 Ml Pen SUBQ 20 unit QPM LIEN Administration Insulin Human Lispro 3 - 11 unit 10/17/24 17:00 10/19/24 08:06 Insulin Lispro 300 Unit/3 Ml Pen SUBQ 9 unit 0800,1200,1700,2100 LIEN Administration Protocol Insulin Human Lispro 8 unit 10/18/24 13:00 10/19/24 08:05 Insulin Lispro 300 Unit/3 Ml Pen SUBQ 8 unit TIDWM LIEN Administration Losartan Potassium 100 mg 10/16/24 13:00 10/19/24 08:05 Losartan 50 Mg Tablet PO 100 mg DAILY LIEN Administration Melatonin 3 mg 10/18/24 10:26 Melatonin 3 Mg Tablet PO QPM PRN insomnia Methylprednisolone 40 mg 10/19/24 09:00 10/19/24 08:06 Methylprednisolone Succinate 40 Mg/Ml Vial IVP 40 mg DAILY LIEN Administration Multivitamins/Minerals 1 tab 10/17/24 10:00 10/19/24 08:05 Multivitamin W/Minerals Tablet PO 1 tab DAILYWM LIEN Administration Nystatin 1 applic 10/16/24 21:00 10/19/24 08:06 Nystatin Powder 15 Gm TOP 1 applic BID LIEN Administration Ondansetron HCl 4 mg 10/16/24 01:03 Ondansetron 4 Mg/2 Ml Vial IVP Q6HR PRN Nausea / Vomiting Ondansetron HCl 4 mg 10/16/24 12:13 Ondansetron Odt 4 Mg Tablet TL Q6HR PRN Nausea / Vomiting Oseltamivir Phosphate 75 mg 10/17/24 21:00 10/19/24 08:05 Oseltamivir 75 Mg Capsule PO 10/21/24 09:01 75 mg BID LIEN Administration Pantoprazole Sodium 40 mg 10/16/24 07:00 10/19/24 06:45 Pantoprazole 40 Mg Tablet PO 40 mg QDAC LIEN Administration Sodium Chloride 10 ml 10/16/24 12:13 Sodium Chloride Flush 0.9% 10 Ml Syringe IVP PRN PRN NEEDED PER PROVIDER ORDERS Sodium Chloride 10 ml 10/16/24 17:00 10/19/24 08:06 Sodium Chloride Flush 0.9% 10 Ml Syringe IVP 10 ml 0100,0900,1700 LIEN Administration Objective Vital Signs/Intake & Output Reviewed Vital Signs: Yes Vital Signs: Vital Signs x48h Temp Pulse Resp BP Pulse Ox O2 Flow Rate 10/19/24 07:30 97.5 F L 55 L 20 157/90 H 90 L 6 Intake & Output: Intake & Output 10/16/24 10/17/24 10/18/24 10/19/24 23:59 23:59 23:59 23:59 Intake Total 3593 / 3593 1890 / 1890 2150 / 2150 640 / 640 Output Total 4025 / 4025 1300 / 1300 800 / 800 Balance -432 / -432 590 / 590 1350 / 1350 640 / 640 Weight (kg) 163 kg Objective General Appearance: positive No acute distress, Alert and Anxious Eyes Bilateral: positive Normal inspection, PERRL and EOMI ENT: positive ENT inspection nml, Pharynx nml and No signs of dehydration Neck: positive Nml inspection, Thyroid nml, No JVD and Trachea midline Respiratory: positive Chest non-tender, No respiratory distress, Breath sounds nml and Wheezes (minimal expiratory wheezing, improved); negative Rales or Rhonchi Cardiovascular: positive Regular rate & rhythm, No murmur and No gallop Abdomen: positive Non-tender and No distention; negative Guarding, Rebound, Hepatomegaly, Splenomegaly or Mass Back: positive Nml inspection; negative CVA tenderness (R) or CVA tenderness (L) Skin: positive Color nml, No rash, Warm and Dry Extremities: positive Non-tender, Full ROM and Nml appearance Neurologic/Psychiatric: positive Oriented x3 and Mood/affect nml Lab Results 10/19/24 05:29 10/19/24 05:29 Other Labs: Lab Results x24hrs 10/19/24 10/19/24 10/18/24 Range/Units 07:29 05:29 21:54 WBC 6.5 (4.8-10.8) x10^3/uL RBC 5.73 H (4.20-5.40) 10^6/uL Hgb 14.7 (12.0-16.0) g/dL Hct 47.4 H (37.0-47.0) % MCV 82.7 (81.0-99.0) fL MCH 25.7 L (27.0-31.0) pg MCHC 31.0 L (32.0-36.0) g/dL RDW 14.7 (12.0-15.0) % Plt Count 148 (130-450) 10^3/uL MPV 11.2 H (7.9-10.8) fL Sodium 139 (135-145) mmol/L Potassium 3.9 (3.5-4.5) mmol/L Chloride 98 L (101-111) mmol/L Carbon Dioxide 37 H (21-32) mmol/L Anion Gap 4.0 L (6-13) BUN 17 (6-20) mg/dL Creatinine 0.7 (0.6-1.3) mg/dL Estimated GFR (MDRD) 89 (>89) Glucose 301 H (74-104) mg/dL POC Whole Bld Glucose 286 399 (70-100) mg/dL Calcium 8.4 L (8.5-10.3) mg/dL Magnesium 2.3 (1.7-2.3) mg/dL 10/18/24 10/18/24 10/18/24 Range/Units 20:46 16:35 11:35 WBC (4.8-10.8) x10^3/uL RBC (4.20-5.40) 10^6/uL Hgb (12.0-16.0) g/dL Hct (37.0-47.0) % MCV (81.0-99.0) fL MCH (27.0-31.0) pg MCHC (32.0-36.0) g/dL RDW (12.0-15.0) % Plt Count (130-450) 10^3/uL MPV (7.9-10.8) fL Sodium (135-145) mmol/L Potassium (3.5-4.5) mmol/L Chloride (101-111) mmol/L Carbon Dioxide (21-32) mmol/L Anion Gap (6-13) BUN (6-20) mg/dL Creatinine (0.6-1.3) mg/dL Estimated GFR (MDRD) (>89) Glucose (74-104) mg/dL POC Whole Bld Glucose 382 376 277 (70-100) mg/dL Calcium (8.5-10.3) mg/dL Magnesium (1.7-2.3) mg/dL Diagnostic Imaging Diagnostic Imaging Results: positive Final report reviewed Assessment/Plan Problem List (1) Sepsis: Impression: Improving. Patient presented with fever, tachypnea, as well as tachycardia. Respiratory viral panel positive for influenza A. Started Tamiflu. Oxygen requirements decreased to 4L today. Possible concurrent asthma exacerbation. IV Solumedrol q6hrs from yesterday switched to BID dosing yesterday, to daily today. Switch to prednisone tomorrow. Continue Tamiflu. Qualifiers: Sepsis acute organ dysfunction status: without acute organ dysfunction Sepsis type: sepsis due to unspecified organism Qualified Code(s): A41.9 - Sepsis, unspecified organism (2) Acute respiratory failure with hypoxia: Impression: Patient currently requiring 4L. Will continue to wean as tolerated. She does have a history of asthma. Continue scheduled DuoNebs RT 4 times daily. Patient with minimal wheezing and good air movement. Wells' Criteria with only score of 1.5. Low risk group. Will consider D-Dimer if there is no improvement in hypoxia. (3) Morbid obesity with BMI of 50.0-59.9, adult: Impression: Possible component of obesity hypoventilation system. (4) Hypertension: Impression: Continue home medications, losartan, hydrochlorothiazide, amlodipine. Qualifiers: Hypertension type: essential hypertension Qualified Code(s): I10 - Essential (primary) hypertension (5) Uncontrolled diabetes mellitus: Impression: Continue low-dose sliding scale insulin, glucose checks with meals and at night. Sugars are markedly elevated. HbA1c ordered, is 9.6%, has been trending up for the last few years. 10 units of semaglutide started every evening increased to 20 units. High dose sliding scale in place. Will schedule meal time insulin as well, 8 units with meals. Qualifiers: Diabetes mellitus type: type 2 Glycemic state: with hyperglycemia Q ualified Code(s): E11.65 - Type 2 diabetes mellitus with hyperglycemia
[2024-10-19] MEDS: FAMOTIDINE 20 MG TABLET PO SCH (21:25)
[2024-10-20 05:47] LABS: HCT - HEMATOCRIT 46.9 % (37.0-47.0); HGB - HEMOGLOBIN 14.4 g/dL (12.0-16.0); MEAN CORPUSCULAR HEMOGLOBIN 25.3 pg (27.0-31.0); MEAN CORPUSCULAR HGB CONC 30.7 g/dL (32.0-36.0); MEAN CORPUSCULAR VOLUME 82.4 fL (81.0-99.0); MEAN PLATELET VOLUME 11.1 fL (7.9-10.8); RED BLOOD COUNT 5.69 10^6/uL (4.20-5.40); RED CELL DISTRIBUTION WIDTH 14.4 % (12.0-15.0); WHITE BLOOD COUNT 7.7 x10^3/uL (4.8-10.8)
[2024-10-20 06:00] LABS: CALCIUM 8.3 mg/dL (8.5-10.3); CREATININE 0.7 mg/dL (0.6-1.3); MAGNESIUM 2.2 mg/dL (1.7-2.3); POTASSIUM 3.3 mmol/L (3.5-4.5)
[2024-10-20] MEDS: POTASSIUM CHLORIDE 20 MEQ TABLET PO ONE (08:18)
[2024-10-20] MEDS: predniSONE 20 MG TABLET PO SCH (09:30)
--- NOTE | 2024-10-20 09:30 | PROVIDER PROGRESS NOTE ---
Subjective Subjective Subjective: Patient is a 48-year-old female with history of morbid obesity, asthma not on home oxygen who presented due to shortness of breath. Initially required BiPAP, then 10 L, and is currently on 5 L via nasal cannula. Influenza A positive, on Tamiflu. Also had an acute asthma exacerbation, has been receiving IV steroids; transitioned to oral prednisone today. Plan is to wean off oxygen; if she is feeling improved, and is unable to wean the oxygen, can likely discharge on oxygen after oxygen desaturation study done. Patient states her shortness of breath is slowly improving. She has no fevers or chills. She is fatigued, and has not been getting good sleep here. She is eating and drinking well. She is worried about insurance, and being able to pay for medications. Social work is following. Current Medications Current Medications Current Medications: Current Medications Generic Name Dose Route Start Last Admin Trade Name Freq PRN Reason Stop Dose Admin Acetaminophen 1,000 mg 10/16/24 01:03 10/17/24 08:24 Acetaminophen 500 Mg Tablet PO 1,000 mg Q6H PRN Administration Mild Pain Or Fever>38c(100.4f) Acetaminophen 650 mg 10/16/24 12:13 Acetaminophen 325 Mg Tablet PO Q4HR PRN Pain 1 to 4, or Fever Albuterol/Ipratropium 3 ml 10/16/24 15:00 10/20/24 06:47 Ipratropium/Albuterol 3 Ml Neb INH 3 ml RTQID LIEN Administration Amlodipine Besylate 5 mg 10/16/24 13:00 10/20/24 08:19 Amlodipine 5 Mg Tablet PO 5 mg DAILY LIEN Administration Enoxaparin Sodium 40 mg 10/17/24 09:00 10/20/24 08:20 Enoxaparin 40 Mg/0.4 Ml Syringe SUBQ 40 mg DAILY LIEN Administration Famotidine 20 mg 10/19/24 21:00 10/20/24 08:19 Famotidine 20 Mg Tablet PO 20 mg BID LIEN Administration Hydrochlorothiazide 25 mg 10/16/24 13:00 10/20/24 08:20 Hydrochlorothiazide 25 Mg Tablet PO 25 mg DAILY LIEN Administration Insulin Glargine-yfgn 20 unit 10/17/24 21:00 10/19/24 21:30 Insulin Glargine-Yfgn 300 Unit/3 Ml Pen SUBQ 20 unit QPM LIEN Administration Insulin Human Lispro 3 - 11 unit 10/17/24 17:00 10/20/24 08:18 Insulin Lispro 300 Unit/3 Ml Pen SUBQ 5 unit 0800,1200,1700,2100 LIEN Administration Protocol Insulin Human Lispro 8 unit 10/18/24 13:00 10/20/24 08:19 Insulin Lispro 300 Unit/3 Ml Pen SUBQ 8 unit TIDWM LIEN Administration Losartan Potassium 100 mg 10/16/24 13:00 10/20/24 08:19 Losartan 50 Mg Tablet PO 100 mg DAILY LIEN Administration Melatonin 3 mg 10/18/24 10:26 Melatonin 3 Mg Tablet PO QPM PRN insomnia Multivitamins/Minerals 1 tab 10/17/24 10:00 10/20/24 08:19 Multivitamin W/Minerals Tablet PO 1 tab DAILYWM LIEN Administration Nystatin 1 applic 10/16/24 21:00 10/20/24 08:20 Nystatin Powder 15 Gm TOP 1 applic BID LIEN Administration Ondansetron HCl 4 mg 10/16/24 01:03 Ondansetron 4 Mg/2 Ml Vial IVP Q6HR PRN Nausea / Vomiting Ondansetron HCl 4 mg 10/16/24 12:13 Ondansetron Odt 4 Mg Tablet TL Q6HR PRN Nausea / Vomiting Oseltamivir Phosphate 75 mg 10/17/24 21:00 10/20/24 08:20 Oseltamivir 75 Mg Capsule PO 10/21/24 09:01 75 mg BID LIEN Administration Pantoprazole Sodium 40 mg 10/16/24 07:00 10/20/24 06:42 Pantoprazole 40 Mg Tablet PO 40 mg QDAC LIEN Administration Prednisone 40 mg 10/20/24 09:00 Prednisone 20 Mg Tablet PO DAILYWM [facility] Sodium Chloride 10 ml 10/16/24 12:13 Sodium Chloride Flush 0.9% 10 Ml Syringe IVP PRN PRN NEEDED PER PROVIDER ORDERS Sodium Chloride 10 ml 10/16/24 17:00 10/20/24 08:20 Sodium Chloride Flush 0.9% 10 Ml Syringe IVP 10 ml 0100,0900,1700 LIEN Administration Objective Vital Signs/Intake & Output Reviewed Vital Signs: Yes Vital Signs: Vital Signs x48h Temp Pulse Pulse Resp BP Pulse Ox O2 Flow Rate 10/20/24 08:32 97.7 F 60 20 138/70 H 90 L 5 10/20/24 06:52 5 10/20/24 06:52 67 18 Intake & Output: Intake & Output 10/17/24 10/18/24 10/19/24 10/20/24 23:59 23:59 23:59 23:59 Intake Total 1890 / 1890 2150 / 2150 1120 / 1120 240 / 240 Output Total 1300 / 1300 800 / 800 Balance 590 / 590 1350 / 1350 1120 / 1120 240 / 240 Objective General Appearance: positive No acute distress, Alert and Anxious Eyes Bilateral: positive Normal inspection, PERRL and EOMI ENT: positive ENT inspection nml, Pharynx nml and No signs of dehydration Neck: positive Nml inspection, Thyroid nml, No JVD and Trachea midline Respiratory: positive Chest non-tender, No respiratory distress, Breath sounds nml, Wheezes (minimal expiratory wheezing, improved) and Other (good air movement bilaterally); negative Rales or Rhonchi Cardiovascular: positive Regular rate & rhythm, No murmur and No gallop Abdomen: positive Non-tender and No distention; negative Guarding, Rebound, Hepatomegaly, Splenomegaly or Mass Back: positive Nml inspection; negative CVA tenderness (R) or CVA tenderness (L) Skin: positive Color nml, No rash, Warm and Dry Extremities: positive Non-tender, Full ROM and Nml appearance Neurologic/Psychiatric: positive Oriented x3 and Mood/affect nml Lab Results 10/20/24 05:28 10/20/24 05:28 Other Labs: Lab Results x24hrs 10/20/24 10/20/24 10/19/24 Range/Units 07:35 05:28 20:44 WBC 7.7 (4.8-10.8) x10^3/uL RBC 5.69 H (4.20-5.40) 10^6/uL Hgb 14.4 (12.0-16.0) g/dL Hct 46.9 (37.0-47.0) % MCV 82.4 (81.0-99.0) fL MCH 25.3 L (27.0-31.0) pg MCHC 30.7 L (32.0-36.0) g/dL RDW 14.4 (12.0-15.0) % Plt Count 148 (130-450) 10^3/uL MPV 11.1 H (7.9-10.8) fL Sodium 139 (135-145) mmol/L Potassium 3.3 L (3.5-4.5) mmol/L Chloride 98 L (101-111) mmol/L Carbon Dioxide 37 H (21-32) mmol/L Anion Gap 4.0 L (6-13) BUN 15 (6-20) mg/dL Creatinine 0.7 (0.6-1.3) mg/dL Estimated GFR (MDRD) 89 (>89) Glucose 250 H (74-104) mg/dL POC Whole Bld Glucose 224 267 (70-100) mg/dL Calcium 8.3 L (8.5-10.3) mg/dL Magnesium 2.2 (1.7-2.3) mg/dL 10/19/24 10/19/24 Range/Units 16:54 11:08 WBC (4.8-10.8) x10^3/uL RBC (4.20-5.40) 10^6/uL Hgb (12.0-16.0) g/dL Hct (37.0-47.0) % MCV (81.0-99.0) fL MCH (27.0-31.0) pg MCHC (32.0-36.0) g/dL RDW (12.0-15.0) % Plt Count (130-450) 10^3/uL MPV (7.9-10.8) fL Sodium (135-145) mmol/L Potassium (3.5-4.5) mmol/L Chloride (101-111) mmol/L Carbon Dioxide (21-32) mmol/L Anion Gap (6-13) BUN (6-20) mg/dL Creatinine (0.6-1.3) mg/dL Estimated GFR (MDRD) (>89) Glucose (74-104) mg/dL POC Whole Bld Glucose 297 258 (70-100) mg/dL Calcium (8.5-10.3) mg/dL Magnesium (1.7-2.3) mg/dL Diagnostic Imaging Diagnostic Imaging Results: positive Final report reviewed Assessment/Plan Problem List (1) Sepsis: Impression: Improving. Patient presented with fever, tachypnea, as well as tachycardia. Respiratory viral panel positive for influenza A. Started Tamiflu. Oxygen requirements decreased to 5L today. Possible concurrent asthma exacerbation. IV Solumedrol q6hrs from yesterday switched to BID dosing yesterday, to daily yesterday. Switched to prednisone now. Qualifiers: Sepsis acute organ dysfunction status: without acute organ dysfunction Sepsis type: sepsis due to unspecified organism Qualified Code(s): A41.9 - Sepsis, unspecified organism (2) Acute respiratory failure with hypoxia: Impression: Patient currently requiring 5L. Will continue to wean as tolerated. She does have a history of asthma. Continue scheduled DuoNebs RT 4 times daily. Patient with minimal wheezing and good air movement. Wells' Criteria with only score of 1.5. Low risk group. Will consider D-Dimer if there is no improvement in hypoxia. (3) Morbid obesity with BMI of 50.0-59.9, adult: Impression: Possible component of obesity hypoventilation system. (4) Hypertension: Impression: Continue home medications, losartan, hydrochlorothiazide, amlodipine. Qualifiers: Hypertension type: essential hypertension Qualified Code(s): I10 - Essential (primary) hypertension (5) Uncontrolled diabetes mellitus: Impression: Continue low-dose sliding scale insulin, glucose checks with meals and at night. Sugars are markedly elevated. HbA1c ordered, is 9.6%, has been trending up for the last few years. 10 units of semaglutide started every evening, increased to 25 units. High dose sliding scale in place. Will schedule meal time insulin as well, 10 units with meals. Patient on a carb-controlled diet. Qualifiers: Diabetes mellitus type: type 2 Glycemic state: with hyperglycemia Q ualified Code(s): E11.65 - Type 2 diabetes mellitus with hyperglycemia
[2024-10-20] MEDS: INSULIN LISPRO 300 UNIT/3 ML PEN SUBQ SCH (12:13)
[2024-10-20] MEDS: guaiFENesin/DEXTROMETHORPHAN 10 ML UDC PO SCH (12:44)
[2024-10-20] MEDS: INSULIN GLARGINE-YFGN 300 UNIT/3 ML PEN SUBQ SCH (21:12)
[2024-10-21 06:10] LABS: HCT - HEMATOCRIT 47.9 % (37.0-47.0); HGB - HEMOGLOBIN 14.7 g/dL (12.0-16.0); MEAN CORPUSCULAR HEMOGLOBIN 25.5 pg (27.0-31.0); MEAN CORPUSCULAR HGB CONC 30.7 g/dL (32.0-36.0); MEAN PLATELET VOLUME 10.8 fL (7.9-10.8); RED BLOOD COUNT 5.77 10^6/uL (4.20-5.40); RED CELL DISTRIBUTION WIDTH 14.5 % (12.0-15.0); WHITE BLOOD COUNT 8.3 x10^3/uL (4.8-10.8)
[2024-10-21 06:33] LABS: CALCIUM 8.4 mg/dL (8.5-10.3); CREATININE 0.7 mg/dL (0.6-1.3); MAGNESIUM 2.3 mg/dL (1.7-2.3); POTASSIUM 3.2 mmol/L (3.5-4.5)
[2024-10-21] MEDS: POTASSIUM CHLORIDE 20 MEQ/15 ML UDC PO SCH (08:38)
[2024-10-21] MEDS: POTASSIUM CHLORIDE 20 MEQ TABLET PO SCH (11:48)
--- NOTE | 2024-10-21 14:10 | PROVIDER PROGRESS NOTE ---
Subjective Prog Note Date Prog Note Date: 10/21/24 Prog Note Time: 14:07 Subjective Pt reports feeling: No change Subjective: Patient is a 48-year-old female with history of morbid obesity, asthma not on home oxygen who presented due to shortness of breath. Initially required BiPAP, then 10 L, and is currently on 5 L via nasal cannula. Influenza A positive, on Tamiflu. Also had an acute asthma exacerbation, has been receiving IV steroids; transitioned to oral prednisone today. Plan is to wean off oxygen; if she is feeling improved, and is unable to wean the oxygen, can likely discharge on oxygen after oxygen desaturation study done. Patient states her shortness of breath is slowly improving. She has no fevers or chills. She is fatigued, and has not been getting good sleep here. She is eating and drinking well. She is worried about insurance, and being able to pay for medications. Social work is following. Current Medications Current Medications Current Medications: Current Medications Generic Name Dose Route Start Last Admin Trade Name Freq PRN Reason Stop Dose Admin Acetaminophen 1,000 mg 10/16/24 01:03 10/17/24 08:24 Acetaminophen 500 Mg Tablet PO 1,000 mg Q6H PRN Administration Mild Pain Or Fever>38c(100.4f) Acetaminophen 650 mg 10/16/24 12:13 Acetaminophen 325 Mg Tablet PO Q4HR PRN Pain 1 to 4, or Fever Albuterol/Ipratropium 3 ml 10/21/24 08:12 Ipratropium/Albuterol 3 Ml Neb INH Q4HR PRN Shortness of Air/Wheezing Amlodipine Besylate 5 mg 10/16/24 13:00 10/21/24 08:39 Amlodipine 5 Mg Tablet PO 5 mg DAILY LIEN Administration Enoxaparin Sodium 40 mg 10/17/24 09:00 10/21/24 08:38 Enoxaparin 40 Mg/0.4 Ml Syringe SUBQ 40 mg DAILY LIEN Administration Famotidine 20 mg 10/19/24 21:00 10/21/24 08:39 Famotidine 20 Mg Tablet PO 20 mg BID LIEN Administration Guaifenesin 10 ml 10/20/24 12:00 10/21/24 11:48 Guaifenesin/Dextromethorphan 10 Ml Udc PO 10 ml Q6HR LIEN Administration Hydrochlorothiazide 25 mg 10/16/24 13:00 10/21/24 08:39 Hydrochlorothiazide 25 Mg Tablet PO 25 mg DAILY LIEN Administration Insulin Glargine-yfgn 25 unit 10/20/24 21:00 10/20/24 21:12 Insulin Glargine-Yfgn 300 Unit/3 Ml Pen SUBQ 25 unit QPM LIEN Administration Insulin Human Lispro 3 - 11 unit 10/17/24 17:00 10/21/24 11:33 Insulin Lispro 300 Unit/3 Ml Pen SUBQ Not Given 0800,1200,1700,2100 [facility] Protocol Insulin Human Lispro 10 unit 10/21/24 17:00 Insulin Lispro 300 Unit/3 Ml Pen SUBQ TIDWM [facility] Losartan Potassium 100 mg 10/16/24 13:00 10/21/24 08:39 Losartan 50 Mg Tablet PO 100 mg DAILY LIEN Administration Melatonin 3 mg 10/18/24 10:26 Melatonin 3 Mg Tablet PO QPM PRN insomnia Multivitamins/Minerals 1 tab 10/17/24 10:00 10/21/24 08:39 Multivitamin W/Minerals Tablet PO 1 tab DAILYWM LIEN Administration Nystatin 1 applic 10/16/24 21:00 10/21/24 08:39 Nystatin Powder 15 Gm TOP 1 applic BID LIEN Administration Ondansetron HCl 4 mg 10/16/24 01:03 Ondansetron 4 Mg/2 Ml Vial IVP Q6HR PRN Nausea / Vomiting Ondansetron HCl 4 mg 10/16/24 12:13 Ondansetron Odt 4 Mg Tablet TL Q6HR PRN Nausea / Vomiting Pantoprazole Sodium 40 mg 10/16/24 07:00 10/21/24 06:32 Pantoprazole 40 Mg Tablet PO 40 mg QDAC LIEN Administration Potassium Chloride 20 meq 10/21/24 11:00 10/21/24 11:48 Potassium Chloride 20 Meq Tablet PO 20 meq DAILYWM LIEN Administration Prednisone 40 mg 10/20/24 09:00 10/21/24 08:38 Prednisone 20 Mg Tablet PO 40 mg DAILYWM LIEN Administration Sodium Chloride 10 ml 10/16/24 12:13 Sodium Chloride Flush 0.9% 10 Ml Syringe IVP PRN PRN NEEDED PER PROVIDER ORDERS Sodium Chloride 10 ml 10/16/24 17:00 10/21/24 08:39 Sodium Chloride Flush 0.9% 10 Ml Syringe IVP 10 ml 0100,0900,1700 LIEN Administration Objective Vital Signs/Intake & Output Reviewed Vital Signs: Yes Vital Signs: Vital Signs x48h Temp Pulse Resp BP Pulse Ox O2 Flow Rate 10/21/24 12:15 91 L 5 10/21/24 07:41 36.3 C L 57 L 16 130/72 94 5 Intake & Output: Intake & Output 10/18/24 10/19/24 10/20/24 10/21/24 23:59 23:59 23:59 23:59 Intake Total 2150 / 2150 1120 / 1120 1720 / 1720 360 / 360 Output Total 800 / 800 Balance 1350 / 1350 1120 / 1120 1720 / 1720 360 / 360 Objective General Appearance: positive No acute distress, Alert, Anxious and Lethargic Eyes Bilateral: positive Normal inspection, PERRL and EOMI ENT: positive ENT inspection nml, Pharynx nml and No signs of dehydration Neck: positive Nml inspection, Thyroid nml, No JVD and Trachea midline Respiratory: positive Chest non-tender, No respiratory distress, Breath sounds nml, Wheezes (minimal expiratory wheezing, improved) and Other (good air movement bilaterally); negative Rales or Rhonchi Cardiovascular: positive Regular rate & rhythm, No murmur and No gallop Abdomen: positive Non-tender and No distention; negative Guarding, Rebound, Hepatomegaly, Splenomegaly or Mass Back: positive Nml inspection; negative CVA tenderness (R) or CVA tenderness (L) Skin: positive Color nml, No rash, Warm and Dry Extremities: positive Non-tender, Full ROM and Nml appearance Neurologic/Psychiatric: positive Oriented x3 and Mood/affect nml Lab Results 10/21/24 05:28 10/21/24 05:28 Other Labs: Lab Results x24hrs 10/21/24 10/21/24 10/21/24 Range/Units 11:20 07:29 05:28 WBC 8.3 (4.8-10.8) x10^3/uL RBC 5.77 H (4.20-5.40) 10^6/uL Hgb 14.7 (12.0-16.0) g/dL Hct 47.9 H (37.0-47.0) % MCV 83.0 (81.0-99.0) fL MCH 25.5 L (27.0-31.0) pg MCHC 30.7 L (32.0-36.0) g/dL RDW 14.5 (12.0-15.0) % Plt Count 151 (130-450) 10^3/uL MPV 10.8 (7.9-10.8) fL Sodium 140 (135-145) mmol/L Potassium 3.2 L (3.5-4.5) mmol/L Chloride 99 L (101-111) mmol/L Carbon Dioxide 36 H (21-32) mmol/L Anion Gap 5.0 L (6-13) BUN 14 (6-20) mg/dL Creatinine 0.7 (0.6-1.3) mg/dL Estimated GFR (MDRD) 89 (>89) Glucose 164 H (74-104) mg/dL POC Whole Bld Glucose 139 153 (70-100) mg/dL Calcium 8.4 L (8.5-10.3) mg/dL Magnesium 2.3 (1.7-2.3) mg/dL 10/20/24 10/20/24 Range/Units 20:41 16:46 WBC (4.8-10.8) x10^3/uL RBC (4.20-5.40) 10^6/uL Hgb (12.0-16.0) g/dL Hct (37.0-47.0) % MCV (81.0-99.0) fL MCH (27.0-31.0) pg MCHC (32.0-36.0) g/dL RDW (12.0-15.0) % Plt Count (130-450) 10^3/uL MPV (7.9-10.8) fL Sodium (135-145) mmol/L Potassium (3.5-4.5) mmol/L Chloride (101-111) mmol/L Carbon Dioxide (21-32) mmol/L Anion Gap (6-13) BUN (6-20) mg/dL Creatinine (0.6-1.3) mg/dL Estimated GFR (MDRD) (>89) Glucose (74-104) mg/dL POC Whole Bld Glucose 367 333 (70-100) mg/dL Calcium (8.5-10.3) mg/dL Magnesium (1.7-2.3) mg/dL Diagnostic Imaging Diagnostic Imaging Results: positive Final report reviewed Assessment/Plan Problem List (1) Sepsis: Impression: * Patient slowly improving but remains very lethargic, and still hypoxic requiring 4 to 5 L by nasal cannula * Patient not quite ready for discharge, would prefer the patient to be on 2 to 3 L of oxygen at the most prior to discharge * Continue current treatment including Tamiflu, complete today, as well as oxygen and supportive care * Anticipate possible oxygen desaturation testing tomorrow Qualifiers: Sepsis acute organ dysfunction status: without acute organ dysfunction Sepsis type: sepsis due to unspecified organism Qualified Code(s): A41.9 - Sepsis, unspecified organism (2) Acute respiratory failure with hypoxia: Impression: * As above * Cont Nebs * Wean O2 as able * Cont prednisone 40 mg QD (3) Morbid obesity with BMI of 50.0-59.9, adult: Impression: Possible component of obesity hypoventilation system. (4) Hypertension: Impression: Continue home medications, losartan, hydrochlorothiazide, amlodipine. Qualifiers: Hypertension type: essential hypertension Qualified Code(s): I10 - Essential (primary) hypertension (5) Uncontrolled diabetes mellitus: Impression: Continue low-dose sliding scale insulin, glucose checks with meals and at night. Sugars are markedly elevated. HbA1c ordered, is 9.6%, has been trending up for the last few years. 10 units of semaglutide started every evening, increased to 25 units. High dose sliding scale in place. Will schedule meal time insulin as well, 10 units with meals. Patient on a carb-controlled diet. Qualifiers: Diabetes mellitus type: type 2 Glycemic state: with hyperglycemia Q ualified Code(s): E11.65 - Type 2 diabetes mellitus with hyperglycemia
[2024-10-21 17:05] VITALS: TEMP 97.7
[2024-10-21] MEDS: INSULIN LISPRO 300 UNIT/3 ML PEN SUBQ SCH (17:29)
[2024-10-22] MEDS: IPRATROPIUM/ALBUTEROL 3 ML NEB INH PRN (01:14)
[2024-10-22 06:03] LABS: CALCIUM 8.7 mg/dL (8.5-10.3); CREATININE 0.8 mg/dL (0.6-1.3); POTASSIUM 3.2 mmol/L (3.5-4.5)
--- NOTE | 2024-10-22 15:27 | Discharge Summary ---
Discharge Summary Admit Date: 10/16/24 Discharge Date: 10/22/24 Discharging Provider: Theo Kidd MD Primary Care Provider: None Code Status: Attempt Resuscitation DIAGNOSES Admission Diagnoses: Sepsis Acute respiratory failure with hypoxia Morbid obesity with BMI of 50 HTN Uncontrolled type 2 diabetes Discharge Diagnoses with Status of Each Condition: Sepsisresolved Acute respiratory failure with hypoxiaresolved Influenzaresolved Morbid obesitystable HTNstable Type 2 diabetes mellitus Stable HPI History of Present Illness: Patient is a 48-year-old female with a history of asthma, morbid obesity, hypertension, [id number] diabetes mellitus who presents with 2 to 3 days of feeling unwell. She states that she has had shortness of breath for a few weeks, and it worsened in the last 3 to 4 days. She is supposed to be using inhalers daily, but is unable to afford them as she has no insurance. She endorses wheezing, as well as a cough, which is productive of clear to white sputum. She denies any fevers or chills. She states that she also has diffuse bodyaches. She has some pain across her chest every time she coughs. She denies any chest pressure, palpitations. She denies any sick contacts. She had a few episodes of nausea and vomiting yesterday but this has since resolved. She is supposed to be on inhalers, antihypertensives, as well as antihyperglycemics, but she does not have insurance and has not been able to afford them for a while. HOSPITAL COURSE Hospital Course: The patient was admitted for acute respiratory failure with hypoxia and influenza as well as asthma exacerbation. She was treated with initially IV Solu-Medrol followed by prednisone and completed a course of Tamiflu. She required oxygenAs high as 8 L and gradually weaned down until the day of discharge where she was able to maintain good oxygen saturation on room air both at rest and with ambulation at which point it was determined she was safe to discharge home. She was counseled on the importance of managing her diabetes and sent a prescription for metformin with information to establish a PCP. In addition, she was hypertensive throughout most of the hospital stay with blood pressures in the 150s to 170s systolic. She was discharged home with a new prescription for amlodipine, as well as losartan and hydrochlorothiazide. ALLERGIES Allergies Allergy/AdvReac Type Severity Reaction Status Date / Time phenobarbital Allergy Severe Anxiety Verified 10/15/24 22:36 phenytoin sodium extended * Allergy Intermediate Anxiety Verified 10/15/24 22:36 (From Dilantin) shrimp Allergy Rash Verified 10/15/24 22:36 fluoxetine HCl * (From AdvReac Severe depression Verified 10/15/24 22:36 Prozac) seafood Allergy Anaphylaxis Uncoded 10/15/24 22:36 MEDICATIONS Ambulatory Orders Medication Instructions Recorded Confirmed blood-glucose sensor (FreeStyle 09/26/23 09/26/23 Lior 3 Sensor device) albuterol sulfate 90 mcg/actuation 2 puff inhalation QID PRN 10/22/24 aerosol inhaler (Ventolin HFA) shortness of breath or wheezing #8.5 grams amlodipine 5 mg tablet 5 mg PO DAILY #30 tabs 10/22/24 hydrochlorothiazide 25 mg tablet 25 mg PO DAILY #30 tabs 10/22/24 losartan 50 mg tablet 100 mg (2 x 50 mg) PO DAILY #30 10/22/24 tabs melatonin 3 mg tablet 3 mg PO QPM PRN insomnia #30 tabs 10/22/24 PHYSICAL EXAM AT DISCHARGE General Appearance: positive No acute distress Respiratory: positive Chest non-tender, No respiratory distress and Breath sounds nml; negative Wheezes Skin: positive Color nml Extremities: positive No pedal edema Neurologic/Psychiatric: positive Oriented x3 and CN's nml (2-12) LABS 10/21/24 05:28 10/22/24 05:23 DIAGNOSTIC IMAGING Diagnostic Imaging Results: Final report reviewed SEPSIS Current Stage of Sepsis: Resolved FOLLOW UP Follow Up: Establish PCP for follow-up with soon as possible. TIME SPENT Time Spent in Discharge (Minutes): 36 Discharge Plan Discharge Patient Disposition: Home, Self Care Condition: Good Medically Cleared Date:: 10/22/24 Prescriptions: New losartan 50 mg Tablet 100 mg PO DAILY Qty: 30 0RF hydrochlorothiazide 25 mg Tablet 25 mg PO DAILY Qty: 30 0RF melatonin 3 mg Tablet 3 mg PO QPM PRN (Reason: insomnia) Qty: 30 0RF albuterol sulfate [Ventolin HFA] 90 mcg/actuation HFA aerosol inhaler 2 puff inhalation QID PRN (Reason: shortness of breath or wheezing) Qty: 8.5 0RF amlodipine 5 mg Tablet 5 mg PO DAILY Qty: 30 0RF Continued (DME) FreeStyle Lior 3 Sensor 1 EACH device 1 ea miscellaneous DAILY Patient Comments: USE TO CONTINOUSLY CHECK BLOOD GLUCOSE EVERY DAY AND REPLACE SENSOR EVERY 14 DAYS Discontinued naproxen sodium [Aleve] 220 mg tablet 440 mg PO DAILY PRN (Reason: PAIN OR HEADACHE) Activity Restrictions: No Restrictions Diet: Diabetic Health Concerns: Flu - You have recovered well from flu and no longer require Tamiflu or oxygen Asthma - I'm sending you a Rx for albuterol to take as an needed inhaler. Diabetes - I am sending you a new prescription for metformin. Please make sure to continue taking this every day. It is extremely important for your overall health because uncontrolled diabetes can lead to an extensive list of complications. Everything from blindness, to amputations, to kidney failure, can be traced back to uncontrolled blood sugar. For some time, the steroids that were used to help treat your asthma flareup will increase her blood sugar but this will gradually subside and will not have any long-term impact. The more important part is to maintain ongoing diet, lifestyle changes, and medical follow-up for your diabetes. You should have a blood test called a hemoglobin A1c checked every 90 days. When you get set up with a PCP, they will likely want to check this along with some other blood tests and will help guide you on how to best care for your diabetes. Print Language: Iranian Patient Instructions: Diabetes Carbs, Diabetes Activity Tips, Diabetes Manage A1C Test, Diabetes Coping Ch, Diabetes Carbs Fats Protein, Diabetes Get Support, Diabetes Type 2 Stand Alone Forms: PCP List
[2024-10-22 15:48] VITALS: BP 176/99; O2SAT 91
== END 2024-10-22 14:50 | disposition home or self-care (01) | DRG 871 ==
LOC: ED 22:03 → MS2 22:03
PROVIDERS: ADMIT Internal Medicine; ATTEND Internal Medicine